=== PATIENT | female | born 1955 | race Caucasian/White ===

== ENCOUNTER 2020-07-30 14:30 | Outpatient (REF) | payer OTHER, SELFPAY | END 2020-07-30 14:31 | disposition home or self-care (01) | LOC: HO.LAB 14:30 | PROVIDERS: PCP Internal Medicine; Visit Provider Internal Medicine | DX: Z20.828 Contact with and (suspected) exposure to other viral communicable diseases (principal) | CPT/HCPCS: 36415; C9803; U0003 ==

== ENCOUNTER → 2022-04-20 09:43 | Outpatient (BNVA) | payer MEDICARE, MEDICAID, SELFPAY | PROVIDERS: PCP Internal Medicine; Visit Provider Internal Medicine | DX: R07.2 Precordial pain (principal); I10 Essential (primary) hypertension; E11.9 Type 2 diabetes mellitus without complications; Z79.4 Long term (current) use of insulin | CPT/HCPCS: 93005 ==

== ENCOUNTER → 2022-05-17 08:29 | Outpatient (REF) | payer MEDICARE, MEDICAID, SELFPAY ==
--- NOTE | ~2022-05-17 | NM_ITS ---
Exercise Myocardial perfusion study Indication: Precordial chest pain Technique: The patient was brought in for an exercise perfusion study on 05/17/2022. Patient performed exercise as per Abundio protocol and was injected 25 mCi of sestamibi was given intravenously one target HR was achieved. Images were obtained using the SPECT gamma camera interlaced with the gating device. Images were obtained in supine position. Resting perfusion study was performed on 05/18/2022. Patient was administered 25 mCi of sestamibi intravenously at rest. Images were then obtained in supine position. Images obtained with and without CT attenuation. Total DLP 97 mGy-cm. Images were processed with the software and compared side to side in short axis, horizontal long axis and vertical long axis views. Findings: The stress perfusion study showed non attenuated as well as attenuated corrected images show normal uptake of radiotracer in all segments of LV myocardium.. The gated study shows normal LV systolic function with calculated LVEF of 69%. LV cavity is normal in size. The gated study shows normal systolic wall thickening and contraction of all segments. There is no transient ischemic dilation. Resting study shows normal uptake of radiotracer in all segments of LV myocardium. Gating at rest reveals normal systolic wall motion with ejection fraction at 65%. The findings are consistent with normal myocardial perfusion. NM/NM sherri perf SPECT rest & str Impression: 1. Normal myocardial perfusion 2. Gated LVEF is 69% 3. Transient ischemic dilatation not present Stress EKG is positive for ischemia
--- NOTE | 2022-05-17 08:33 | CA_ITS ---
Acquisition Time: 2022-05-17 09:14:22 Total Exercise Time: 00:05:00 Test Indications: Chest Pain Medications: ASA GLIPIZIDE INSULIN LISINOPRIL METOPROLOL Protocol: CARIN Max HR: 151 BPM 97% of Pred: 155 BPM Max BP: 200/050 mmHG Max Work Load: 5.6 METS Exercise stress test with exercise 5 min of Carin protocol (last minute rate down to 2 MPH), with report sob, and 9/10 Left chest pressure, without arrythmia, with hypertensive response to exercise with max BP 200/50, with EKG changes meeting criteria for ischemia: 1-2mm horizontal to upsloping ST depressions inferiorly and V4-V6 which correct quickly in recovery. In recovery her chest discomfort resolved by 2 minutes of rest. She continued to report some sob during most of recovery, which was improved by test end. Nuclear images pending. Test reviewed [facility] [address] Referred By: Yasir Nolen Overread By: CARROLL FAYE
--- NOTE | 2022-05-17 08:33 | CA_ITS ---
Transthoracic Echocardiogram Patient (Last, First, Middle): Lisa Swanson, Gender: Female Date of : 1955 Age: 67 Procedure Date: 05/17/2022 Procedure Type: Transthoracic Echocardiogram Location: OP Height: 154.94 cm Weight: 74.39 kg BSA: 1.74 m2 Heart Rate: 61 bpm BP: 152 / 74 mmHg Manager Talent Acquisition: ELIEL Referring MD: Yasir Nolen MD Web Producer: Dax Lane MD Symptoms: R07.2 - Precordial pain Study Quality: Adequate ECG Rhythm: Sinus Conclusions: - 1. Normal LV systolic function with LVEF of 60 65% with normal filling pattern 2. Normal cardiac valvular Doppler 3. Normal RV systolic pressure 4. No gross pericardial effusion Findings Left Ventricle Normal left ventricular size, thickness, and systolic function. The visually estimated ejection fraction is between 60-65%. Spectral Doppler is indicative of a normal filling pattern. Right Ventricle Normal right ventricular cavity size and systolic function. Atria The left atrium is normal in size. Interatrial shunt cannot be excluded. The right atrium is normal in size. Aortic Valve The aortic valve structure and function is likely normal. There is no aortic valve stenosis. There is no aortic valve regurgitation. Mitral Valve Likely normal mitral valve structure and function. There is trace mitral valve regurgitation. There is no mitral valve stenosis. Pulmonic Valve The pulmonic valve was not well visualized. Tricuspid Valve Likely normal tricuspid valve structure and function. There is trace tricuspid valve regurgitation. The right ventricular systolic pressure is normal. The right ventricular systolic pressure is 24 mmHg. Normal right atrial pressure. There is no evidence of pulmonary hypertension. Great Vessels All visible segments of the aorta are normal in size. The pulmonary artery was not well visualized. Venous The inferior vena cava is normal in size and collapses greater than 50% with inspiration. Pericardium/Pleural There is no evidence of pericardial effusion. Prior Study Comparison No significant change compared to prior study dated: 08/20/2015. Measurements 2D Linear Measurements IVSd: 0.99 0.6-0.9/0.6-1.0 cm LVIDd: 4.10 3.9-5.3/4.2-5.9 cm LVIDd Index: 2.36 2.4-3.2/2.2-3.1 cm/m2 LVIDs: 2.97 2.0-3.6 cm LVPWd: 0.89 0.7-1.1 cm LA Diam: 4.00 2.7-3.8/3.0-4.0 cm LAIDs Index: 2.30 1.5-2.3 cm/m2 LV Mass: 150.83 67-162/88-224 g LV Mass Index: 86.69 43-95/49-115 g/m2 LVOT Diam: 1.90 3.0+(-)1.3 cm 2D Systolic Function EF 4C: 61.00 >55% EF 2C: 67.60 >55% EF BiP: 65.20 >55% Mitral Valve MV Pk E: 0.85 MV PK A: 0.63 MV Decel Time: 193.00 E/A: 1.30 E'Lateral: 8.81 E'Medial: 5.77 E/E' Med: 14.70 E/E' Lat: 9.60 PHT: 57.00 MVA PHT: 3.86 Decel Screven: 4.39 Aortic Valve AoV Pk Froylan: 1.09 AoV Mn Froylan: 0.81 AoV VTI: 0.27 AoV Pk Grad: 5.00 Aov Mn Grad: 3.00 RICHARD Cont.VTI: 2.44 LVOT LVOT Pk Froylan: 1.00 LVOT Mn Froylan: 0.66 LVOT VTI: 0.23 LVOT Pk Grad: 4.00 LVOT Mn Grad: 2.00 LVOT Diam: 1.90 LVOT Area: 2.84 Diastolic Function MV Pk E: 0.85 MV Pk A: 0.63 E/A: 1.30 E'Medial: 5.77 E/E' Med: 14.70 E' Laterial: 8.81 E/E' Lat: 9.60 Right Ventricle TAPSE (mm): 18.20 TVS' Froylan: 8.90 Tricuspid Valve TR Pk Froylan: 2.28 TR Pk Grad: 21.00 RA Press: 3.00 RVSP: 24.00 Great Vessels Aorta Sinus of Valsalva: 2.50 2.0-3.5 cm Ao Asc: 3.00 2.1-3.4 cm Pulmonary Veins Pulm Vein S/D 1.10 Pulmonary Valve PV Pk Froylan: 0.81 Peak PV Grad: 3.00 Updated in Other Vendor System with Status of Final Dax Lane MD electronically signed on 05/18/2022 4:12:48 PM with status of Final
== END ==
LOC: HO.CARD 08:29
PROVIDERS: Visit Provider Internal Medicine
DX: R07.2 Precordial pain (principal)
CPT/HCPCS: 78452; 93017; 93306; A9500; J0280; J2785

== ENCOUNTER → 2022-06-08 12:54 | Outpatient (BNVA) | payer MEDICARE, MEDICAID, SELFPAY | PROVIDERS: PCP Internal Medicine; Referring Provider Internal Medicine; Visit Provider Nurse Practitioner Family | DX: R94.39 Abnormal result of other cardiovascular function study (principal); R07.2 Precordial pain; I10 Essential (primary) hypertension; E11.9 Type 2 diabetes mellitus without complications; Z79.4 Long term (current) use of insulin | CPT/HCPCS: 99212 ==

== ENCOUNTER 2023-08-04 11:28 | Emergency (ER) | payer MEDICARE, MEDICAID, SELFPAY ==
[2023-08-04 12:11] VITALS: BP 164/78; PULSE 83; RESP 16; TEMP 36.6; O2SAT 98; BMI 28.6
--- NOTE | 2023-08-04 12:11 | ED.DIZZY ---
HPI - Dizziness General Chief Complaint: General Medical Stated Complaint: dizzy, low bp, back pain Time Seen by Provider: 08/04/23 16:34 Source: patient and psychotherapist counselor Mode of arrival: ambulatory Limitations: language barrier History of Present Illness HPI Narrative: Patient is a 68 year old assigned female at with a history of DM and HTN presenting to the emergency department today with intermittent dizziness. Patient states that there was an issue a month ago with getting some of her diabetes medications and ever since, her sugar has been some what higher. Patient states that she has struggled to get her sugars back in check and is having intermittent dizziness. Patient admits to not taking her medications as prescribed consistently. Patient denies any current dizziness, lightheadedness, abdominal pain, nausea, vomiting, fever, chills, blurry vision, double vision, loss of vision, chest pain, difficulty breathing, shortness of breath, back pain, night sweats, pain with urination, increased urinary frequency, increased urinary urgency, blood in her urine or stool, syncope or a near syncopal episode, recent trauma or falls, bowel incontinence, bladder incontinence, bowel retention, bladder retention, or any other complaints at this time. Related Data Home Medications Medication Instructions Recorded Confirmed aspirin 81 mg capsule 81 mg PO DAILY 04/20/22 06/08/22 cholecalciferol (vitamin D3) 10 10 mcg PO DAILY 04/20/22 06/08/22 mcg (400 unit) capsule glipizide 5 mg tablet 5 mg PO DAILY 04/20/22 06/08/22 insulin glargine 100 unit/mL (3 38 unit subcut QPM 04/20/22 06/08/22 mL) subcutaneous pen (Lantus Solostar U-100 Insulin) lisinopril 40 mg tablet 40 mg PO DAILY 04/20/22 06/08/22 metoprolol succinate 50 mg 50 mg PO DAILY 04/20/22 06/08/22 tablet,extended release 24 hr Allergies Allergy/AdvReac Type Severity Reaction Status Date / Time metformin [METFORMIN] Allergy Mild DIARRHEA Verified 08/04/23 12:11 alprazolam Allergy Unknown diarrhea Verified 08/04/23 12:11 egg [EGG] Allergy Unknown UNKNOWN Verified 08/04/23 12:11 lactose [LACTOSE] Allergy Unknown Rash Verified 08/04/23 12:11 milk [MILK] AdvReac Unknown DIARRHEA Verified 08/04/23 12:11 Review of Systems Constitutional: Constitutional: Reports no additional constitutional complaints, Denies chills, Denies fever(s) and Denies night sweats Eyes: Eyes: Reports no additional eye complaints, Denies blurry vision, Denies change in vision, Denies diplopia, Denies eye discharge, Denies loss of vision and Denies eye pain ENT: Reports dizziness (intermittently, none present currently) Cardiovascular: Cardiovascular: Reports no additional cardiovascular complaints, Denies chest pain, Denies lightheadedness, Denies Loss of Consciousness and Denies dyspnea Respiratory: Respiratory: Reports no additional respiratory complaints and Denies dyspnea Gastrointestinal: Gastrointestinal: Reports no additional gastrointestinal complaints, Denies abdominal pain, Denies melena, Denies hematochezia, Denies change in bowel habits and Denies change in stool character Genitourinary: Genitourinary: Denies hematuria, Denies urinary frequency, Denies dysuria, Denies urinary incontinence, Denies urinary hesitancy and Denies urinary urgency Musculoskeletal: Musculoskeletal: Reports no additional musculoskeletal complaints, Denies numbness and Denies tingling Neurologic: Reports dizziness (intermittently, none present currently), Denies loss of vision, Denies numbness and Denies tingling Psychiatric: Psychiatric: Reports no additional psychiatric complaints Endocrine: Endocrine: Reports no additional endocrine complaints Hematologic/Lymphatic: Hematologic/Lymphatic: Reports no additional hematologic/lymphatic complaints Allergic/Immunologic: Allergic/Immunologic: Reports no additional allergic/immunologic complaints PMF Past Medical History Attestation statement: The following information was validated with the patient. Source: old records reviewed and nursing notes reviewed Onset Date is defined in the Problem List Problems that require an onset date and time if occurred within 24 hrs of arrival to the ED Aortic Dissection and Rupture; Neurologic impairment; Cardiopulmonary Arrest; Endotracheal Intubation; Insertion or Replacement of Mechanical Circulatory Assist Device Medical History Essential hypertension Diabetes mellitus treated with insulin Surgical History History of appendectomy Family History Family History Mother Hypertension Hyperlipidemia Atherosclerosis Father No problems noted. Social History Social History Alcohol intake: never Patient Tobacco Use Status: Never used Tobacco Advance Directives: No Advance Directives Information Provided: No Physical Exam Vital Signs: Vital Signs: Last Vital Signs Temp 98.1 F 08/04/23 17:33 Pulse 84 08/04/23 17:33 Resp 18 08/04/23 17:33 BP 176/87 H 08/04/23 17:33 Pulse Ox 98 08/04/23 17:33 O2 Del Method Room Air 08/04/23 17:33 BMI result Body Mass Index 28.6 Const: General: cooperative, no acute distress, alert and awake Nutritional Appearance: well nourished Orientation/consciousness: patient oriented x3 Limitations: no limitations HEENT: Head: Yes normal to inspection and Yes atraumatic Ears: hearing grossly normal bilaterally and external ears normal General nose exam: Normal external nose present, no nasal discharge noted and no epistaxis Face and sinus: Yes normal facial exam, No abrasion and No laceration Mouth: Normal oral and palatal mucosa present, no drooling and no muffled voice Eyes: General: appearance normal, both eyes and all related structures Periorbital: periorbital findings normal Eyelids: Yes eyelids normal Conjunctivae: conjunctivae normal Pupils: Equal, round and reactive pupils present EOM: EOMs intact bilaterally Neck: Neck: Yes normal visual inspection, Yes full ROM and Yes no lymphadenopathy Chest: Chest palpation & inspection: normal inspection of the chest Resp: Effort & Inspection: normal respiratory effort and able to speak in complete sentences GI: Inspection: Yes normal to inspection Neuro: General: patient oriented x3 and moves all extremities Cranial nerves: Yes Equal, round and reactive pupils present Cognition (Neuro): normal cognition Motor exam (neuro): 5/5 motor strength present throughout Sensory Exam: Normal double simultaneous stimulation for sensation Coordination: [id number] test normal Extrem: General: Yes normal to inspection, Yes full ROM and Yes capillary refill normal Psych: Appearance: grossly normal Mental Status: mental status grossly normal Affect: normal affect Attitude: cooperative Thought process: Normal thought process present Thought content: Normal thought content present Insight: Good insight present (Psych) Course Course Course Narrative: This is an RME: Additional HPI, ROS, PE not included below will be deferred to primary provider. Patient is a 68-year-old female who presents to the emergency department for evaluation of hypertension and hyperglycemia for the past month. She reports blood glucose levels in the 300s today. She is supposed to be taking insulin every night but she states that she did not take it yesterday because she is taking glipizide in the afternoon. Does not sound as though she is taking her insulin as prescribed by her doctor. No antihypertensives x 2wks, awaiting mail order. For the past few days she has been experiencing dizziness, myalgias, lower back pain. Plan: labs, viral testing, EKG Medical Decision Making Medical Decision Making [facility] Narrative: Patient is a 68 year old assigned female at with a history of DM and HTN presenting to the emergency department today with intermittent dizziness and medication non-compliance. Patient's physical exam was unremarkable. Patient's blood work showed a glucose of 356 but were otherwise normal including a normal anion gap of 13 and beta-hydoxybutyrate of 0.12. Patient's EKG was unremarkable. I explained my physical exam findings as well as all test results to the patient. I answered all questions asked by the patient. I stressed the importance of the patient taking her medication as prescribed. I stressed the importance of the patient following up with her primary care provider and a residential support specialist. I stressed the importance of the patient returning to the emergency department immediately if her symptoms were to worsen or if she were to develop any dizziness, shortness of breath, difficulty breathing, chest pain, blurry vision, loss of vision, nausea, vomiting, abdominal pain, fever, chills, back pain, or any other complaints. Patient verbalized agreement and understanding with this treatment plan and discharge. Differential Diagnosis Differential Diagnoses: The differential diagnosis associated with the presentation includes DM Uncontrolled DM Medication non-compliance Admission/Observation Consideration of admission/observation: Escalation of care including admission/observation considered Patient would have been admitted to the hospital had her work up had any findings where hospital admission was appropriate and her clinical presentation warranted hospital admission. Lab Data [facility] Lab Attestation statement: I reviewed the patient's lab results. My interpretation of these results are in the [facility] Rationale portion of this note. 08/04/23 12:54 08/04/23 12:54 Labs: Lab Results 08/04/23 08/04/23 Range/Units 12:54 13:08 WBC 7.2 (4.8-10.8) X10*3/uL RBC 5.05 (4.20-5.50) X10*6/uL Hgb 14.3 (12.0-16.0) g/dl Hct 42.7 (37.0-47.0) % MCV 84.6 (80.0-98.0) fL MCH 28.3 (27.0-33.0) pg MCHC 33.5 (31.0-35.0) g/dl RDW 13.0 (11.0-16.0) % Plt Count 199 (160-400) X10*3/uL MPV 11.7 (9.4-12.3) fL Immature Gran % (Auto) 0.4 (0.0-0.4) % Neut % (Auto) 59.3 (45-73) % Lymph % (Auto) 32.3 (20-40) % Wetzel % (Auto) 6.8 (2-11) % Eos % (Auto) 0.8 (0-4) % Baso % (Auto) 0.4 (0-2) % Lymph # (Auto) 2.3 (1.2-4.9) X10*3/uL Wetzel # (Auto) 0.5 (0.1-1.2) X10*3/uL Eos # (Auto) 0.1 (0.0-0.4) X10*3/uL Baso # (Auto) 0.0 (0.0-0.2) X10*3/uL Abs Immat Gran (auto) 0.03 (0.00-0.03) X10*3/uL Absolute Neuts (auto) 4.2 (2.0-8.3) x10*3/uL Absolute Nucleated RBC 0.000 (0.0-0.012) X10*3/uL Nucleated RBC % (auto) 0.0 (0.0-0.2) /100WBC VBG pH 7.40 (7.32-7.43) VBG pCO2 39 mmHg VBG pO2 62 mmHg VBG HCO3 24 (22-26) mmol/L VBG O2 Saturation 92.0 % VBG Base Excess 0.4 mmol/L Sodium 135 (135-145) mmol/L Potassium 4.2 (3.3-5.1) mmol/L Chloride 102 (96-108) mmol/L Carbon Dioxide 24 (22-29) mmol/L Anion Gap 13 (12-20) BUN 13 (9-16) mg/dL Creatinine 0.81 (0.5-1.4) mg/dL Estim Creat Clear Calc 60.5 Estimated GFR > 60 Random Glucose 356 H* (60-115) mg/dL Calcium 9.4 (8.4-10.2) mg/dL Magnesium 1.9 (1.6-2.6) mg/dL Total Bilirubin 0.7 (0.0-1.0) mg/dL AST 13 (5-31) U/L ALT 18 (0-31) U/L Alkaline Phosphatase 124 H (39-117) U/L Troponin I High Sens < 2.7 (<3.5-17.0) ng/L Total Protein 7.3 (6.5-8.0) g/dL Albumin 4.1 (3.5-5.0) g/dL Lipase 48 (8-78) U/L Beta-Hydroxybutyrate 0.12 (0.02-0.27) mmol/L COVID-19 (CHELSEA) Negative (Negative) COVID-19 Clin Com See Note Influenza Type A (REY) Negative (Negative) Influenza Type B (REY) Negative (Negative) Influenza A & B Note See Note Independent Interpretation I performed an independent interpretation of an: EKG Interpretation: Vent. Rate: 076 BPM Atrial Rate: 076 BPM P-R Int: 166 ms QRS Dur: 076 ms QT Int: 382 ms P-R-T Axes: 057 010 057 degrees QTc Int: 429 ms Normal sinus rhythm Possible Left atrial enlargement Borderline ECG When compared with ECG of 16-AUG-2019 16:29, No significant change was found Electronically Signed By:DAX HUGHES MD Dictated By: Dax Hughes MD Signed By: Electronically signed by Dax Hughes MD 08/04/23 5217 Chronic Conditions Patient?s care impacted by: Diabetes Discharge Plan Discharge Clinical Impression: Hyperglycemia Patient Disposition: Home, Self-Care Instructions: Diabetic Hyperglycemia (ED) Additional Instructions: Follow up with your primary care provider. Return to the emergency department immediately if your symptoms worsen or if you develop any dizziness, shortness of breath, difficulty breathing, chest pain, blurry vision, loss of vision, nausea, vomiting, abdominal pain, fever, chills, back pain, or any other complaints. Jade un seguimiento con paige proveedor de atenci?n primaria. Regrese al departamento de emergencias inmediatamente si scotty s?ntomas empeoran o si presenta mareos, dificultad para respirar, dificultad para respirar, dolor en el pecho, visi?n borrosa, p?rdida de la visi?n, n?useas, v?mitos, dolor abdominal, fiebre, escalofr?os, dolor de espalda o cualquier otras quejas. Prescriptions: No Action glipizide 5 mg tablet 5 mg PO DAILY lisinopril 40 mg tablet 40 mg PO DAILY aspirin 81 mg capsule 81 mg PO DAILY metoprolol succinate 50 mg tablet extended release 24 hr 50 mg PO DAILY insulin glargine [Lantus Solostar U-100 Insulin] 100 unit/mL (3 mL) insulin pen 38 unit subcut QPM cholecalciferol (vitamin D3) 10 mcg (400 unit) capsule 10 mcg PO DAILY Referrals: Marii Camarena MD [Primary Care Provider] - Leandro Mckenna MD [Physician] - (Call to establish and follow up with a residential support specialist. Llame para establecer y montez seguimiento con un especialista en diabetes.) Interventions: ED Discharge Assessment Last Done: 08/04/23 17:34 Discharge Date/Time: 08/04/23 17:34 Print Language: Palestinian
--- NOTE | 2023-08-04 12:14 | ECG_ITS ---
Test Reason : CHEST PAIN Blood Pressure : / mmHG Vent. Rate : 076 BPM Atrial Rate : 076 BPM P-R Int : 166 ms QRS Dur : 076 ms QT Int : 382 ms P-R-T Axes : 057 010 057 degrees QTc Int : 429 ms Normal sinus rhythm Possible Left atrial enlargement Borderline ECG When compared with ECG of 16-AUG-2019 16:29, No significant change was found Referred By: Tisha Hurley Electronically Signed By:SCOTT HUGHES MD
[2023-08-04 13:07] LABS: MANUAL DIFF FLAG NO
[2023-08-04 13:09] LABS: Basophils Percent Auto 0.4 % (0-2); Eosinophils Absolute Auto 0.1 X10*3/uL (0.0-0.4); Eosinophils Percent Auto 0.8 % (0-4); Hematocrit 42.7 % (37.0-47.0); Hemoglobin 14.3 g/dl (12.0-16.0); Imm Gran Abs Auto 0.03 X10*3/uL (0.00-0.03); Imm Gran Pct Auto 0.4 % (0.0-0.4); Lymphocytes Absolute Auto 2.3 X10*3/uL (1.2-4.9); Lymphocytes Percent Auto 32.3 % (20-40); Mean Corpuscular HGB Conc 33.5 g/dl (31.0-35.0); Mean Corpuscular Hemoglobin 28.3 pg (27.0-33.0); Mean Corpuscular Volume 84.6 fL (80.0-98.0); Mean Platelet Volume 11.7 fL (9.4-12.3); Monocytes Absolute Auto 0.5 X10*3/uL (0.1-1.2); Monocytes Percent Auto 6.8 % (2-11); Neutrophils Absolute Auto 4.2 x10*3/uL (2.0-8.3); Neutrophils Percent Auto 59.3 % (45-73); Platelet Count 199 X10*3/uL (160-400); Red Blood Count 5.05 X10*6/uL (4.20-5.50); White Blood Count 7.2 X10*3/uL (4.8-10.8)
[2023-08-04 13:18] LABS: Venous Blood Gas Refer to POC result
[2023-08-04 13:19] LABS: VBG Base Excess 0.4 mmol/L; VBG HCO3 24 mmol/L (22-26); VBG pCO2 39 mmHg; VBG pO2 62 mmHg
[2023-08-04 13:32] LABS: Beta-Hydroxybutyrate 0.12 mmol/L (0.02-0.27)
[2023-08-04 13:39] LABS: Alanine Aminotransferase 18 U/L (0-31); Albumin Level 4.1 g/dL (3.5-5.0); Alkaline Phosphatase 124 U/L (39-117); Anion Gap 13 (12-20); Aspartate Amino Transferase 13 U/L (5-31); Bilirubin Total 0.7 mg/dL (0.0-1.0); Blood Urea Nitrogen 13 mg/dL (9-16); Calcium 9.4 mg/dL (8.4-10.2); Carbon Dioxide 24 mmol/L (22-29); Chloride 102 mmol/L (96-108); Creatinine Clr Calc Pharmacy 60.5; Estimated Glomerular Filt Rate > 60; Glucose Random 356 mg/dL (60-115); Lipase 48 U/L (8-78); Magnesium 1.9 mg/dL (1.6-2.6); Potassium 4.2 mmol/L (3.3-5.1); Sodium 135 mmol/L (135-145); Total Protein 7.3 g/dL (6.5-8.0)
[2023-08-04 13:41] LABS: Troponin-I High Sensitivity < 2.7 ng/L (<3.5-17.0)
[2023-08-04 13:48] LABS: COVID-19 Test Negative (Negative); IDNOW Serial# 55D5AD1C; IDNOW Serial# 6674DD1D; Influenza A Negative (Negative); Influenza B2 Negative (Negative)
--- NOTE | 2023-08-04 17:27 | PC.NURSE ---
Pt A&Ox3 skin pwd respirations even unlabored. Negative workup, evaluated by PA, cleared for dc home.
[2023-08-04 17:33] VITALS: BP 176/87; PULSE 84; RESP 18; TEMP 36.7; O2SAT 98
== END 2023-08-04 17:34 | disposition home or self-care (01) ==
PROVIDERS: Nurse Practitioner Family; Emergency Provider Emergency Medicine Emergency Medical Services; PCP Internal Medicine
DX: R42 Dizziness and giddiness (principal); M54.50 Low back pain, unspecified; R73.9 Hyperglycemia, unspecified; R07.89 Other chest pain; Z79.899 Other long term (current) drug therapy; Z11.52 Encounter for screening for COVID-19; Z20.828 Contact with and (suspected) exposure to other viral communicable diseases
CPT/HCPCS: 80053; 82010; 82803; 83690; 83735; 84484; 85025; 87502; 87635; 93005; 99283; 99284

== ENCOUNTER → 2023-08-04 12:14 | Outpatient (BNV) | payer MEDICARE, MEDICAID, SELFPAY | PROVIDERS: Visit Provider Internal Medicine Cardiovascular Disease | DX: R07.9 Chest pain, unspecified (principal) | CPT/HCPCS: 93010 ==

== ENCOUNTER 2023-09-12 08:23 | Outpatient (REF) | payer MEDICARE, SELFPAY ==
[2023-09-12 08:46] LABS: MANUAL DIFF FLAG NO
[2023-09-12 09:12] LABS: Basophils Percent Auto 0.4 % (0-2); Eosinophils Absolute Auto 0.1 X10*3/uL (0.0-0.4); Eosinophils Percent Auto 1.7 % (0-4); Hematocrit 41.4 % (37.0-47.0); Hemoglobin 13.5 g/dl (12.0-16.0); Imm Gran Abs Auto 0.02 X10*3/uL (0.00-0.03); Imm Gran Pct Auto 0.3 % (0.0-0.4); Lymphocytes Absolute Auto 3.4 X10*3/uL (1.2-4.9); Lymphocytes Percent Auto 43.7 % (20-40); Mean Corpuscular HGB Conc 32.6 g/dl (31.0-35.0); Mean Corpuscular Volume 85.9 fL (80.0-98.0); Mean Platelet Volume 12.1 fL (9.4-12.3); Monocytes Absolute Auto 0.7 X10*3/uL (0.1-1.2); Monocytes Percent Auto 9.2 % (2-11); Neutrophils Absolute Auto 3.5 x10*3/uL (2.0-8.3); Neutrophils Percent Auto 44.7 % (45-73); Platelet Count 259 X10*3/uL (160-400); Red Blood Count 4.82 X10*6/uL (4.20-5.50); White Blood Count 7.8 X10*3/uL (4.8-10.8)
[2023-09-12 09:13] LABS: Estimated Average Glucose 246 mg/dL; Hemoglobin A1c % 10.2 % (<6.0)
[2023-09-12 09:42] LABS: Creatinine Urine 164.23 mg/dL; Microalbum/Creatinine Ratio Ur 4.8 ug/mg cr (<30)
[2023-09-12 09:44] LABS: Alanine Aminotransferase 18 U/L (0-31); Albumin Level 3.9 g/dL (3.5-5.0); Alkaline Phosphatase 113 U/L (39-117); Anion Gap 13 (12-20); Aspartate Amino Transferase 15 U/L (5-31); Blood Urea Nitrogen 13 mg/dL (9-16); Carbon Dioxide 27 mmol/L (22-29); Chloride 104 mmol/L (96-108); Cholesterol 240 mg/dL (<200); Estimated Glomerular Filt Rate > 60; Glucose Random 130 mg/dL (60-115); HDL Cholesterol 46 mg/dL (>40); LDL Cholesterol Calculated 153 mg/dL (<100); Sodium 140 mmol/L (135-145); Total Protein 7.3 g/dL (6.5-8.0); Triglycerides 205 mg/dL (<150)
[2023-09-12 10:01] LABS: Thyroid Stimulating Hormone 1.18 uIU/mL (0.32-4.0)
== END 2023-09-12 08:24 | disposition home or self-care (01) ==
LOC: HO.LAB 08:23
PROVIDERS: PCP Internal Medicine; Visit Provider Internal Medicine
DX: E11.65 Type 2 diabetes mellitus with hyperglycemia (principal); E78.00 Pure hypercholesterolemia, unspecified; I10 Essential (primary) hypertension; R35.89 Other polyuria
CPT/HCPCS: 36415; 80053; 80061; 82043; 82570; 83036; 84443; 85025

== ENCOUNTER 2023-11-01 08:27 | Outpatient (REF) | payer OTHER, SELFPAY ==
--- NOTE | ~2023-11-01 | MM_ITS ---
EXAMINATION: MM SCREENING DIGITAL BREAST TOMOSYNTHESIS, BILATERAL CLINICAL INFORMATION: Screening. Asymptomatic. COMPARISON: Mammography: This study is compared with prior exams dating back to 2015. TECHNIQUE: Digital breast tomosynthesis is performed in both the craniocaudal and mediolateral oblique views along with computer-aided detection (CAD). Synthesized 2D images are generated from the tomosynthesis. FINDINGS: There are scattered areas of fibroglandular density (ACR BI-RADS breast composition Category b). There are no significant masses, abnormal calcifications, or other abnormalities. MM/MM tomosynthesis screening BI IMPRESSION: No mammographic evidence of malignancy. ASSESSMENT: BI-RADS BI-RADS 1 - Negative RECOMMENDATION: Routine annual mammography screening. 1 year F/U This examination should not preclude the clinical evaluation of a suspicious palpable abnormality. This patient's information was entered into a reminder system with a target due date for their next mammogram.
== END 2023-11-01 08:28 | disposition home or self-care (01) ==
LOC: HO.MAMMO 08:27
PROVIDERS: PCP Internal Medicine; Visit Provider Internal Medicine
DX: Z12.31 Encounter for screening mammogram for malignant neoplasm of breast (principal)
CPT/HCPCS: 77063; 77067

== ENCOUNTER → 2023-11-01 09:00 | Outpatient (BNV) | payer OTHER, SELFPAY | PROVIDERS: PCP Internal Medicine; Visit Provider Radiology Diagnostic Radiology | DX: Z12.31 Encounter for screening mammogram for malignant neoplasm of breast (principal) | CPT/HCPCS: 77063; 77067 ==

== ENCOUNTER 2024-01-22 14:55 | Outpatient (REF) | payer OTHER, SELFPAY ==
[2024-01-22 16:40] LABS: Creatinine Urine 50.85 mg/dL; Microalbumin Urine < 5.0 mg/L
[2024-01-22 16:42] LABS: Alanine Aminotransferase 18 U/L (0-31); Albumin Level 4.1 g/dL (3.5-5.0); Alkaline Phosphatase 118 U/L (39-117); Anion Gap 12 (12-20); Aspartate Amino Transferase 14 U/L (5-31); Bilirubin Total 0.7 mg/dL (0.0-1.0); Blood Urea Nitrogen 13 mg/dL (9-16); Calcium 9.2 mg/dL (8.4-10.2); Carbon Dioxide 27 mmol/L (22-29); Chloride 100 mmol/L (96-108); Cholesterol 257 mg/dL (<200); Estimated Glomerular Filt Rate > 60; Glucose Random 295 mg/dL (60-115); HDL Cholesterol 53 mg/dL (>40); LDL Cholesterol Calculated 148 mg/dL (<100); Potassium 3.9 mmol/L (3.3-5.1); Sodium 135 mmol/L (135-145); Total Protein 7.1 g/dL (6.5-8.0); Triglycerides 280 mg/dL (<150)
[2024-01-22 17:01] LABS: Vitamin D 25-OH Total 74.4 ng/mL (>30)
[2024-01-22 18:06] LABS: Reflex LDLD? No
== END 2024-01-22 14:56 | disposition home or self-care (01) ==
LOC: HO.HHCL 14:55
PROVIDERS: Visit Provider Family Medicine
DX: E11.65 Type 2 diabetes mellitus with hyperglycemia (principal); Z79.4 Long term (current) use of insulin; I10 Essential (primary) hypertension; E55.9 Vitamin D deficiency, unspecified
CPT/HCPCS: 36415; 80053; 80061; 82306; 82570; 84443

== ENCOUNTER 2024-02-21 09:26 | Outpatient (REF) | payer OTHER, SELFPAY ==
--- NOTE | ~2024-02-21 | MM_ITS ---
EXAMINATION: BONE DENSITOMETRY CLINICAL INDICATION: Postmenopausal, vitamin D deficiency, screening for osteoporosis. COMPARISON: This is the patient's baseline examination. TECHNIQUE: Using a [employer] DXA System (software version: 13.1) manufactured by [employer], dual-energy x-ray absorptiometry was performed of the lumbar spine and left hip. The images are of good technical quality. Summary results are attached. FINDINGS: LEFT FEMUR, NECK: BMD 1.084 g/cm2, Z-score 1.8, T-score 0.3, normal. LEFT FEMUR, TOTAL: BMD 1.204 g/cm2, Z-score 2.8, T-score 1.6, normal. AP SPINE L1-L4: BMD 1.426 g/cm2, Z-score 3.6, T-score 2.0, normal. IDENTIFIED RISK FACTORS: Height loss, menopause. HISTORY OF FRACTURE: None listed. MEDICATIONS: Multivitamin, vitamin D. MM/XR DEXA axial skeleton IMPRESSION: 1. DIAGNOSIS: Normal bone density based on the lowest T-score value of 0.3 in the femoral neck applying World Health Organization criteria. 2. 10-YEAR FRACTURE RISK PREDICTION, FRAX: According to the guidelines, FRAX calculation should only be performed on patients in the osteopenia bone density category. Therefore, FRAX was not performed on this patient.? 3. Treatment Recommendations: NOF guidelines recommend consideration for treatment in postmenopausal women and men age 50 and older presenting with the following: -A hip or vertebral (clinical or morphometric) fracture. -T-score less than or equal to -2.5 at the femoral neck or spine after appropriate evaluation to exclude secondary causes. -Low bone mass at the hip or spine and a 10-year fracture probability by FRAX of greater than or equal to 3% for hip fracture or greater than or equal to 20% for major osteoporotic fracture based on the [place] adapted WHO algorithm. 4. Other Recommendations: All treatment decisions require clinical judgment and consideration of individual patient factors, including patient preferences, comorbidities, previous drug use, risk factors not captured in the FRAX model (e.g. frailty, falls, vitamin D deficiency, increased bone turnover, interval significant decline in bone density) and possible under or overestimation of fracture risk by FRAX. FUTURE SCAN RECOMMENDATION: People with diagnosed cases of osteoporosis or at high risk for fracture should have regular bone mineral density tests. For patients eligible for Medicare, routine testing is allowed once every 2 years. The testing frequency can be increased to one year for patients who have rapidly progressing disease, those who are receiving or discontinuing medical therapy to restore bone mass, or have additional risk factors.
== END 2024-02-21 09:27 | disposition home or self-care (01) ==
LOC: HO.MAMMO 09:26
PROVIDERS: PCP Family Medicine; Visit Provider Family Medicine
DX: Z13.820 Encounter for screening for osteoporosis (principal); Z78.0 Asymptomatic menopausal state; E55.9 Vitamin D deficiency, unspecified
CPT/HCPCS: 77080

== ENCOUNTER 2024-03-29 11:00 | Outpatient (REF) | payer OTHER, SELFPAY | END 2024-03-29 11:01 | disposition home or self-care (01) | LOC: HO.HHCL 11:00 | PROVIDERS: Visit Provider Family Medicine | DX: R10.13 Epigastric pain (principal) | CPT/HCPCS: 87338 ==

== ENCOUNTER 2024-04-09 13:19 | Emergency (ER) | payer OTHER, SELFPAY ==
[2024-04-09] VITALS (10 sets, daily range): BP systolic 168–209; BP diastolic 76–89; PULSE 62–79; RESP 16–20; TEMP 36.6–36.8; O2SAT 97–100; BMI 25.9
--- NOTE | ~2024-04-09 | XR_ITS ---
EXAMINATION: XR CHEST CLINICAL INFORMATION: Chest pain COMPARISON: Chest radiograph from 08/16/2019 TECHNIQUE: 2 views of the chest were obtained. FINDINGS: No focal consolidation. No pneumothorax. Trachea is midline. Cardiac mediastinal silhouette is not enlarged. No large pleural effusion. Osseous structures are intact. Soft tissues are unremarkable. XR/XR chest 2V IMPRESSION: No acute cardiopulmonary process. Electronically signed by: Sam Fuller MD 04/09/2024 02:56 PM EDT
--- NOTE | ~2024-04-09 | CT_ITS ---
EXAMINATION: CT ANGIOGRAM OF THE CHEST, ABDOMEN AND PELVIS WITHOUT AND WITH CONTRAST CLINICAL INFORMATION: Abdominal pain. Uncontrolled hypertension COMPARISON: Chest radiograph August 16, 2019 TECHNIQUE: Multidetector volumetric CT imaging of the chest, abdomen, and pelvis was performed before and after the administration of 85 mL of Omnipaque 350 intravenous contrast without immediate adverse reactions. 3D POSTPROCESSING: Multiple 3-D angiographic images were processed from the initial data set by the [facility] under concurrent physician supervision. DOSE LOWERING TECHNIQUES: This CT examination was performed using dose optimization techniques as appropriate, variously including the following: - Automated exposure control - Adjustment of mA and/or kV according to patient size (this includes techniques or standardized protocols for targeted exams where dose is matched to indication/reason for exam; i.e. extremities or head) - Use of iterative reconstruction technique DLP: 472 mGy-cm. FINDINGS: VASCULAR: ASCENDING AORTA: Normal in caliber. No dissection AORTIC ARCH: Normal in caliber. No dissection. Aberrant right subclavian artery. SUPRAAORTIC VESSELS: The supraaortic vessels are patent. HEART AND PULMONARY VESSELS: The heart is normal in size. The coronary arteries are patent with no calcification. The pulmonary arteries are normal in caliber. No large, central pulmonary embolus. DESCENDING AORTA: Normal in caliber. No dissection. ABDOMINAL AORTA: Normal caliber. No dissection CELIOMESENTERIC ARTERIES: The celiac artery, SMA, LEON are patent and normal caliber RENAL ARTERIES: Patent and normal in caliber RIGHT ILIOFEMORAL ARTERIES: Patent and normal in caliber LEFT ILIOFEMORAL ARTERIES: Patent and normal in caliber NONVASCULAR: LUNGS: The lungs are clear with no evidence of inflammation or nodules. MEDIASTINUM: The mediastinum is normal. PLEURA: There is no pleural effusion. No pleural mass or thickening. LIVER AND BILIARY TREE: The liver is normal in size, shape, and attenuation. No focal hepatic lesion or biliary ductal dilatation is present. GALLBLADDER: The gallbladder is surgically absent. PANCREAS: Unremarkable. SPLEEN: Unremarkable. ADRENAL GLANDS: Unremarkable. KIDNEYS AND URETERS: The kidneys are normal in size, shape, and attenuation. No hydronephrosis, hydroureter, or calculi seen. No perinephric stranding. BLADDER: Unremarkable. GASTROINTESTINAL TRACT: The small and large bowel are unremarkable. The appendix is unremarkable. ABDOMINAL WALL: No significant hernia is appreciated. LYMPH NODES: Normal. PELVIC VISCERA: Unremarkable. OSSEOUS STRUCTURES: Unremarkable. CT/CT angio chest aorta IMPRESSION: No aortic dissection. Electronically signed by: Migue Koch MD 04/09/2024 07:49 PM EDT RP
--- NOTE | 2024-04-09 13:30 | ECG_ITS ---
Test Reason : chest pain Blood Pressure : / mmHG Vent. Rate : 072 BPM Atrial Rate : 072 BPM P-R Int : 172 ms QRS Dur : 076 ms QT Int : 388 ms P-R-T Axes : 053 014 052 degrees QTc Int : 424 ms Normal sinus rhythm Normal ECG When compared with ECG of 04-AUG-2023 12:32, No significant change was found Referred By: Gina Torres Electronically Signed By:HOLLY ESPARZA
--- NOTE | 2024-04-09 13:59 | ED.CHESTPAIN ---
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 Her pain is constant Her pain is improved with lying down. Denies any nausea vomiting. She also states her pain is improved with having a bowel movement She reports that she feels constipated but does not take any medications for constipation She is status post cholecystectomy Patient admits that she stopped her blood pressure medications 2 weeks ago. She states she stopped this because ?I was having pain and feeling weak. No other complaints or concerns at this time Related Data Home Medications ?Medication ?Instructions ?Recorded ?Confirmed aspirin 81 mg capsule 81 mg PO DAILY 04/20/22 06/08/22 cholecalciferol (vitamin D3) 10 10 mcg PO DAILY 04/20/22 06/08/22 mcg (400 unit) capsule glipizide 5 mg tablet 5 mg PO DAILY 04/20/22 06/08/22 insulin glargine 100 unit/mL (3 38 unit subcut QPM 04/20/22 06/08/22 mL) subcutaneous pen (Lantus Solostar U-100 Insulin) lisinopril 40 mg tablet 40 mg PO DAILY 04/20/22 06/08/22 metoprolol succinate 50 mg 50 mg PO DAILY 04/20/22 06/08/22 tablet,extended release 24 hr Previous Rx's ?Medication ?Instructions ?Recorded magnesium citrate (OneLAX 300 ml PO DAILY PRN constipation 04/09/24 Magnesium Citrate oral solution) #296 mL polyethylene glycol 3350 17 17 g PO DAILY 2 weeks #238 grams 04/09/24 gram/dose oral powder (Miralax) Allergies Allergy/AdvReac Type Severity Reaction Status Date / Time metformin [METFORMIN] Allergy Mild DIARRHEA Verified 04/09/24 14:05 alprazolam Allergy Unknown diarrhea Verified 04/09/24 14:05 egg [EGG] Allergy Unknown UNKNOWN Verified 04/09/24 14:05 lactose [LACTOSE] Allergy Unknown Rash Verified 04/09/24 14:05 milk [MILK] AdvReac Unknown DIARRHEA Verified 04/09/24 14:05 Review of Systems Constitutional: Constitutional: Denies body ache(s), Denies chills, Denies fever(s), Reports malaise and Reports weakness Cardiovascular: Cardiovascular: Reports chest pain and Denies dyspnea Respiratory: Respiratory: Denies cough and Denies dyspnea Gastrointestinal: Gastrointestinal: Reports abdominal pain, Reports constipation, Denies diarrhea, Reports nausea and Denies vomiting Musculoskeletal: Musculoskeletal: Denies back pain Integumentary/Breasts: Skin/Breast: Denies rash Neurologic: Reports weakness PMFSH Past Medical History Medical History (Reviewed 08/04/23 @ 17: by ELIZABETH Mcclellan) Essential hypertension Diabetes mellitus treated with insulin Surgical History (Reviewed 08/04/23 @ : by ELIZABETH Mcclellan) History of appendectomy Family History Family History Mother Hypertension Hyperlipidemia Atherosclerosis Father No problems noted. Social History Social History Alcohol intake: never Patient Tobacco Use Status: Never used Tobacco Smoked in Last 30 Days: No Use of substances other than those prescribed or required for medical reasons: No Advance Directives: No Advance Directives Information Provided: Yes Physical Exam Vital Signs: Vital Signs: Last Vital Signs Temp 97.8 F 04/09/24 19:29 Pulse 65 04/09/24 21:50 Resp 18 04/09/24 21:50 BP 168/82 H 04/09/24 21:50 Pulse Ox 97 04/09/24 21:50 O2 Del Method Room Air 04/09/24 21:50 BMI result Body Mass Index 25.9 Const: General: healthy appearing, comfortable, no acute distress, alert and awake Nutritional Appearance: well nourished Orientation/consciousness: patient oriented x3 HEENT: Head: Yes normocephalic and Yes atraumatic Throat: Yes posterior oropharynx normal Eyes: Eyelids: Yes eyelids normal Conjunctivae: conjunctivae normal Sclerae: sclerae normal Corneas: corneas normal Pupils: Equal, round and reactive pupils present EOM: EOMs intact bilaterally Neck: Neck: Yes full ROM Resp: Effort & Inspection: normal respiratory effort, able to speak in complete sentences and not labored GI: Other: Abdomen is soft, nondistended, the patient is tender in the epigastric region without guarding. Inspection: No distended Palpation (GI): Soft to palpation, not firm, Tenderness to palpation present (GI) in the epigastrum, no guarding and not rigid Skin: General skin exam: no rashes or lesions noted and elasticity normal Neuro: General: patient oriented x3 Cranial nerves: Yes Equal, round and reactive pupils present and Yes Bilaterally intact EOM present Cognition (Neuro): normal cognition Course Course Course Narrative: This is a Rapid Medical Examination (RME) performed by Walter Torres PA-C in triage. Full HPI, ROS, assessment and treatment plan per primary provider in the Main ED. 69 yo Chinese speaking female with history of DM2, HTN, CAD, history of positive stress test in the past who presents to the ER for evaluation of intermittent epigastric pain that radiates up into the entire chest that started 3 weeks ago. She also endorses some generalized weakness, dizziness and nausea. No shortness a breath or diaphoresis. Pain and weakness are worse with exertion and walking. Blood pressure is significantly elevated in triage 209/89. reports she stopped taking her meds 2 weeks ago because it hurt her stomach. currently reporting 9/10 epigastric pain. Plan: EKG, CXR, labs Reevaluation(s) Reevaluation #1: Patient's blood pressure improved greatly down to 168/82. CT scan shows no evidence of aortic aneurysm or dissection, patient will be discharged. She will be encouraged to continue taking her lisinopril as prescribed Time: 21:57 Medications Administered Discontinued Medications Generic Name Dose Route Start Last Admin Trade Name Georgina PRN Reason Stop Dose Admin Iohexol 100 ml 04/09/24 18:00 04/09/24 18:01 Iohexol 350 Mg/Ml 100 Ml Infus..Btl IV 04/09/24 18:01 100 ml ONCE ONE Administration Labetalol HCl 10 mg 04/09/24 17:26 04/09/24 18:06 Labetalol Hcl 100 Mg/20 Ml Vial IVPUSH 04/09/24 17:27 10 mg ONCE ONE Administration Labetalol HCl 20 mg 04/09/24 19:53 04/09/24 19:58 Labetalol Hcl 100 Mg/20 Ml Vial IVPUSH 04/09/24 19:54 20 mg ONCE ONE Administration Lisinopril 20 mg 04/09/24 17:28 04/09/24 18:08 Lisinopril 20 Mg Tablet PO 04/09/24 17:29 20 mg ONCE ONE Administration Protocol Medical Decision Making Medical Decision Making [facility] Narrative: 69-year-old female with past medical history as documented above presents for evaluation of epigastric abdominal pain, chest pain. She was found to be quite hypertensive as high as 202/78. This is likely due to the patient discontinued her lisinopril abruptly 2 weeks ago. She did not take any other antihypertensive medication. The patient's EKG is normal sinus rhythm without ischemic changes. Given the patient's abdominal pain radiating to her chest with significant hypertension, we will get a CT angiography of the aorta. Patient's initial troponin was negative, her EKG is nonischemic, she has had pain for over 3 months. She has ruled out for acute ACS. Differential Diagnosis Differential Diagnoses: The differential diagnosis associated with the presentation includes Constipation Aortic dissection AAA ACS less likely Anxiety GERD Peptic ulcer disease Lab Data [facility] Lab Attestation statement: I reviewed the patient's lab results. 04/09/24 14:29 04/09/24 14:29 Labs: Lab Results 04/09/24 04/09/24 Range/Units 14:29 15:46 WBC 7.7 (4.8-10.8) X10*3/uL RBC 4.70 (4.20-5.50) X10*6/uL Hgb 13.2 (12.0-16.0) g/dl Hct 39.4 (37.0-47.0) % MCV 83.8 (80.0-98.0) fL MCH 28.1 (27.0-33.0) pg MCHC 33.5 (31.0-35.0) g/dl RDW 13.1 (11.0-16.0) % Plt Count 278 (160-400) X10*3/uL MPV 11.3 (9.4-12.3) fL Immature Gran % (Auto) 0.1 (0.0-0.4) % Neut % (Auto) 48.6 (45-73) % Lymph % (Auto) 42.7 H (20-40) % Stevens % (Auto) 7.3 (2-11) % Eos % (Auto) 0.8 (0-4) % Baso % (Auto) 0.5 (0-2) % Lymph # (Auto) 3.3 (1.2-4.9) X10*3/uL Stevens # (Auto) 0.6 (0.1-1.2) X10*3/uL Eos # (Auto) 0.1 (0.0-0.4) X10*3/uL Baso # (Auto) 0.0 (0.0-0.2) X10*3/uL Abs Immat Gran (auto) 0.01 (0.00-0.03) X10*3/uL Absolute Neuts (auto) 3.7 (2.0-8.3) x10*3/uL Absolute Nucleated RBC 0.000 (0.0-0.012) X10*3/uL Nucleated RBC % (auto) 0.0 (0.0-0.2) /100WBC Hold Blue Top SEE NOTE Sodium 141 (135-145) mmol/L Potassium 3.7 (3.3-5.1) mmol/L Chloride 106 (96-108) mmol/L Carbon Dioxide 28 (22-29) mmol/L Anion Gap 11 L (12-20) BUN 11 (9-16) mg/dL Creatinine 0.72 (0.5-1.4) mg/dL Estim Creat Clear Calc 72.1 Estimated GFR > 60 Random Glucose 95 (60-115) mg/dL Calcium 9.2 (8.4-10.2) mg/dL Magnesium 1.8 (1.6-2.6) mg/dL Total Bilirubin 0.8 (0.0-1.0) mg/dL Direct Bilirubin 0.2 (0.0-0.5) mg/dL AST 17 (5-31) U/L ALT 19 (0-31) U/L Alkaline Phosphatase 107 (39-117) U/L Troponin I High Sens < 2.7 (<3.5-17.0) ng/L Total Protein 6.8 (6.5-8.0) g/dL Albumin 3.9 (3.5-5.0) g/dL Lipase 19 (8-78) U/L Urine Color Yellow Urine Appearance Cloudy Urine pH 6.5 (5.0-9.0) Ur Specific [place] 1.010 (1.005-1.025) Urine Protein Negative (Neg-Trace) mg/dL Urine Glucose (UA) Negative (Negative) mg/dL Urine Ketones Negative (Negative) mg/dL Urine Blood Negative (Negative) Urine Nitrite Negative (Negative) Ur Leukocyte Esterase Small (1+) H (Negative) Urine RBC 0-2 (0-2) /HPF Urine WBC 11-20 H (0-5) /HPF Ur Squamous Epith Cells 11-20 (0-2) /HPF Urine Bacteria Trace (None Seen) Hyaline Casts 0-2 (0-2) /LPF COVID-19 ([facility]) Negative (Negative) COVID-19 Clin Com See Note Independent Interpretation I performed an independent interpretation of an: EKG Discharge Plan Discharge Clinical Impression: Abdominal pain, Chest pain, Hypertension Patient Disposition: Home, Self-Care Instructions: Constipation (ED), Chronic Hypertension (ED) Additional Instructions: Your workup in the ER today was reassuring. There was no significant findings. You may use MiraLax daily and magnesium citrate tomorrow to help with constipation. Follow-up with your primary doctor It is important to continue taking your blood pressure medication as prescribed Prescriptions: New polyethylene glycol 3350 [Miralax] 17 gram/dose powder 17 g PO DAILY 14 Days Qty: 238 0RF magnesium citrate [OneLAX Magnesium Citrate] Solution 300 ml PO DAILY PRN (Reason: constipation) Qty: 296 0RF No Action glipizide 5 mg tablet 5 mg PO DAILY lisinopril 40 mg tablet 40 mg PO DAILY aspirin 81 mg capsule 81 mg PO DAILY metoprolol succinate 50 mg tablet extended release 24 hr 50 mg PO DAILY insulin glargine [Lantus Solostar U-100 Insulin] 100 unit/mL (3 mL) insulin pen 38 unit subcut QPM cholecalciferol (vitamin D3) 10 mcg (400 unit) capsule 10 mcg PO DAILY Print Language: Chinese
[2024-04-09 14:37] LABS: MANUAL DIFF FLAG NO
[2024-04-09 14:42] LABS: Basophils Percent Auto 0.5 % (0-2); Eosinophils Absolute Auto 0.1 X10*3/uL (0.0-0.4); Eosinophils Percent Auto 0.8 % (0-4); Hematocrit 39.4 % (37.0-47.0); Hemoglobin 13.2 g/dl (12.0-16.0); Imm Gran Abs Auto 0.01 X10*3/uL (0.00-0.03); Imm Gran Pct Auto 0.1 % (0.0-0.4); Lymphocytes Absolute Auto 3.3 X10*3/uL (1.2-4.9); Lymphocytes Percent Auto 42.7 % (20-40); Mean Corpuscular HGB Conc 33.5 g/dl (31.0-35.0); Mean Corpuscular Hemoglobin 28.1 pg (27.0-33.0); Mean Corpuscular Volume 83.8 fL (80.0-98.0); Mean Platelet Volume 11.3 fL (9.4-12.3); Monocytes Absolute Auto 0.6 X10*3/uL (0.1-1.2); Monocytes Percent Auto 7.3 % (2-11); Neutrophils Absolute Auto 3.7 x10*3/uL (2.0-8.3); Neutrophils Percent Auto 48.6 % (45-73); Platelet Count 278 X10*3/uL (160-400); Red Cell Distribution Width 13.1 % (11.0-16.0); White Blood Count 7.7 X10*3/uL (4.8-10.8)
[2024-04-09 14:53] LABS: COVID-19 Test Negative (Negative); IDNOW Serial# 152EDE1D
[2024-04-09 14:55] LABS: Alanine Aminotransferase 19 U/L (0-31); Albumin Level 3.9 g/dL (3.5-5.0); Alkaline Phosphatase 107 U/L (39-117); Anion Gap 11 (12-20); Aspartate Amino Transferase 17 U/L (5-31); Bilirubin Direct 0.2 mg/dL (0.0-0.5); Bilirubin Total 0.8 mg/dL (0.0-1.0); Blood Urea Nitrogen 11 mg/dL (9-16); Calcium 9.2 mg/dL (8.4-10.2); Carbon Dioxide 28 mmol/L (22-29); Chloride 106 mmol/L (96-108); Creatinine Clr Calc Pharmacy 72.1; Estimated Glomerular Filt Rate > 60; Glucose Random 95 mg/dL (60-115); Lipase 19 U/L (8-78); Magnesium 1.8 mg/dL (1.6-2.6); Potassium 3.7 mmol/L (3.3-5.1); Sodium 141 mmol/L (135-145); Total Protein 6.8 g/dL (6.5-8.0)
[2024-04-09 15:01] LABS: Troponin-I High Sensitivity < 2.7 ng/L (<3.5-17.0)
[2024-04-09 15:52] LABS: Appearance Urine Cloudy; Color Urine Yellow; Glucose Urine UA Negative (Negative); Leukocyte Esterase Urine Small (1+) (Negative); Nitrite Urine Negative (Negative); PH 6.5 (5.0-9.0); UMIC TRIGGER UACC YES; Urine Blood Negative (Negative); Urine Ketones Negative (Negative); Urine Protein Negative (Neg-Trace)
[2024-04-09 16:16] LABS: Bacteria Urine Trace (None Seen); Hyaline Casts Urine 0-2 /LPF (0-2); RBC Urine 0-2 /HPF (0-2); UACC Culture Trigger YES
[2024-04-09] MEDS: iohexoL 350 MG/ML 100 ML INFUS..BTL IV (18:01)
[2024-04-09] MEDS: Labetalol HCL 100 MG/20 ML VIAL 10 MG IVPUSH (18:06)
[2024-04-09] MEDS: lisinopriL 20 MG TABLET PO (18:08)
--- NOTE | 2024-04-09 18:50 | PC.NURSE ---
Assumed care of pt. Pt lying on stretcher, no acute distress at this time.
--- NOTE | 2024-04-09 19:27 | PC.NURSE ---
Assumed care of pt. Pt lying on stretcher, no acute distress at this time. Pt SBP remains elevated to 198 SBP, provider aware.
[2024-04-09] MEDS: Labetalol HCL 100 MG/20 ML VIAL 20 MG IVPUSH (19:58)
== END 2024-04-09 22:18 | disposition home or self-care (01) ==
PROVIDERS: Physician Assistant; Emergency Provider Emergency Medicine; PCP Family Medicine
DX: R07.89 Other chest pain (principal); R53.1 Weakness; I10 Essential (primary) hypertension; Z79.899 Other long term (current) drug therapy; Z11.52 Encounter for screening for COVID-19
CPT/HCPCS: 36415; 71046; 71275; 74175; 80048; 80076; 81001; 83690; 83735; 84484; 85025; 87086; 87635; 93005; 96374; 96375; 99284; 99285; J1920; Q9967

== ENCOUNTER 2024-04-25 13:21 | Outpatient (REF) | payer OTHER, SELFPAY ==
[2024-04-25 16:29] LABS: Anion Gap 12 (12-20); Blood Urea Nitrogen 11 mg/dL (9-16); Calcium 9.3 mg/dL (8.4-10.2); Carbon Dioxide 28 mmol/L (22-29); Chloride 104 mmol/L (96-108); Estimated Glomerular Filt Rate > 60; Glucose Random 180 mg/dL (60-115); Potassium 4.1 mmol/L (3.3-5.1); Sodium 140 mmol/L (135-145)
== END 2024-04-25 13:22 | disposition home or self-care (01) ==
LOC: HO.HHCL 13:21
PROVIDERS: Visit Provider Family Medicine
DX: I10 Essential (primary) hypertension (principal)
CPT/HCPCS: 36415; 80048

== ENCOUNTER 2024-07-11 11:34 | Outpatient (REF) | payer OTHER, SELFPAY ==
--- NOTE | ~2024-07-11 | XR_ITS ---
EXAMINATION: XR CERVICAL SPINE CLINICAL INFORMATION: PAIN COMPARISON: CT scan from 03/14/2019 TECHNIQUE: 3 views of the cervical spine were obtained. FINDINGS: There are no prevertebral soft tissue or bony abnormalities demonstrated. No compression fractures or subluxations are identified. Alignment is maintained at the atlanto-axial articulation. Degenerative changes with disc space narrowing, uncovertebral joint hypertrophy and osteophyte formation is seen at C4/5, C5/6 and C6/7. Posterior facet joints are well-maintained The prevertebral soft tissues are normal. XR/XR cervical spine 3V IMPRESSION: Multilevel degenerative disc disease. Electronically signed by: Michael Titus MD 07/13/2024 08:36 PM EST
== END 2024-07-11 11:35 | disposition home or self-care (01) ==
LOC: HO.HHCX 11:34
PROVIDERS: Visit Provider Family Medicine
DX: M54.2 Cervicalgia (principal)
CPT/HCPCS: 72040

== ENCOUNTER 2024-07-31 14:35 | Outpatient (AMB) | payer OTHER, SELFPAY ==
[2024-07-31 15:09] VITALS: BP 150/64; PULSE 70; BMI 25.6
--- NOTE | 2024-07-31 15:09 | MHC.OFFVIS ---
Vital Signs 07/31/24 15:09 Height 5 ft 4 in Weight 149 lb 0.52 oz BMI 25.6 BP 150/64 H Blood Pressure Location Lt brachial Pulse 70 Pulse Source Pulse Oximeter Intake Visit Reasons: numbness in left side, chest pain Intake Note: Pt c/o intermittent numbness in left arm and CP. Watermelon Inspector Required: Yes Watermelon Inspector Services: Watermelon Inspector Present Watermelon Inspector Name: Leon [id number] Accompanied by: Son Allergies metformin [METFORMIN] Allergy (Mild, Verified 07/31/24 15:42) DIARRHEA alprazolam Allergy (Unknown, Verified 07/31/24 15:42) diarrhea egg [EGG] Allergy (Unknown, Verified 07/31/24 15:42) UNKNOWN lactose [LACTOSE] Allergy (Unknown, Verified 07/31/24 15:42) Rash milk [MILK] Adverse Reaction (Unknown, Verified 07/31/24 15:42) DIARRHEA Medication List - Last Reconciled 07/31/24 by Tristen Lindquist NP aspirin 81 mg PO DAILY carvedilol 6.25 mg PO BID cholecalciferol (vitamin D3) 10 mcg PO DAILY dulaglutide (Trulicity) 1.5 mg subcut QWEEK insulin glargine (Lantus Solostar U-100 Insulin) 38 units subcut QPM magnesium citrate (OneLAX Magnesium Citrate oral solution) 300 mL PO DAILY PRN omeprazole 20 mg PO DAILY HPI Comments Details: This is a 69-year-old female patient presenting with complaints of exertional shortness of breath and left shoulder pain. The patient has a history of hypertension and diabetes. Previously, patient was evaluated in the office for chest pain, which was worked up with a stress test and echocardiogram, both of which were negative. Today, the patient reports sharp pain in the left shoulder radiating to the elbow accompanied by numbness. Pain is triggered by stress and is not reproducible. There are no other associated symptoms with this pain. Patient also notes that she has been having persistent shortness of breath over the past 3 months occurring exclusively with exertion. Additionally, patient has been having hard time with managing her blood pressure. The patient denies any chest pain, dizziness, palpitations, presyncope, syncope, orthopnea, or leg edema. [facility] Medical History BECKHAM (dyspnea on exertion) Essential hypertension Diabetes mellitus treated with insulin Surgical History History of appendectomy Family History Mother Hypertension Hyperlipidemia Atherosclerosis Father No problems noted. Social History Alcohol intake: never Patient Tobacco Use Status: Never used Tobacco Review of Systems Const Denies chills, Denies fatigue, Denies fever(s), Denies weight gain and Denies weight loss ENT Denies dizziness Card Denies chest pain, Denies leg edema, Denies lightheadedness, Denies palpitations, Denies dyspnea on exertion, Denies orthopnea and Denies other Resp Denies cough and Denies dyspnea on exertion GI Denies hematochezia and Denies change in stool character Musc Denies abnormal gait, Denies muscle weakness, Denies numbness, Denies radiating pain into limb and Denies tingling Neuro Denies abnormal gait, Denies dizziness, Denies numbness and Denies tingling Endo Denies fatigue and Denies palpitations Physical Exam Vital Signs: Last Vital Signs Pulse 70 07/31/24 15:09 BP 150/64 H 07/31/24 15:09 BMI result Body Mass Index 25.6 Assessment & Plan Assessment & Plan (1) BECKHAM (dyspnea on exertion): Code(s): R06.09 - Other forms of dyspnea Category: Medical Plan: 05/17/2022- echo showed a normal EF of 60-65%. Myocardial perfusion imaging study was normal. In the exercise part of the stress test, patient did have some chest pressure and EKG changes with exercise. Given that the shortness of breath is exertional, we will proceed with a cardiac stress test to evaluate for obstructive coronary artery disease. (2) Essential hypertension: Code(s): I10 - Essential (primary) hypertension Category: Medical Plan: Patient notes that her blood pressure has been elevated for the past couple months, prompting her PCP to adjust her medications. She is currently taking carvedilol 6.25 mg b.i.d.. Today, her blood pressure is elevated at 1 50/64. Will start amlodipine 5 mg daily and advised the patient to continue monitoring her blood pressures at home. Recommend heart healthy diet, exercise, stress medications strategies. Plan The patient will follow-up in 3 months. In the interim, patient will call us with any concerns. This note was generated using voice recognition software. While every effort has been made to ensure accuracy and proper outdoor pursuits instructor, there may be occasional errors that could affect the content or meaning of the described symptoms. Orders: Orders CA stress test Today R06.09 - Other forms of dyspnea Medications: New amlodipine 5 mg PO DAILY 90 tabs 1RF Coding Level of Care Code Est Pt Level 4 (44644) Diagnoses BECKHAM (dyspnea on exertion) R06.09 Essential hypertension I10 Time Spent (min) 31 Comment Time spent in reviewing the chart, test results, assessment, counseling and documentation.
== END 2024-07-31 15:58 | disposition home or self-care (01) ==
PROVIDERS: PCP Family Medicine
DX: R06.09 Other forms of dyspnea (principal); I10 Essential (primary) hypertension
CPT/HCPCS: 99214

== ENCOUNTER → 2024-07-31 14:35 | Outpatient (BNVA) | payer OTHER, SELFPAY | PROVIDERS: PCP Family Medicine | DX: R06.09 Other forms of dyspnea (principal); I10 Essential (primary) hypertension | CPT/HCPCS: 99212 ==

== ENCOUNTER → 2024-08-09 09:26 | Outpatient (REF) | payer OTHER, SELFPAY ==
--- NOTE | 2024-08-09 10:01 | CA_ITS ---
Acquisition Time: 2024-08-09 10:06:37 Total Exercise Time: 00:05:01 Test Indications: dyspnea on exertion Medications: see med sheet Protocol: CARIN Max HR: 148 BPM 96% of Pred: 153 BPM Max BP: 150/84 mmHG Max Work Load: 7.0 METS Exercise Stress Test with exercise 5 mins 1 sec of Carin Protocol, achieving 96% MPHR, with reports of 8/10 left sided chest tightness and moderate SOB, without any arrythmias, with normotensive response to exercise. With EKG changes inferiorly and laterally, improved slowly in recovery. In recovery, chest pain and SOB resolved. Axel order further testing. Test reviewed with Dr. Garsia. Referred By: Tristen Lindquist Electronically Signed By: Tristen Lindquist
== END ==
LOC: HO.CARD 09:26
PROVIDERS: PCP Family Medicine
DX: R06.09 Other forms of dyspnea (principal)
CPT/HCPCS: 93017

== ENCOUNTER → 2024-08-09 10:01 | Outpatient (BNV) | payer OTHER, SELFPAY | PROVIDERS: PCP Family Medicine | DX: R07.2 Precordial pain (principal); R06.02 Shortness of breath | CPT/HCPCS: 93016; 93018 ==

== ENCOUNTER 2024-09-10 11:30 | Outpatient (REF) | payer OTHER, SELFPAY ==
[2024-09-10 11:46] LABS: MANUAL DIFF FLAG NO
[2024-09-10 11:58] LABS: Basophils Percent Auto 0.5 % (0-2); Eosinophils Absolute Auto 0.2 X10*3/uL (0.0-0.4); Eosinophils Percent Auto 1.8 % (0-4); Hematocrit 39.6 % (37.0-47.0); Hemoglobin 13.3 g/dl (12.0-16.0); Imm Gran Abs Auto 0.03 X10*3/uL (0.00-0.03); Imm Gran Pct Auto 0.3 % (0.0-0.4); Lymphocytes Absolute Auto 3.2 X10*3/uL (1.2-4.9); Mean Corpuscular HGB Conc 33.6 g/dl (31.0-35.0); Mean Corpuscular Hemoglobin 27.8 pg (27.0-33.0); Mean Corpuscular Volume 82.7 fL (80.0-98.0); Monocytes Absolute Auto 0.7 X10*3/uL (0.1-1.2); Monocytes Percent Auto 7.5 % (2-11); Neutrophils Absolute Auto 4.6 x10*3/uL (2.0-8.3); Neutrophils Percent Auto 52.9 % (45-73); Platelet Count 313 X10*3/uL (160-400); Red Blood Count 4.79 X10*6/uL (4.20-5.50); Red Cell Distribution Width 13.2 % (11.0-16.0); White Blood Count 8.7 X10*3/uL (4.8-10.8)
[2024-09-10 12:01] LABS: INTERNATIONAL NORM RATIO 0.9 (0.9-1.1); Prothrombin Time 10.7 SEC (10.9-12.4)
[2024-09-10 12:19] LABS: Anion Gap 12 (12-20); Blood Urea Nitrogen 11 mg/dL (9-16); Calcium 9.1 mg/dL (8.4-10.2); Carbon Dioxide 27 mmol/L (22-29); Chloride 107 mmol/L (96-108); Estimated Glomerular Filt Rate > 60; Glucose Random 120 mg/dL (60-115); Potassium 4.1 mmol/L (3.3-5.1); Sodium 142 mmol/L (135-145)
--- OUTSIDE RECORDS SUMMARY | 2024-09-10 12:44 | XMS_ITS | Encounter Summary ---
Author Organization [employer] Address [address] [place] [address] Care Team Providers Care Oracle Analyst Name Role Phone Maria Guadalupe Merida MD Primary Care Provider [phone] Horacio Augustin PharmD Unavailable [phone] Encounter Details Date Type Department Care Team (Late st Contact Info) Description 09/10/2024 Orders Only GENERIC EXTERNAL DATA DEPARTMENT Provider, Generic External Data Social History Tobacco Use Types Packs/Day Years Used Date Smoking Tobacco: Never Smokeless Tobacco: Never Alcohol Answer Date Recorded Frequency of Alcohol Consumption Not on file 01/22/2024 Average Number of Drinks Not on file 024 Frequency of Binge Drinking Not on file 0707/2023 Score 0 01/22/2024 Depression Answer Date Recorded Patient Health Questionnaire-9 Score 5 07/11/2024 Patient Health Questionnaire-9 Score 5 07/11/2024 Last PHQ-9: Questionnaire Data Not on file 1 09/11/2023 Housing Stability Answer Date Recorded What is your housing situation today? I have everett kaminski 01/11/[address] you li ve. Do you have problems with any of the following? None of the above 01/11/2024 Food Insecurity Answer Date Recorded Within the past 12 months, y ou worried that your food would run out before you got money to buy more: Never True 01/11/2024 Within the past 12 months,th e food you bought just didn't last and you didn't have enough money to get more: Never True Transportation Answer Date Recorded In the past 12 months, has l ack of transportation kept you from medical appts, meetings, work or from getting things needed for daily living? No 01/11/2024 Utilities Answer Date Recorded In the past 12 months, has t he electric, gas, oil or water company threatened to shut off services in your home? No 01/11/2024 Depression Answer Date Recorded Patient Health Questionnaire-2 Score 2 07/11/2024 Internet Access Answer Date Recorded Internet Access Q1 Yes 03/22/2024 Internet Access Q2 Not on file 03/22/2024 Comments Unknown Sex and Gender Information Value Date Recorded Sex Assigned at Female 05/23/2022 10:21 AM EDT Legal Sex Female 10:21 AM EDT Gender Identity Female 05/23/2022 10:21 AM EDT Sexual Orientation Don't know 05/23/2022 10 :21 AM EDT documented as of this encounter Plan of Treatment Upcoming Encounters Date Type Department Care Team (Late st Contact Info) Description 09/23/2024 11:15 AM EST Office Visit [facility] [address] [place] [phone] Maria Guadalupe Merida MD [address] [place] [phone] 10/24/2024 10:00 AM EDT Medication Management [facility] [address] [place] [phone] Horacio Augustin PharmD [address] [place] [phone] documented as of this encounter Goals Goal Patient Goal Type Associated Problems Recent Progress Patient-Stated? Author Blood Pressure < 140/90 Blood Pressure 134/66(2024 10:39 AM EST) No Horacio Augustin, PharmShana Hemoglobin A1c < 7 Result Component 7.7( 10:36 AM EST) No Horacio Augustin PharmD documented as of this encounter Procedures Procedure Name Priority Date/Time Associated Diagnosis Comments CBC WITH AUTO DIFFERENTIAL Routine 09/10/2024 11:44 AM EST PROTHROMBIN TIME-INR Routine 09/10/2024 11:44 AM EST BASIC METABOLIC PANEL Routine 09/10/2024 11:44 AM EST documented in this encounter Results * (ABNORMAL) Basic Metabolic Panel (09/10/2024 11:44 AM EST) Sodium 142 135 - 145 mmol/L [facility] Potassium 4.1 3.3 - 5.1 mmol/L [facility] Chloride 107 96 - 108 mmol/L [facility] Carbon Dioxide 27 22 - 29 mmol/L [facility] Anion Gap 12 12 - 20 [facility] Urea Nitrogen (BUN) 11 9 - 16 mg/dL [facility] Creatinine, Serum 0.66 0.5 - 1.4 mg/dL [facility] Estimated Glomerular Filt Rate >60 [facility] Comment:Chronic Kidney Disea se: Estimated GFR < 60 mL/min/[id number] Kidney Disease: Estimated GFR < 15 mL/min/1.73m2 Glucose 120(H) 60 - 115 mg/dL [facility] Calcium 9.1 8.4 - 10.2 mg/dL [facility] 09/10/2024 11:4 4 AM EST 09/10/2024 11:44 AM EST us Generic External Data Provider LAB BLOOD ORDERAB LES Final Result Performing Organization Address City/State/[facility] Co de Phone Number [facility] [address] [place] [phone] * (ABNORMAL) Prothrombin Time-INR (09/10/2024 11:44 AM EST) Prothrombin Time 10.7(L) 10.9 - 12.4 SEC [facility] INTERNATIONAL NORM RATIO 0.9 0.9 - 1.1 [facility] Comment:INTERNATIONAL NORMAL IZED RATIO (INR) REFERENCE RANGES Reference RangeFor patients not on anticoagulant therapy: 0.9 - 1.1INR ranges for oral anticoagulanttherapy:For prevention and treatment of venous thrombosis and pulmonary embolism: 2.0 - 3.0For acute myocardial infarction with aspirin therapy: 2.0 - 3.0For acute myocardial infarction without aspirin therapy: 3.0 - 4.0For patients with mechanical prosthetic heart valves: 2.5 - 3.5 09/10/2024 11:4 4 AM EST 09/10/2024 11:44 AM EST us Generic External Data Provider LAB BLOOD ORDERAB LES Final Result [facility] [address] [place] [address] [phone] * CBC auto differential (09/10/2024 11:44 AM EST) White Blood Count 8.7 4.8 - 10.8 X10*3/uL [facility] Red Blood Count 4.79 4.20 - 5.50 X10*6/uL [facility] Hemoglobin 13.3 12.0 - 16.0 g/dl [facility] Hematocrit 39.6 37.0 - 47.0 % [facility] Mean Corpuscular Volume 82.7 80.0 - 98.0 fL [facility] Mean Corpuscular Hemoglobin 27.8 27.0 - 33.0 pg [facility] Mean Corpuscular HGB Conc 33.6 31.0 - 35.0 g/dl [facility] Red Cell Distribution Width 13.2 11.0 - 16.0 % [facility] Platelet Count 313 160 - 400 X10*3/uL [facility] Mean Platelet Volume 11.0 9.4 - 12.3 fL [facility] Neutrophils Percent Auto 52.9 45 - 73 % [facility] Imm Gran Pct Auto 0.3 0.0 - 0.4 % [facility] Lymphocytes Percent Auto 37.0 20 - 40 % [facility] Monocytes Percent Auto 7.5 2 - 11 % [facility] Eosinophils Percent Auto 1.8 0 - 4 % [facility] Basophils Percent Auto 0.5 0 - 2 % [facility] NRBC Pct Auto 0.0 0.0 - 0.2 /100WBC [facility] Neutrophils Absolute Auto 4.6 2.0 - 8.3 x10*3/uL [facility] Imm Gran Abs Auto 0.03 0.00 - 0.03 X10*3/uL [facility] Lymphocytes Absolute Auto 3.2 1.2 - 4.9 X10*3/uL [facility] Monocytes Absolute Auto 0.7 0.1 - 1.2 X10*3/uL [facility] Eosinophils Absolute Auto 0.2 0.0 - 0.4 X10*3/uL [facility] Basophils Absolute Auto 0.0 0.0 - 0.2 X10*3/uL [facility] NRBC Abs Auto 0.000 0.0 - 0.012 X10*3/uL [facility] 09/10/2024 11:4 4 AM EST 09/10/2024 11:44 AM EST us Generic External Data Provider LAB BLOOD ORDERAB LES Final Result Performing Organization Address City/State/[facility] Co de Phone Number [facility] [address] [place] [address] [phone] documented in this encounter Visit Diagnoses Not on filedocumented in this encounter Additional Health Concerns Assessment Noted Time PHQ-9 Depression Total Score: 5 07/11/20 24 10:03 AM EST documented as of this encounter Care Teams Oracle Analyst Relationship Specialty Start Date End Date Maria Guaadlupe Merida MD [address] [place] [address] PCP - General Family Medicine 01/22/24 Horacio Augustin, Divya [address] [place] [address] Pharmacist Internal Medicine 02/14/24 documented as of this encounter
--- OUTSIDE RECORDS SUMMARY | 2024-09-10 12:44 | XMS_ITS | Clinical Summary ---
Author Organization [facility] Address [address] [place] [address] Care Team Providers Care Orientation And Mobility Specialist Name Role Phone Community, Pcp Unavailable Unavailable Community, Pcp Primary Care Provider Unavailabl e Allergies Active Allergy Reactions Severity Noted Date Comments Insulin Lispro (Human) 08/30/2019 palpitations Alprazolam Diarrhea 02/09/2017 Eggs 02/09/2017 Lactose 12/01/2016 Metformin Diarrhea 12/01/2016 Morphine Diarrhea,Nausea and Vomiting,Dizzy 10/13/2020 Medications Medication Sig Dispensed Refills Start Date End Date Status Blood Glucose Calibration (FREESTYLE CONTROL SOLUTION) Liquid Use one to test device 1 Each 0 10/13/2017 Active Insulin Pen Needle 32G X 4 MM Misc Use one needle for every insulin injection. 4 times a day. Dx #11.40 400 Each 5 11/27/2019 Active cyclobenzaprine (FLEXERIL) 5 MG tablet Take 1 Tab by mouth 2 times daily as needed for Muscle spasms. 30 Tab 2 01/13/2020 Active glipiZIDE (GLUCOTROL) 5 MG tablet Take 1 Tab by mouth daily. 90 Tab 1 07/14/2020 Active metoprolol (TOPROL-XL) 25 MG 24 hr tablet Take 1 Tab by mouth daily. 30 Tab 5 08/20/2020 Active aspirin 81 MG EC tablet Take 1 Tab by mouth daily. 30 Tab 5 08/20/2020 Active lisinopril (PRINIVIL,ZESTRIL) 40 MG tablet Take 1 Tab by mouth daily. 90 Tab 1 10/13/2020 Active Insulin Glargine (LANTUS SOLOSTAR) 100 UNIT/ML Solution Pen-injector Inject 38 Units into the skin at bedtime. 45 mL 1 10/13/2020 Active FreeStyle Lancets Misc Test sugar 4 times a day 400 Each 1 10/30/2020 Active Glucose Blood (FREESTYLE LITE) Strip Use 4 times daily with nicolas 200 Strip 5 11/30/2020 Active Cholecalciferol (Vitamin D) 125 MCG (5000 UT) Cap Take by mouth. 0 Active rosuvastatin (CRESTOR) 10 MG tablet Take 2 Tablets by mouth daily. 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, uncontrolled 12/01/2016 Hypertension 12/01/2016 Hyperlipidemia 12/01/2016 Tinnitus 12/01/2016 Asthma 12/01/2016 Cognitive impairment 12/01/2016 Overview: Dr Ortega 03/07/16 Family History Medical History Relation Name Comments Diabetes Brother NM Maternal Grandmother < 65, D M NM Mother Mental Disorder Diabetes Sister CA Breast Negative Hx Relation Name Status Comments Brother Alive Maternal Grandmother Mother (Age 97) Sister Social History Tobacco Use Types Packs/Day Years Used Date Smoking Tobacco: Never Smokeless Tobacco: Never Alcohol Use Standard Drinks/Week Comments No 0 (1 standard drink = 0.6 oz pur e alcohol) Sex Assigned at Date Recorded Not on file Last Filed Vital Signs Vital Sign Reading Time Taken Comments Blood Pressure 142/74 04/21/2021 10:42 AM EDT Pulse 68 04/21/2021 10:42 AM EDT Temperature 36.5 ??C (97.7 ??F) 10/13/2020 10:47 AM E DT Respiratory Rate 14 10/13/2020 10:47 AM EDT Oxygen Saturation 98% 10/13/2020 10:47 AM EDT Inhaled Oxygen Concentration - - Weight 71.2 kg (157 lb) 04/21/2021 10:42 AM EDT Height 154.9 cm (5' 1 ) 04/21/2021 10:42 AM EDT Body Mass Index 29.66 04/21/2021 10:42 AM EDT Plan of Treatment Health Maintenance Due Date Last Done Comments Covid-19 Vaccine (#1) 1955 SHINGLES VACCINE (1 of 2) 2007 DIABETES: ANNUAL EYE EXAM 01/12/20192017, 06/09/2017, 01/13/2016 (External Completion) DIABETES: BLOOD SUGAR CONTRO L TEST (HGBA1C) 11/16/2020 08/18/2020, 01/10/2020, 09/25/2019, Additional history exists DIABETES: ANNUAL URINE PROTE IN TEST (MICROALBUMIN) 01/09/2021 01/10/2020, 09/25/2019, 12/19/2018, Additional history exists MAMMOGRAM 05/28/2021 05/28/2020, 01/21, 02/01/2018, Additional history exists DIABETES/HEART DISEASE: ANGELITA AL CHOLESTEROL (LDL) 08/18/2021 08/18/2020, 08/18/2020, 01/10/2020, Additional history exists DIABETES: ANNUAL FOOT EXAM 10/13/202110/13, 12/18/2018, 11/22/2017 (Completed), Additional history exists BONE DENSITY SCREENING 2022 PNEUMOCOCCAL VACCINE (1 - PCV) 2022 INFLUENZA (#1) 2024 10/13/2020 (Refu sed), 10/01/2019 (Refused), 07/13/2018 (Refused), Additional history exists BMI CHECK/ADVISE 07/24/2024 10/13/2020, , 04/28/2020, Additional history exists DEPRESSION SCREENING/FOLLOWUP 07/24/2024 10/13/2020, 08/30/2019 COLON CANCER SCREENING 05/12/2025 5 (External Completion) DTAP/TDAP/TD (2 - Td or Tdap) 12/09/2027 12/08/2017 (Refused) HEPATITIS C SCREENING Completed 01/11/2017 Care Teams Orientation And Mobility Specialist Relationship Specialty Start Date End Date Community, Pcp PCP - General Internal Medicine 04/02/21 Community, Pcp Internal Medicine 09/19/16
--- OUTSIDE RECORDS SUMMARY | 2024-09-10 12:44 | XMS_ITS | Encounter Summary ---
Author Organization [facility] Address [address] [place] [address] Care Team Providers Care Leg Man Name Role Phone Vidhi Wright MD Primary Care Provider Un available Community, Pcp Unavailable Unavailable Ekaterina Higuera MD Primary Care Provider Unava ilable [facility], Pcp Primary Care Provider Unavailabl e Encounter Details Date Type Department Care Team Description 09/07/2017 Stringing Machine Operator Report Medical Records [address] [place] [phone] Abstract, Provider Social History Tobacco Use Types Packs/Day Years Used Date Smoking Tobacco: Never Alcohol Use Standard Drinks/Week Comments No 0 (1 standard drink = 0.6 oz pur e alcohol) Sex Assigned at Date Recorded Not on file documented as of this encounter Plan of Treatment Not on file documented as of this encounter Visit Diagnoses Not on filedocumented in this encounter Care Teams Leg Man Relationship Specialty Start Date End Date Vidhi Wright MD PCP - General Internal Medicine 09/19/16 Ekaterina Higuera MD PCP - General Internal Medicine 12/11/18 04/01/21 Community, Pcp PCP - General Internal Medicine 04/02/21 Community, Pcp Internal Medicine 09/19/16 documented as of this encounter
--- OUTSIDE RECORDS SUMMARY | 2024-09-10 12:44 | XMS_ITS | Encounter Summary ---
Author Organization [facility] Address [address] [place] [address] Care Team Providers Care Spooler Operator Automatic Name Role Phone Vidhi Wright MD Primary Care Provider Un available Community, Pcp Unavailable Unavailable Ekaterina Higuera MD Primary Care Provider Unava ilable [facility], Pcp Primary Care Provider Unavailabl e Encounter Details Date Type Department Care Team Description 12/05/2016 Transfer Records Medical Records [address] [place] [phone] Vishal Ortega MD Social History Tobacco Use Types Packs/Day Years Used Date Smoking Tobacco: Never Alcohol Use Standard Drinks/Week Comments No 0 (1 standard drink = 0.6 oz pur e alcohol) Sex Assigned at Date Recorded Not on file documented as of this encounter Plan of Treatment Not on file documented as of this encounter Visit Diagnoses Not on filedocumented in this encounter Care Teams Spooler Operator Automatic Relationship Specialty Start Date End Date Vidhi Wright MD PCP - General Internal Medicine 09/19/16 Ekaterina Higuera MD PCP - General Internal Medicine 12/11/18 04/01/21 Community, Pcp PCP - General Internal Medicine 04/02/21 Community, Pcp Internal Medicine 09/19/16 documented as of this encounter
--- OUTSIDE RECORDS SUMMARY | 2024-09-10 12:44 | XMS_ITS | Encounter Summary ---
Author Organization [facility] Address [address] [place] [address] Care Team Providers Care Hat Brim And Crown Laminating Operator Name Role Phone Community, Pcp Unavailable Unavailable Ekaterina Higuera MD Primary Care Provider Unava ilable [facility], Pcp Primary Care Provider Unavailabl e Reason for Visit * Reason Onset Date Comments Provider Call Back 01/29/2020 Encounter Details Date Type Department Care Team Description 01/29/2020 Telephone Adult Medicine [address] [address] Ekaterina Higuera MD Provider Call Back Social History Tobacco Use Types Packs/Day Years Used Date Smoking Tobacco: Never Smokeless Tobacco: Never Alcohol Use Standard Drinks/Week Comments No 0 (1 standard drink = 0.6 oz pur e alcohol) Sex Assigned at Date Recorded Not on file documented as of this encounter Miscellaneous Notes * Telephone Encounter - Meli Rios M.A. - 01/29/2020 3:22 PM EDT left message to call back, please put call through to [phone] or resend to message/pod pool if no answer To inform pt is off today, is there something nursing can help her with? * Telephone Encounter - Francheska Phillips - 01/29/2020 9:07 AM EDT Caller requesting call back from provider:Ekaterina Higuera Is the caller the patient? YES If caller is not the patient, what is the callers name? N/A Callers relationship to patient? N/A If person calling is not the patient themselves, is there a verbal release in FYI or permanent comments for this person: YES Reason for call back: Patient wants to speak with Kalen Phelps Caller offered to speak with the nurse for assistance: YES Response: Patient unwilling to offer reason for requesting provider to call them documented in this encounter Plan of Treatment Not on file documented as of this encounter Visit Diagnoses Not on filedocumented in this encounter Care Teams Hat Brim And Crown Laminating Operator Relationship Specialty Start Date End Date Ekaterina Higuera MD PCP - General Internal Medicine 12/11/18 04/01/21 Community, Pcp PCP - General Internal Medicine 04/02/21 Community, Pcp Internal Medicine 09/19/16 documented as of this encounter
--- OUTSIDE RECORDS SUMMARY | 2024-09-10 12:44 | XMS_ITS | Encounter Summary ---
Author Organization [employer] Address [address] [facility] [address] [place] [address] Care Team Providers Care Product Development Technician Name Role Phone Maria Guadalupe Merida MD Primary Care Provider [phone] Horacio Augustin PharmD Unavailable [phone] Encounter Details Date Type Department Care Team (Latest Contact Info) Description 09/04/2024 Travel Social History Tobacco Use Types Packs/Day Years [...] Description 09/23/2024 11:15 AM EST Office Visit [facility] [address] [place] [phone] Maria Guadalupe Merida MD [address] [place] [address] 10/24/2024 10:00 AM EDT Medication Management [facility] [address] [place] [address] Horacio Augustin PharmD [address] [place] [phone] documented as of this encounter Goals Goal Patient Goal Type Associated Problems Recent Progress Patient-Stated? Author Blood Pressure < 140/90 Blood Pressure 134/66(2024 10:39 AM EST) No Horacio Augustin PharmShana Hemoglobin A1c < 7 Result Component 7.7( 10:36 AM EST) No Horacio Augustin PharmD documented as of this encounter Visit Diagnoses Not on filedocumented in this encounter Additional Health Concerns Assessment Noted Time PHQ-9 Depression Total Score: 5 07/11/20 24 10:03 AM EST documented as of this encounter Care Teams Product Development Technician Relationship Specialty Start Date End Date Maria Guadalupe Merida MD [address] [place] [phone] PCP - General Family Medicine 01/22/24 Horacio Augustin, PharmD [address] [place] [address] Pharmacist Internal Medicine 02/14/24 documented as of this encounter
--- OUTSIDE RECORDS SUMMARY | 2024-09-10 12:44 | XMS_ITS | Encounter Summary ---
Author Organization [facility] Address [address] [place] [address] Care Team Providers Care Refinery Technician Name Role Phone Vidhi Wright MD Primary Care Provider Un available Community, Pcp Unavailable Unavailable Ekaterina Higuera MD Primary Care Provider Unava ilable Community, Pcp Primary Care Provider Unavailabl e Reason for Visit * Reason Onset Date Comments refill request 11/06/2018 Encounter Details Date Type Department Care Team Description 11/06/2018 Refill Adult Medicine [address] [address] Vidhi Wright MD refill request Social History Tobacco Use Types Packs/Day Years Used Date Smoking Tobacco: Never Smokeless Tobacco: Never Alcohol Use Standard Drinks/Week Comments No 0 (1 standard drink = 0.6 oz pur e alcohol) Sex Assigned at Date Recorded Not on file documented as of this encounter Miscellaneous Notes * Telephone Encounter - Doris Childers M.A. - 11/06/2018 4:48 PM EDT Lab Results Component Value Date HGBA1C 8.8 05/18/2018 MALBUR 0.4 11/22/2017 MALBCR 0.3 11/22/2017 CHOL 191 05/18/2018 LDL 82 05/18/2018 HDL 51 05/18/2018 TRIG 291 05/18/2018 GLU 184 04/06/2018 CREAT 0.6 05/18/2018 Last ov with Diane 10/12/18 * Telephone Encounter - Ceci Preston - 11/06/2018 4:02 PM EDT Patient would like script to be: E-PRESCRIBED/FAXED TO PHARMACY WHEN WAS THE PATIENT'S LAST APPOINTMENT IN ADULT MEDICINE? 10/12/18 WHEN WAS THE LAST TIME THE PATIENT SAW THEIR PCP? 07/13/18 Does patient have an upcoming appointment? Yes 01/11/19 (THE MEDICATION REQUESTED IS ON THE MED LIST ABOVE) All of the medications requested were on the CURRENT MEDS list Did you check the Pharmacy information above?: YES Patient wants: 30 -day supply Is this a mail order prescription request ? NO If the refill is from a FAXED refill request what is the RX # listed on the fax? N/A Patients current insurance carrier is: Payor: [employer] / Plan: [facility] / Product Type: MEDICAID RISK documented in this encounter Plan of Treatment Not on file documented as of this encounter Visit Diagnoses Not on filedocumented in this encounter Care Teams Refinery Technician Relationship Specialty Start Date End Date Vidhi Wright MD PCP - General Internal Medicine 09/19/16 Ekaterina Higuera MD PCP - General Internal Medicine 12/11/18 04/01/21 Community, Pcp PCP - General Internal Medicine 04/02/21 Community, Pcp Internal Medicine 09/19/16 documented as of this encounter
--- OUTSIDE RECORDS SUMMARY | 2024-09-10 12:44 | XMS_ITS | Encounter Summary ---
Author Organization [facility] Address [address] [place] [address] Care Team Providers Care Piece Work Inspector Name Role Phone Community, Pcp Unavailable Unavailable Ekaterina Higuera MD Primary Care Provider Unava gilberto Community, Pcp Primary Care Provider Unavailabl e Encounter Details Date Type Department Care Team Description 09/30/2019 Flexographic Printing Press Operator Report Medical Records [address] [place] [phone] Wilbert Olivarez MD Social History Tobacco Use Types Packs/Day [...] on filedocumented in this encounter Care Teams Piece Work Inspector Relationship Specialty Start Date End Date Ekaterina Higuera MD PCP - General Internal Medicine 12/11/18 04/01/21 Community, Pcp PCP - General Internal Medicine 04/02/21 [facility], Pcp Internal Medicine 09/19/16 documented as of this encounter
--- OUTSIDE RECORDS SUMMARY | 2024-09-10 12:44 | XMS_ITS | Encounter Summary ---
Author Organization [facility] Address [address] [place] [address] Care Team Providers Care Principal Ios Developer Name Role Phone Community, Pcp Primary Care Provider Unavailabl e Vidhi Wright MD Primary Care Provider Un available Community, Pcp Unavailable Unavailable Ekaterina Higuera MD Primary Care Provider Unava ilable Community, Pcp Primary Care Provider Unavailabl e Encounter Details Date Type Department Care Team Description 08/23/2015 Hospital Medical Records [address] [place] [phone] Yasir Nolen MD Social History Tobacco Use Types Packs/Day [...] on filedocumented in this encounter Care Teams Principal Ios Developer Relationship Specialty Start Date End Date Community, Pcp PCP - General Internal Medicine 08/08/14 09/18/16 Vidhi Wright MD PCP - General Internal Medicine 09/19/16 Ekaterina Higuera MD PCP - General Internal Medicine 12/11/18 04/01/21 Community, Pcp PCP - General Internal Medicine 04/02/21 Community, Pcp Internal Medicine 09/19/16 documented as of this encounter
--- OUTSIDE RECORDS SUMMARY | 2024-09-10 12:44 | XMS_ITS | Encounter Summary ---
Author Organization [facility] Address [address] [place] [address] Care Team Providers Care Brass Wind Instrument Maker Name Role Phone Vidhi Wright MD Primary Care Provider Un available Community, Pcp Unavailable Unavailable Ekaterina Higeura MD Primary Care Provider Unava ilable Community, Pcp Primary Care Provider Unavailabl e Reason for Referral * EXTERNAL (Urgent) - Authorized/Booked Specialty Diagnoses / Procedures Referred By Contac t Referred To Contact Ophthalmology Procedures REFERRAL TO EXTERNAL OPHTHALMOLOGY Arnulfo Parham MD [address] [place] [phone] [facility] [address] [place] [id number] Referral ID Status Reason Start Date Expiration Date V isits Requested Visits Authorized SEE NOTE Authorized/B ooked 06/06/2017 09/06/2017 1 1 Reason for Visit * Reason Onset Date Comments Pipe Racker Feedback 06/06/2017 ophthalmology Encounter Details Date Type Department Care Team Description 06/06/2017 Telephone Adult Medicine [address] [id number] Arnulfo Parham MD [address] [place] [phone] Pipe Racker Feedback (ophthalmology) Social History Tobacco Use Types Packs/Day Years Used Date Smoking Tobacco: Never Alcohol Use Standard Drinks/Week Comments No 0 (1 standard drink = 0.6 oz pur e alcohol) Sex Assigned at Date Recorded Not on file documented as of this encounter Miscellaneous Notes * Telephone Encounter - Tala Arita - 06/07/2017 9:33 AM EST I will call the patient and aske her when she last saw Dr. Correa and I will call the office backto book appointment. Thank you, Tala Critical Care Physician Assistant * Telephone Encounter - Arnulfo Parham MD - 06/06/2017 9:23 PM EST Thanks 1) I do not know this patient too well, with the patient's complaint, I want the patient to be seenby hat block bench hand early. I have also right new referral 2) patient reported previously she saw Dr. Correa, so patient is not a new patient to that hat block bench hand. It we be the best if can see patient and compared with previous evaluation. * Telephone Encounter - Tala Arita - 06/06/2017 2:[address] Parham You placed an order to opthalmology to be booked with Dr. Correa. Dr. Correa is not seeing New patients. Patient needs to be referred elsewhere. I have pended you a new order to sign. Please review this patients new referral request. The referral has been pended. Please complete thefollowing: If approved> sign order If denied>please give instructions and route to your practice nursing pool. Practice nurse should inform referrals and the patient if denied. Thank you, Tala Critical Care Physician Assistant documented in this encounter Plan of Treatment Not on file documented as of this encounter Visit Diagnoses Diagnosis Decreased vision- Primary Unspecified visual loss documented in this encounter Care Teams Brass Wind Instrument Maker Relationship Specialty Start Date End Date Vidhi Wright MD PCP - General Internal Medicine 09/19/16 Ekaterina Higuera MD PCP - General Internal Medicine 12/11/18 04/01/21 Community, Pcp PCP - General Internal Medicine 04/02/21 Community, Pcp Internal Medicine 09/19/16 documented as of this encounter
--- OUTSIDE RECORDS SUMMARY | 2024-09-10 12:44 | XMS_ITS | Encounter Summary ---
Author Organization [facility] Address [address] [place] [address] Care Team Providers Care Urgent Care Name Role Phone Vidhi Wright MD Primary Care Provider Un available Community, Pcp Unavailable Unavailable Ekaterina Higuera MD Primary Care Provider Unava ilable Community, Pcp Primary Care Provider Unavailabl e Reason for Visit * Reason Onset Date Comments Appointment-Internal Referral 03/07/2017 [email or web address] Encounter Details Date Type Department Care Team Description 03/07/2017 Telephone Dermatology - [place] [address] [place] [address] Dimitri Kline MD [address] [place] [address] [phone] Appointment-Internal Referral (derm) Social History Tobacco Use Types Packs/Day Years Used Date Smoking Tobacco: Never Alcohol Use Standard Drinks/Week Comments No 0 (1 standard drink = 0.6 oz pur e alcohol) Sex Assigned at Date Recorded Not on file documented as of this encounter Miscellaneous Notes * Telephone Encounter - Francheska Phillips - 03/07/2017 7:36 AM EDT I have been unable to reach this patient by phone. A letter is being sent. documented in this encounter Plan of Treatment Not on file documented as of this encounter Visit Diagnoses Not on filedocumented in this encounter Care Teams Urgent Care Relationship Specialty Start Date End Date Vidhi Wright MD PCP - General Internal Medicine 09/19/16 Ekaterina Higuera MD PCP - General Internal Medicine 12/11/18 04/01/21 Community, Pcp PCP - General Internal Medicine 04/02/21 Community, Pcp Internal Medicine 09/19/16 documented as of this encounter
--- OUTSIDE RECORDS SUMMARY | 2024-09-10 12:44 | XMS_ITS | Encounter Summary ---
Author Organization [facility] Address [address] [place] [address] Care Team Providers Care Early Intervention School Psychologist Name Role Phone Vidhi Wright MD Primary Care Provider Un available Community, Pcp Unavailable Unavailable Ekaterina Higuera MD Primary Care Provider Unava ilable [facility], Pcp Primary Care Provider Unavailabl e Encounter Details Date Type Department Care Team Description 11/07/2018 Dirt Bike Mechanic Report Medical Records [address] [place] [address] Paola Tucker NP Social History Tobacco Use Types Packs/Day Years [...] on filedocumented in this encounter Care Teams Early Intervention School Psychologist Relationship Specialty Start Date End Date Vidhi Wright MD PCP - General Internal Medicine 09/19/16 Ekaterina Higuera MD PCP - General Internal Medicine 12/11/18 04/01/21 Community, Pcp PCP - General Internal Medicine 04/02/21 Community, Pcp Internal Medicine 09/19/16 documented as of this encounter
--- OUTSIDE RECORDS SUMMARY | 2024-09-10 12:44 | XMS_ITS | Encounter Summary ---
Author Organization [facility] Address [address] [place] [address] Care Team Providers Care Template Reproduction Technician Name Role Phone Community, Pcp Unavailable Unavailable Ekaterina Higuera MD Primary Care Provider Unava ilable Community, Pcp Primary Care Provider Unavailabl e Reason for Visit * Reason Onset Date Comments Prior Authorization 12/19/2018 Encounter Details Date Type Department Care Team Description 12/19/2018 Telephone Adult Medicine [address] [address] Ekaterina Higuera MD Prior Authorization Social History Tobacco Use Types Packs/Day Years Used Date Smoking Tobacco: Never Smokeless Tobacco: Never Alcohol Use Standard Drinks/Week Comments No 0 (1 standard drink = 0.6 oz pur e alcohol) Sex Assigned at Date Recorded Not on file documented as of this encounter Miscellaneous Notes * Telephone Encounter - Juanis Coronado M.A. - 12/25/2018 2:19 PM EDT Spoke to Caryl from [employer] [facility] who stated that the trulicity was approved Approved from 12/19/18 until 12/18/2020 Prior authorization approval number #[id number] States there was a paid claim at pts pharmacy on 12/19/18 * Telephone Encounter - Liana Meza M.A. - 12/19/2018 1:39 PM EDT Dx code:E11.49 diabetes type 2 Past Rx tried and failed: Medication:metformin in the past developed diarrhea Victoza 18mg/3ml 11/22/2017-12/08/2017 jardiance 10mg 04/06/2018-07/13/2018 Other pertinent information:prior authorization completed on paper form and faxed to [facility] with expedited request . * Telephone Encounter - Juanis Tripp - 12/19/2018 11:24 AM EDT Pre Authorization for Medication-do not complete and send this encounter unless you have the fax from the pharmacy. Is this a Cover My Meds request: [place] of Medication: Trulicity Dose of Medication Inject one pen 1.5mg subcutaneously once a week as directed What is the RX # from the faxed refill? N/a How does patient take this med? Inject one pen 1.5mg subcutaneously once a week as directed What Pharmacy did the fax come from: [facility]acy fax #: [phone] [employer] Information from fax: What Prescription Plan does the patient have? [facility] BIN/PCN if applicable: n/a Cardholder ID:n/a Person Code: n/a Relationship Code: n/a Help desk phone: n/a documented in this encounter Plan of Treatment Not on file documented as of this encounter Visit Diagnoses Not on filedocumented in this encounter Care Teams Template Reproduction Technician Relationship Specialty Start Date End Date Ekaterina Higuera MD PCP - General Internal Medicine 12/11/18 04/01/21 Community, Pcp PCP - General Internal Medicine 04/02/21 Community, Pcp Internal Medicine 09/19/16 documented as of this encounter
--- OUTSIDE RECORDS SUMMARY | 2024-09-10 12:44 | XMS_ITS | Encounter Summary ---
Author Organization [facility] Address [address] [place] [address] Care Team Providers Care Machine Operator Hop Worker Name Role Phone Community, Pcp Primary Care Provider Unavailabl e Vidhi Wright MD Primary Care Provider Un available Community, Pcp Unavailable Unavailable Ekaterina Higuera MD Primary Care Provider Unava ilable Community, Pcp Primary Care Provider Unavailabl e Encounter Details Date Type Department Care Team Description 08/21/2015 Hospital Medical Records [address] [place] [id number] Yulia Tan Social History Tobacco Use Types Packs/Day Years [...] on filedocumented in this encounter Care Teams Machine Operator Hop Worker Relationship Specialty Start Date End Date Community, Pcp PCP - General Internal Medicine 08/08/14 09/18/16 Vidhi Wright MD PCP - General Internal Medicine 09/19/16 Ekaterina Higuera MD PCP - General Internal Medicine 12/11/18 04/01/21 Community, Pcp PCP - General Internal Medicine 04/02/21 Community, Pcp Internal Medicine 09/19/16 documented as of this encounter
--- OUTSIDE RECORDS SUMMARY | 2024-09-10 12:44 | XMS_ITS | Encounter Summary ---
Author Organization [facility] Address [address] [place] [address] Care Team Providers Care Service Provider Name Role Phone Vidhi Wright MD Primary Care Provider Un available Community, Pcp Unavailable Unavailable Ekaterina Higuera MD Primary Care Provider Unava ilable Community, Pcp Primary Care Provider Unavailabl e Reason for Visit * Reason Onset Date Comments PT-1 10/23/2018 Encounter Details Date Type Department Care Team Description 10/23/2018 Telephone Adult Medicine [address] [address] Vidhi Wright MD PT-1 Social History Tobacco Use Types Packs/Day Years Used Date Smoking Tobacco: Never Smokeless Tobacco: Never Alcohol Use Standard Drinks/Week Comments No 0 (1 standard drink = 0.6 oz pur e alcohol) Sex Assigned at Date Recorded Not on file documented as of this encounter Miscellaneous Notes * Telephone Encounter - Chriss Aguiar M.A. - 10/31/2018 4:41 PM EDT Tracking #[id number] * Telephone Encounter - Helena Marrufo - 10/23/2018 12:55 PM EDT 11/28/17 [facility] patients will now be included in this workflow: Verify and document patients [place] Health insurance ID # (NOT [facility] ID): [id number] Payor: [facility] [employer] FFS / Plan: [facility] [employer] / Product Type: MEDICAID RISK Patient mailing address: [address] [facility] [address] Pt. demographics verified? YES If not accurate, update registration. Is this a NEW request or a RENEWAL? new Name of treating facility: [facility] Name (first & last) of treating provider? required : Ceci Nguyễn What is the medical reason why the patient is seeing the above provider? Abnormal moles Address/Zip code for treating provider: [address] [place] [address] Phone # for treating provider: [phone] Is the provider in the [facility] (do they accept [place] Health insurance)? YES What specialtly is this provider? dermatology When is the visit scheduled for? 02/15/19 How often you will be seeing this particular provider? 2 times a month Do you have friends or family who can transport you to this visit? NO If yes, do not complete request. Is there anything stopping you from using public transportation? If yes, explain. : YES Is there a medical reason (diagnosis) why you are unable to use public transportation? If yes, explain: yes - Patient Active Problem List Diagnosis Code ??? 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 Hypertension I10 ??? Hyperlipidemia E78.5 ??? Tinnitus H93.19 ??? Asthma J45.909 ??? Cognitive impairment R41.89 ??? History of seizure disorder Z86.69 ??? Osteoarthritis of right knee M17.11 ??? Carpal tunnel syndrome G56.00 ??? DM (diabetes mellitus), type 2, uncontrolled, periph vascular complic (HCC) E11.51, E11.65 ??? Abnormal myocardial perfusion study R94.39 Do you need a wheelchair van? NO Do you need an escort to accompany you? If yes, explain why. NO Will you have an alternative pick-up address? NO Do you have a service animal? NO PT DOES NOT NEED RELEASE OF INFORMATION SIGNED documented in this encounter Plan of Treatment Not on file documented as of this encounter Visit Diagnoses Not on filedocumented in this encounter Care Teams Service Provider Relationship Specialty Start Date End Date Vidhi Wright MD PCP - General Internal Medicine 09/19/16 Ekaterina Higuera MD PCP - General Internal Medicine 12/11/18 04/01/21 Community, Pcp PCP - General Internal Medicine 04/02/21 Community, Pcp Internal Medicine 09/19/16 documented as of this encounter
--- OUTSIDE RECORDS SUMMARY | 2024-09-10 12:44 | XMS_ITS | Encounter Summary ---
Author Organization [facility] Address [address] [place] [address] Care Team Providers Care Drafting Instructor Name Role Phone Vidhi Wright MD Primary Care Provider Un available Community, Pcp Unavailable Unavailable Ekaterina Higuera MD Primary Care Provider Unava ilable [facility], Pcp Primary Care Provider Unavailabl e Encounter Details Date Type Department Care Team Description 08/24/2017 Proof Coin Collector Report Medical Records [address] [place] [id number] Abstract, Provider Social History Tobacco Use Types [...] on filedocumented in this encounter Care Teams Drafting Instructor Relationship Specialty Start Date End Date Vidhi Wright MD PCP - General Internal Medicine 09/19/16 Ekaterina Higuera MD PCP - General Internal Medicine 12/11/18 04/01/21 Community, Pcp PCP - General Internal Medicine 04/02/21 Community, Pcp Internal Medicine 09/19/16 documented as of this encounter
--- OUTSIDE RECORDS SUMMARY | 2024-09-10 12:44 | XMS_ITS | Encounter Summary ---
Author Organization [facility] Address [address] [place] [address] Care Team Providers Care Powersaw Supervisor Name Role Phone Vidhi Wright MD Primary Care Provider Un available Community, Pcp Unavailable Unavailable Ekaterina Higuera MD Primary Care Provider Unava ilable [facility], Pcp Primary Care Provider Unavailabl e Encounter Details Date Type Department Care Team Description 11/28/2017 Neonatal Specialist Report Medical Records [address] [place] [address] Vishal Ortega MD Social History Tobacco Use [...] on filedocumented in this encounter Care Teams Powersaw Supervisor Relationship Specialty Start Date End Date Vidhi Wright MD PCP - General Internal Medicine 09/19/16 Ekaterina Higuera MD PCP - General Internal Medicine 12/11/18 04/01/21 Community, Pcp PCP - General Internal Medicine 04/02/21 Community, Pcp Internal Medicine 09/19/16 documented as of this encounter
--- OUTSIDE RECORDS SUMMARY | 2024-09-10 12:44 | XMS_ITS | Encounter Summary ---
Author Organization [facility] Address [address] [place] [address] Care Team Providers Care Validation Software Facilitator Name Role Phone Community, Pcp Unavailable Unavailable Ekaterina Higuera MD Primary Care Provider Unava ilable Community, Pcp Primary Care Provider Unavailabl e Reason for Visit * Reason Onset Date Comments Prior Authorization 07/03/2019 Encounter Details Date Type Department Care Team Description 07/03/2019 Telephone Adult Medicine [address] [address] Ekaterina Higuera MD Prior Authorization Social History Tobacco Use Types Packs/Day Years Used Date Smoking Tobacco: Never Smokeless Tobacco: Never Alcohol Use Standard Drinks/Week Comments No 0 (1 standard drink = 0.6 oz pur e alcohol) Sex Assigned at Date Recorded Not on file documented as of this encounter Miscellaneous Notes * Telephone Encounter - Juanis Coronado M.A. - 07/15/2019 9:18 AM EST Spoke with Patrick who stated that this was approved Approved from 05/23/19 unit 05/22/2021 Approval number [id number] * Telephone Encounter - Juanis Coronado M.A. - 07/04/2019 2:35 PM EST Pt has tried and failed Basaglar Humalog Novolog Admelog Lantus Victoza Trulicity jardiance * Telephone Encounter - Juanis Coronado M.A. - 07/04/2019 2:25 PM EST Prior authorization completed on [employer] form today for lantus solostar , pt had an allergic reaction to the basaglar. Dx code E11.51 DM (diabetes mellitus), type 2, uncontrolled, periph vascular complications * Telephone Encounter - Ekaterina Higuera MD - 07/04/2019 1:06 PM EST Basaglar caused diaphoresis, persistent headache and made the patient confused for a period of timeafter use. Pls do PA for Lantus. * Telephone Encounter - Jailene Eldridge M.A. - 07/04/2019 11:10 AM EST Basaglar kwikpen is covered alternative Please reply back to p [phone] Prior Auth pool Jailene Eldridge M.A. [facility] Prior Authorizations Ext [phone] Fax: [phone] [place] back to p [phone] Prior Auth pool * Telephone Encounter - Marline Wiggins - 07/03/2019 1:26 PM EST Prior Authorization for Medication-do not complete and send this encounter unless you have the fax from the pharmacy. Is this a Cover My Meds request: Yes -- Cast Code [id number] Name of Medication LANTUS SOLOSSTAR 100 UNIT/ML Dose of Medication 100 UNITS/ML What is the RX # from the faxed refill? [phone] How does patient take this med? : Inject 38 Units into the skin at bedtime. What Pharmacy did the fax come from: [facility] fax #: [phone] [employer] Information from fax: What Prescription Plan does the patient have? BIN/PCN if applicable: Cardholder ID: Person Code: Relationship Code: Help desk phone: [phone] documented in this encounter Plan of Treatment Not on file documented as of this encounter Visit Diagnoses Not on filedocumented in this encounter Care Teams Validation Software Facilitator Relationship Specialty Start Date End Date Ekaterina Higuera MD PCP - General Internal Medicine 12/11/18 04/01/21 Community, Pcp PCP - General Internal Medicine 04/02/21 [facility], Pcp Internal Medicine 09/19/16 documented as of this encounter
--- OUTSIDE RECORDS SUMMARY | 2024-09-10 12:44 | XMS_ITS | Encounter Summary ---
Author Organization [facility] Address [address] [place] [address] Care Team Providers Care Business Proposal Rep Name Role Phone Vidhi Wright MD Primary Care Provider Un available Community, Pcp Unavailable Unavailable Ekaterina Higuera MD Primary Care Provider Unava ilable [facility], Pcp Primary Care Provider Unavailabl e Encounter Details Date Type Department Care Team Description 05/30/2017 Patent Lawyer Report Medical Records [address] [place] [address] Vishal Ortega MD Social History Tobacco Use [...] on filedocumented in this encounter Care Teams Business Proposal Rep Relationship Specialty Start Date End Date Vidhi Wright MD PCP - General Internal Medicine 09/19/16 Ekaterina Higuera MD PCP - General Internal Medicine 12/11/18 04/01/21 Community, Pcp PCP - General Internal Medicine 04/02/21 Community, Pcp Internal Medicine 09/19/16 documented as of this encounter
--- OUTSIDE RECORDS SUMMARY | 2024-09-10 12:44 | XMS_ITS | Encounter Summary ---
Author Organization [facility] Address [address] [place] [address] Care Team Providers Care Assistant Product Manager Name Role Phone Vidhi Wright MD Primary Care Provider Un available Community, Pcp Unavailable Unavailable Ekaterina Higuera MD Primary Care Provider Unava ilable Community, Pcp Primary Care Provider Unavailabl e Encounter Details Date Type Department Care Team Description 06/26/2017 Telephone Adult Medicine [address] [address] Vidhi Wright MD Social History Tobacco Use Types Packs/Day Years Used Date Smoking Tobacco: Never Alcohol Use Standard Drinks/Week Comments No 0 (1 standard drink = 0.6 oz pur e alcohol) Sex Assigned at Date Recorded Not on file documented as of this encounter Miscellaneous Notes * Telephone Encounter - Howie Santoyo L.P.N. - 06/26/2017 2:16 PM EST Patient states she was in the ER at [place] [facility] She states she has an appt 1227 and doesn't want to change it Declined Er follow up appt * Telephone Encounter - Lashon Grady - 06/26/2017 2:11 PM EST Call returned * Telephone Encounter - Howie MagallonP.NBettina - 06/26/2017 1:42 PM EST Telephone Information: Called patient left message for patient to call triage nurse Patient needs a [facility] follow up booked documented in this encounter Plan of Treatment Not on file documented as of this encounter Visit Diagnoses Not on filedocumented in this encounter Care Teams Assistant Product Manager Relationship Specialty Start Date End Date Vidhi Wright MD PCP - General Internal Medicine 09/19/16 Ekaterina Higuera MD PCP - General Internal Medicine 12/11/18 04/01/21 Community, Pcp PCP - General Internal Medicine 04/02/21 Community, Pcp Internal Medicine 09/19/16 documented as of this encounter
--- OUTSIDE RECORDS SUMMARY | 2024-09-10 12:45 | XMS_ITS | Encounter Summary ---
Author Organization [employer] Address [address] [facility] [address] [place] [address] Care Team Providers Care [facility] Technical Lead Senior Developer Name Role Phone Maria Guadalupe Merida MD Primary Care Provider [phone] Horacio Augustin PharmD Unavailable [phone] Reason for Referral * Consultation (Routine) - Authorized Specialty Diagnoses / Procedures Referred By Contac t Referred To Contact Pharmacy Diagnoses Mild intermittent asthma without complication Hypertension, unspecified type Type 2 diabetes mellitus with hyperglycemia, with long-term current use of insulin (CMS/HCC) Maria Guadalupe Merida MD [address] [place] [address] Phone: tel: fax: Referral ID Status Reason Start Date Expiration Date Visits Requested Visits Authorized [id number] Authorized Consult and Treat 06/04/2024 06/04/2025 6 6 Encounter Details Date Type Department Care Team (Late st Contact Info) Description 06/04/2024 Orders Only [facility] MEDICINE [address], [place] [phone] Maria Guadalupe Merida MD [address], [place] [phone] Mild intermittent asthma without complication (Primary Dx); Hypertension, unspecified type; Type 2 diabetes mellitus with hyperglycemia, with long-term current use of insulin (CMS/HCC) Social History Tobacco Use Types Packs/Day Years Used Date Smoking Tobacco: Never Smokeless Tobacco: Never Alcohol Answer Date Recorded Frequency of Alcohol Consumption Not on file 01/22/2024 Average Number of Drinks Not on file 024 Frequency of Binge Drinking Not on file 07/0 07/2023 Score 0 01/22/2024 Housing Stability Answer Date Recorded What is [...] off services in your home? No 01/11/2024 Internet Access Answer Date Recorded Internet Access [...] Description 09/23/2024 11:15 AM EST Office Visit [facility] MEDICINE [address] [place] [phone] Maria Guadalupe Merida MD [address] [place] [phone] 10/24/2024 10:00 AM EDT Medication Management [facility] MEDICINE [address] [place] [phone] Horacio Augustin, PharmD [address] [place] [phone] Scheduled Referrals Name Type Priority Associated Diagnoses Orde r Schedule Referral to Pharmacy CDTM Outpatient Referral Routine Mild intermittent asthma without complication Hypertension, unspecified type Type 2 diabetes mellitus with hyperglycemia, with long-term current use of insulin ([facility]) Ordered: 06/04/2024 documented as of this encounter Goals Goal Patient Goal Type Associated Problems Recent Progress Patient-Stated? Author Blood Pressure < 140/90 Blood Pressure 134/66(2024 10:39 AM EST) No Hroacio Augustin PharmD Hemoglobin A1c < 7 Result Component 7.7( 10:36 AM EST) No Horacio Augustin PharmD documented as of this encounter Visit Diagnoses Diagnosis Mild intermittent asthma without complication- Primary Hypertension, unspecified type Type 2 diabetes mellitus with hyperglycemia, with long-term current use of insulin ([facility]) documented in this encounter Care Teams [facility] Technical Lead Senior Developer Relationship Specialty Start Date End Date Maria Guadalupe Merida MD [address] [place] [phone] PCP - General Family Medicine 01/22/24 Horacio Augustin, AmyD [address] [place] [address] Pharmacist Internal Medicine 02/14/24 documented as of this encounter
--- OUTSIDE RECORDS SUMMARY | 2024-09-10 12:45 | XMS_ITS | Clinical Summary ---
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 mg/dLVery High LDL: greater than or equal to 190 mg/dL HDL Cholesterol 53 >40 mg/dL [facility] Comment:Desirable HDL: great er than 40 mg/dL Note: This HDL assay may give artificially low results in patients with liver disease. Blood 01/22/2024 2:56 PM EDT 01/22/2024 4:03 PM EDT us Maria Guadalupe Merida MD LAB BLOOD ORDERABLES Final Resul t Performing Organization Address City/[facility]/ZIP Co de Phone Number [facility] [address] [place] [phone] * Albumin, Random Urine W/Creatinine (01/22/2024 2:56 PM EDT) Creatinine, Urine 50.85 mg/dL [facility] Microalbumin Urine <5.0 mg/L [facility] Microalbum Creatinine Ratio Ur TNP <30 ug/mg cr [facility] Comment:Unable to calculate albumin/creatinine ratio due to lowmicroalbumin or creatinine result. Urine 01/22/2024 2:56 PM EDT 01/22/2024 4:02 PM EDT us Maria Guadalupe Merida MD LAB URINE ORDERABLES Final Resul t Performing Organization Address [facility]/ZIP Co de Phone Number [facility] [address] [place] [phone] * Mammography (11/01/2023) Mammogram BIRADS 1 Normal, Abnormal, BIRADS 1 , BIRADS 2 Anatomical Region Laterality Modality Other 11/01/2023 Historical Provider HEALTH MAINTENANCE Edited Result - Final * HEPATITIS C AB W/REFL TO HCV RNA, QN, PCR (02/10/2021 10:45 AM EDT) HEPATITIS C ANTIBODY NON-REACT KEMAL NON-REACT KEMAL [facility] INDEX 0.01 <1.00 [facility] Comment: ?? HCV antibody was non-reactive. There is no laboratory ?? evidence of HCV infection. ?? In most cases, no further action is required. However, if recent HCV exposure is suspected, a test for HCV RNA (test code 31152) is suggested. ?? For additional information please refer to http://education.[employer]/faq/KFC13q8 (This link is being provided for informational/ educational purposes only.) ?? 02/10/2021 10:4 5 AM EDT Basilia Obregon MD HISTORICAL/NON ORDERABLE LAB S Final Result [facility] [address] from Last 3 Months or Most Recently Relevant to Health Maintenance Insurance [facility] DUAL COMPLETE Care Teams Physical Therapist Clinic Director Relationship Specialty Start Date End Date Maria Guadalupe Merida MD [address] [place] [address] PCP - General Family Medicine 01/22/24 Horacio Augustin, AmyD [address] [place] [address] Pharmacist Internal Medicine 02/14/24
== END 2024-09-10 11:31 | disposition home or self-care (01) ==
LOC: HO.LAB 11:30
PROVIDERS: PCP Family Medicine
DX: R94.39 Abnormal result of other cardiovascular function study (principal)
CPT/HCPCS: 36415; 80048; 85025; 85610

== ENCOUNTER → 2024-09-24 23:59 | Outpatient (BNV) | payer OTHER, SELFPAY | PROVIDERS: PCP Family Medicine; Visit Provider Internal Medicine Cardiovascular Disease | DX: I20.89 Other forms of angina pectoris (principal); R93.1 Abnormal findings on diagnostic imaging of heart and coronary circulation; R07.9 Chest pain, unspecified | CPT/HCPCS: 92928; 93458; 99152 ==

== ENCOUNTER 2024-10-11 13:30 | Outpatient (AMB) | payer OTHER, SELFPAY ==
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
[2024-10-11 13:41] VITALS: BP 160/78; PULSE 72; BMI 25.4
--- OUTSIDE RECORDS SUMMARY | 2024-10-11 15:49 | XMS_ITS | Encounter Summary ---
Author Organization [employer] Address [address] [facility] [facility] [address] [place] [address] Care Team Providers Care Beer Brewer Name Role Phone Maria Guadalupe Merida MD Primary Care Provider [phone] Horacio Augustin PharmD Unavailable [phone] Reason for Visit * Reason Onset Date Comments chart prep 09/18/2024 Encounter Details Date Type Department Care Team (Late st Contact Info) Description 09/18/2024 Telephone [facility] [address] [place], [place] [phone] Marely Booker MA chart prep Social History Tobacco Use Types Packs/Day Years [...] AM EDT documented as of this encounter Miscellaneous Notes * Telephone Encounter - Marely Booker MA - 09/18/2024 9:54 AM EST ..chart Prep Labs: not applicable Images: not applicable Vaccines due: Covid Due, Flu Due, and RSV in Pharmacy Due Referrals: Gastroenterology Requested notes by Fax. Waiting for notes. 11/06/24 cardio appt Neurology appt 10/22/24 Screenings: Colonoscopy Overdue care gaps: A1C and Glucose documented in this encounter Plan of Treatment Upcoming Encounters Date Type Department Care Team (Late st Contact Info) Description 10/24/2024 10:00 AM EDT Medication Management [facility] [address] [place] [address] Horacio Augustin PharmD [address] [place] [address] documented as of this encounter Goals Goal Patient Goal Type Associated Problems Recent Progress Patient-Stated? Author Blood Pressure < 140/90 Blood Pressure 164/84(2024 10:51 AM EST) No Horacio Augustin, PharmShana Hemoglobin A1c < 7 Result Component 9.3( 10:55 AM EST) No Horacio Augustin, PharmD documented as of this encounter Visit Diagnoses Not on filedocumented in this encounter Additional Health Concerns Assessment Noted Time PHQ-9 Depression Total Score: 5 07/11/20 24 10:03 AM EST documented as of this encounter Care Teams Beer Brewer Relationship Specialty Start Date End Date Maria Guadalupe Merida MD [address] [place] [address] PCP - General Family Medicine 01/22/24 Horacio Augustin, PharmD [address] [place] [address] Pharmacist Internal Medicine 02/14/24 documented as of this encounter
--- OUTSIDE RECORDS SUMMARY | 2024-10-11 15:49 | XMS_ITS | Encounter Summary ---
Author Organization [employer] Address [address] [facility] [address] [place] [address] Care Team Providers Care Brake Operator Heavy Duty Name Role Phone Maria Guadalupe Merida MD Primary Care Provider [phone] Horacio Augustin PharmD Unavailable [phone] Reason for Referral * Consultation (Routine) - Authorized Specialty Diagnoses / Procedures Referred By Contac t Referred To Contact Pharmacy Diagnoses Mild intermittent asthma without complication Hypertension, unspecified type Type 2 diabetes mellitus with hyperglycemia, with long-term current use of insulin (CMS/HCC) Maria Guadalupe Merida MD [address] [place] [address] Phone: tel: fax: Referral ID Status Reason Start Date Expiration Date Visits Requested Visits Authorized [id number] Authorized Consult and Treat 06/04/2024 06/04/2025 6 6 Encounter Details Date Type Department Care Team (Late st Contact Info) Description 06/04/2024 Orders Only [facility] [address] [place], [place] [phone] Maria Guadalupe Merida MD [address] [place], [place] [phone] Mild intermittent asthma without complication (Primary Dx); [...] Description 10/24/2024 10:00 AM EDT Medication Management [facility] [address] [place] [address] Horacio Augustin, PharmD [address] [place] [address] Scheduled Referrals Name Type Priority Associated Diagnoses Orde r Schedule Referral to Pharmacy CDTM Outpatient Referral Routine Mild intermittent asthma without complication Hypertension, unspecified type Type 2 diabetes mellitus with hyperglycemia, with long-term current use of insulin ([facility]) Ordered: 06/04/2024 documented as of this encounter Goals Goal Patient Goal Type Associated Problems Recent Progress Patient-Stated? Author Blood Pressure < 140/90 Blood Pressure 164/84(2024 10:51 AM EST) No Horacio Augustin, Divya Hemoglobin A1c < 7 Result Component 9.3( 10:55 AM EST) No Horacio Augustin, Divya documented as of this encounter Visit Diagnoses Diagnosis Mild intermittent asthma without complication- Primary Hypertension, unspecified type Type 2 diabetes mellitus with hyperglycemia, with long-term current use of insulin ([facility]) documented in this encounter Care Teams Brake Operator Heavy Duty Relationship Specialty Start Date End Date Maria Guadalupe Merida MD [address] [place] [address] PCP - General Family Medicine 01/22/24 Horacio Augustin, AmyD [address] [place] [address] Pharmacist Internal Medicine 02/14/24 documented as of this encounter
--- OUTSIDE RECORDS SUMMARY | 2024-10-11 15:49 | XMS_ITS | Encounter Summary ---
Author Organization [employer] Address [address] [facility] [address] [place] [address] Care Team Providers Care Teletype Adjuster Name Role Phone Maria Guadalupe Merida MD Primary Care Provider [phone] Horacio Augustin PharmD Unavailable [phone] Encounter Details Date Type Department Care Team (Latest Contact Info) Description 09/23/2024 Travel Social History Tobacco Use Types Packs/Day [...] Description 10/24/2024 10:00 AM EDT Medication Management [facility] [address] [place] [address] Horacio Augustin PharmD [address] [place] [address] documented as of this encounter Goals Goal Patient Goal Type Associated Problems Recent Progress Patient-Stated? Author Blood Pressure < 140/90 Blood Pressure 164/84(2024 10:51 AM EST) No Horacio Augustin PharmD Hemoglobin A1c < 7 Result Component 9.3( 10:55 AM EST) No Horacio Augustin PharmD documented as of this encounter Visit Diagnoses Not on filedocumented in this encounter Additional Health Concerns Assessment Noted Time PHQ-9 Depression Total Score: 5 07/11/20 24 10:03 AM EST documented as of this encounter Care Teams Teletype Adjuster Relationship Specialty Start Date End Date Maria Guadalupe Merida MD [address] [place] [phone] PCP - General Family Medicine 01/22/24 Horacio Augustin PharmD [address] [place] [phone] Pharmacist Internal Medicine 02/14/24 documented as of this encounter
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
== END 2024-10-11 14:19 | disposition home or self-care (01) ==
PROVIDERS: PCP Family Medicine
DX: Z98.890 Other specified postprocedural states (principal); I25.10 Atherosclerotic heart disease of native coronary artery without angina pectoris; I10 Essential (primary) hypertension; R06.09 Other forms of dyspnea; E11.9 Type 2 diabetes mellitus without complications; Z79.4 Long term (current) use of insulin
CPT/HCPCS: 99215; G2211

== ENCOUNTER 2024-10-11 14:34 | Outpatient (REF) | payer OTHER, SELFPAY ==
--- NOTE | ~2024-10-11 | US_ITS ---
EXAMINATION: US DOPPLER UPPER EXTREMITY ARTERIAL GRAFT, CLINICAL INFORMATION: [Status post cardiac catheterization, right radial artery. Pulsatile mass. COMPARISON: None available. TECHNIQUE: Limited arterial ultrasound of the right radial artery using grayscale and color Doppler technique. FINDINGS: There is a 0.7 x 0.3 x 0.4 cm lobulated anechoic abnormality with the small neck into the anterior margin of the distal right radial artery with flow on color Doppler interrogation. 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
== END 2024-10-11 14:35 | disposition home or self-care (01) ==
LOC: HO.US 14:34
PROVIDERS: PCP Family Medicine
DX: Z98.890 Other specified postprocedural states (principal); I72.8 Aneurysm of other specified arteries
CPT/HCPCS: 93931; 99212

== ENCOUNTER → 2024-10-11 14:36 | Outpatient (BNV) | payer OTHER, SELFPAY | PROVIDERS: PCP Family Medicine; Visit Provider Radiology Diagnostic Radiology | DX: I72.1 Aneurysm of artery of upper extremity (principal) | CPT/HCPCS: 93931 ==

== ENCOUNTER 2024-10-14 09:32 | Outpatient (REF) | payer OTHER, SELFPAY ==
[2024-10-14 10:58] LABS: Anion Gap 14 (12-20); Blood Urea Nitrogen 15 mg/dL (9-16); Calcium 8.8 mg/dL (8.4-10.2); Carbon Dioxide 21 mmol/L (22-29); Chloride 106 mmol/L (96-108); Cholesterol 216 mg/dL (<200); Estimated Glomerular Filt Rate > 60; Glucose Random 166 mg/dL (60-115); HDL Cholesterol 41 mg/dL (>40); LDL Cholesterol Calculated 134 mg/dL (<100); Potassium 4.3 mmol/L (3.3-5.1); Sodium 137 mmol/L (135-145); Triglycerides 208 mg/dL (<150)
[2024-10-14 13:05] LABS: D Dimer High Sensitivity < 150 NG/ML
== END 2024-10-14 09:33 | disposition home or self-care (01) ==
LOC: HO.LAB 09:32
PROVIDERS: PCP Family Medicine
DX: I10 Essential (primary) hypertension (principal); I25.10 Atherosclerotic heart disease of native coronary artery without angina pectoris; R05.8 Other specified cough; Z86.711 Personal history of pulmonary embolism
CPT/HCPCS: 36415; 80048; 80061; 85379

== ENCOUNTER 2024-10-15 12:26 | Outpatient (AMB) | payer OTHER, SELFPAY ==
--- NOTE | 2024-10-15 13:17 | MHC.OFFVIS ---
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 No complaints. 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 She had come in for shortness of breath and left shoulder pain and underwent a stress test which was abnormal. She subsequently underwent cardiac catheterization and PCI at [facility] by Dr. Garsia. This was performed on 09/24/2024 through a right radial artery approach. It was subsequently upsized to a 6 Bel[place] sheath. On postprocedure follow-up it was recognized that she had a pseudo aneurysm. At the current time she reports that motor and sensation is intact and has no significant discomfort from this. [facility] Medical History BECKHAM (dyspnea on exertion) Essential hypertension Diabetes mellitus treated with insulin Surgical History History of appendectomy Family History Mother Hypertension Hyperlipidemia Atherosclerosis Father No problems noted. Social History Alcohol intake: never Patient Tobacco Use Status: Never used Tobacco Review of Systems Const All systems reviewed & are unremarkable except as noted in HPI and below Reports no additional complaints ENT Reports Normal hearing present Card Denies chest pain, Denies chest pain at rest, Denies chest pain with activity and Denies pedal edema Resp Denies cough GI Denies abdominal pain Musc Denies abnormal gait, Denies muscle cramps and Denies radiating pain into limb Skin/Breast Denies skin ulcer and Denies wounds Neuro Reports Normal hearing present and Denies abnormal gait Psych Reports no additional complaints Physical Exam Const General: cooperative, healthy appearing and comfortable Orientation/consciousness: oriented to person, oriented to place and oriented to time HEENT Head: Yes normal to inspection Neck Neck: Yes normal visual inspection Carotids: no bruits Chest Chest palpation & inspection: normal inspection of the chest Resp Effort & Inspection: normal respiratory effort and able to speak in complete sentences Auscultation: clear to auscultation bilaterally, no crackles, no rales, no rhonchi and no wheezes Cardio Other: Prominent right radial pulse Rate: regular rate Rhythm: regular rhythm Heart sounds: S1 normal heart sound present and S2 normal heart sound present Bruits: no carotid bruits Peripheral pulses: Peripheral pulses 2+ throughout GI Inspection: Yes normal to inspection Skin Wounds: no wounds Hair: normal Neuro General: oriented to person, oriented to place and oriented to time Cranial nerves: Yes CN's II-XII intact bilaterally and Yes Normal hearing present Cognition (Neuro): normal cognition Motor exam (neuro): 5/5 motor strength present throughout Extrem Other: venous exam: No significant superficial varicosities or spider telangiectasias, minimal edema General: No clubbing, No cyanosis and No edema Psych Appearance: grossly normal Mental Status: mental status grossly normal Speech and movement: Normal speech and movement present Results Reviewed Results Reviewed: Ultrasound from 10/11/2024 demonstrates right radial artery pseudo aneurysm. I reconfirmed this with a bedside ultrasound which I did used to compress this for a total of 1 minute in duration. Assessment & Plan Assessment & Plan (1) Pseudoaneurysm: Comment: Right radial artery Code(s): I72.9 - Aneurysm of unspecified site Category: Medical Plan: In short patient has a right radial artery pseudoaneurysm. At the current time she has no complications from this. We did do a bedside ultrasound compression. We will see if that has any improvement. If not we can do a thrombin injection as it does appear to have a reasonable neck and fairly superficial pseudo aneurysm. Thank you for allowing us to assist in her care. If there are any questions or concerns please do not hesitate to contact us Coding Level of Care Code New Pt Level 4 (80957) Diagnoses Pseudoaneurysm I72.9
--- OUTSIDE RECORDS SUMMARY | 2024-10-15 15:07 | XMS_ITS | Encounter Summary ---
Author Organization [facility] Address [address] [place] [address] Care Team Providers Care Marriage And Family Therapist Name Role Phone Vidhi Wright MD Primary Care Provider Un available Community, Pcp Unavailable Unavailable Ekaterina Higuera MD Primary Care Provider Unava ilable [facility], Pcp Primary Care Provider Unavailabl e Encounter Details Date Type Department Care Team Description 08/24/2017 Stand Grinder Report Medical Records [address] [place] [id number] Abstract, Provider Social History Tobacco Use Types [...] on filedocumented in this encounter Care Teams Marriage And Family Therapist Relationship Specialty Start Date End Date Vidhi Wright MD PCP - General Internal Medicine 09/19/16 Ekaterina Higuera MD PCP - General Internal Medicine 12/11/18 04/01/21 Community, Pcp PCP - General Internal Medicine 04/02/21 Community, Pcp Internal Medicine 09/19/16 documented as of this encounter
--- OUTSIDE RECORDS SUMMARY | 2024-10-15 15:07 | XMS_ITS | Encounter Summary ---
Author Organization [facility] Address [address] [place] [address] Care Team Providers Care Animal Scientist Name Role Phone Vidhi Wright MD Primary Care Provider Un available Community, Pcp Unavailable Unavailable Ekaterina Higuera MD Primary Care Provider Unava ilable Community, Pcp Primary Care Provider Unavailabl e Reason for Visit * Reason Onset Date Comments refill request 11/06/2018 Encounter Details Date Type Department Care Team Description 11/06/2018 Refill Adult Medicine [address] [address] Vidhi Wright MD refill request Social History [...] N/A Patients current insurance carrier is: Payor: [employer] FFS / Plan: [facility] / Product Type: MEDICAID RISK documented in this encounter Plan of Treatment Not on file documented as of this encounter Visit Diagnoses Not on filedocumented in this encounter Care Teams Animal Scientist Relationship Specialty Start Date End Date Vidhi Wright MD PCP - General Internal Medicine 09/19/16 Ekaterina Higuera MD PCP - General Internal Medicine 12/11/18 04/01/21 Community, Pcp PCP - General Internal Medicine 04/02/21 Community, Pcp Internal Medicine 09/19/16 documented as of this encounter
--- OUTSIDE RECORDS SUMMARY | 2024-10-15 15:07 | XMS_ITS | Encounter Summary ---
Author Organization [facility] Address [address] [place] [address] Care Team Providers Care Marine Consultant Name Role Phone Vidhi Wright MD Primary Care Provider Un available Community, Pcp Unavailable Unavailable Ekaterina Higuera MD Primary Care Provider Unava ilable Community, Pcp Primary Care Provider Unavailabl e Reason for Visit * Reason Onset Date Comments Appointment-Internal Referral 03/07/2017 [email or web address] Encounter Details Date Type Department Care Team Description 03/07/2017 Telephone Dermatology - [place] [address] [place] [address] Dimitri Kline MD [address] [place] [id number] Appointment-Internal Referral (derm) Social History Tobacco Use [...] on filedocumented in this encounter Care Teams Marine Consultant Relationship Specialty Start Date End Date Vidhi Wright MD PCP - General Internal Medicine 09/19/16 Ekaterina Higuera MD PCP - General Internal Medicine 12/11/18 04/01/21 Community, Pcp PCP - General Internal Medicine 04/02/21 Community, Pcp Internal Medicine 09/19/16 documented as of this encounter
--- OUTSIDE RECORDS SUMMARY | 2024-10-15 15:07 | XMS_ITS | Encounter Summary ---
Author Organization [facility] Address [address] [place] [address] Care Team Providers Care Medicaid Billing Clerk Name Role Phone Vidhi Wright MD Primary Care Provider Un available Community, Pcp Unavailable Unavailable Ekaterina Higuera MD Primary Care Provider Unava ilable [facility], Pcp Primary Care Provider Unavailabl e Encounter Details Date Type Department Care Team Description 12/05/2017 Tire Service Supervisor Report Medical Records [address] [place] [address] Marianna Pandey FNP Social History Tobacco Use Types Packs/Day Years [...] on filedocumented in this encounter Care Teams Medicaid Billing Clerk Relationship Specialty Start Date End Date Vidhi Wright MD PCP - General Internal Medicine 09/19/16 Ekaterina Higuera MD PCP - General Internal Medicine 12/11/18 04/01/21 Community, Pcp PCP - General Internal Medicine 04/02/21 Community, Pcp Internal Medicine 09/19/16 documented as of this encounter
--- OUTSIDE RECORDS SUMMARY | 2024-10-15 15:07 | XMS_ITS | Encounter Summary ---
Author Organization [facility] Address [address] [place] [address] Care Team Providers Care Wardrobe Technician Name Role Phone Vidhi Wright MD Primary Care Provider Un available Community, Pcp Unavailable Unavailable Ekaterina Higuera MD Primary Care Provider Unava ilable [facility], Pcp Primary Care Provider Unavailabl e Encounter Details Date Type Department Care Team Description 01/13/2017 Medical Transcription Editor Report Medical Records [address] [place] [address] Noah España Social History Tobacco Use Types Packs/Day Years Used Date Smoking Tobacco: Never Alcohol Use Standard Drinks/Week Comments No 0 (1 standard drink = 0.6 oz pur e alcohol) Sex Assigned at Date Recorded Not on file documented as of this encounter Plan of Treatment Not on file documented as of this encounter Visit Diagnoses Not on filedocumented in this encounter Care Teams Wardrobe Technician Relationship Specialty Start Date End Date Vidhi Wright MD PCP - General Internal Medicine 09/19/16 Ekaterina Higuera MD PCP - General Internal Medicine 12/11/18 04/01/21 Community, Pcp PCP - General Internal Medicine 04/02/21 Community, Pcp Internal Medicine 09/19/16 documented as of this encounter
--- OUTSIDE RECORDS SUMMARY | 2024-10-15 15:07 | XMS_ITS | Encounter Summary ---
Author Organization [facility] Address [address] [place] [address] Care Team Providers Care Sprayer Leather Name Role Phone Vidhi Wright MD Primary Care Provider Un available Community, Pcp Unavailable Unavailable Ekaterina Higuera MD Primary Care Provider Unava ilable Community, Pcp Primary Care Provider Unavailabl e Encounter Details Date Type Department Care Team Description 06/26/2017 Telephone Adult Medicine [address] [address] Vidhi Wright MD Social History Tobacco Use [...] states she was in the ER at [facility] She states she has an appt 1227 and doesn't want to change it Declined Er follow up appt * Telephone Encounter - Lashon Grady - 06/26/2017 2:11 PM EST Call returned * Telephone Encounter - Howie MagallonP.NBettina - 06/26/2017 1:42 PM EST Telephone Information: Called patient left message for patient to call triage nurse Patient needs a [facility] follow up booked documented in this encounter Plan of Treatment Not on file documented as of this encounter Visit Diagnoses Not on filedocumented in this encounter Care Teams Sprayer Leather Relationship Specialty Start Date End Date Vidhi Wright MD PCP - General Internal Medicine 09/19/16 Ekaterina Higuera MD PCP - General Internal Medicine 12/11/18 04/01/21 Community, Pcp PCP - General Internal Medicine 04/02/21 Community, Pcp Internal Medicine 09/19/16 documented as of this encounter
--- OUTSIDE RECORDS SUMMARY | 2024-10-15 15:07 | XMS_ITS | Encounter Summary ---
Author Organization [facility] Address [address] [place] [address] Care Team Providers Care Crown Attacher Name Role Phone Community, Pcp Unavailable Unavailable Ekaterina Higuera MD Primary Care Provider Duncan macias Community, Pcp Primary Care Provider Unavailabl e Encounter Details Date Type Department Care Team Description 08/28/2020 Release of Information Medical Records [address] [place] [address] Abstract, Provider Social History Tobacco Use Types Packs/Day Years Used Date Smoking Tobacco: Never Smokeless Tobacco: Never Alcohol Use Standard Drinks/Week Comments No 0 (1 standard drink = 0.6 oz pur e alcohol) Sex Assigned at Date Recorded Not on file COVID-19 Exposure Response Date Recorded In the last month, have you been in contact with someone who was confirmed or suspected to have Coronavirus / COVID-19? No / Unsure 08/28/2020 11:52 AM EST documented as of this encounter Plan of Treatment Not on file documented as of this encounter Visit Diagnoses Not on filedocumented in this encounter Care Teams Crown Attacher Relationship Specialty Start Date End Date Ekaterina Higuera MD PCP - General Internal Medicine 12/11/18 04/01/21 Community, Pcp PCP - General Internal Medicine 04/02/21 Community, Pcp Internal Medicine 09/19/16 documented as of this encounter
--- OUTSIDE RECORDS SUMMARY | 2024-10-15 15:07 | XMS_ITS | Encounter Summary ---
Author Organization [facility] Address [address] [place] [address] Care Team Providers Care Software Applications Specialist Name Role Phone Vidhi Wright MD Primary Care Provider Un available Community, Pcp Unavailable Unavailable Ekaterina Higuera MD Primary Care Provider Unava ilable Community, Pcp Primary Care Provider Unavailabl e Reason for Visit * Reason Onset Date Comments PT-1 10/23/2018 Encounter Details Date Type Department Care Team Description 10/23/2018 Telephone Adult Medicine [address] [address] Vidhi Wright MD PT-1 Social History Tobacco Use Types Packs/Day Years Used Date Smoking Tobacco: Never Smokeless Tobacco: Never Alcohol Use Standard Drinks/Week Comments No 0 (1 standard drink = 0.6 oz pur e alcohol) Sex Assigned at Date Recorded Not on file documented as of this encounter Miscellaneous Notes * Telephone Encounter - Chriss Aguiar M.A. - 10/31/2018 4:41 PM EDT Tracking #[id number] * Telephone Encounter - Helena Marrufo - 10/23/2018 12:55 PM EDT 11/28/17 [facility] patients will now be included in this workflow: Verify and document patients [place] Health insurance ID # (NOT [facility] ID): [id number] Payor: [facility] HEALTHNET FFS / [place] [facility] [employer] / Product Type: MEDICAID RISK Patient mailing address: [address] [facility] [address] Pt. demographics verified? YES If not accurate, update registration. Is this a NEW request or a RENEWAL? new Name of treating facility: [facility] Name (first & last) of treating provider? required : Ceci Nguyễn What is the medical reason why the patient is seeing the above provider? Abnormal moles Address/Zip code for treating provider: [address] [place] [address] Phone # for treating provider: [phone] Is the provider in the [employer] [facility] (do they accept [place] Health insurance)? YES What specialtly is this [...] on filedocumented in this encounter Care Teams Software Applications Specialist Relationship Specialty Start Date End Date Vidhi Wright MD PCP - General Internal Medicine 09/19/16 Ekaterina Higuera MD PCP - General Internal Medicine 12/11/18 04/01/21 Community, Pcp PCP - General Internal Medicine 04/02/21 Community, Pcp Internal Medicine 09/19/16 documented as of this encounter
--- OUTSIDE RECORDS SUMMARY | 2024-10-15 15:07 | XMS_ITS | Encounter Summary ---
Author Organization [facility] Address [address] [place] [address] Care Team Providers Care New Car Get Ready Mechanic Name Role Phone Community, Pcp Unavailable Unavailable Ekaterina Higuera MD Primary Care Provider Unava ilable [facility], Pcp Primary Care Provider Unavailabl e Reason for Visit * Reason Onset Date Comments Faxed Refill 11/30/2020 Encounter Details Date Type Department Care Team Description 11/30/2020 Refill Adult Medicine [address] [address] Ekaterina Higuera MD Faxed Refill Social History Tobacco Use Types Packs/Day Years Used Date Smoking Tobacco: Never Smokeless Tobacco: Never Alcohol Use Standard Drinks/Week Comments No 0 (1 standard drink = 0.6 oz pur e alcohol) Sex Assigned at Date Recorded Not on file documented as of this encounter Miscellaneous Notes * Telephone Encounter - Silviano Machado M.A. - 12/01/2020 3:54 PM EDT Faxed to pharmacy * Telephone Encounter - Karli Ruiz C.M.A - 11/30/2020 3:59 PM EDT Lab Results Component Value Date NA 135 08/20/2020 K 4.2 08/20/2020 CO2 27 08/20/2020 CL 102 08/20/2020 BUN 15 08/20/2020 CREAT 0.81 08/20/2020 GLU 256 08/20/2020 CA 8.8 08/20/2020 GFR > 60 08/20/2020 * Telephone Encounter - Johana Mckeon - 11/30/2020 3:47 PM EDT Patient would like script to be: E-PRESCRIBED/FAXED TO PHARMACY WHEN WAS THE PATIENT'S LAST APPOINTMENT IN ADULT MEDICINE? 10/13/2020 WHEN WAS THE LAST TIME THE PATIENT SAW THEIR PCP? 07/14/2020 Does patient have an upcoming appointment? Yes 01/19/2021 (THE MEDICATION REQUESTED IS ON THE MED [...] N/A Patients current insurance carrier is: Payor: [employer] FFS / Plan: [employer] [facility] ALLIANCE / Product Type: MEDICAID RISK documented in this encounter Plan of Treatment Not on file documented as of this encounter Visit Diagnoses Not on filedocumented in this encounter Care Teams New Car Get Ready Mechanic Relationship Specialty Start Date End Date Ekaterina Higuera MD PCP - General Internal Medicine 12/11/18 04/01/21 Community, Pcp PCP - General Internal Medicine 04/02/21 Community, Pcp Internal Medicine 09/19/16 documented as of this encounter
--- OUTSIDE RECORDS SUMMARY | 2024-10-15 15:07 | XMS_ITS | Encounter Summary ---
Author Organization [facility] Address [address] [place] [address] Care Team Providers Care Hand Spring Former Name Role Phone Vidhi Wright MD Primary Care Provider Un available Community, Pcp Unavailable Unavailable Ekaterina Higuera MD Primary Care Provider Unava ilable [facility], Pcp Primary Care Provider Unavailabl e Encounter Details Date Type Department Care Team Description 06/14/2017 Hospital Medical Records [address] [place] [address] Bang Bustillo MD Social History Tobacco Use Types Packs/Day [...] on filedocumented in this encounter Care Teams Hand Spring Former Relationship Specialty Start Date End Date Vidhi Wright MD PCP - General Internal Medicine 09/19/16 Ekaterina Higuera MD PCP - General Internal Medicine 12/11/18 04/01/21 Community, Pcp PCP - General Internal Medicine 04/02/21 Community, Pcp Internal Medicine 09/19/16 documented as of this encounter
--- OUTSIDE RECORDS SUMMARY | 2024-10-15 15:07 | XMS_ITS | Encounter Summary ---
Author Organization [facility] Address [address] [place] [address] Care Team Providers Care Pediatric Neurologist Name Role Phone Community, Pcp Unavailable Unavailable Eakterina Higuera MD Primary Care Provider Unava ilable Community, Pcp Primary Care Provider Unavailabl e Reason for Visit * Reason Onset Date Comments Prior Authorization 06/02/2020 Encounter Details Date Type Department Care Team Description 06/02/2020 Telephone Adult Medicine [address] [address] Ekaterina Higuera MD Prior Authorization Social History [...] have Coronavirus / COVID-19? No / Unsure 05/28/2020 10:52 AM EST documented as of this encounter Miscellaneous Notes * Telephone Encounter - Juanis oCronado M.A. - 06/04/2020 7:37 AM EST Prior authorization for the daria krause was approved Approved from 06/03/20 until 06/03/22 Prior authorization approval number # [id number] Approval faxed to [facility] at [phone] * Telephone Encounter - Jailene Eldridge M.A. - 06/03/2020 12:00 PM EST Prior auth done via covermymeds for lantus solostar Pt tried the basaglar and could not tolerate side effects * Telephone Encounter - Juanis Almaguer - 06/02/2020 2:31 PM EST Prior Authorization for Medication-do not complete and send this encounter unless you have the fax from the pharmacy. Is this a Cover My Meds request: Yes -- Cast Code [id number] Name of Medication Lantus Solostar 100 unit pen injectors Dose of Medication 100 unit/ml What is the RX # from the faxed refill? N/a How does patient take this med? N/a What Pharmacy did the fax come from: [facility] Pharmacy fax #: [phone] [employer] Information from fax: What Prescription Plan does the patient have? N/a BIN/PCN if applicable: n/a Cardholder ID:n/a Person Code: n/a Relationship Code: n/a Help desk phone: n/a documented in this encounter Plan of Treatment Not on file documented as of this encounter Visit Diagnoses Not on filedocumented in this encounter Care Teams Pediatric Neurologist Relationship Specialty Start Date End Date Ekaterina Higuera MD PCP - General Internal Medicine 12/11/18 04/01/21 Community, Pcp PCP - General Internal Medicine 04/02/21 Community, Pcp Internal Medicine 09/19/16 documented as of this encounter
--- OUTSIDE RECORDS SUMMARY | 2024-10-15 15:07 | XMS_ITS | Encounter Summary ---
Author Organization [facility] Address [address] [place] [address] Care Team Providers Care Lead Nitrate Processor Name Role Phone Vidhi Wright MD Primary Care Provider Un available Community, Pcp Unavailable Unavailable Ekaterina Higuera MD Primary Care Provider Unava ilable [facility], Pcp Primary Care Provider Unavailabl e Encounter Details Date Type Department Care Team Description 09/25/2018 Manager Patient Report Medical Records [address] [place] [address] Vishal Ortega MD Social History Tobacco Use [...] on filedocumented in this encounter Care Teams Lead Nitrate Processor Relationship Specialty Start Date End Date Vidhi Wright MD PCP - General Internal Medicine 09/19/16 Ekaterina Higuera MD PCP - General Internal Medicine 12/11/18 04/01/21 Community, Pcp PCP - General Internal Medicine 04/02/21 Community, Pcp Internal Medicine 09/19/16 documented as of this encounter
--- OUTSIDE RECORDS SUMMARY | 2024-10-15 15:07 | XMS_ITS | Encounter Summary ---
Author Organization [facility] Address [address] [place] [address] Care Team Providers Care Power House Control Room Operator Name Role Phone Vidhi Wright MD Primary Care Provider Un available Community, Pcp Unavailable Unavailable Ekaterina Higuera MD Primary Care Provider Unava ilable Community, Pcp Primary Care Provider Unavailabl e Reason for Visit * Reason Onset Date Comments PT-1 10/23/2018 Encounter Details Date Type Department Care Team Description 10/23/2018 Telephone Adult Medicine [address] [address] Vidhi Wright MD PT-1 Social History Tobacco Use Types Packs/Day Years Used Date Smoking Tobacco: Never Smokeless Tobacco: Never Alcohol Use Standard Drinks/Week Comments No 0 (1 standard drink = 0.6 oz pur e alcohol) Sex Assigned at Date Recorded Not on file documented as of this encounter Miscellaneous Notes * Telephone Encounter - Chriss Aguiar M.A. - 10/31/2018 4:42 PM EDT Tracking #[id number] * Telephone Encounter - Helena Marrufo - 10/23/2018 12:49 PM EDT 11/28/17 [facility] patients will now be included in this workflow: Verify and document patients [place] Health insurance ID # (NOT [facility] ID): [id number] Payor: [facility] HEALTHNET FFS / Plan: [facility] [employer]IANCE / Product Type: MEDICAID RISK Patient mailing address: [address] [facility] [address] Pt. demographics verified? YES If not accurate, update registration. Is this a NEW request or a RENEWAL? Renewal Name of treating facility: [facility] Name (first & last) of treating provider? required : Vidhi Wright What is the medical reason why the patient is seeing the above provider? Primary care Address/Zip code for treating provider: [address] [place] [address] Phone # for treating provider: [phone] Is the provider in the [facility] (do they accept [place] Health insurance)? YES What specialtly is this provider? Internal medicine When is the visit scheduled for? 01/11/19 How often you will be seeing this particular provider? 3 times a month Do you have friends or family who can transport you to this visit? NO If yes, do not complete request. Is there anything stopping you from using public transportation? If yes, explain. : NO Is there a medical reason (diagnosis) why [...] on filedocumented in this encounter Care Teams Power House Control Room Operator Relationship Specialty Start Date End Date Vidhi Wright MD PCP - General Internal Medicine 09/19/16 Ekaterina Higuera MD PCP - General Internal Medicine 12/11/18 04/01/21 [facility], Pcp PCP - General Internal Medicine 04/02/21 Community, Pcp Internal Medicine 09/19/16 documented as of this encounter
--- OUTSIDE RECORDS SUMMARY | 2024-10-15 15:07 | XMS_ITS | Encounter Summary ---
Author Organization [facility] Address [address] [place] [address] Care Team Providers Care Powder Mixer Name Role Phone Community, Pcp Unavailable Unavailable Ekaterina Higuera MD Primary Care Provider Unava ilable Community, Pcp Primary Care Provider Unavailabl e Reason for Visit * Reason Onset Date Comments Prior Authorization 12/19/2018 Encounter Details Date Type Department Care Team Description 12/19/2018 Telephone Adult Medicine [address] [address] Ekaterina Higuera MD Prior Authorization Social History [...] 2:19 PM EDT Spoke to Caryl from [employer] rx who stated that the trulicity was approved Approved from 12/19/18 until 12/18/2020 Prior authorization approval number #[id number] States there was a paid claim at pts pharmacy on 12/19/18 * Telephone Encounter - Liana Meza M.A. - 12/19/2018 1:39 PM EDT Dx code:E11.49 diabetes type 2 Past Rx tried and failed: Medication:metformin in the past developed diarrhea Victoza 18mg/3ml 11/22/2017-12/08/2017 jardiance 10mg 04/06/2018-07/13/2018 Other pertinent information:prior authorization completed on paper form and faxed to [facility] with expedited request . * Telephone Encounter - Juanis Tripp - 12/19/2018 11:24 AM EDT Pre Authorization for Medication-do not complete and send this encounter unless you have the fax from the pharmacy. Is this a Cover My Meds request: [place] of Medication: Trulicity Dose of Medication Inject one pen 1.5mg subcutaneously once a week as directed What is the RX # from the faxed refill? N/a How does patient take this med? Inject one pen 1.5mg subcutaneously once a week as directed What Pharmacy did the fax come from: [facility] Pharmacy fax #: [phone] [employer] Information from fax: What Prescription Plan does the patient have? [facility] BIN/PCN if applicable: n/a Cardholder ID:n/a Person Code: n/a Relationship Code: n/a Help desk phone: n/a documented in this encounter Plan of Treatment Not on file documented as of this encounter Visit Diagnoses Not on filedocumented in this encounter Care Teams Powder Mixer Relationship Specialty Start Date End Date Ekaterina Higuera MD PCP - General Internal Medicine 12/11/18 04/01/21 Community, Pcp PCP - General Internal Medicine 04/02/21 Community, Pcp Internal Medicine 09/19/16 documented as of this encounter
--- OUTSIDE RECORDS SUMMARY | 2024-10-15 15:07 | XMS_ITS | Clinical Summary ---
Author Organization [facility] Address [address] [place] [address] Care Team Providers Care Regasification Plant Operator Name Role Phone Community, Pcp Unavailable [...] Medical History Relation Name Comments Diabetes Brother [place] Maternal Grandmother < 65, D M [place] Mother Mental Disorder Diabetes Sister [place] Breast [...] HEPATITIS C SCREENING Completed 01/11/2017 Care Teams Regasification Plant Operator Relationship Specialty Start Date End Date Community, Pcp PCP - General Internal Medicine 04/02/21 Community, Pcp Internal Medicine 09/19/16
--- OUTSIDE RECORDS SUMMARY | 2024-10-15 15:08 | XMS_ITS | Encounter Summary ---
Author Organization [facility] Address [address] [place] [address] Care Team Providers Care Sewing Machine Repairer Helper Name Role Phone Community, Pcp Primary Care Provider Unavailabl e Vidhi Wright MD Primary Care Provider Un available Community, Pcp Unavailable Unavailable Ekaterina Higuera MD Primary Care Provider Unava ilable Community, Pcp Primary Care Provider Unavailabl e Encounter Details Date Type Department Care Team Description 08/23/2015 Hospital Medical Records [address] [place] [address] Yasir Nolen MD Social History Tobacco Use [...] on filedocumented in this encounter Care Teams Sewing Machine Repairer Helper Relationship Specialty Start Date End Date Community, Pcp PCP - General Internal Medicine 08/08/14 09/18/16 Vidhi Wright MD PCP - General Internal Medicine 09/19/16 Ekaterina Higuera MD PCP - General Internal Medicine 12/11/18 04/01/21 Community, Pcp PCP - General Internal Medicine 04/02/21 Community, Pcp Internal Medicine 09/19/16 documented as of this encounter
--- OUTSIDE RECORDS SUMMARY | 2024-10-15 15:08 | XMS_ITS | Encounter Summary ---
Author Organization [facility] Address [address] [place] [address] Care Team Providers Care Bioinformatics Team Member Name Role Phone Community, Pcp Primary Care Provider Unavailabl e Vidhi Wright MD Primary Care Provider Un available Community, Pcp Unavailable Unavailable Ekaterina Higuera MD Primary Care Provider Unava ilable Community, Pcp Primary Care Provider Unavailabl e Encounter Details Date Type Department Care Team Description 08/21/2015 Hospital Medical Records [address] [place] [address] Yulia Tan Social History Tobacco Use Types [...] on filedocumented in this encounter Care Teams Bioinformatics Team Member Relationship Specialty Start Date End Date Community, Pcp PCP - General Internal Medicine 08/08/14 09/18/16 Vidhi Wright MD PCP - General Internal Medicine 09/19/16 Ekaterina Higuera MD PCP - General Internal Medicine 12/11/18 04/01/21 Community, Pcp PCP - General Internal Medicine 04/02/21 Community, Pcp Internal Medicine 09/19/16 documented as of this encounter
--- OUTSIDE RECORDS SUMMARY | 2024-10-15 15:08 | XMS_ITS | Encounter Summary ---
Author Organization [facility] Address [address] [place] [address] Care Team Providers Care Morphology Teacher Name Role Phone Vidhi Wright MD Primary Care Provider Un available Community, Pcp Unavailable Unavailable Ekaterina Higuera MD Primary Care Provider Unava ilable [facility], Pcp Primary Care Provider Unavailabl e Encounter Details Date Type Department Care Team Description 12/05/2016 Transfer Records Medical Records [address] [place] [address] Vishal Ortega MD Social History Tobacco Use [...] on filedocumented in this encounter Care Teams Morphology Teacher Relationship Specialty Start Date End Date Vidhi Wright MD PCP - General Internal Medicine 09/19/16 Ekaterina Higuera MD PCP - General Internal Medicine 12/11/18 04/01/21 Community, Pcp PCP - General Internal Medicine 04/02/21 Community, Pcp Internal Medicine 09/19/16 documented as of this encounter
--- OUTSIDE RECORDS SUMMARY | 2024-10-15 15:08 | XMS_ITS | Encounter Summary ---
Author Organization [facility] Address [address] [place] [address] Care Team Providers Care Portable Feed Mill Operator Name Role Phone Community, Pcp Unavailable Unavailable Ekaterina Higuera MD Primary Care Provider Unava ilable Community, Pcp Primary Care Provider Unavailabl e Encounter Details Date Type Department Care Team Description 07/11/2019 Telephone Physiatry - [address] [address] Quincy Espinoza PA-C Social History Tobacco Use Types Packs/Day Years Used Date Smoking Tobacco: Never Smokeless Tobacco: Never Alcohol Use Standard Drinks/Week Comments No 0 (1 standard drink = 0.6 oz pur e alcohol) Sex Assigned at Date Recorded Not on file documented as of this encounter Miscellaneous Notes * Telephone Encounter - Lauren Dick M.A. - 07/18/2019 1:25 PM EST Patient informed. * Telephone Encounter - Lauren Dick M.A. - 07/18/2019 11:16 AM EST Called patient back no answer left message. Usha Thompson * Telephone Encounter - Lauren Lewis - 07/18/2019 11:12 AM EST Patient is returning the call from Lauren, please try her again. * Telephone Encounter - Lauren Dick M.A. - 07/18/2019 10:37 AM EST Left message for patient to return call. * Telephone Encounter - Lauren Dick M.A. - 07/11/2019 11:48 AM EST Left message for patient to return call. * Telephone Encounter - Lauren Dick M.A. - 07/11/2019 11:48 AM EST ----- Message from Quincy Espinoza PA-C sent at 07/10/2019 5:16 PM EST ----- Please call patient. Blood work was negative for any evidence of systemic disease. documented in this encounter Plan of Treatment Not on file documented as of this encounter Visit Diagnoses Not on filedocumented in this encounter Care Teams Portable Feed Mill Operator Relationship Specialty Start Date End Date Ekaterina Higuera MD PCP - General Internal Medicine 12/11/18 04/01/21 Community, Pcp PCP - General Internal Medicine 04/02/21 [facility], Pcp Internal Medicine 09/19/16 documented as of this encounter
--- OUTSIDE RECORDS SUMMARY | 2024-10-15 15:08 | XMS_ITS | Encounter Summary ---
Author Organization [facility] Address [address] [place] [address] Care Team Providers Care Polymer Tester Name Role Phone Vidhi Wright MD Primary Care Provider Un available Community, Pcp Unavailable Unavailable Ekaterina Higuera MD Primary Care Provider Unava ilable [facility], Pcp Primary Care Provider Unavailabl e Encounter Details Date Type Department Care Team Description 12/14/2016 Legend Maker Report Medical Records [address] [place] [id number] Noah España Social History Tobacco Use Types [...] on filedocumented in this encounter Care Teams Polymer Tester Relationship Specialty Start Date End Date Vidhi Wright MD PCP - General Internal Medicine 09/19/16 Ekaterina Higuera MD PCP - General Internal Medicine 12/11/18 04/01/21 Community, Pcp PCP - General Internal Medicine 04/02/21 Community, Pcp Internal Medicine 09/19/16 documented as of this encounter
--- OUTSIDE RECORDS SUMMARY | 2024-10-15 15:08 | XMS_ITS | Encounter Summary ---
Author Organization [facility] Address [address] [place] [address] Care Team Providers Care Oil Well Gun Perforator Operator Name Role Phone Vidhi Wright MD Primary Care Provider Un available Community, Pcp Unavailable Unavailable Ekaterina Higuera MD Primary Care Provider Unava ilable Community, Pcp Primary Care Provider Unavailabl e Reason for Visit * Reason Onset Date Comments Faxed Refill 07/02/2018 Encounter Details Date Type Department Care Team Description 07/02/2018 Refill Adult Medicine [address] [address] Vidhi Wright MD Faxed Refill Social History Tobacco Use Types Packs/Day Years Used Date Smoking Tobacco: Never Smokeless Tobacco: Never Alcohol Use Standard Drinks/Week Comments No 0 (1 standard drink = 0.6 oz pur e alcohol) Sex Assigned at Date Recorded Not on file documented as of this encounter Miscellaneous Notes * Telephone Encounter - Doris Childers M.A. - 07/03/2018 11:03 AM EST Last ov with Diane 02/2018 * Telephone Encounter - Doris Childers M.A. - 07/03/2018 11:02 AM EST Lab Results Component Value Date NA 138 05/18/2018 K 5.0 05/18/2018 CO2 25.2 05/18/2018 CL 101 05/18/2018 BUN 16 05/18/2018 CREAT 0.6 05/18/2018 GLU 198 05/18/2018 CA 9.6 05/18/2018 GFR > 60 05/18/2018 * Telephone Encounter - Cris Mcclendon - 07/02/2018 2:22 PM EST Patient would like script to be: E-PRESCRIBED/FAXED TO PHARMACY? WHEN WAS THE PATIENT'S LAST APPOINTMENT IN ADULT MEDICINE? 03/12/18? WHEN WAS THE LAST TIME THE PATIENT SAW THEIR PCP? 12/08/17 ? Does patient have an upcoming appointment? Yes 07/13/18 ? (THE MEDICATION REQUESTED??IS ON THE MED LIST ABOVE) All of the medications requested were on the CURRENT MEDS list ? Did you check the Pharmacy information above?: YES ? Patient wants: 30 -day supply ? Is this a mail order prescription request ? ??NO ? If the refill is from a FAXED refill request what is the RX # listed on the fax? N/A ? Patients current insurance carrier is: Payor: [employer] FFS / Plan: [employer] / Product Type: MEDICAID RISK ? documented in this encounter Plan of Treatment Not on file documented as of this encounter Visit Diagnoses Not on filedocumented in this encounter Care Teams Oil Well Gun Perforator Operator Relationship Specialty Start Date End Date Vidhi Wright MD PCP - General Internal Medicine 09/19/16 Ekaterina Higuera MD PCP - General Internal Medicine 12/11/18 04/01/21 Community, Pcp PCP - General Internal Medicine 04/02/21 Community, Pcp Internal Medicine 09/19/16 documented as of this encounter
--- OUTSIDE RECORDS SUMMARY | 2024-10-15 15:08 | XMS_ITS | Encounter Summary ---
Author Organization [facility] Address [address] [place] [address] Care Team Providers Care Student Teacher Name Role Phone Vidhi Wright MD Primary Care Provider Un available Community, Pcp Unavailable Unavailable Ekaterina Higuera MD Primary Care Provider Unava ilable [facility], Pcp Primary Care Provider Unavailabl e Encounter Details Date Type Department Care Team Description 12/05/2016 Release of Information Medical Records [address] [place] [id number] Abstract, Provider Social History Tobacco Use Types [...] on filedocumented in this encounter Care Teams Student Teacher Relationship Specialty Start Date End Date Vidhi Wright MD PCP - General Internal Medicine 09/19/16 Ekaterina Higuera MD PCP - General Internal Medicine 12/11/18 04/01/21 Community, Pcp PCP - General Internal Medicine 04/02/21 Community, Pcp Internal Medicine 09/19/16 documented as of this encounter
--- OUTSIDE RECORDS SUMMARY | 2024-10-15 15:08 | XMS_ITS | Encounter Summary ---
Author Organization [facility] Address [address] [place] [address] Care Team Providers Care Slat Basket Top Maker Name Role Phone Community, Pcp Unavailable Unavailable Ekaterina Higuera MD Primary Care Provider Unava gilberto Community, Pcp Primary Care Provider Unavailabl e Encounter Details Date Type Department Care Team Description 09/30/2019 Secondary Spanish Teacher Report Medical Records [address] [place] [id number] Wilbert Olivarez MD Social History Tobacco Use [...] on filedocumented in this encounter Care Teams Slat Basket Top Maker Relationship Specialty Start Date End Date Ekaterina Higuera MD PCP - General Internal Medicine 12/11/18 04/01/21 Community, Pcp PCP - General Internal Medicine 04/02/21 [facility], Pcp Internal Medicine 09/19/16 documented as of this encounter
== END 2024-10-15 13:38 | disposition home or self-care (01) ==
LOC: HO.HVS 12:27
PROVIDERS: PCP Family Medicine; Visit Provider Surgery Vascular Surgery
DX: I72.9 Aneurysm of unspecified site (principal)
CPT/HCPCS: 99204

== ENCOUNTER → 2024-10-15 12:26 | Outpatient (BNVA) | payer OTHER, SELFPAY | PROVIDERS: PCP Family Medicine; Visit Provider Surgery Vascular Surgery | DX: I72.9 Aneurysm of unspecified site (principal) | CPT/HCPCS: 99202 ==

== ENCOUNTER 2024-10-18 09:27 | Outpatient (REF) | payer OTHER, SELFPAY ==
--- NOTE | ~2024-10-18 | XR_ITS ---
EXAMINATION: XR CERVICAL SPINE CLINICAL INFORMATION: Neck pain COMPARISON: 07/11/2024. TECHNIQUE: 3 views of the cervical spine were obtained. FINDINGS: No significant scoliosis. Normal lordosis. Normal bone mineralization. No compression deformity, acute fracture, or suspicious bone lesion. Atlantoaxial junction and C1-2 articulation are intact and aligned. There is a trace degenerative anterolisthesis C4 on C5. Alignment is otherwise anatomic. Mild to moderate disc degeneration present most significant spanning C4-C7. Associated small disc osteophytic spurs. No prevertebral or paravertebral soft tissue abnormality. Lung apices clear. XR/XR cervical spine 3V IMPRESSION: 1. No acute cervical spine abnormalities. 2. Mild to moderate degenerative spondylosis. Electronically signed by: Silviano Fuller MD 10/18/2024 11:33 AM EDT
== END 2024-10-18 09:28 | disposition home or self-care (01) ==
LOC: HO.XRAY 09:27
PROVIDERS: Absent Provider Family Medicine; PCP Family Medicine
DX: M54.2 Cervicalgia (principal)
CPT/HCPCS: 72040

== ENCOUNTER → 2024-10-18 09:49 | Outpatient (BNV) | payer OTHER, SELFPAY | PROVIDERS: Absent Provider Family Medicine; PCP Family Medicine; Visit Provider Radiology Diagnostic Radiology | DX: M54.2 Cervicalgia (principal) | CPT/HCPCS: 72040 ==

== ENCOUNTER 2024-10-29 12:26 | Outpatient (AMB) | payer OTHER, SELFPAY ==
[2024-10-29 13:00] VITALS: BMI 25.2
--- NOTE | 2024-10-29 13:00 | MHC.OFFVIS ---
Vital Signs 10/29/24 13:00 Height 5 ft 4 in Weight 147 lb BMI 25.2 Intake Visit Reasons: 2w follow up R arm check Intake Note: 2 week follow up radial pseudo aneurysm, no complaints Tool Salvage Worker Required: No Accompanied by: Self / Same As Patient Allergies metformin [METFORMIN] Allergy (Mild, Verified 10/29/24 13:02) DIARRHEA alprazolam Allergy (Unknown, Verified 10/29/24 13:02) diarrhea egg [EGG] Allergy (Unknown, Verified 10/29/24 13:02) UNKNOWN lactose [LACTOSE] Allergy (Unknown, Verified 10/29/24 13:02) Rash milk [MILK] Adverse Reaction (Unknown, Verified 10/29/24 13:02) DIARRHEA HPI HPI 2w follow up R arm check: Details: Very pleasant 69-year-old female presents for follow-up regarding right upper extremity pseudo aneurysm. She had undergone cardiac catheterization at [facility] by Dr. Crow boswell. This was performed on 09/24/2024 through a right radial artery approach and eventually a 6 [place] Island[place] sheath. She developed a postprocedure pseudo aneurysm. She had undergone ultrasound on 10/11/2024. At the current time she denies any discomfort. Reports that her right arm is doing fairly well. Now presents for vascular follow-up. [facility] Medical History BECKHAM (dyspnea on exertion) Essential hypertension Diabetes mellitus treated with insulin Surgical History History of appendectomy Family History Mother Hypertension Hyperlipidemia Atherosclerosis Father No problems noted. Social History Alcohol intake: never Patient Tobacco Use Status: Never used Tobacco Review of Systems Const All systems reviewed & are unremarkable except as noted in HPI and below Reports no additional complaints ENT Reports Normal hearing present Card Denies chest pain, Denies chest pain at rest, Denies chest pain with activity and Denies pedal edema Resp Denies cough GI Denies abdominal pain Musc Denies abnormal gait, Denies muscle cramps and Denies radiating pain into limb Skin/Breast Denies skin ulcer and Denies wounds Neuro Reports Normal hearing present and Denies abnormal gait Psych Reports no additional complaints Physical Exam Vital Signs: BMI result Body Mass Index 25.2 Const General: cooperative, healthy appearing and comfortable Orientation/consciousness: oriented to person, oriented to place and oriented to time HEENT Head: Yes normal to inspection Neck Neck: Yes normal visual inspection Carotids: no bruits Chest Chest palpation & inspection: normal inspection of the chest Resp Effort & Inspection: normal respiratory effort and able to speak in complete sentences Auscultation: clear to auscultation bilaterally, no crackles, no rales, no rhonchi and no wheezes Cardio Rate: regular rate Rhythm: regular rhythm Heart sounds: S1 normal heart sound present and S2 normal heart sound present Bruits: no carotid bruits Peripheral pulses: Peripheral pulses 2+ throughout GI Inspection: Yes normal to inspection Skin Wounds: no wounds Hair: normal Neuro General: oriented to person, oriented to place and oriented to time Cranial nerves: Yes CN's II-XII intact bilaterally and Yes Normal hearing present Cognition (Neuro): normal cognition Motor exam (neuro): 5/5 motor strength present throughout Extrem Other: venous exam: No significant superficial varicosities or spider telangiectasias, minimal edema General: No clubbing, No cyanosis and No edema Psych Appearance: grossly normal Mental Status: mental status grossly normal Speech and movement: Normal speech and movement present Assessment & Plan Assessment & Plan (1) 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 Patient denies any discomfort. Stable from my perspective. She will follow up with us on an as-needed basis. Thank you for allowing us to participate in her care. If there are any questions or concerns please do not hesitate to contact us Coding Level of Care Code Est Pt Level 4 (68486) Diagnoses Pseudoaneurysm I72.9
--- OUTSIDE RECORDS SUMMARY | 2024-10-29 15:02 | XMS_ITS | Encounter Summary ---
Author Organization [facility] Address [address] [place] [address] Care Team Providers Care Quality Control Chemist Name Role Phone Vidhi Wright MD Primary Care Provider Un available Community, Pcp Unavailable Unavailable Ekaterina Higuera MD Primary Care Provider Unava ilable [facility], Pcp Primary Care Provider Unavailabl e Encounter Details Date Type Department Care Team Description 03/28/2018 Field Service Coordinator Report Medical Records [address] [place] [address] Vishal Ortega MD Social History Tobacco Use [...] on filedocumented in this encounter Care Teams Quality Control Chemist Relationship Specialty Start Date End Date Vidhi Wright MD PCP - General Internal Medicine 09/19/16 Ekaterina Higuera MD PCP - General Internal Medicine 12/11/18 04/01/21 Community, Pcp PCP - General Internal Medicine 04/02/21 Community, Pcp Internal Medicine 09/19/16 documented as of this encounter
--- OUTSIDE RECORDS SUMMARY | 2024-10-29 15:02 | XMS_ITS | Encounter Summary ---
Author Organization [facility] Address [address] [place] [address] Care Team Providers Care Assistant Wrestling Coach Name Role Phone Vidhi Wright MD Primary Care Provider Un available Community, Pcp Unavailable Unavailable Ekaterina Higuera MD Primary Care Provider Unava ilable [facility], Pcp Primary Care Provider Unavailabl e Encounter Details Date Type Department Care Team Description 11/07/2018 Jewelry Bench Molder Report Medical Records [address] [place] [address] Paola Tucker NP Social History Tobacco Use [...] filedocumented in this encounter Care Teams Assistant Wrestling Coach Relationship Specialty Start Date End Date Vidhi Wright MD PCP - General Internal Medicine 09/19/16 Ekaterina Higuera MD PCP - General Internal Medicine 12/11/18 04/01/21 Community, Pcp PCP - General Internal Medicine 04/02/21 Community, Pcp Internal Medicine 09/19/16 documented as of this encounter
--- OUTSIDE RECORDS SUMMARY | 2024-10-29 15:02 | XMS_ITS | Encounter Summary ---
Author Organization [facility] Address [address] [place] [address] Care Team Providers Care Commutator Undercutter Name Role Phone Vidhi Wright MD Primary Care Provider Un available Community, Pcp Unavailable Unavailable Ekaterina Higuera MD Primary Care Provider Unava ilable [facility], Pcp Primary Care Provider Unavailabl e Encounter Details Date Type Department Care Team Description 01/13/2017 Shell Press Operator Report Medical Records [address] [place] [address] Noah España Social History Tobacco Use Types [...] on filedocumented in this encounter Care Teams Commutator Undercutter Relationship Specialty Start Date End Date Vidhi Wright MD PCP - General Internal Medicine 09/19/16 Ekaterina Higuera MD PCP - General Internal Medicine 12/11/18 04/01/21 Community, Pcp PCP - General Internal Medicine 04/02/21 Community, Pcp Internal Medicine 09/19/16 documented as of this encounter
--- OUTSIDE RECORDS SUMMARY | 2024-10-29 15:02 | XMS_ITS | Encounter Summary ---
Author Organization [facility] Address [address] [place] [address] Care Team Providers Care English Tutor Name Role Phone Vidhi Wright MD Primary Care Provider Un available Community, Pcp Unavailable Unavailable Ekaterina Higuera MD Primary Care Provider Unava ilable [facility], Pcp Primary Care Provider Unavailabl e Encounter Details Date Type Department Care Team Description 08/24/2017 Nutrition Services Manager Report Medical Records [address] [place] [id number] Abstract, Provider Social History Tobacco Use Types [...] on filedocumented in this encounter Care Teams English Tutor Relationship Specialty Start Date End Date Vidhi Wright MD PCP - General Internal Medicine 09/19/16 Ekaterina Higuera MD PCP - General Internal Medicine 12/11/18 04/01/21 Community, Pcp PCP - General Internal Medicine 04/02/21 Community, Pcp Internal Medicine 09/19/16 documented as of this encounter
--- OUTSIDE RECORDS SUMMARY | 2024-10-29 15:02 | XMS_ITS | Encounter Summary ---
Author Organization [facility] Address [address] [place] [address] Care Team Providers Care Superintendent House Name Role Phone Community, Pcp Unavailable Unavailable Ekaterina Higuera MD Primary Care Provider Unava ilable [facility], Pcp Primary Care Provider Unavailabl e Reason for Visit * Reason Onset Date Comments Faxed Refill 11/30/2020 Encounter Details Date Type Department Care Team Description 11/30/2020 Refill Adult Medicine [address] [address] Ekaterina Higuera MD Faxed Refill Social History [...] N/A Patients current insurance carrier is: Payor: [employer] FFS / Plan: [employer] [facility] ALLIANCE / Product Type: MEDICAID RISK documented in this encounter Plan of Treatment Not on file documented as of this encounter Visit Diagnoses Not on filedocumented in this encounter Care Teams Superintendent House Relationship Specialty Start Date End Date Ekaterina Higuera MD PCP - General Internal Medicine 12/11/18 04/01/21 Community, Pcp PCP - General Internal Medicine 04/02/21 Community, Pcp Internal Medicine 09/19/16 documented as of this encounter
--- OUTSIDE RECORDS SUMMARY | 2024-10-29 15:02 | XMS_ITS | Encounter Summary ---
Author Organization [facility] Address [address] [place] [address] Care Team Providers Care Hair Assistant Name Role Phone Community, Pcp Unavailable Unavailable Ekaterina Higuera MD Primary Care Provider Unava gilberto Community, Pcp Primary Care Provider Unavailabl e Encounter Details Date Type Department Care Team Description 02/17/2021 Landscape Gardener Report Medical Records [address] [place] [address] Basilia Obregon MD Social History Tobacco Use Types Packs/Day [...] on filedocumented in this encounter Care Teams Hair Assistant Relationship Specialty Start Date End Date Ekaterina Higuera MD PCP - General Internal Medicine 12/11/18 04/01/21 Community, Pcp PCP - General Internal Medicine 04/02/21 [facility], Pcp Internal Medicine 09/19/16 documented as of this encounter
--- OUTSIDE RECORDS SUMMARY | 2024-10-29 15:02 | XMS_ITS | Clinical Summary ---
Author Organization [facility] Address [address] [place] [address] Care Team Providers Care Market Analysis Director Name Role Phone Community, Pcp Unavailable Unavailable [...] Medical History Relation Name Comments Diabetes Brother [place] Maternal Grandmother < 65, D M [place] Mother Mental Disorder Diabetes Sister [place] Breast [...] 02/01/2018, Additional history exists DIABETES/HEART DISEASE: ANGELITA SPANN CHOLESTEROL (LDL) 08/18/2021 08/18/2020, 08/18/2020, 01/10/2020, Additional history exists DIABETES: ANNUAL FOOT EXAM 10/13/202110/13, 12/18/2018, 11/22/2017 (Completed), Additional history exists BONE DENSITY SCREENING 2022 PNEUMOCOCCAL VACCINE (1 - PCV) 2022 BMI CHECK/ADVISE 07/24/2024 10/13/2020, , 04/28/2020, Additional history exists DEPRESSION SCREENING/FOLLOWUP 07/24/2024 10/13/2020, 08/30/2019 INFLUENZA (Season Ended) 2025 021 (Refused), 10/01/2019 (Refused), 07/13/2018 (Refused), Additional history exists COLON CANCER SCREENING 05/12/2025 5 (External Completion) DTAP/TDAP/TD (2 - Td or Tdap) 12/09/2027 12/08/2017 (Refused) HEPATITIS C SCREENING Completed 01/11/2017 Care Teams Market Analysis Director Relationship Specialty Start Date End Date Community, Pcp PCP - General Internal Medicine 04/02/21 Community, Pcp Internal Medicine 09/19/16
--- OUTSIDE RECORDS SUMMARY | 2024-10-29 15:02 | XMS_ITS | Encounter Summary ---
Author Organization [facility] Address [address] [place] [address] Care Team Providers Care Project Coordinator Name Role Phone Vidhi Wright MD Primary Care Provider Un available Community, Pcp Unavailable Unavailable Ekaterina Higuera MD Primary Care Provider Unava ilable Community, Pcp Primary Care Provider Unavailabl e Reason for Visit * Reason Onset Date Comments PT-1 10/23/2018 Encounter Details Date Type Department Care Team Description 10/23/2018 Telephone Adult Medicine [address] [address] Vidhi Wright MD PT-1 Social History Tobacco Use Types Packs/Day Years Used Date Smoking Tobacco: Never Smokeless Tobacco: Never Alcohol Use Standard Drinks/Week Comments No 0 (1 standard drink = 0.6 oz pur e alcohol) Sex Assigned at Date Recorded Not on file documented as of this encounter Miscellaneous Notes * Telephone Encounter - Chriss Aguiar M.A. - 10/31/2018 4:41 PM EDT Tracking #[id number] * Telephone Encounter - Helena Marrufo - 10/23/2018 12:55 PM EDT 11/28/17 [facility] patients will now be included in this workflow: Verify and document patients [place] Health insurance ID # (NOT [facility] ID): [id number] Payor: [facility] [employer] FFS / Plan: [facility] [employer]ANCE / Product Type: MEDICAID RISK Patient mailing address: [address] [facility] [address] Pt. demographics verified? YES If not accurate, update registration. Is this a NEW request or a RENEWAL? new Name of treating facility: [facility] Name (first & last) of treating provider? required : Ceci Nguyễn What is the medical reason why the patient is seeing the above provider? Abnormal moles Address/Zip code for treating provider: [address] [place] [address] Phone # for treating provider: [phone] Is the provider in the [facility] (do they accept [place] Health insurance)? YES What specialtly is this [...] on filedocumented in this encounter Care Teams Project Coordinator Relationship Specialty Start Date End Date Vidhi Wright MD PCP - General Internal Medicine 09/19/16 Ekaterina Higuera MD PCP - General Internal Medicine 12/11/18 04/01/21 Community, Pcp PCP - General Internal Medicine 04/02/21 Community, Pcp Internal Medicine 09/19/16 documented as of this encounter
--- OUTSIDE RECORDS SUMMARY | 2024-10-29 15:02 | XMS_ITS | Encounter Summary ---
Author Organization [facility] Address [address] [place] [address] Care Team Providers Care Otr Flatbed Driver Name Role Phone Vidhi Wright MD Primary Care Provider Un available Community, Pcp Unavailable Unavailable Ekaterina Higuera MD Primary Care Provider Unava ilable [facility], Pcp Primary Care Provider Unavailabl e Encounter Details Date Type Department Care Team Description 12/05/2017 Blueprinter Report Medical Records [address] [place] [address] Marianna Pandey FNP Social History Tobacco Use [...] on filedocumented in this encounter Care Teams Otr Flatbed Driver Relationship Specialty Start Date End Date Vidhi Wright MD PCP - General Internal Medicine 09/19/16 Ekaterina Higuera MD PCP - General Internal Medicine 12/11/18 04/01/21 Community, Pcp PCP - General Internal Medicine 04/02/21 Community, Pcp Internal Medicine 09/19/16 documented as of this encounter
--- OUTSIDE RECORDS SUMMARY | 2024-10-29 15:02 | XMS_ITS | Encounter Summary ---
Author Organization [facility] Address [address] [place] [address] Care Team Providers Care Call Center Assistant Name Role Phone Vidhi Wright MD Primary Care Provider Un available Community, Pcp Unavailable Unavailable Ekaterina Higuera MD Primary Care Provider Unava ilable [facility], Pcp Primary Care Provider Unavailabl e Encounter Details Date Type Department Care Team Description 06/27/2017 Inspector Automatic Typewriter Report Medical Records [address] [place] [address] Noah España Social History Tobacco Use Types [...] on filedocumented in this encounter Care Teams Call Center Assistant Relationship Specialty Start Date End Date Vidhi Wright MD PCP - General Internal Medicine 09/19/16 Ekaterina Higuera MD PCP - General Internal Medicine 12/11/18 04/01/21 Community, Pcp PCP - General Internal Medicine 04/02/21 Community, Pcp Internal Medicine 09/19/16 documented as of this encounter
--- OUTSIDE RECORDS SUMMARY | 2024-10-29 15:02 | XMS_ITS | Encounter Summary ---
Author Organization [facility] Address [address] [place] [address] Care Team Providers Care Firer Tunnel Kiln Name Role Phone Vidhi Wright MD Primary Care Provider Un available Community, Pcp Unavailable Unavailable Ekaterina Higuera MD Primary Care Provider Unava ilable Community, Pcp Primary Care Provider Unavailabl e Reason for Visit * Reason Onset Date Comments Appointment-Internal Referral 03/07/2017 [email or web address] Encounter Details Date Type Department Care Team Description 03/07/2017 Telephone Dermatology - [place] [address] [place] [address] Dimitri Kline MD [address] [place] [address] [id number] Appointment-Internal Referral (derm) Social History Tobacco Use Types Packs/Day Years Used Date Smoking Tobacco: Never Alcohol Use Standard Drinks/Week Comments No 0 (1 standard drink = 0.6 oz pur e alcohol) Sex Assigned at Date Recorded Not on file documented as of this encounter Miscellaneous Notes * Telephone Encounter - Francheska hPillips - 03/07/2017 7:36 AM EDT I have been unable to reach this patient by phone. A letter is being sent. documented in this encounter Plan of Treatment Not on file documented as of this encounter Visit Diagnoses Not on filedocumented in this encounter Care Teams Firer Tunnel Kiln Relationship Specialty Start Date End Date Vidhi Wright MD PCP - General Internal Medicine 09/19/16 Ekaterina Higuera MD PCP - General Internal Medicine 12/11/18 04/01/21 Community, Pcp PCP - General Internal Medicine 04/02/21 Community, Pcp Internal Medicine 09/19/16 documented as of this encounter
--- OUTSIDE RECORDS SUMMARY | 2024-10-29 15:02 | XMS_ITS | Encounter Summary ---
Author Organization [facility] Address [address] [place] [address] Care Team Providers Care Bag Making Machine Tender Name Role Phone Vidhi Wright MD Primary Care Provider Un available Community, Pcp Unavailable Unavailable Ekaterina Higuera MD Primary Care Provider Unava ilable [facility], Pcp Primary Care Provider Unavailabl e Encounter Details Date Type Department Care Team Description 09/25/2018 Outdoor Studies Professor Report Medical Records [address] [place] [phone] Vishal Ortega MD Social History Tobacco Use [...] on filedocumented in this encounter Care Teams Bag Making Machine Tender Relationship Specialty Start Date End Date Vidhi Wright MD PCP - General Internal Medicine 09/19/16 Ekaterina Higuera MD PCP - General Internal Medicine 12/11/18 04/01/21 Community, Pcp PCP - General Internal Medicine 04/02/21 Community, Pcp Internal Medicine 09/19/16 documented as of this encounter
--- OUTSIDE RECORDS SUMMARY | 2024-10-29 15:02 | XMS_ITS | Encounter Summary ---
Author Organization [facility] Address [address] [place] [address] Care Team Providers Care Textile Machine Maintenance Mechanic Name Role Phone Vidhi Wright MD Primary Care Provider Un available Community, Pcp Unavailable Unavailable Ekaterina Higuera MD Primary Care Provider Unava ilable [facility], Pcp Primary Care Provider Unavailabl e Encounter Details Date Type Department Care Team Description 05/30/2017 Technical Illustrator Report Medical Records [address] [place] [id number] Vishal Ortega MD Social History Tobacco Use [...] on filedocumented in this encounter Care Teams Textile Machine Maintenance Mechanic Relationship Specialty Start Date End Date Vidhi Wright MD PCP - General Internal Medicine 09/19/16 Ekaterina Higuera MD PCP - General Internal Medicine 12/11/18 04/01/21 Community, Pcp PCP - General Internal Medicine 04/02/21 Community, Pcp Internal Medicine 09/19/16 documented as of this encounter
--- OUTSIDE RECORDS SUMMARY | 2024-10-29 15:02 | XMS_ITS | Encounter Summary ---
Author Organization [facility] Address [address] [place] [address] Care Team Providers Care Technical Systems Architect Name Role Phone Vidhi Wright MD Primary Care Provider Un available Community, Pcp Unavailable Unavailable Ekaterina Higuera MD Primary Care Provider Unava ilable [facility], Pcp Primary Care Provider Unavailabl e Encounter Details Date Type Department Care Team Description 09/07/2017 Import Clerk Report Medical Records [address] [place] [id number] Abstract, Provider Social History Tobacco Use Types [...] on filedocumented in this encounter Care Teams Technical Systems Architect Relationship Specialty Start Date End Date Vidhi Wright MD PCP - General Internal Medicine 09/19/16 Ekaterina Higuera MD PCP - General Internal Medicine 12/11/18 04/01/21 Community, Pcp PCP - General Internal Medicine 04/02/21 Community, Pcp Internal Medicine 09/19/16 documented as of this encounter
--- OUTSIDE RECORDS SUMMARY | 2024-10-29 15:03 | XMS_ITS | Encounter Summary ---
Author Organization [facility] Address [address] [place] [address] Care Team Providers Care Social Media Job Titles Name Role Phone Vidhi Wright MD Primary Care Provider Un available Community, Pcp Unavailable Unavailable Ekaterina Higuera MD Primary Care Provider Unava ilable [facility], Pcp Primary Care Provider Unavailabl e Encounter Details Date Type Department Care Team Description 12/14/2016 Trimming Machine Set Up Operator Report Medical Records [address] [place] [id number] Noah España Social History Tobacco Use Types [...] on filedocumented in this encounter Care Teams Social Media Job Titles Relationship Specialty Start Date End Date Vidhi Wright MD PCP - General Internal Medicine 09/19/16 Ekaterina Higuera MD PCP - General Internal Medicine 12/11/18 04/01/21 Community, Pcp PCP - General Internal Medicine 04/02/21 Community, Pcp Internal Medicine 09/19/16 documented as of this encounter
--- OUTSIDE RECORDS SUMMARY | 2024-10-29 15:03 | XMS_ITS | Encounter Summary ---
Author Organization [facility] Address [address] [place] [address] Care Team Providers Care Fan Mail Editor Name Role Phone Community, Pcp Unavailable Unavailable Ekaterina Higuera MD Primary Care Provider Unava gilberto Community, Pcp Primary Care Provider Unavailabl e Encounter Details Date Type Department Care Team Description 09/30/2019 Reliner Report Medical Records [address] [place] [phone] Wilbert Olivarez MD Social History Tobacco Use [...] on filedocumented in this encounter Care Teams Fan Mail Editor Relationship Specialty Start Date End Date Ekaterina Higuera MD PCP - General Internal Medicine 12/11/18 04/01/21 Community, Pcp PCP - General Internal Medicine 04/02/21 [facility], Pcp Internal Medicine 09/19/16 documented as of this encounter
--- OUTSIDE RECORDS SUMMARY | 2024-10-29 15:03 | XMS_ITS | Encounter Summary ---
Author Organization [facility] Address [address] [place] [address] Care Team Providers Care Depilatory Painter Name Role Phone Community, Pcp Unavailable Unavailable Ekaterina Higuera MD Primary Care Provider Unava ilable Community, Pcp Primary Care Provider Unavailabl e Reason for Visit * Reason Onset Date Comments Prior Authorization 06/02/2020 Encounter Details Date Type Department Care Team Description 06/02/2020 Telephone Adult Medicine [address] [address] Ekaterina Higuera MD Prior Authorization Social History [...] Telephone Encounter - Juanis Coronado M.A. - 06/04/2020 7:37 AM EST Prior authorization for the daria krause was approved Approved from 06/03/20 until 06/03/22 Prior authorization approval number # [id number] Approval faxed to [facility] at [phone] * Telephone Encounter - Jailene Eldridge M.A. [...] What Pharmacy did the fax come from: [facility] fax #: [phone] [employer] Information from fax: What Prescription Plan does the patient have? N/a BIN/PCN if applicable: n/a Cardholder ID:n/a Person Code: n/a Relationship Code: n/a Help desk phone: n/a documented in this encounter Plan of Treatment Not on file documented as of this encounter Visit Diagnoses Not on filedocumented in this encounter Care Teams Depilatory Painter Relationship Specialty Start Date End Date Ekaterina Higuera MD PCP - General Internal Medicine 12/11/18 04/01/21 Community, Pcp PCP - General Internal Medicine 04/02/21 Community, Pcp Internal Medicine 09/19/16 documented as of this encounter
--- OUTSIDE RECORDS SUMMARY | 2024-10-29 15:03 | XMS_ITS | Encounter Summary ---
Author Organization [facility] Address [address] [facility] [address] [place] [address] Care Team Providers Care Insole And Outsole Splitter Name Role Phone Maria Guadalupe Merida MD Primary Care Provider [phone] Horacio Augustin PharmD Unavailable [phone] Reason for Referral * Consultation (Routine) - Authorized Specialty Diagnoses / Procedures Referred By Contac t Referred To Contact Pharmacy Diagnoses Mild intermittent asthma without complication Hypertension, unspecified type Type 2 diabetes mellitus with hyperglycemia, with long-term current use of insulin (CMS/HCC) Maria Guadalupe Merida MD [address] [place] [address] Phone: tel: fax: Referral ID Status Reason Start Date Expiration Date Visits Requested Visits Authorized [id number] Authorized Consult and Treat 06/04/2024 06/04/2025 6 6 Encounter Details Date Type Department Care Team (Late st Contact Info) Description 06/04/2024 Orders Only [facility] MEDICINE [address] [place], [place] [phone] Maria Guadalupe Merida MD [address] [place], [place] [phone] Mild intermittent asthma without complication (Primary Dx); [...] Care Team (Late st Contact Info) Description 10/31/2024 9:30 AM EDT Medication Management [facility] MEDICINE [address] [place] [address] Horacio Augustin, PharmD [address] [place] [address] Scheduled Referrals Name Type Priority Associated Diagnoses Orde r Schedule Referral to Pharmacy CDTM Outpatient Referral Routine Mild intermittent asthma without complication Hypertension, unspecified type Type 2 diabetes mellitus with hyperglycemia, with long-term current use of insulin ([facility]) Ordered: 06/04/2024 documented as of this encounter [...] hyperglycemia, with long-term current use of insulin ([facility]) documented in this encounter Care Teams Insole And Outsole Splitter Relationship Specialty Start Date End Date Maria Guadalupe Merida MD [address] [place] [address] PCP - General Family Medicine 01/22/24 Horacio Augsutin, AmyD [address] [place] [address] Pharmacist Internal Medicine 02/14/24 documented as of this encounter
--- OUTSIDE RECORDS SUMMARY | 2024-10-29 15:03 | XMS_ITS | Encounter Summary ---
Author Organization [facility] Address [address] [place] [address] Care Team Providers Care Financial Assistant Name Role Phone Community, Pcp Primary Care Provider Unavailabl e Vidhi Wright MD Primary Care Provider Un available Community, Pcp Unavailable Unavailable Ekaterina Higuera MD Primary Care Provider Unava ilable Community, Pcp Primary Care Provider Unavailabl e Encounter Details Date Type Department Care Team Description 08/23/2015 Hospital Medical Records [address] [place] [phone] Yasir Nolen MD Social History Tobacco Use [...] on filedocumented in this encounter Care Teams Financial Assistant Relationship Specialty Start Date End Date Community, Pcp PCP - General Internal Medicine 08/08/14 09/18/16 Vidhi Wright MD PCP - General Internal Medicine 09/19/16 Ekaterina Higuera MD PCP - General Internal Medicine 12/11/18 04/01/21 Community, Pcp PCP - General Internal Medicine 04/02/21 Community, Pcp Internal Medicine 09/19/16 documented as of this encounter
--- OUTSIDE RECORDS SUMMARY | 2024-10-29 15:03 | XMS_ITS | Encounter Summary ---
Author Organization [facility] Address [address] [place] [address] Care Team Providers Care Manager Night Name Role Phone Vidhi Wright MD Primary Care Provider Un available Community, Pcp Unavailable Unavailable Ekaterina Higuera MD Primary Care Provider Unava ilable [facility], Pcp Primary Care Provider Unavailabl e Encounter Details Date Type Department Care Team Description 12/05/2016 Release of Information Medical Records [address] [place] [id number] Abstract, Provider Social History Tobacco Use Types [...] on filedocumented in this encounter Care Teams Manager Night Relationship Specialty Start Date End Date Vidhi Wright MD PCP - General Internal Medicine 09/19/16 Ekaterina Higuera MD PCP - General Internal Medicine 12/11/18 04/01/21 Community, Pcp PCP - General Internal Medicine 04/02/21 Community, Pcp Internal Medicine 09/19/16 documented as of this encounter
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
--- OUTSIDE RECORDS SUMMARY | 2024-10-29 15:03 | XMS_ITS | Encounter Summary ---
Author Organization [facility] Address [address] [place] [address] Care Team Providers Care Risk Officer Name Role Phone Community, Pcp Unavailable Unavailable Ekaterina Higuera MD Primary Care Provider Unava ilable Community, Pcp Primary Care Provider Unavailabl e Encounter Details Date Type Department Care Team Description 07/11/2019 Telephone Physiatry - [address] [address] Quincy Espinoza PA-C Social History Tobacco Use [...] on filedocumented in this encounter Care Teams Risk Officer Relationship Specialty Start Date End Date Ekaterina Higuera MD PCP - General Internal Medicine 12/11/18 04/01/21 Community, Pcp PCP - General Internal Medicine 04/02/21 [facility], Pcp Internal Medicine 09/19/16 documented as of this encounter
--- OUTSIDE RECORDS SUMMARY | 2024-10-29 15:03 | XMS_ITS | Encounter Summary ---
Author Organization [facility] Address [address] [place] [address] Care Team Providers Care Director Of Direct Marketing Name Role Phone Community, Pcp Primary Care Provider Unavailabl e Vidhi Wright MD Primary Care Provider Un available Community, Pcp Unavailable Unavailable Ekaterina Higuera MD Primary Care Provider Unava ilable Community, Pcp Primary Care Provider Unavailabl e Encounter Details Date Type Department Care Team Description 08/21/2015 Hospital Medical Records [address] [place] [address] Yulia Tan Social History Tobacco Use Types [...] on filedocumented in this encounter Care Teams Director Of Direct Marketing Relationship Specialty Start Date End Date Community, Pcp PCP - General Internal Medicine 08/08/14 09/18/16 Vidhi Wright MD PCP - General Internal Medicine 09/19/16 Ekaterina Higuera MD PCP - General Internal Medicine 12/11/18 04/01/21 Community, Pcp PCP - General Internal Medicine 04/02/21 Community, Pcp Internal Medicine 09/19/16 documented as of this encounter
--- OUTSIDE RECORDS SUMMARY | 2024-10-29 15:03 | XMS_ITS | Encounter Summary ---
Author Organization [facility] Address [address] [place] [address] Care Team Providers Care Kalsominer Name Role Phone Community, Pcp Unavailable Unavailable Ekaterina Higuera MD Primary Care Provider Unava ilable Community, Pcp Primary Care Provider Unavailabl e Reason for Visit * Reason Onset Date Comments Prior Authorization 07/03/2019 Encounter Details Date Type Department Care Team Description 07/03/2019 Telephone Adult Medicine [address] [address] Ekaterina Higuera MD Prior Authorization Social History [...] Approved from 05/23/19 unit 05/22/2021 Approval number #[id number] * Telephone Encounter - Juanis Coronado M.A. [...] covered alternative [place] to p [phone] Prior Auth pool Jailene Eldridge M.A. [facility] Prior Authorizations Ext [id number] Fax: [phone] [place] back to p [phone] Prior Auth pool * Telephone Encounter - [...] the RX # from the faxed refill? [phone] How does patient take this med? : Inject 38 Units into the skin at bedtime. What Pharmacy did the fax come from: [facility] fax #: [phone] Third Republican Information from fax: What Prescription Plan does the patient have? BIN/PCN if applicable: Cardholder ID: Person Code: Relationship Code: Help desk phone: [phone] documented in this encounter Plan of Treatment Not on file documented as of this encounter Visit Diagnoses Not on filedocumented in this encounter Care Teams Kalsominer Relationship Specialty Start Date End Date Ekaterina Higuera MD PCP - General Internal Medicine 12/11/18 04/01/21 Community, Pcp PCP - General Internal Medicine 04/02/21 [facility], Pcp Internal Medicine 09/19/16 documented as of this encounter
--- OUTSIDE RECORDS SUMMARY | 2024-10-29 15:03 | XMS_ITS | Encounter Summary ---
Author Organization [facility] Address [address] [place] [address] Care Team Providers Care Oil Spot Washer Name Role Phone Vidhi Wright MD Primary Care Provider Un available Community, Pcp Unavailable Unavailable Ekaterina Higuera MD Primary Care Provider Unava ilable Community, Pcp Primary Care Provider Unavailabl e Reason for Referral * EXTERNAL (Urgent) - Authorized/Booked Specialty Diagnoses / Procedures Referred By Contac t Referred To Contact Ophthalmology Procedures REFERRAL TO EXTERNAL OPHTHALMOLOGY Arnulfo Parham MD [address] [place] [address] [facility] [address] [place] [address] Referral ID Status Reason Start Date Expiration Date V isits Requested Visits Authorized SEE NOTE Authorized/B ooked 06/06/2017 09/06/2017 1 1 Reason for Visit * Reason Onset Date Comments Adjunct Professor Of English Feedback 06/06/2017 ophthalmology Encounter Details Date Type Department Care Team Description 06/06/2017 Telephone Adult Medicine [address] [id number] Arnulfo Parham MD [address] [place] [address] Adjunct Professor Of English Feedback (ophthalmology) Social History Tobacco Use Types [...] office backto book appointment. Thank you, Tala Legal Researcher * Telephone Encounter - Arnulfo Parham MD - 06/06/2017 9:23 PM EST Thanks 1) I do not know this patient too well, with the patient's complaint, I want the patient to be seenby admissions consultant early. I have also right new referral 2) patient reported previously she saw Dr. Correa, so patient is not a new patient to that admissions consultant. It we be the best if can [...] the patient if denied. Thank you, Tala Legal Researcher documented in this encounter Plan of Treatment Not on file documented as of this encounter Visit Diagnoses Diagnosis Decreased vision- Primary Unspecified visual loss documented in this encounter Care Teams Oil Spot Washer Relationship Specialty Start Date End Date Vidhi Wright MD PCP - General Internal Medicine 09/19/16 Ekaterina Higuera MD PCP - General Internal Medicine 12/11/18 04/01/21 Community, Pcp PCP - General Internal Medicine 04/02/21 Community, Pcp Internal Medicine 09/19/16 documented as of this encounter
== END 2024-10-29 13:34 | disposition home or self-care (01) ==
LOC: HO.HVS 12:27
PROVIDERS: PCP Family Medicine; Visit Provider Surgery Vascular Surgery
DX: I72.9 Aneurysm of unspecified site (principal)
CPT/HCPCS: 99214

== ENCOUNTER → 2024-10-29 12:26 | Outpatient (BNVA) | payer OTHER, SELFPAY | PROVIDERS: PCP Family Medicine; Visit Provider Surgery Vascular Surgery | DX: I72.9 Aneurysm of unspecified site (principal) | CPT/HCPCS: 99212 ==

== ENCOUNTER 2024-11-13 08:24 | Outpatient (REF) | payer OTHER, SELFPAY ==
--- OUTSIDE RECORDS SUMMARY | 2024-11-13 08:42 | XMS_ITS | Encounter Summary ---
Author Organization [facility] Address [address] [place] [address] Care Team Providers Care Mechanical Engineering Coop Name Role Phone Vidhi Wright MD Primary Care Provider Un available Community, Pcp Unavailable Unavailable Ekaterina Higuera MD Primary Care Provider Unava ilable Community, Pcp Primary Care Provider Unavailabl e Reason for Visit * Reason Onset Date Comments PT-1 10/23/2018 Encounter Details Date Type Department Care Team Description 10/23/2018 Telephone Adult Medicine [address] [address] Vidhi Wright MD PT-1 Social History Tobacco Use Types Packs/Day Years Used Date Smoking Tobacco: Never Smokeless Tobacco: Never Alcohol Use Standard Drinks/Week Comments No 0 (1 standard drink = 0.6 oz pur e alcohol) Sex Assigned at Date Recorded Not on file documented as of this encounter Miscellaneous Notes * Telephone Encounter - Chriss Aguiar M.A. - 10/31/2018 4:41 PM EDT Tracking #[id number] * Telephone Encounter - Helena Marrufo - 10/23/2018 12:55 PM EDT 11/28/17 [facility] patients will now be included in this workflow: Verify and document patients [place] Health insurance ID # (NOT [facility] ID): [id number] Payor: [facility] [employer]NET FFS / Plan: [facility] [email or web address] ALLIANCE / Product Type: MEDICAID RISK Patient mailing address: [address] [facility] [address] Pt. demographics verified? YES If not accurate, update registration. Is this a NEW request or a RENEWAL? new Name of treating facility: [facility] Name (first & last) of treating provider? required : Ceci Nguyễn What is the medical reason why the patient is seeing the above provider? Abnormal moles Address/Zip code for treating provider: [address] [place] [address] Phone # for treating provider: [phone] Is the provider in the [facility] (do they accept [place] Health insurance)? YES What specialtly is this [...] on filedocumented in this encounter Care Teams Mechanical Engineering Coop Relationship Specialty Start Date End Date Vidhi Wright MD PCP - General Internal Medicine 09/19/16 Ekaterina Higuera MD PCP - General Internal Medicine 12/11/18 04/01/21 Community, Pcp PCP - General Internal Medicine 04/02/21 Community, Pcp Internal Medicine 09/19/16 documented as of this encounter
--- OUTSIDE RECORDS SUMMARY | 2024-11-13 08:42 | XMS_ITS | Encounter Summary ---
Author Organization [facility] Address [address] [place] [address] Care Team Providers Care Manager Care Name Role Phone Vidhi Wright MD Primary Care Provider Un available Community, Pcp Unavailable Unavailable Ekaterina Higuera MD Primary Care Provider Unava ilable Community, Pcp Primary Care Provider Unavailabl e Reason for Visit * Reason Onset Date Comments PT-1 10/23/2018 Encounter Details Date Type Department Care Team Description 10/23/2018 Telephone Adult Medicine [address] [address] Vidhi Wright MD PT-1 Social History Tobacco Use Types Packs/Day Years Used Date Smoking Tobacco: Never Smokeless Tobacco: Never Alcohol Use Standard Drinks/Week Comments No 0 (1 standard drink = 0.6 oz pur e alcohol) Sex Assigned at Date Recorded Not on file documented as of this encounter Miscellaneous Notes * Telephone Encounter - Chriss Aguiar M.A. - 10/31/2018 4:42 PM EDT Tracking #[id number] * Telephone Encounter - Helena Marrufo - 10/23/2018 12:49 PM EDT 11/28/17 [facility] patients will now be included in this workflow: Verify and document patients [place] Health insurance ID # (NOT [facility] ID): [id number] Payor: [facility] [employer]NET FFS / Plan: [facility] [employer] ALLIANCE / Product Type: MEDICAID RISK Patient mailing address: [address] [facility] [address] Pt. demographics verified? YES If not accurate, update registration. Is this a NEW request or a RENEWAL? Renewal Name of treating facility: [facility] Name (first & last) of treating provider? required : Vidhi Wright What is the medical reason why the patient is seeing the above provider? Primary care Address/Zip code for treating provider: [address] [place] [address] Phone # for treating provider: [phone] Is the provider in the [facility] (do they accept [place] Health insurance)? YES What specialtly is this [...] filedocumented in this encounter Care Teams Manager Care Relationship Specialty Start Date End Date Vidhi Wright MD PCP - General Internal Medicine 09/19/16 Ekaterina Higuera MD PCP - General Internal Medicine 12/11/18 04/01/21 [facility], Pcp PCP - General Internal Medicine 04/02/21 Community, Pcp Internal Medicine 09/19/16 documented as of this encounter
--- OUTSIDE RECORDS SUMMARY | 2024-11-13 08:42 | XMS_ITS | Encounter Summary ---
Author Organization [facility] Address [address] [place] [address] Care Team Providers Care Firer Locomotive Crane Name Role Phone Vidhi Wrihgt MD Primary Care Provider Un available Community, Pcp Unavailable Unavailable Ekaterina Higuera MD Primary Care Provider Unava ilable Community, Pcp Primary Care Provider Unavailabl e Reason for Visit * Reason Onset Date Comments refill request 11/06/2018 Encounter Details Date Type Department Care Team Description 11/06/2018 Refill Adult Medicine [address] [address] Vidhi Wright MD refill request Social History [...] N/A Patients current insurance carrier is: Payor: [employer] FFS / Plan: [facility] ALLIANCE / Product Type: MEDICAID RISK documented in this encounter Plan of Treatment Not on file documented as of this encounter Visit Diagnoses Not on filedocumented in this encounter Care Teams Firer Locomotive Crane Relationship Specialty Start Date End Date Vidhi Wright MD PCP - General Internal Medicine 09/19/16 Ekaterina Higuera MD PCP - General Internal Medicine 12/11/18 04/01/21 Community, Pcp PCP - General Internal Medicine 04/02/21 Community, Pcp Internal Medicine 09/19/16 documented as of this encounter
--- OUTSIDE RECORDS SUMMARY | 2024-11-13 08:43 | XMS_ITS | Encounter Summary ---
Author Organization [facility] Address [address] [place] [address] Care Team Providers Care Field Gauger Name Role Phone Vidhi Wright MD Primary Care Provider Un available Community, Pcp Unavailable Unavailable Ekaterina Higuera MD Primary Care Provider Unava ilable [facility], Pcp Primary Care Provider Unavailabl e Encounter Details Date Type Department Care Team Description 08/24/2017 Hot Air Furnace Installer Repairer Report Medical Records [address] [place] [id number] Abstract, Provider Social History Tobacco Use Types [...] on filedocumented in this encounter Care Teams Field Gauger Relationship Specialty Start Date End Date Vidhi Wright MD PCP - General Internal Medicine 09/19/16 Ekaterina Higuera MD PCP - General Internal Medicine 12/11/18 04/01/21 Community, Pcp PCP - General Internal Medicine 04/02/21 Community, Pcp Internal Medicine 09/19/16 documented as of this encounter
--- OUTSIDE RECORDS SUMMARY | 2024-11-13 08:43 | XMS_ITS | Encounter Summary ---
Author Organization [facility] Address [address] [place] [address] Care Team Providers Care Heeler Name Role Phone Vidhi Wright MD Primary Care Provider Un available Community, Pcp Unavailable Unavailable Ekaterina Higuera MD Primary Care Provider Unava ilable [facility], Pcp Primary Care Provider Unavailabl e Encounter Details Date Type Department Care Team Description 11/07/2018 Apron Cleaner Report Medical Records [address] [place] [address] Paola Tucker NP Social History Tobacco Use [...] on filedocumented in this encounter Care Teams Heeler Relationship Specialty Start Date End Date Vidhi Wright MD PCP - General Internal Medicine 09/19/16 Ekaterina Higuera MD PCP - General Internal Medicine 12/11/18 04/01/21 Community, Pcp PCP - General Internal Medicine 04/02/21 Community, Pcp Internal Medicine 09/19/16 documented as of this encounter
--- OUTSIDE RECORDS SUMMARY | 2024-11-13 08:43 | XMS_ITS | Encounter Summary ---
Author Organization [facility] Address [address] [place] [address] Care Team Providers Care Insurance Clerk Name Role Phone Vidhi Wright MD Primary Care Provider Un available Community, Pcp Unavailable Unavailable Ekaterina Higuera MD Primary Care Provider Unava ilable [facility], Pcp Primary Care Provider Unavailabl e Encounter Details Date Type Department Care Team Description 12/05/2016 Welding Machine Operator/Tender Report Medical Records [address] [place] [address] Vishal Ortega MD Social History Tobacco Use [...] on filedocumented in this encounter Care Teams Insurance Clerk Relationship Specialty Start Date End Date Vidhi Wright MD PCP - General Internal Medicine 09/19/16 Ekaterina Higuera MD PCP - General Internal Medicine 12/11/18 04/01/21 Community, Pcp PCP - General Internal Medicine 04/02/21 Community, Pcp Internal Medicine 09/19/16 documented as of this encounter
--- OUTSIDE RECORDS SUMMARY | 2024-11-13 08:43 | XMS_ITS | Encounter Summary ---
Author Organization [facility] Address [address] [facility] [address] [place] [address] Care Team Providers Care Box Machine Operator Name Role Phone Maria Guadalupe Merida MD Primary Care Provider [phone] Horacio Augustin PharmD Unavailable [phone] Reason for Referral * Consultation (Routine) - Authorized Specialty Diagnoses / Procedures Referred By Contac t Referred To Contact Pharmacy Diagnoses Mild intermittent asthma without complication Hypertension, unspecified type Type 2 diabetes mellitus with hyperglycemia, with long-term current use of insulin (CMS/HCC) Maria Guadalupe Merida MD [address] [place] [address] Phone: tel: fax: Referral ID Status Reason Start Date Expiration Date Visits Requested Visits Authorized [id number] Authorized Consult and Treat 06/04/2024 06/04/2025 6 6 Encounter Details Date Type Department Care Team (Late st Contact Info) Description 06/04/2024 Orders Only [facility] [address] [place], [place] [phone] Maria Guadalupe Merida MD [address] [place], [place] [phone] Mild intermittent asthma without complication (Primary Dx); [...] Care Team (Late st Contact Info) Description 01/02/2025 9:00 AM EDT Medication Management [facility] [address] [place] [address] Horacio Augustin, PharmD [address] [place] [address] Scheduled Referrals Name Type Priority Associated Diagnoses Orde r Schedule Referral to Pharmacy CDTM Outpatient Referral Routine Mild intermittent asthma without complication Hypertension, unspecified type Type 2 diabetes mellitus with hyperglycemia, with long-term current use of insulin ([facility]) Ordered: 06/04/2024 documented as of this encounter Goals Goal Patient Goal Type Associated Problems Recent Progress Patient-Stated? Author Blood Pressure < 140/90 Blood Pressure 154/86(2024 9:48 AM EDT) No Horacio Augustin, Divya Hemoglobin A1c < 7 Result Component 9.3( 10:55 AM EST) No Horacio Augustin PharmD documented as of this encounter Visit Diagnoses Diagnosis Mild intermittent asthma without complication- Primary Hypertension, unspecified type Type 2 diabetes mellitus with hyperglycemia, with long-term current use of insulin ([facility]) documented in this encounter Care Teams Box Machine Operator Relationship Specialty Start Date End Date Maria Guadalupe Merida MD [address] [place] [address] PCP - General Family Medicine 01/22/24 11/07/24 Horacio Augustin, Divya [address] [place] [address] Pharmacist Internal Medicine 02/14/24 documented as of this encounter
--- OUTSIDE RECORDS SUMMARY | 2024-11-13 08:43 | XMS_ITS | Encounter Summary ---
Author Organization [facility] Address [address] [place] [address] Care Team Providers Care Automatic Lump Making Machine Tender Name Role Phone Vidhi Wright MD Primary Care Provider Un available Community, Pcp Unavailable Unavailable Ekaterina Higuera MD Primary Care Provider Unava ilable [facility], Pcp Primary Care Provider Unavailabl e Encounter Details Date Type Department Care Team Description 09/07/2017 Club Licensee Report Medical Records [address] [place] [address] Abstract, Provider Social History Tobacco Use Types [...] on filedocumented in this encounter Care Teams Automatic Lump Making Machine Tender Relationship Specialty Start Date End Date Vidhi Wright MD PCP - General Internal Medicine 09/19/16 Ekaterina Higuera MD PCP - General Internal Medicine 12/11/18 04/01/21 Community, Pcp PCP - General Internal Medicine 04/02/21 Community, Pcp Internal Medicine 09/19/16 documented as of this encounter
--- OUTSIDE RECORDS SUMMARY | 2024-11-13 08:43 | XMS_ITS | Encounter Summary ---
Author Organization [facility] Address [address] [place] [address] Care Team Providers Care Human Resources Hr Generalist Name Role Phone Community, Pcp Primary Care Provider Unavailabl e Vidhi Wright MD Primary Care Provider Un available Community, Pcp Unavailable Unavailable Ekaterina Higuera MD Primary Care Provider Unava ilable Community, Pcp Primary Care Provider Unavailabl e Encounter Details Date Type Department Care Team Description 08/21/2015 Hospital Medical Records [address] [place] [address] Yulia Tan Social History Tobacco Use Types [...] on filedocumented in this encounter Care Teams Human Resources Hr Generalist Relationship Specialty Start Date End Date Community, Pcp PCP - General Internal Medicine 08/08/14 09/18/16 Vidhi Wright MD PCP - General Internal Medicine 09/19/16 Ekaterina Higuera MD PCP - General Internal Medicine 12/11/18 04/01/21 Community, Pcp PCP - General Internal Medicine 04/02/21 Community, Pcp Internal Medicine 09/19/16 documented as of this encounter
--- OUTSIDE RECORDS SUMMARY | 2024-11-13 08:43 | XMS_ITS | Encounter Summary ---
Author Organization [facility] Address [address] [place] [address] Care Team Providers Care Nurse Charge Rn Name Role Phone Vidhi Wright MD Primary Care Provider Un available Community, Pcp Unavailable Unavailable Ekaterina Higuera MD Primary Care Provider Unava ilable Community, Pcp Primary Care Provider Unavailabl e Encounter Details Date Type Department Care Team Description 06/26/2017 Telephone Adult Medicine [address] [address] Vidhi Wright MD Social History Tobacco Use [...] states she was in the ER at [facility] She states she has an appt 1227 and doesn't want to change it Declined Er follow up appt * Telephone Encounter - Lashon Grady - 06/26/2017 2:11 PM EST Call returned * Telephone Encounter - Howie MagallonP.NBettina - 06/26/2017 1:42 PM EST Telephone Information: Called patient left message for patient to call triage nurse [facility] needs [facility] booked documented in this encounter Plan of Treatment Not on file documented as of this encounter Visit Diagnoses Not on filedocumented in this encounter Care Teams Nurse Charge Rn Relationship Specialty Start Date End Date Vidhi Wright MD PCP - General Internal Medicine 09/19/16 Ekaterina Higuera MD PCP - General Internal Medicine 12/11/18 04/01/21 Community, Pcp PCP - General Internal Medicine 04/02/21 Community, Pcp Internal Medicine 09/19/16 documented as of this encounter
--- OUTSIDE RECORDS SUMMARY | 2024-11-13 08:43 | XMS_ITS | Encounter Summary ---
Author Organization [facility] Address [address] [place] [address] Care Team Providers Care Resin Filterer Name Role Phone Community, Pcp Unavailable Unavailable Ekaterina Higuera MD Primary Care Provider Unava ilable Community, Pcp Primary Care Provider Unavailabl e Reason for Visit * Reason Onset Date Comments Prior Authorization 07/03/2019 Encounter Details Date Type Department Care Team Description 07/03/2019 Telephone Adult Medicine [address] [address] Ekaterina Higuera MD Prior Authorization Social History [...] Approved from 05/23/19 unit 05/22/2021 Approval number #[id number] * Telephone Encounter - Juanis Coronado M.A. [...] covered alternative [place] to p [phone] Prior Auth pool Jailene Eldridge M.A. [facility] Prior Authorizations Ext [phone] Fax: [phone] [place] [phone] Prior Auth pool * Telephone Encounter - [...] the RX # from the faxed refill? [phone] How does patient take this med? : Inject 38 Units into the skin at bedtime. What Pharmacy did the fax come from: [facility] fax #: [phone] Third [employer] Information from fax: What Prescription Plan does the patient have? BIN/PCN if applicable: Cardholder ID: Person Code: Relationship Code: Help desk phone: [phone] documented in this encounter Plan of Treatment Not on file documented as of this encounter Visit Diagnoses Not on filedocumented in this encounter Care Teams Resin Filterer Relationship Specialty Start Date End Date Ekaterina Higuera MD PCP - General Internal Medicine 12/11/18 04/01/21 Community, Pcp PCP - General Internal Medicine 04/02/21 [facility], Pcp Internal Medicine 09/19/16 documented as of this encounter
--- OUTSIDE RECORDS SUMMARY | 2024-11-13 08:43 | XMS_ITS | Encounter Summary ---
Author Organization [facility] Address [address] [place] [address] Care Team Providers Care Tele Rn Name Role Phone Community, Pcp Unavailable Unavailable Ekaterina Higuera MD Primary Care Provider Unava ilable Community, Pcp Primary Care Provider Unavailabl e Reason for Visit * Reason Onset Date Comments Prior Authorization 06/02/2020 Encounter Details Date Type Department Care Team Description 06/02/2020 Telephone Adult Medicine [address] [address] Ekaterina Higuera MD Prior Authorization Social History [...] until 06/03/22 Prior authorization approval number # [id number] Approval faxed to [facility] at [phone] * Telephone Encounter - Jailene Eldridge M.A. [...] What Pharmacy did the fax come from: [facility] fax #: [phone] [employer] Information from fax: What Prescription Plan does the patient have? N/a BIN/PCN if applicable: n/a Cardholder ID:n/a Person Code: n/a Relationship Code: n/a Help desk phone: n/a documented in this encounter Plan of Treatment Not on file documented as of this encounter Visit Diagnoses Not on filedocumented in this encounter Care Teams Tele Rn Relationship Specialty Start Date End Date Ekaterina Higuera MD PCP - General Internal Medicine 12/11/18 04/01/21 Community, Pcp PCP - General Internal Medicine 04/02/21 Community, Pcp Internal Medicine 09/19/16 documented as of this encounter
--- OUTSIDE RECORDS SUMMARY | 2024-11-13 08:43 | XMS_ITS | Encounter Summary ---
Author Organization [facility] Address [address] [place] [address] Care Team Providers Care Rn Plasma Center Name Role Phone Community, Pcp Unavailable Unavailable Ekaterina Higuera MD Primary Care Provider Unava ilable [facility], Pcp Primary Care Provider Unavailabl e Reason for Visit * Reason Onset Date Comments Faxed Refill 11/30/2020 Encounter Details Date Type Department Care Team Description 11/30/2020 Refill Adult Medicine [address] [address] Ekaterina Higuera MD Faxed Refill Social History [...] N/A Patients current insurance carrier is: Payor: [email or web address] FFS / Plan: for; to (do) [facility] [employer] / Product Type: MEDICAID RISK documented in this encounter Plan of Treatment Not on file documented as of this encounter Visit Diagnoses Not on filedocumented in this encounter Care Teams Rn Plasma Center Relationship Specialty Start Date End Date Ekaterina Higuera MD PCP - General Internal Medicine 12/11/18 04/01/21 Community, Pcp PCP - General Internal Medicine 04/02/21 Community, Pcp Internal Medicine 09/19/16 documented as of this encounter
--- OUTSIDE RECORDS SUMMARY | 2024-11-13 08:43 | XMS_ITS | Encounter Summary ---
Author Organization [facility] Address [address] [place] [address] Care Team Providers Care Automobile Lights Assembler Name Role Phone Vidhi Wright MD Primary Care Provider Un available Community, Pcp Unavailable Unavailable Ekaterina Higuera MD Primary Care Provider Unava ilable Community, Pcp Primary Care Provider Unavailabl e Reason for Referral * EXTERNAL (Urgent) - Authorized/Booked Specialty Diagnoses / Procedures Referred By Contac t Referred To Contact Ophthalmology Procedures REFERRAL TO EXTERNAL OPHTHALMOLOGY Arnulfo Parham MD [address] [place] [phone] [facility] [address] [place] [id number] Referral ID Status Reason Start Date Expiration Date V isits Requested Visits Authorized SEE NOTE Authorized/B ooked 06/06/2017 09/06/2017 1 1 Reason for Visit * Reason Onset Date Comments Scalp Treatment Operator Feedback 06/06/2017 ophthalmology Encounter Details Date Type Department Care Team Description 06/06/2017 Telephone Adult Medicine [address] [id number] Arnulfo Parham MD [address] [place] [phone] Scalp Treatment Operator Feedback (ophthalmology) Social History Tobacco Use Types [...] office backto book appointment. Thank you, Tala Hydraulic Oil Tool Operator * Telephone Encounter - Arnulfo Parham MD - 06/06/2017 9:23 PM EST Thanks 1) I do not know this patient too well, with the patient's complaint, I want the patient to be seenby apparel sales leader early. I have also right new referral 2) patient reported previously she saw Dr. Correa, so patient is not a new patient to that apparel sales leader. It we be the best if can [...] the patient if denied. Thank you, Tala Hydraulic Oil Tool Operator documented in this encounter Plan of Treatment Not on file documented as of this encounter Visit Diagnoses Diagnosis Decreased vision- Primary Unspecified visual loss documented in this encounter Care Teams Automobile Lights Assembler Relationship Specialty Start Date End Date Vidhi Wright MD PCP - General Internal Medicine 09/19/16 Ekaterina Higuera MD PCP - General Internal Medicine 12/11/18 04/01/21 Community, Pcp PCP - General Internal Medicine 04/02/21 Community, Pcp Internal Medicine 09/19/16 documented as of this encounter
--- OUTSIDE RECORDS SUMMARY | 2024-11-13 08:43 | XMS_ITS | Encounter Summary ---
Author Organization [facility] Address [address] [place] [address] Care Team Providers Care Technical Program Manager Name Role Phone Community, Pcp Unavailable Unavailable Ekaterina Higuera MD Primary Care Provider Unava gilberto Community, Pcp Primary Care Provider Unavailabl e Encounter Details Date Type Department Care Team Description 09/30/2019 Corn Grower Report Medical Records [address] [place] [phone] Wilbert Olivarez MD Social History Tobacco Use [...] filedocumented in this encounter Care Teams Technical Program Manager Relationship Specialty Start Date End Date Ekaterina Higuera MD PCP - General Internal Medicine 12/11/18 04/01/21 Community, Pcp PCP - General Internal Medicine 04/02/21 [facility], Pcp Internal Medicine 09/19/16 documented as of this encounter
--- OUTSIDE RECORDS SUMMARY | 2024-11-13 08:43 | XMS_ITS | Encounter Summary ---
Author Organization [facility] Address [address] [place] [address] Care Team Providers Care Conservation Science Officer Name Role Phone Community, Pcp Unavailable Unavailable Ekaterina Higuera MD Primary Care Provider Unava gilberto Community, Pcp Primary Care Provider Unavailabl e Encounter Details Date Type Department Care Team Description 10/04/2019 [facility] FOR[facility] Medical Records [address] [place] [phone] Abstract, Provider Social History Tobacco Use Types [...] on filedocumented in this encounter Care Teams Conservation Science Officer Relationship Specialty Start Date End Date Ekaterina Higuera MD PCP - General Internal Medicine 12/11/18 04/01/21 Community, Pcp PCP - General Internal Medicine 04/02/21 Community, Pcp Internal Medicine 09/19/16 documented as of this encounter
--- OUTSIDE RECORDS SUMMARY | 2024-11-13 08:43 | XMS_ITS | Encounter Summary ---
Author Organization [facility] Address [address] [place] [address] Care Team Providers Care Uptwist Spinner Name Role Phone Vidhi Wright MD Primary Care Provider Un available Community, Pcp Unavailable Unavailable Ekaterina Higuera MD Primary Care Provider Unava ilable [facility], Pcp Primary Care Provider Unavailabl e Encounter Details Date Type Department Care Team Description 01/13/2017 Industrial Insulator Report Medical Records [address] [place] [address] Noah España Social History Tobacco Use Types [...] on filedocumented in this encounter Care Teams Uptwist Spinner Relationship Specialty Start Date End Date Vidhi Wright MD PCP - General Internal Medicine 09/19/16 Ekaterina Higuera MD PCP - General Internal Medicine 12/11/18 04/01/21 Community, Pcp PCP - General Internal Medicine 04/02/21 Community, Pcp Internal Medicine 09/19/16 documented as of this encounter
--- OUTSIDE RECORDS SUMMARY | 2024-11-13 08:43 | XMS_ITS | Encounter Summary ---
Author Organization [facility] Address [address] [place] [address] Care Team Providers Care Motor Vehicle Light Assembler Name Role Phone Vidhi Wright MD Primary Care Provider Un available Community, Pcp Unavailable Unavailable Ekaterina Higuera MD Primary Care Provider Unava ilable Community, Pcp Primary Care Provider Unavailabl e Reason for Visit * Reason Onset Date Comments Faxed Refill 07/02/2018 Encounter Details Date Type Department Care Team Description 07/02/2018 Refill Adult Medicine [address] [address] Vidhi Wright MD Faxed Refill Social History [...] ? Patients current insurance carrier is: Payor: [employer] FFS / Plan: [employer] / Product Type: MEDICAID RISK ? documented in this encounter Plan of Treatment Not on file documented as of this encounter Visit Diagnoses Not on filedocumented in this encounter Care Teams Motor Vehicle Light Assembler Relationship Specialty Start Date End Date Vidhi Wright MD PCP - General Internal Medicine 09/19/16 Ekaterina Higuera MD PCP - General Internal Medicine 12/11/18 04/01/21 Community, Pcp PCP - General Internal Medicine 04/02/21 Community, Pcp Internal Medicine 09/19/16 documented as of this encounter
--- OUTSIDE RECORDS SUMMARY | 2024-11-13 08:43 | XMS_ITS | Encounter Summary ---
Author Organization [facility] Address [address] [place] [address] Care Team Providers Care Assembly Machine Set Up Mechanic Name Role Phone Vidhi Wright MD Primary Care Provider Un available Community, Pcp Unavailable Unavailable Ekaterina Higuera MD Primary Care Provider Unava ilable Community, Pcp Primary Care Provider Unavailabl e Reason for Visit * Reason Onset Date Comments Appointment-Internal Referral 03/07/2017 [email or web address] Encounter Details Date Type Department Care Team Description 03/07/2017 Telephone Dermatology - [place] [address] [place] [address] Dimitri Kline MD [address] [place] [address] [phone] Appointment-Internal Referral (derm) Social History Tobacco Use [...] on filedocumented in this encounter Care Teams Assembly Machine Set Up Mechanic Relationship Specialty Start Date End Date Vidhi Wright MD PCP - General Internal Medicine 09/19/16 Ekaterina Higuera MD PCP - General Internal Medicine 12/11/18 04/01/21 Community, Pcp PCP - General Internal Medicine 04/02/21 Community, Pcp Internal Medicine 09/19/16 documented as of this encounter
--- OUTSIDE RECORDS SUMMARY | 2024-11-13 08:43 | XMS_ITS | Encounter Summary ---
Author Organization [facility] Address [address] [place] [address] Care Team Providers Care Lab Clerk Name Role Phone Community, Pcp Primary Care Provider Unavailabl e Vidhi Wright MD Primary Care Provider Un available Community, Pcp Unavailable Unavailable Ekaterina Higuera MD Primary Care Provider Unava ilable Community, Pcp Primary Care Provider Unavailabl e Encounter Details Date Type Department Care Team Description 08/23/2015 Hospital Medical Records [address] [place] [address] Yasir Nolen MD Social History Tobacco Use [...] on filedocumented in this encounter Care Teams Lab Clerk Relationship Specialty Start Date End Date Community, Pcp PCP - General Internal Medicine 08/08/14 09/18/16 Vidhi Wright MD PCP - General Internal Medicine 09/19/16 Ekaterina Higuera MD PCP - General Internal Medicine 12/11/18 04/01/21 Community, Pcp PCP - General Internal Medicine 04/02/21 Community, Pcp Internal Medicine 09/19/16 documented as of this encounter
--- OUTSIDE RECORDS SUMMARY | 2024-11-13 08:43 | XMS_ITS | Encounter Summary ---
Author Organization [facility] Address [address] [place] [address] Care Team Providers Care Senior Technologist Name Role Phone Vidhi Wright MD Primary Care Provider Un available Community, Pcp Unavailable Unavailable Ekaterina Higuera MD Primary Care Provider Unava ilable [facility], Pcp Primary Care Provider Unavailabl e Encounter Details Date Type Department Care Team Description 12/05/2016 Transfer Records Medical Records [address] [place] [address] Vihsal Ortega MD Social History Tobacco Use Types [...] on filedocumented in this encounter Care Teams Senior Technologist Relationship Specialty Start Date End Date Vidhi Wright MD PCP - General Internal Medicine 09/19/16 Ekaterina Higuera MD PCP - General Internal Medicine 12/11/18 04/01/21 Community, Pcp PCP - General Internal Medicine 04/02/21 Community, Pcp Internal Medicine 09/19/16 documented as of this encounter
--- OUTSIDE RECORDS SUMMARY | 2024-11-13 08:44 | XMS_ITS | Encounter Summary ---
Author Organization [facility] Address [address] [place] [address] Care Team Providers Care Harp Regulator Name Role Phone Community, Pcp Unavailable Unavailable Ekaterina Higuera MD Primary Care Provider Unava ilable Community, Pcp Primary Care Provider Unavailabl e Reason for Visit * Reason Onset Date Comments Prior Authorization 05/24/2019 Encounter Details Date Type Department Care Team Description 05/24/2019 Telephone Adult Medicine [address] [address] Ekaterina Higuera MD Prior Authorization Social History Tobacco Use Types Packs/Day Years Used Date Smoking Tobacco: Never Smokeless Tobacco: Never Alcohol Use Standard Drinks/Week Comments No 0 (1 standard drink = 0.6 oz pur e alcohol) Sex Assigned at Date Recorded Not on file documented as of this encounter Miscellaneous Notes * Telephone Encounter - Juanis Coronado M.A. - 05/28/2019 12:49 PM EST Prior authorization for the lantus Approved Approved from 05/23/19 until 05/22/2021 Approval faxed to [facility] at [phone] * Telephone Encounter - Juanis Coronado M.A. - 05/28/2019 12:46 PM EST Prior authorization for the humalog pen approved Approved from 05/27/19 until -05/26/21 Approval faxed to [facility] in [place] at [phone] * Telephone Encounter - Ekaterina Higuera MD - 05/27/2019 12:43 PM EST Sent the Rx with the instructions. * Telephone Encounter - Jaunis Coronado M.A. - 05/27/2019 12:07 PM EST We received a fax from pts pharmacy for a prior authorization on the humalog, Please provide Directions of use. As the other humalog rx doesn't have any directions. Thank you Please reply back to [id number] Prior Auth Pool Juanis Higgins [facility] Prior Authorization Ext [id number] * Telephone Encounter - Juanis Almaguer - 05/24/2019 1:16 PM EDT Prior Authorization for Medication-do not complete and send this encounter unless you have the fax from the pharmacy. Is this a Cover My Meds request: Yes -- Cast Code [id number] Name of Medication Hmalog KwikPen Dose of Medication 100 unit/ml pen injectors What is the RX # from the faxed refill? N/a How does patient take this med? N/a What Pharmacy did the fax come from: [facility] fax #: [phone] [employer] Information from fax: What Prescription Plan does the patient have? N/a BIN/PCN if applicable: n/a Cardholder ID:n/a Person Code: n/a Relationship Code: n/a Help desk phone: n/a documented in this encounter Plan of Treatment Not on file documented as of this encounter Visit Diagnoses Not on filedocumented in this encounter Care Teams Harp Regulator Relationship Specialty Start Date End Date Ekaterina Higuera MD PCP - General Internal Medicine 12/11/18 04/01/21 Community, Pcp PCP - General Internal Medicine 04/02/21 Community, Pcp Internal Medicine 09/19/16 documented as of this encounter
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
== END 2024-11-13 08:25 | disposition home or self-care (01) ==
LOC: HO.MAMMO 08:24
PROVIDERS: PCP Internal Medicine; Visit Provider Internal Medicine
DX: Z12.31 Encounter for screening mammogram for malignant neoplasm of breast (principal)
CPT/HCPCS: 77063; 77067; 93005; 99212

== ENCOUNTER → 2024-11-13 09:00 | Outpatient (BNV) | payer OTHER, SELFPAY | PROVIDERS: PCP Internal Medicine; Visit Provider Internal Medicine | DX: Z12.31 Encounter for screening mammogram for malignant neoplasm of breast (principal) | CPT/HCPCS: 77063; 77067 ==

== ENCOUNTER 2024-11-13 12:27 | Outpatient (AMB) | payer OTHER, SELFPAY ==
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
[2024-11-13 13:36] VITALS: BP 120/60; PULSE 77; BMI 25.4
--- OUTSIDE RECORDS SUMMARY | 2024-11-13 14:39 | XMS_ITS | Encounter Summary ---
Author Organization [facility] Address [address] [place] [address] Care Team Providers Care Hides Soaker Name Role Phone Vidhi Wright MD Primary Care Provider Un available Community, Pcp Unavailable Unavailable Ekaterina Higuera MD Primary Care Provider Unava ilable [facility], Pcp Primary Care Provider Unavailabl e Encounter Details Date Type Department Care Team Description 11/28/2017 Software Test Analyst Report Medical Records [address] [place] [id number] Vishal Ortega MD Social History Tobacco Use [...] on filedocumented in this encounter Care Teams Hides Soaker Relationship Specialty Start Date End Date Vidhi Wright MD PCP - General Internal Medicine 09/19/16 Ekaterina Higuera MD PCP - General Internal Medicine 12/11/18 04/01/21 Community, Pcp PCP - General Internal Medicine 04/02/21 Community, Pcp Internal Medicine 09/19/16 documented as of this encounter
--- OUTSIDE RECORDS SUMMARY | 2024-11-13 14:39 | XMS_ITS | Encounter Summary ---
Author Organization [facility] Address [address] [place] [address] Care Team Providers Care Electrical Continuity Inspector Name Role Phone Community, Pcp Unavailable Unavailable Ekaterina Higuera MD Primary Care Provider Unava ilable [facility], Pcp Primary Care Provider Unavailabl e Encounter Details Date Type Department Care Team Description 07/11/2019 Telephone Physiatry - [address] [address] Quincy Espinoza PA-C Social History Tobacco Use [...] on filedocumented in this encounter Care Teams Electrical Continuity Inspector Relationship Specialty Start Date End Date Ekaterina Higuera MD PCP - General Internal Medicine 12/11/18 04/01/21 Community, Pcp PCP - General Internal Medicine 04/02/21 [facility], Pcp Internal Medicine 09/19/16 documented as of this encounter
--- OUTSIDE RECORDS SUMMARY | 2024-11-13 14:39 | XMS_ITS | Encounter Summary ---
Author Organization [facility] Address [address] [place] [address] Care Team Providers Care Automatic Spreader Operator Name Role Phone Vidhi Wright MD Primary Care Provider Un available [facility], Pcp Unavailable Unavailable Ekaterina Higuera MD Primary Care Provider Unava ilable [facility], Pcp Primary Care Provider Unavailabl e Encounter Details Date Type Department Care Team Description 11/07/2018 Mapping Technician Report Medical Records [address] [place] [address] Paola Tucker NP Social History Tobacco Use [...] filedocumented in this encounter Care Teams Automatic Spreader Operator Relationship Specialty Start Date End Date Vidhi Wright MD PCP - General Internal Medicine 09/19/16 Ekaterina Higuera MD PCP - General Internal Medicine 12/11/18 04/01/21 Community, Pcp PCP - General Internal Medicine 04/02/21 Community, Pcp Internal Medicine 09/19/16 documented as of this encounter
--- OUTSIDE RECORDS SUMMARY | 2024-11-13 14:39 | XMS_ITS | Encounter Summary ---
Author Organization [facility] Address [address] [place] [address] Care Team Providers Care Mower Sharpener Name Role Phone Vidhi Wright MD Primary Care Provider Un available Community, Pcp Unavailable Unavailable Ekaterina Higuera MD Primary Care Provider Unava ilable Community, Pcp Primary Care Provider Unavailabl e Reason for Referral * EXTERNAL (Urgent) - Authorized/Booked Specialty Diagnoses / Procedures Referred By Contac t Referred To Contact Ophthalmology Procedures REFERRAL TO EXTERNAL OPHTHALMOLOGY Arnulfo Parham MD [address] [place] [phone] [facility] [address] [place] [id number] Referral ID Status Reason Start Date Expiration Date V isits Requested Visits Authorized SEE NOTE Authorized/B ooked 06/06/2017 09/06/2017 1 1 Reason for Visit * Reason Onset Date Comments Fx Artist Feedback 06/06/2017 ophthalmology Encounter Details Date Type Department Care Team Description 06/06/2017 Telephone Adult Medicine [address] [phone] Arnulfo Parham MD [address] [place] [phone] Fx Artist Feedback (ophthalmology) Social History Tobacco Use Types [...] office backto book appointment. Thank you, Tala Marshmallow Maker * Telephone Encounter - Arnulfo Parham MD - 06/06/2017 9:23 PM EST Thanks 1) I do not know this patient too well, with the patient's complaint, I want the patient to be seenby lunch counter manager early. I have also right new referral 2) patient reported previously she saw Dr. Correa, so patient is not a new patient to that lunch counter manager. It we be the best if can [...] the patient if denied. Thank you, Tala Marshmallow Maker documented in this encounter Plan of Treatment Not on file documented as of this encounter Visit Diagnoses Diagnosis Decreased vision- Primary Unspecified visual loss documented in this encounter Care Teams Mower Sharpener Relationship Specialty Start Date End Date Vidhi Wright MD PCP - General Internal Medicine 09/19/16 Ekaterina Higuera MD PCP - General Internal Medicine 12/11/18 04/01/21 Community, Pcp PCP - General Internal Medicine 04/02/21 Community, Pcp Internal Medicine 09/19/16 documented as of this encounter
--- OUTSIDE RECORDS SUMMARY | 2024-11-13 14:39 | XMS_ITS | Encounter Summary ---
Author Organization [facility] Address [address] [place] [address] Care Team Providers Care It Systems Engineer Name Role Phone Community, Pcp Unavailable Unavailable Ekaterina Higuera MD Primary Care Provider Unava ilable [facility], Pcp Primary Care Provider Unavailabl e Reason for Visit * Reason Onset Date Comments Provider Call Back 01/29/2020 Encounter Details Date Type Department Care Team Description 01/29/2020 Telephone Adult Medicine [address] [address] Ekaterina Higuera MD Provider Call Back Social [...] back, please put call through to x [phone] or resend to message/pod pool if no [...] on filedocumented in this encounter Care Teams It Systems Engineer Relationship Specialty Start Date End Date Ekaterina Higuera MD PCP - General Internal Medicine 12/11/18 04/01/21 Community, Pcp PCP - General Internal Medicine 04/02/21 Community, Pcp Internal Medicine 09/19/16 documented as of this encounter
--- OUTSIDE RECORDS SUMMARY | 2024-11-13 14:39 | XMS_ITS | Encounter Summary ---
Author Organization [facility] Address [address] [place] [address] Care Team Providers Care Grease Monkey Name Role Phone Vidhi Wright MD Primary Care Provider Un available Community, Pcp Unavailable Unavailable Ekaterina Higuera MD Primary Care Provider Unava ilable Community, Pcp Primary Care Provider Unavailabl e Reason for Visit * Reason Onset Date Comments Appointment-Internal Referral 03/07/2017 [email or web address] Encounter Details Date Type Department Care Team Description 03/07/2017 Telephone Dermatology - [place] [address] [place] [address] Dimitri Kline MD [address] [place] [address] [phone] Appointment-Internal Referral (derm) Social History Tobacco Use [...] on filedocumented in this encounter Care Teams Grease Monkey Relationship Specialty Start Date End Date Vidhi Wright MD PCP - General Internal Medicine 09/19/16 Ekaterina Higuera MD PCP - General Internal Medicine 12/11/18 04/01/21 Community, Pcp PCP - General Internal Medicine 04/02/21 Community, Pcp Internal Medicine 09/19/16 documented as of this encounter
--- OUTSIDE RECORDS SUMMARY | 2024-11-13 14:39 | XMS_ITS | Encounter Summary ---
Author Organization [facility] Address [address] [place] [address] Care Team Providers Care Retort Furnace Helper Name Role Phone Community, Pcp Unavailable Unavailable Ekaterina Higuera MD Primary Care Provider Unava gilberto Community, Pcp Primary Care Provider Unavailabl e Encounter Details Date Type Department Care Team Description 10/04/2019 [facility] Medical Records [address] [place] [phone] Abstract, Provider Social History Tobacco Use Types [...] on filedocumented in this encounter Care Teams Retort Furnace Helper Relationship Specialty Start Date End Date Ekaterina Higuera MD PCP - General Internal Medicine 12/11/18 04/01/21 Community, Pcp PCP - General Internal Medicine 04/02/21 Community, Pcp Internal Medicine 09/19/16 documented as of this encounter
--- OUTSIDE RECORDS SUMMARY | 2024-11-13 14:39 | XMS_ITS | Encounter Summary ---
Author Organization [facility] Address [address] [place] [address] Care Team Providers Care Nba Player Name Role Phone Vidhi Wright MD Primary Care Provider Un available Community, Pcp Unavailable Unavailable Ekaterina Higuera MD Primary Care Provider Unava ilable [facility], Pcp Primary Care Provider Unavailabl e Encounter Details Date Type Department Care Team Description 12/14/2016 Fairground Operator Report Medical Records [address] [place] [address] Noah España Social History Tobacco Use Types [...] on filedocumented in this encounter Care Teams Nba Player Relationship Specialty Start Date End Date Vidhi Wrgiht MD PCP - General Internal Medicine 09/19/16 Ekaterina Higuera MD PCP - General Internal Medicine 12/11/18 04/01/21 Community, Pcp PCP - General Internal Medicine 04/02/21 Community, Pcp Internal Medicine 09/19/16 documented as of this encounter
--- OUTSIDE RECORDS SUMMARY | 2024-11-13 14:39 | XMS_ITS | Encounter Summary ---
Author Organization [facility] Address [address] [place] [address] Care Team Providers Care Line Department Supervisor Name Role Phone Vidhi Wright MD Primary Care Provider Un available [facility], Pcp Unavailable Unavailable Ekaterina Higuera MD Primary Care Provider Unava ilable [facility], Pcp Primary Care Provider Unavailabl e Encounter Details Date Type Department Care Team Description 06/26/2017 Telephone Adult Medicine [address] [address] Vidhi Wright MD Social History Tobacco Use [...] states she was in the ER at [place] She states she has an appt 1227 and doesn't want to change it Declined Er follow up appt * Telephone Encounter - Lashon Grady - 06/26/2017 2:11 PM EST Call returned * Telephone Encounter - Howie MagallonP.NBettina - 06/26/2017 1:42 PM EST Telephone Information: Called patient left message for patient to call triage nurse Patient needs a [facility] follow up booked documented in this encounter Plan of Treatment Not on file documented as of this encounter Visit Diagnoses Not on filedocumented in this encounter Care Teams Line Department Supervisor Relationship Specialty Start Date End Date Vidhi Wright MD PCP - General Internal Medicine 09/19/16 Ekaterina Higuera MD PCP - General Internal Medicine 12/11/18 04/01/21 Community, Pcp PCP - General Internal Medicine 04/02/21 Community, Pcp Internal Medicine 09/19/16 documented as of this encounter
--- OUTSIDE RECORDS SUMMARY | 2024-11-13 14:39 | XMS_ITS | Encounter Summary ---
Author Organization [facility] Address [address] [place] [address] Care Team Providers Care Car Hostler Name Role Phone Vidhi Wright MD Primary Care Provider Un available [facility], Pcp Unavailable Unavailable Ekaterina Higuera MD Primary Care Provider Unava ilable [facility], Pcp Primary Care Provider Unavailabl e Reason for Visit * Reason Onset Date Comments PT-1 10/23/2018 Encounter Details Date Type Department Care Team Description 10/23/2018 Telephone Adult Medicine [address] [address] Vidhi Wright MD PT-1 Social History Tobacco Use Types Packs/Day Years Used Date Smoking Tobacco: Never Smokeless Tobacco: Never Alcohol Use Standard Drinks/Week Comments No 0 (1 standard drink = 0.6 oz pur e alcohol) Sex Assigned at Date Recorded Not on file documented as of this encounter Miscellaneous Notes * Telephone Encounter - Chriss Aguiar M.A. - 10/31/2018 4:41 PM EDT Tracking #[id number] * Telephone Encounter - Helena Marrufo - 10/23/2018 12:55 PM EDT 11/28/17 [facility] patients will now be included in this workflow: Verify and document patients [place] Health insurance ID # (NOT [facility] ID): [id number] Payor: [facility] [employer] FFS / Plan: [facility] [employer] / Product Type: MEDICAID RISK Patient mailing address: [address] [facility] [address] Pt. demographics verified? YES If not accurate, update registration. Is this a NEW request or a RENEWAL? new Name of treating facility: [facility] Name (first & last) of treating provider? required : Ceci Nguyễn What is the medical reason why the patient is seeing the above provider? Abnormal moles Address/Zip code for treating provider: [address] [place] [address] Phone # for treating provider: [phone] Is the provider in the [facility] (do they accept [place] Health insurance)? YES What specialtly is this [...] on filedocumented in this encounter Care Teams Car Hostler Relationship Specialty Start Date End Date Vidhi Wright MD PCP - General Internal Medicine 09/19/16 Ekaterina Higuera MD PCP - General Internal Medicine 12/11/18 04/01/21 Community, Pcp PCP - General Internal Medicine 04/02/21 Community, Pcp Internal Medicine 09/19/16 documented as of this encounter
--- OUTSIDE RECORDS SUMMARY | 2024-11-13 14:39 | XMS_ITS | Encounter Summary ---
Author Organization [facility] Address [address] [place] [address] Care Team Providers Care Perforating Machine Operator Name Role Phone Vidhi Wright MD Primary Care Provider Un available Community, Pcp Unavailable Unavailable Ekaterina Higuera MD Primary Care Provider Unava ilable [facility], Pcp Primary Care Provider Unavailabl e Encounter Details Date Type Department Care Team Description 09/07/2017 Office Machinery Or Equipment Installer Report Medical Records [address] [place] [address] Abstract, Provider Social History Tobacco Use Types [...] on filedocumented in this encounter Care Teams Perforating Machine Operator Relationship Specialty Start Date End Date Vidhi Wright MD PCP - General Internal Medicine 09/19/16 Ekaterina Higuera MD PCP - General Internal Medicine 12/11/18 04/01/21 Community, Pcp PCP - General Internal Medicine 04/02/21 Community, Pcp Internal Medicine 09/19/16 documented as of this encounter
--- OUTSIDE RECORDS SUMMARY | 2024-11-13 14:39 | XMS_ITS | Encounter Summary ---
Author Organization [facility] Address [address] [place] [address] Care Team Providers Care Hyster Machine Operator Name Role Phone Vidhi Wright MD Primary Care Provider Un available Community, Pcp Unavailable Unavailable Ekaterina Higuera MD Primary Care Provider Unava ilable [facility], Pcp Primary Care Provider Unavailabl e Encounter Details Date Type Department Care Team Description 06/27/2017 Head Worker Report Medical Records [address] [place] [address] Noah España Social History Tobacco Use Types [...] on filedocumented in this encounter Care Teams Hyster Machine Operator Relationship Specialty Start Date End Date Vidhi Wright MD PCP - General Internal Medicine 09/19/16 Ekaterina Higuera MD PCP - General Internal Medicine 12/11/18 04/01/21 Community, Pcp PCP - General Internal Medicine 04/02/21 Community, Pcp Internal Medicine 09/19/16 documented as of this encounter
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
--- OUTSIDE RECORDS SUMMARY | 2024-11-13 14:39 | XMS_ITS | Encounter Summary ---
Author Organization [facility] Address [address] [place] [address] Care Team Providers Care Java Front End Web Developer Name Role Phone Vidhi Wright MD Primary Care Provider Un available Community, Pcp Unavailable Unavailable Ekaterina Higuera MD Primary Care Provider Unava ilable Community, Pcp Primary Care Provider Unavailabl e Reason for Visit * Reason Onset Date Comments PT-1 10/23/2018 Encounter Details Date Type Department Care Team Description 10/23/2018 Telephone Adult Medicine [address] [address] Vidhi Wright MD PT-1 Social History Tobacco Use Types Packs/Day Years Used Date Smoking Tobacco: Never Smokeless Tobacco: Never Alcohol Use Standard Drinks/Week Comments No 0 (1 standard drink = 0.6 oz pur e alcohol) Sex Assigned at Date Recorded Not on file documented as of this encounter Miscellaneous Notes * Telephone Encounter - Chriss Aguiar M.A. - 10/31/2018 4:42 PM EDT Tracking #[id number] * Telephone Encounter - Helena Marrufo - 10/23/2018 12:49 PM EDT 11/28/17 [facility] patients will now be included in this workflow: Verify and document patients [place] Health insurance ID # (NOT [facility] ID): [id number] Payor: [facility] [employer] FFS / Plan: [facility] [employer]IANCE / Product Type: MEDICAID RISK Patient mailing address: [address] [facility] [address] Pt. demographics verified? YES If not accurate, update registration. Is this a NEW request or a RENEWAL? Renewal Name of treating facility: [facility] Name (first & last) of treating provider? required : Vidhi Wright What is the medical reason why the patient is seeing the above provider? Primary care Address/Zip code for treating provider: [address] [place] [address] Phone # for treating provider: [phone] Is the provider in the [facility] (do they accept [place] Health insurance)? YES What specialtly is this [...] on filedocumented in this encounter Care Teams Java Front End Web Developer Relationship Specialty Start Date End Date Vidhi Wright MD PCP - General Internal Medicine 09/19/16 Ekaterina Higuera MD PCP - General Internal Medicine 12/11/18 04/01/21 [facility], Pcp PCP - General Internal Medicine 04/02/21 Community, Pcp Internal Medicine 09/19/16 documented as of this encounter
--- OUTSIDE RECORDS SUMMARY | 2024-11-13 14:39 | XMS_ITS | Encounter Summary ---
Author Organization [employer] Address [address] [facility] 7[address] [place] [address] Care Team Providers Care Tool Designer Name Role Phone Maria Guadalupe Merida MD Primary Care Provider [phone] Horacio Augustin PharmD Unavailable [phone] Reason for Referral * Consultation (Routine) - Authorized Specialty Diagnoses / Procedures Referred By Contac t Referred To Contact Pharmacy Diagnoses Mild intermittent asthma without complication Hypertension, unspecified type Type 2 diabetes mellitus with hyperglycemia, with long-term current use of insulin (CMS/HCC) Maria Guadalupe Merida MD [address] [place] [address] Phone: tel: fax: Referral ID Status Reason Start Date Expiration Date Visits Requested Visits Authorized [id number] Authorized Consult and Treat 06/04/2024 06/04/2025 6 6 Encounter Details Date Type Department Care Team (Late st Contact Info) Description 06/04/2024 Orders Only [facility] [address] [place], [place] [phone] Maria Guadalupe Merida MD [address] [place], [place] [phone] Mild intermittent asthma without complication (Primary Dx); [...] Description 01/02/2025 9:00 AM EDT Medication Management [facility] [address] [place] [address] Horacio Augustin, PharmD [address] [place] [address] Scheduled Referrals Name Type Priority Associated Diagnoses Orde r Schedule Referral to Pharmacy CDTM Outpatient Referral Routine Mild intermittent asthma without complication Hypertension, unspecified type Type 2 diabetes mellitus with hyperglycemia, with long-term current use of insulin ([facility]) Ordered: 06/04/2024 documented as of this encounter [...] hyperglycemia, with long-term current use of insulin ([facility]) documented in this encounter Care Teams Tool Designer Relationship Specialty Start Date End Date Maria Guadalupe Merida MD [address] [place] [address] PCP - General Family Medicine 01/22/24 11/07/24 Horacio Augustin, Divya [address] [place] [address] Pharmacist Internal Medicine 02/14/24 documented as of this encounter
--- OUTSIDE RECORDS SUMMARY | 2024-11-13 14:39 | XMS_ITS | Encounter Summary ---
Author Organization [facility] Address [address] [place] [address] Care Team Providers Care Search Specialist Name Role Phone Community, Pcp Primary Care Provider Unavailabl e Vidhi Wright MD Primary Care Provider Un available Community, Pcp Unavailable Unavailable Ekaterina Higuera MD Primary Care Provider Unava ilable Community, Pcp Primary Care Provider Unavailabl e Encounter Details Date Type Department Care Team Description 08/23/2015 Hospital Medical Records [address] [place] [phone] Yasir Nolen MD Social History Tobacco Use [...] on filedocumented in this encounter Care Teams Search Specialist Relationship Specialty Start Date End Date Community, Pcp PCP - General Internal Medicine 08/08/14 09/18/16 Vidhi Wright MD PCP - General Internal Medicine 09/19/16 Ekaterina Higuera MD PCP - General Internal Medicine 12/11/18 04/01/21 Community, Pcp PCP - General Internal Medicine 04/02/21 Community, Pcp Internal Medicine 09/19/16 documented as of this encounter
--- OUTSIDE RECORDS SUMMARY | 2024-11-13 14:39 | XMS_ITS | Encounter Summary ---
Author Organization [facility] Address [address] [place] [address] Care Team Providers Care Bottom Crane Operator Name Role Phone Vidhi Wright MD Primary Care Provider Un available Community, Pcp Unavailable Unavailable Ekaterina Higuera MD Primary Care Provider Unava ilable [facility], Pcp Primary Care Provider Unavailabl e Encounter Details Date Type Department Care Team Description 12/05/2016 Transfer Records Medical Records [address] [place] [phone] Vishal Ortega MD Social History Tobacco Use [...] on filedocumented in this encounter Care Teams Bottom Crane Operator Relationship Specialty Start Date End Date Vidhi Wright MD PCP - General Internal Medicine 09/19/16 Ekaterina Higuera MD PCP - General Internal Medicine 12/11/18 04/01/21 Community, Pcp PCP - General Internal Medicine 04/02/21 Community, Pcp Internal Medicine 09/19/16 documented as of this encounter
== END 2024-11-13 14:14 | disposition home or self-care (01) ==
LOC: HO.HCS 12:27
PROVIDERS: PCP Family Medicine
DX: R07.2 Precordial pain (principal); Z98.890 Other specified postprocedural states; I25.10 Atherosclerotic heart disease of native coronary artery without angina pectoris; I10 Essential (primary) hypertension; E11.9 Type 2 diabetes mellitus without complications; Z79.4 Long term (current) use of insulin
CPT/HCPCS: 93010; 99214; G2211

== ENCOUNTER 2024-12-09 08:26 | Emergency (ER) | payer OTHER, SELFPAY ==
--- NOTE | ~2024-12-09 | XR_ITS ---
EXAMINATION: XR ABDOMEN 1 VIEW (KUB) HISTORY: lower abd pain, ?constipation, mucousy stool COMPARISON: There are no prior studies for comparison. FINDINGS: Two supine views of the abdomen are submitted. The bowel gas pattern is unremarkable, without evidence of mechanical obstruction. There is a large amount of stool throughout the colon. There are surgical clips in the right upper quadrant. No abnormal calcifications are identified. There are no abnormal soft tissue masses. The bones are intact. XR/XR KUB IMPRESSION: Large amount of stool throughout the colon. Electronically signed by: Leandro Ny MD 12/09/2024 10:26 AM EDT
[2024-12-09 08:35] VITALS: BP 152/91; PULSE 88; RESP 16; TEMP 36.8; O2SAT 99; BMI 27.1
--- OUTSIDE RECORDS SUMMARY | 2024-12-09 08:59 | XMS_ITS | Encounter Summary ---
Author Organization [facility] Address [address] [place] [address] Care Team Providers Care Zigzag Appliquer Name Role Phone Vidhi Wright MD Primary Care Provider Un available Community, Pcp Unavailable Unavailable Ekaterina Higuera MD Primary Care Provider Unava ilable [facility], Pcp Primary Care Provider Unavailabl e Encounter Details Date Type Department Care Team Description 08/24/2017 Psychiatric Social Worker Supervisor Report Medical Records [address] [place] [address] Abstract, Provider Social History Tobacco Use Types [...] on filedocumented in this encounter Care Teams Zigzag Appliquer Relationship Specialty Start Date End Date Vidhi Wright MD PCP - General Internal Medicine 09/19/16 Ekaterina Higuera MD PCP - General Internal Medicine 12/11/18 04/01/21 Community, Pcp PCP - General Internal Medicine 04/02/21 [facility], Pcp Internal Medicine 09/19/16 documented as of this encounter
--- OUTSIDE RECORDS SUMMARY | 2024-12-09 08:59 | XMS_ITS | Encounter Summary ---
Author Organization [facility] Address [address] [place] [address] Care Team Providers Care Building Supplies Salesperson Retail Name Role Phone Vidhi Wright MD Primary Care Provider Un available Community, Pcp Unavailable Unavailable Ekaterina Higuera MD Primary Care Provider Unava ilable [facility], Pcp Primary Care Provider Unavailabl e Encounter Details Date Type Department Care Team Description 12/05/2017 Production Broacher Report Medical Records [address] [place] [id number] Marianna Pandey FNP Social History Tobacco Use [...] on filedocumented in this encounter Care Teams Building Supplies Salesperson Retail Relationship Specialty Start Date End Date Vidhi Wright MD PCP - General Internal Medicine 09/19/16 Ekaterina Higuera MD PCP - General Internal Medicine 12/11/18 04/01/21 Community, Pcp PCP - General Internal Medicine 04/02/21 [facility], Pcp Internal Medicine 09/19/16 documented as of this encounter
--- OUTSIDE RECORDS SUMMARY | 2024-12-09 08:59 | XMS_ITS | Encounter Summary ---
Author Organization [facility] Address [address] [place] [address] Care Team Providers Care Toe Laster Name Role Phone Community, Pcp Unavailable Unavailable Ekaterina Higuera MD Primary Care Provider Unava gilberto Community, Pcp Primary Care Provider Unavailabl e Encounter Details Date Type Department Care Team Description 04/02/2019 Operational Intelligence Analyst Report Medical Records [address] [place] [address] [facility] [place] Social History Tobacco Use Types Packs/Day Years [...] on filedocumented in this encounter Care Teams Toe Laster Relationship Specialty Start Date End Date Ekaterina Higuera MD PCP - General Internal Medicine 12/11/18 04/01/21 Community, Pcp PCP - General Internal Medicine 04/02/21 [facility], Pcp Internal Medicine 09/19/16 documented as of this encounter
--- OUTSIDE RECORDS SUMMARY | 2024-12-09 08:59 | XMS_ITS | Encounter Summary ---
Author Organization [facility] Address [address] [place] [address] Care Team Providers Care Gun Stock Maker Name Role Phone Community, Pcp Unavailable Unavailable Ekaterina Higuera MD Primary Care Provider Duncan macias Community, Pcp Primary Care Provider Unavailabl e Encounter Details Date Type Department Care Team Description 08/28/2020 Release of Information Medical Records [address] [place] [address] Abstract, Provider Social History Tobacco Use Types [...] on filedocumented in this encounter Care Teams Gun Stock Maker Relationship Specialty Start Date End Date Ekaterina Higuera MD PCP - General Internal Medicine 12/11/18 04/01/21 Community, Pcp PCP - General Internal Medicine 04/02/21 Community, Pcp Internal Medicine 09/19/16 documented as of this encounter
--- OUTSIDE RECORDS SUMMARY | 2024-12-09 08:59 | XMS_ITS | Encounter Summary ---
Author Organization [facility] Address [address] [place] [address] Care Team Providers Care Oil Tester Name Role Phone Community, Pcp Unavailable Unavailable Ekaterina Higuera MD Primary Care Provider Unava gilberto Community, Pcp Primary Care Provider Unavailabl e Encounter Details Date Type Department Care Team Description 10/04/2019 [facility] FORMS Medical Records [address] [place] [id number] Abstract, Provider Social History Tobacco Use Types [...] filedocumented in this encounter Care Teams Oil Tester Relationship Specialty Start Date End Date Ekaterina Higuera MD PCP - General Internal Medicine 12/11/18 04/01/21 [facility], Pcp PCP - General Internal Medicine 04/02/21 [facility], Pcp Internal Medicine 09/19/16 documented as of this encounter
--- OUTSIDE RECORDS SUMMARY | 2024-12-09 08:59 | XMS_ITS | Encounter Summary ---
Author Organization [facility] Address [address] [place] [address] Care Team Providers Care Heater Operator Name Role Phone Vidhi Wright MD Primary Care Provider Un available Community, Pcp Unavailable Unavailable Ekaterina Higuera MD Primary Care Provider Unava ilable [facility], Pcp Primary Care Provider Unavailabl e Encounter Details Date Type Department Care Team Description 12/05/2016 Transfer Records Medical Records [address] [place] [address] Vishal Ortega MD Social History Tobacco Use [...] on filedocumented in this encounter Care Teams Heater Operator Relationship Specialty Start Date End Date Vidhi Wright MD PCP - General Internal Medicine 09/19/16 Ekaterina Higuera MD PCP - General Internal Medicine 12/11/18 04/01/21 Community, Pcp PCP - General Internal Medicine 04/02/21 [facility], Pcp Internal Medicine 09/19/16 documented as of this encounter
--- OUTSIDE RECORDS SUMMARY | 2024-12-09 08:59 | XMS_ITS | Clinical Summary ---
Author Organization [facility] Address [address] [place] [address] Care Team Providers Care Tipple Supervisor Name Role Phone Community, Pcp Unavailable Unavailable [...] Medical History Relation Name Comments Diabetes Brother [place] Maternal Grandmother < 65, D M [place] Mother Mental Disorder Diabetes Sister [place] Breast [...] HEPATITIS C SCREENING Completed 01/11/2017 Care Teams Tipple Supervisor Relationship Specialty Start Date End Date Community, Pcp PCP - General Internal Medicine 04/02/21 Community, Pcp Internal Medicine 09/19/16
--- OUTSIDE RECORDS SUMMARY | 2024-12-09 08:59 | XMS_ITS | Encounter Summary ---
Author Organization [facility] Address [address] [place] [address] Care Team Providers Care Traffic Personnel Supervisor Name Role Phone Community, Pcp Unavailable Unavailable Ekaterina Higuera MD Primary Care Provider Unava ilable [facility], Pcp Primary Care Provider Unavailabl e Reason for Visit * Reason Onset Date Comments Faxed Refill 11/30/2020 Encounter Details Date Type Department Care Team Description 11/30/2020 Refill Adult Medicine [address] [address] Ekaterina Higuera MD Faxed Refill Social History [...] N/A Patients current insurance carrier is: Payor: [employer] FFS / Plan: [employer] [facility] ALLIANCE / Product Type: MEDICAID RISK documented in this encounter Plan of Treatment Not on file documented as of this encounter Visit Diagnoses Not on filedocumented in this encounter Care Teams Traffic Personnel Supervisor Relationship Specialty Start Date End Date Ekaterina Higuera MD PCP - General Internal Medicine 12/11/18 04/01/21 Community, Pcp PCP - General Internal Medicine 04/02/21 Community, Pcp Internal Medicine 09/19/16 documented as of this encounter
--- OUTSIDE RECORDS SUMMARY | 2024-12-09 08:59 | XMS_ITS | Encounter Summary ---
Author Organization [facility] Address [address] [place] [address] Care Team Providers Care Ornamental Iron Worker Name Role Phone Vidhi Wright MD Primary Care Provider Un available Community, Pcp Unavailable Unavailable Ekaterina Higuera MD Primary Care Provider Unava ilable [facility], Pcp Primary Care Provider Unavailabl e Encounter Details Date Type Department Care Team Description 08/08/2018 Tobacco Dipper Report Medical Records [address] [place] [address] Paola Tucker NP Social History Tobacco Use [...] on filedocumented in this encounter Care Teams Ornamental Iron Worker Relationship Specialty Start Date End Date Vidhi Wright MD PCP - General Internal Medicine 09/19/16 Ekaterina Higuera MD PCP - General Internal Medicine 12/11/18 04/01/21 Community, Pcp PCP - General Internal Medicine 04/02/21 [facility], Pcp Internal Medicine 09/19/16 documented as of this encounter
--- OUTSIDE RECORDS SUMMARY | 2024-12-09 08:59 | XMS_ITS | Encounter Summary ---
Author Organization [facility] Address [address] [place] [address] Care Team Providers Care Fleet Administrative Assistant Name Role Phone Community, Pcp Unavailable Unavailable Ekaterina Higuera MD Primary Care Provider Unava ilable Community, Pcp Primary Care Provider Unavailabl e Encounter Details Date Type Department Care Team Description 07/11/2019 Telephone Physiatry - [address] [address] Quincy Espinoza PA-C Social History Tobacco Use [...] on filedocumented in this encounter Care Teams Fleet Administrative Assistant Relationship Specialty Start Date End Date Ekaterina Higuera MD PCP - General Internal Medicine 12/11/18 04/01/21 Community, Pcp PCP - General Internal Medicine 04/02/21 [facility], Pcp Internal Medicine 09/19/16 documented as of this encounter
--- OUTSIDE RECORDS SUMMARY | 2024-12-09 08:59 | XMS_ITS | Encounter Summary ---
Author Organization [facility] Address [address] [place] [address] Care Team Providers Care Level Vial Inside Grinder Name Role Phone Vidhi Wright MD Primary Care Provider Un available Community, Pcp Unavailable Unavailable Ekaterina Higuera MD Primary Care Provider Unava ilable [facility], Pcp Primary Care Provider Unavailabl e Encounter Details Date Type Department Care Team Description 12/14/2016 Senior Oracle Applications Developer Report Medical Records [address] [place] [address] Noah España Social History Tobacco Use Types [...] on filedocumented in this encounter Care Teams Level Vial Inside Grinder Relationship Specialty Start Date End Date Vidhi Wright MD PCP - General Internal Medicine 09/19/16 Ekaterina Higuera MD PCP - General Internal Medicine 12/11/18 04/01/21 Community, Pcp PCP - General Internal Medicine 04/02/21 [facility], Pcp Internal Medicine 09/19/16 documented as of this encounter
--- OUTSIDE RECORDS SUMMARY | 2024-12-09 08:59 | XMS_ITS | Encounter Summary ---
Author Organization [facility] Address [address] [place] [address] Care Team Providers Care Retail Zone Specialist Name Role Phone Vidhi Wright MD Primary Care Provider Un available Community, Pcp Unavailable Unavailable Ekaterina Higuera MD Primary Care Provider Unava ilable [facility], Pcp Primary Care Provider Unavailabl e Encounter Details Date Type Department Care Team Description 11/07/2018 Laboratory Manager Report Medical Records [address] [place] [address] Paola Tucker NP Social History Tobacco Use [...] on filedocumented in this encounter Care Teams Retail Zone Specialist Relationship Specialty Start Date End Date Vidhi Wright MD PCP - General Internal Medicine 09/19/16 Ekaterina Higuera MD PCP - General Internal Medicine 12/11/18 04/01/21 Community, Pcp PCP - General Internal Medicine 04/02/21 Community, Pcp Internal Medicine 09/19/16 documented as of this encounter
--- OUTSIDE RECORDS SUMMARY | 2024-12-09 08:59 | XMS_ITS | Encounter Summary ---
Author Organization [facility] Address [address] [place] [address] Care Team Providers Care Water Reuse Program Manager Name Role Phone Vidhi Wright MD Primary Care Provider Un available Community, Pcp Unavailable Unavailable Ekaterina Higuera MD Primary Care Provider Unava ilable Community, Pcp Primary Care Provider Unavailabl e Reason for Visit * Reason Onset Date Comments PT-1 10/23/2018 Encounter Details Date Type Department Care Team Description 10/23/2018 Telephone Adult Medicine [address] [address] Vidhi Wright MD PT-1 Social History Tobacco Use Types Packs/Day Years Used Date Smoking Tobacco: Never Smokeless Tobacco: Never Alcohol Use Standard Drinks/Week Comments No 0 (1 standard drink = 0.6 oz pur e alcohol) Sex Assigned at Date Recorded Not on file documented as of this encounter Miscellaneous Notes * Telephone Encounter - Chriss Aguiar M.A. - 10/31/2018 4:41 PM EDT Tracking #[id number] * Telephone Encounter - Helena Marrufo - 10/23/2018 12:55 PM EDT 11/28/17 [facility] patients will now be included in this workflow: Verify and document patients [place] Health insurance ID # (NOT [facility] ID): [id number] Payor: [facility] [employer] FFS / Plan: [facility] ALLIANCE / Product Type: MEDICAID RISK Patient mailing address: [address] [facility] [address] Pt. demographics verified? YES If not accurate, update registration. Is this a NEW request or a RENEWAL? new Name of treating facility: [facility] Name (first & last) of treating provider? required : Ceci Nguyễn What is the medical reason why the patient is seeing the above provider? Abnormal moles Address/Zip code for treating provider: [address] [place] [address] Phone # for treating provider: [phone] Is the provider in the [employer] [facility] (do they accept [place] Health insurance)? YES What specialtly is this [...] on filedocumented in this encounter Care Teams Water Reuse Program Manager Relationship Specialty Start Date End Date Vidhi Wright MD PCP - General Internal Medicine 09/19/16 Ekaterina Higuera MD PCP - General Internal Medicine 12/11/18 04/01/21 Community, Pcp PCP - General Internal Medicine 04/02/21 Community, Pcp Internal Medicine 09/19/16 documented as of this encounter
--- OUTSIDE RECORDS SUMMARY | 2024-12-09 08:59 | XMS_ITS | Encounter Summary ---
Author Organization [facility] Address [address] [place] [address] Care Team Providers Care Guard Driver Name Role Phone Vidhi Wright MD Primary Care Provider Un available Community, Pcp Unavailable Unavailable Ekaterina Higuera MD Primary Care Provider Unava ilable [facility], Pcp Primary Care Provider Unavailabl e Encounter Details Date Type Department Care Team Description 12/05/2016 Senior Java Programmer Analyst Report Medical Records [address] [place] [address] Vishal Ortega MD Social History Tobacco Use [...] on filedocumented in this encounter Care Teams Guard Driver Relationship Specialty Start Date End Date Vidhi Wright MD PCP - General Internal Medicine 09/19/16 Ekaterina Higuera MD PCP - General Internal Medicine 12/11/18 04/01/21 Community, Pcp PCP - General Internal Medicine 04/02/21 [facility], Pcp Internal Medicine 09/19/16 documented as of this encounter
--- OUTSIDE RECORDS SUMMARY | 2024-12-09 08:59 | XMS_ITS | Encounter Summary ---
Author Organization [facility] Address [address] [place] [address] Care Team Providers Care Pivot End Polisher Name Role Phone Vidhi Wright MD Primary Care Provider Un available Community, Pcp Unavailable Unavailable Ekaterina Higuera MD Primary Care Provider Unava ilable [facility], Pcp Primary Care Provider Unavailabl e Encounter Details Date Type Department Care Team Description 06/14/2017 Hospital Medical Records [address] [place] [address] Bang Bustillo MD Social History Tobacco Use [...] on filedocumented in this encounter Care Teams Pivot End Polisher Relationship Specialty Start Date End Date Vidhi Wright MD PCP - General Internal Medicine 09/19/16 Ekaterina Higuera MD PCP - General Internal Medicine 12/11/18 04/01/21 Community, Pcp PCP - General Internal Medicine 04/02/21 Community, Pcp Internal Medicine 09/19/16 documented as of this encounter
--- OUTSIDE RECORDS SUMMARY | 2024-12-09 08:59 | XMS_ITS | Encounter Summary ---
Author Organization [facility] Address [address] [place] [address] Care Team Providers Care Inspector Subassemblies Name Role Phone Vidhi Wright MD Primary Care Provider Un available Community, Pcp Unavailable Unavailable Ekaterina Higuera MD Primary Care Provider Unava ilable Community, Pcp Primary Care Provider Unavailabl e Reason for Referral * EXTERNAL (Urgent) - Authorized/Booked Specialty Diagnoses / Procedures Referred By Contac t Referred To Contact Ophthalmology Procedures REFERRAL TO EXTERNAL OPHTHALMOLOGY Arnulfo Parham MD [address] [place] [address] [facility] [address] [place] [address] Referral ID Status Reason Start Date Expiration Date V isits Requested Visits Authorized SEE NOTE Authorized/B ooked 06/06/2017 09/06/2017 1 1 Reason for Visit * Reason Onset Date Comments Survey Technologist Feedback 06/06/2017 ophthalmology Encounter Details Date Type Department Care Team Description 06/06/2017 Telephone Adult Medicine [address] [id number] Arnulfo Parham MD [address] [place] [address] Survey Technologist Feedback (ophthalmology) Social History Tobacco Use Types [...] office backto book appointment. Thank you, Tala Quality Engineer Medical Device * Telephone Encounter - Arnulfo Parham MD - 06/06/2017 9:23 PM EST Thanks 1) I do not know this patient too well, with the patient's complaint, I want the patient to be seenby medical screener early. I have also right new referral 2) patient reported previously she saw Dr. Correa, so patient is not a new patient to that medical screener. It we be the best if can [...] the patient if denied. Thank you, Tala Quality Engineer Medical Device documented in this encounter Plan of Treatment Not on file documented as of this encounter Visit Diagnoses Diagnosis Decreased vision- Primary Unspecified visual loss documented in this encounter Care Teams Inspector Subassemblies Relationship Specialty Start Date End Date Vidhi Wright MD PCP - General Internal Medicine 09/19/16 Ekaterina Higuera MD PCP - General Internal Medicine 12/11/18 04/01/21 Community, Pcp PCP - General Internal Medicine 04/02/21 Community, Pcp Internal Medicine 09/19/16 documented as of this encounter
--- OUTSIDE RECORDS SUMMARY | 2024-12-09 08:59 | XMS_ITS | Encounter Summary ---
Author Organization [facility] Address [address] [place] [address] Care Team Providers Care Motor And Generator Brush Maker Name Role Phone Community, Pcp Unavailable Unavailable Ekaterina Higuera MD Primary Care Provider Unava ilable Community, Pcp Primary Care Provider Unavailabl e Reason for Visit * Reason Onset Date Comments Prior Authorization 06/02/2020 Encounter Details Date Type Department Care Team Description 06/02/2020 Telephone Adult Medicine [address] [address] Ekaterina Higuera MD Prior Authorization Social History [...] until 06/03/22 Prior authorization approval number # [id number] Approval faxed to [facility] at [phone] * Telephone Encounter - Jailene Eldridge M.A. [...] Pharmacy did the fax come from: [facility] fax #: [phone] [employer] Information from fax: What Prescription Plan does the patient have? N/a BIN/PCN if applicable: n/a Cardholder ID:n/a Person Code: n/a Relationship Code: n/a Help desk phone: n/a documented in this encounter Plan of Treatment Not on file documented as of this encounter Visit Diagnoses Not on filedocumented in this encounter Care Teams Motor And Generator Brush Maker Relationship Specialty Start Date End Date Ekaterina Higuera MD PCP - General Internal Medicine 12/11/18 04/01/21 Community, Pcp PCP - General Internal Medicine 04/02/21 Community, Pcp Internal Medicine 09/19/16 documented as of this encounter
--- OUTSIDE RECORDS SUMMARY | 2024-12-09 08:59 | XMS_ITS | Encounter Summary ---
Author Organization [facility] Address [address] [place] [address] Care Team Providers Care Account Specialist Name Role Phone Vidhi Wright MD Primary Care Provider Un available Community, Pcp Unavailable Unavailable Ekaterina Higuera MD Primary Care Provider Unava ilable Community, Pcp Primary Care Provider Unavailabl e Reason for Visit * Reason Onset Date Comments Faxed Refill 07/02/2018 Encounter Details Date Type Department Care Team Description 07/02/2018 Refill Adult Medicine [address] [address] Vidhi Wright MD Faxed Refill Social History [...] ? Patients current insurance carrier is: Payor: [employer] FFS / Plan: [employer] / Product Type: MEDICAID RISK ? documented in this encounter Plan of Treatment Not on file documented as of this encounter Visit Diagnoses Not on filedocumented in this encounter Care Teams Account Specialist Relationship Specialty Start Date End Date Vidhi Wright MD PCP - General Internal Medicine 09/19/16 Ekaterina Higuera MD PCP - General Internal Medicine 12/11/18 04/01/21 Community, Pcp PCP - General Internal Medicine 04/02/21 Community, Pcp Internal Medicine 09/19/16 documented as of this encounter
--- OUTSIDE RECORDS SUMMARY | 2024-12-09 08:59 | XMS_ITS | Encounter Summary ---
Author Organization [facility] Address [address] [place] [address] Care Team Providers Care Scorekeeper Name Role Phone Vidhi Wright MD Primary Care Provider Un available Community, Pcp Unavailable Unavailable Ekaterina Higuera MD Primary Care Provider Unava ilable [facility], Pcp Primary Care Provider Unavailabl e Encounter Details Date Type Department Care Team Description 05/30/2017 Scale Adjuster Report Medical Records [address] [place] [address] Vishal Ortega MD Social History Tobacco Use [...] on filedocumented in this encounter Care Teams Scorekeeper Relationship Specialty Start Date End Date Vidhi Wright MD PCP - General Internal Medicine 09/19/16 Ekaterina Higuera MD PCP - General Internal Medicine 12/11/18 04/01/21 Community, Pcp PCP - General Internal Medicine 04/02/21 Community, Pcp Internal Medicine 09/19/16 documented as of this encounter
--- OUTSIDE RECORDS SUMMARY | 2024-12-09 08:59 | XMS_ITS | Encounter Summary ---
Author Organization [facility] Address [address] [place] [address] Care Team Providers Care Bellman Name Role Phone Community, Pcp Unavailable Unavailable Ekaterina Higuera MD Primary Care Provider Unava ilable [facility], Pcp Primary Care Provider Unavailabl e Reason for Visit * Reason Onset Date Comments Provider Call Back 01/29/2020 Encounter Details Date Type Department Care Team Description 01/29/2020 Telephone Adult Medicine [address] [address] Ekaterina Higuera MD Provider Call Back Social [...] back, please put call through to x [phone] or resend to message/pod pool if no [...] on filedocumented in this encounter Care Teams Bellman Relationship Specialty Start Date End Date Ekaterina Higuera MD PCP - General Internal Medicine 12/11/18 04/01/21 Community, Pcp PCP - General Internal Medicine 04/02/21 Community, Pcp Internal Medicine 09/19/16 documented as of this encounter
--- OUTSIDE RECORDS SUMMARY | 2024-12-09 08:59 | XMS_ITS | Encounter Summary ---
Author Organization [facility] Address [address] [place] [address] Care Team Providers Care City Dispatcher Name Role Phone Vidhi Wright MD Primary Care Provider Un available Community, Pcp Unavailable Unavailable Ekaterina Higuera MD Primary Care Provider Unava ilable Community, Pcp Primary Care Provider Unavailabl e Encounter Details Date Type Department Care Team Description 06/26/2017 Telephone Adult Medicine [address] [address] Vidhi Wright MD Social History Tobacco Use [...] states she was in the ER at [facility] She states she has an appt 1227 and doesn't want to change it Declined Er follow up appt * Telephone Encounter - Lashon Grady - 06/26/2017 2:11 PM EST Call returned * Telephone Encounter - Howie MagallonP.NBettina - 06/26/2017 1:42 PM EST Telephone Information: Called patient left message for patient to call triage nurse Patient needs a [facility] follow up booked documented in this encounter Plan of Treatment Not on file documented as of this encounter Visit Diagnoses Not on filedocumented in this encounter Care Teams City Dispatcher Relationship Specialty Start Date End Date Vidhi Wright MD PCP - General Internal Medicine 09/19/16 Ekaterina Higuera MD PCP - General Internal Medicine 12/11/18 04/01/21 Community, Pcp PCP - General Internal Medicine 04/02/21 Community, Pcp Internal Medicine 09/19/16 documented as of this encounter
--- NOTE | 2024-12-09 09:20 | PC.NURSE ---
a&ox4. vss and up to date. pt presents to the ED c/o epigastric pain radiating to lower back with associated nausea/vomiting/diarrhea that started approximately 8 days ago. patient reports sx started after eating spaghetti and meat sauce on mothers day and then had constant nonbloody vomiting/diarrhea the day after food consumption. pt reports she has not had any episodes of vomiting/diarrhea in 7 days but continuos to have mucous drainage from rectum? abd tender w/ palpation. otherwise denies fevers/chills/urinary sx. 20gIV placed in the right AC - labs obtained/sent to lab. pt seen by ED provider/aware of plan of care. on RA w/o difficulty. no sob/wob noted. respirations even/unlabored. plan of care ongoing. call sweeney placed within reach.
[2024-12-09 09:23] LABS: MANUAL DIFF FLAG NO
[2024-12-09 09:25] LABS: Basophils Absolute Auto 0.1 X10*3/uL (0.0-0.2); Basophils Percent Auto 0.7 % (0-2); Eosinophils Absolute Auto 0.1 X10*3/uL (0.0-0.4); Eosinophils Percent Auto 1.7 % (0-4); Hematocrit 39.2 % (37.0-47.0); Hemoglobin 13.2 g/dl (12.0-16.0); Imm Gran Abs Auto 0.02 X10*3/uL (0.00-0.03); Imm Gran Pct Auto 0.3 % (0.0-0.4); Lymphocytes Absolute Auto 2.9 X10*3/uL (1.2-4.9); Lymphocytes Percent Auto 37.8 % (20-40); Mean Corpuscular HGB Conc 33.7 g/dl (31.0-35.0); Mean Corpuscular Hemoglobin 28.1 pg (27.0-33.0); Mean Corpuscular Volume 83.6 fL (80.0-98.0); Mean Platelet Volume 10.9 fL (9.4-12.3); Monocytes Absolute Auto 0.7 X10*3/uL (0.1-1.2); Monocytes Percent Auto 9.4 % (2-11); Neutrophils Absolute Auto 3.8 x10*3/uL (2.0-8.3); Neutrophils Percent Auto 50.1 % (45-73); Platelet Count 268 X10*3/uL (160-400); Red Blood Count 4.69 X10*6/uL (4.20-5.50); Red Cell Distribution Width 12.6 % (11.0-16.0); White Blood Count 7.5 X10*3/uL (4.8-10.8)
[2024-12-09 09:27] LABS: Appearance Urine Clear; Color Urine Yellow; Glucose Urine UA Negative (Negative); Leukocyte Esterase Urine Negative (Negative); Nitrite Urine Negative (Negative); PH 5.5 (5.0-9.0); Urine Blood Negative (Negative); Urine Ketones Negative (Negative); Urine Protein Negative (Neg-Trace)
[2024-12-09 09:32] LABS: Bacteria Urine None Seen (None Seen); Hyaline Casts Urine 0-2 /LPF (0-2); RBC Urine 0-2 /HPF (0-2); WBC Urine 0-5 /HPF (0-5)
[2024-12-09 09:40] LABS: Alanine Aminotransferase 21 U/L (0-31); Alanine Aminotransferase 23 U/L (0-31); Alkaline Phosphatase 100 U/L (39-117); Alkaline Phosphatase 101 U/L (39-117); Anion Gap 13 (12-20); Aspartate Amino Transferase 23 U/L (5-31); Aspartate Amino Transferase 27 U/L (5-31); Bilirubin Direct 0.2 mg/dL (0.0-0.5); Bilirubin Total 0.8 mg/dL (0.0-1.0); Blood Urea Nitrogen 10 mg/dL (9-16); Calcium 9.2 mg/dL (8.4-10.2); Carbon Dioxide 27 mmol/L (22-29); Chloride 103 mmol/L (96-108); Creatinine Clr Calc Pharmacy 64.6; Estimated Glomerular Filt Rate > 60; Glucose Random 161 mg/dL (60-115); Lipase 24 U/L (8-78); Potassium 4.2 mmol/L (3.3-5.1); Sodium 139 mmol/L (135-145); Total Protein 7.1 g/dL (6.5-8.0)
--- NOTE | 2024-12-09 09:40 | ED.ABDPAIN ---
HPI - Abdominal Pain General Chief Complaint: Abdominal Pain Stated Complaint: nausea vomiting diaherra Time Seen by Provider: 12/09/24 09:04 Source: patient, family (son) and ground support equipment fitter (Cuban) Mode of arrival: ambulatory Limitations: language barrier (Cuban) History of Present Illness ED Provider: MILAGRO CLEMENT PA-C HPI narrative: 69 year old female with pmhx significant for DM and HTN presents to the ED today for evaluation of nausea and abdominal pain x8 days. Reports symptoms initially began on mother's day (12/01/2024) after eating spaghetti with meat sauce. Her son ate the same meal and is asymptomatic. Reports feeling nauseous with multiple episodes of vomiting that same day. She then developed nonbloody loose stools. Reports multiple episodes that day. She has not had any episodes of diarrhea over the last 7 days however reports mucousy discharge from rectum.Passing flatus. Admits to associated lower abdominal pain. Pertinent surgical history includes cholecystectomy in 2009. No recent antibiotics. No recent travel outside the [place] At present, reports nausea without vomiting and lower abdominal pain. Trialed pepto bismol with some relief. Related Data Home Medications ?Medication ?Instructions ?Recorded ?Confirmed aspirin 81 mg capsule 81 mg PO DAILY 04/20/22 11/13/24 cholecalciferol (vitamin D3) 10 10 mcg PO DAILY 04/20/22 11/13/24 mcg (400 unit) capsule insulin glargine 100 unit/mL (3 38 unit subcut QPM 04/20/22 11/13/24 mL) subcutaneous pen (Lantus Solostar U-100 Insulin) carvedilol 6.25 mg tablet 6.25 mg PO BID 07/31/24 11/13/24 dulaglutide 1.5 mg/0.5 mL 1.5 mg subcut QWEEK 07/31/24 11/13/24 subcutaneous pen injector (Trulicity) omeprazole 20 mg capsule,delayed 20 mg PO DAILY 07/31/24 11/13/24 release ticagrelor 90 mg tablet (Brilinta) 90 mg PO BID 10/11/24 11/13/24 Previous Rx's ?Medication ?Instructions ?Recorded magnesium citrate (OneLAX 300 ml PO DAILY PRN constipation 04/09/24 Magnesium Citrate oral solution) #296 mL evolocumab 140 mg/mL subcutaneous 140 mg subcut Q2W #2 mL 10/14/24 pen injector (Nohemi Armijo) blood pressure monitor #1 ea 10/18/24 isosorbide mononitrate 10 mg tablet 10 mg PO BID #60 tabs 11/13/24 losartan 25 mg tablet 25 mg PO DAILY #60 tabs 11/13/24 Allergies Allergy/AdvReac Type Severity Reaction Status Date / Time metformin [METFORMIN] Allergy Mild DIARRHEA Verified 12/09/24 08:37 alprazolam Allergy Unknown diarrhea Verified 12/09/24 08:37 egg [EGG] Allergy Unknown UNKNOWN Verified 12/09/24 08:37 lactose [LACTOSE] Allergy Unknown Rash Verified 12/09/24 08:37 milk [MILK] AdvReac Unknown DIARRHEA Verified 12/09/24 08:37 Review of Systems Review of Systems Yes all other systems are reviewed and are negative [facility] Past Medical History Attestation statement: The following information was validated with the patient. Source: old records reviewed and nursing notes reviewed Medical History Pseudoaneurysm BECKHAM (dyspnea on exertion) Essential hypertension Diabetes mellitus treated with insulin Surgical History History of appendectomy Family History Family History Mother Hypertension Hyperlipidemia Atherosclerosis Father No problems noted. Social History Social History Alcohol intake: never Patient Tobacco Use Status: Never used Tobacco Physical Exam ED Vital Signs: Vital Signs - 24 hr 12/09/24 08:35 12/09/24 10:02 12/09/24 13:21 Temperature 98.2 F 98.1 F 98.2 F Pulse Rate 88 76 76 Respiratory Rate 16 16 18 Blood Pressure 152/91 H 168/78 H 160/84 H Pulse Oximetry 99 98 100 Oxygen Delivery Method Room Air Room Air Room Air 12/09/24 13:25 Temperature 98.2 F Pulse Rate 76 Respiratory Rate 18 Blood Pressure 160/84 H Pulse Oximetry 100 Oxygen Delivery Method Room Air BMI result Body Mass Index 27.1 Patient hypertensive, vitals otherwise WNL General: Well appearing, in no acute distress. Skin: Warm, dry, intact. No rashes or lesions. Head: Normocephalic, atraumatic. EENT: Hearing is intact b/l. Conjunctiva clear. Sclera is anicteric. PERRLA. EOM intact. Moist mucous membranes.? Cardiac: Chest wall symmetric. RRR Lungs: Normal respiratory effort without accessory muscle use Abdomen: obese abdomen, soft, nondistended, tender to palpation of lower abdomen without rebound or guarding. Active bowel sounds x4. rectal exam performed w/ spanish literature professor in room to translate. Normal rectal sphincter tone. Multiple small nonthrombosed externa hemorrhoids. no bleeding. No palpable stool in rectal vault. Back: No midline spinous or paraspinal tenderness. No step off deformity. Ext: Upper and lower extremities atraumatic, without tenderness, deformity, swelling or erythema Neuro: AOx3. Normal speech. Ambulating with steady gait. Course Course Course Narrative: 1017 -- CBC without leukocytosis or left shift. No anemia. H&H stable. Chemistry without acute electrolyte abnormality requiring intervention. No EVITA. Random glucose 161, no gap. Lipase WNL, pancreatitis unlikely. Liver function WNL. Troponin undetectable, ACS unlikely. Urine without infection. > viral swabs pending. Patient receiving GI cocktail, plan to re-evaluate. KUB pending. 1041 -- KUB showing large amount of stool throughout the colon. No evidence of bowel obstruction. On SAM, there is no palpable stool within the rectal vault however given patient's abdominal discomfort, she is agreeable to enema. This has been ordered. 1250 -- enema administered followed by bowel movement. reports improvement in discomfort. tolerating PO. will advised bowel regimen at home. Patient has remained stable throughout ED visit today. Discussed worrisome signs and symptoms and when to return to the ED. All questions answered at this time. Patient is agreeable with disposition and stable for discharge. Medical Decision Making Medical Decision Making MDM Narrative: 69 year old female with pmhx significant for DM and HTN presents to the ED today for evaluation of nausea and epigastric pain x8 days. hypertensive, vitals otherwise wnl. she is well appearing and in NAD. on exam, obese abdomen, soft, nondistended, tender to palpation of lower abdomen without rebound or guarding. Active bowel sounds x4. rectal exam performed w/ spanish literature professor in room to translate. Normal rectal sphincter tone. Multiple small nonthrombosed externa hemorrhoids. no bleeding. No palpable stool in rectal vault. Differential diagnosis includes gastroenteritis, gastritis, GERD, colitis, diverticulosis, diverticulitis, constipation, UTI, viral syndrome Lower suspicion for appendicitis, pancreatitis. Unlikely cholecystitis status post cholecystectomy. Lower suspicion for bowel obstruction. Unlikely viscus perforation, ischemic bowel Plan at this time is viral serology, screening labs, UA, stool studies, KUB GI cocktail ordered. Plan for re-evaluation. Differential Diagnosis Differential Diagnoses: The differential diagnosis associated with the presentation includes As above Admission/Observation Not indicated Lab Data MDM Lab Attestation statement: I reviewed the patient's lab results. As above 12/09/24 09:19 12/09/24 09:19 Labs: Lab Results 12/09/24 12/09/24 12/09/24 Range/Units 09:19 09:19 09:19 WBC 7.5 (4.8-10.8) X10*3/uL RBC 4.69 (4.20-5.50) X10*6/uL Hgb 13.2 (12.0-16.0) g/dl Hct 39.2 (37.0-47.0) % MCV 83.6 (80.0-98.0) fL MCH 28.1 (27.0-33.0) pg MCHC 33.7 (31.0-35.0) g/dl RDW 12.6 (11.0-16.0) % Plt Count 268 (160-400) X10*3/uL MPV 10.9 (9.4-12.3) fL Immature Gran % (Auto) 0.3 (0.0-0.4) % Neut % (Auto) 50.1 (45-73) % Lymph % (Auto) 37.8 (20-40) % [place] % (Auto) 9.4 (2-11) % Eos % (Auto) 1.7 (0-4) % Baso % (Auto) 0.7 (0-2) % Lymph # (Auto) 2.9 (1.2-4.9) X10*3/uL [place] # (Auto) 0.7 (0.1-1.2) X10*3/uL Eos # (Auto) 0.1 (0.0-0.4) X10*3/uL Baso # (Auto) 0.1 (0.0-0.2) X10*3/uL Abs Immat Gran (auto) 0.02 (0.00-0.03) X10*3/uL Absolute Neuts (auto) 3.8 (2.0-8.3) x10*3/uL Absolute Nucleated RBC 0.000 (0.0-0.012) X10*3/uL Nucleated RBC % (auto) 0.0 (0.0-0.2) /100WBC Sodium 139 (135-145) mmol/L Potassium 4.2 (3.3-5.1) mmol/L Chloride 103 (96-108) mmol/L Carbon Dioxide 27 (22-29) mmol/L Anion Gap 13 (12-20) BUN 10 (9-16) mg/dL Creatinine 0.73 (0.5-1.4) mg/dL Estim Creat Clear Calc 64.6 Estimated GFR > 60 Random Glucose 161 H (60-115) mg/dL Calcium 9.2 (8.4-10.2) mg/dL Magnesium 2.0 (1.6-2.6) mg/dL Total Bilirubin 0.8 0.8 (0.0-1.0) mg/dL Direct Bilirubin 0.2 (0.0-0.5) mg/dL AST 27 23 (5-31) U/L ALT 23 (0-31) U/L Alkaline Phosphatase (39-117) U/L Troponin I High Sens (<3.5-17.0) ng/L Total Protein (6.5-8.0) g/dL Albumin (3.5-5.0) g/dL Lipase (8-78) U/L Urine Color Urine Appearance Urine pH (5.0-9.0) Ur Specific [place] (1.005-1.025) Urine Protein (Neg-Trace) mg/dL Urine Glucose (UA) (Negative) mg/dL Urine Ketones (Negative) mg/dL Urine Blood (Negative) Urine Nitrite (Negative) Ur Leukocyte Esterase (Negative) Urine RBC (0-2) /HPF Urine WBC (0-5) /HPF Ur Squamous Epith Cells (0-2) /HPF Urine Bacteria (None Seen) Hyaline Casts (0-2) /LPF Influenza Type A (PCR) (Negative) Influenza Type B (PCR) (Negative) RSV RNA Qual (PCR) (Negative) SARS-CoV-2 RNA (RT-PCR) (Negative) 12/09/24 12/09/24 12/09/24 Range/Units 09:19 09:19 09:19 WBC (4.8-10.8) X10*3/uL RBC (4.20-5.50) X10*6/uL Hgb (12.0-16.0) g/dl Hct (37.0-47.0) % MCV (80.0-98.0) fL MCH (27.0-33.0) pg MCHC (31.0-35.0) g/dl RDW (11.0-16.0) % Plt Count (160-400) X10*3/uL MPV (9.4-12.3) fL Immature Gran % (Auto) (0.0-0.4) % Neut % (Auto) (45-73) % Lymph % (Auto) (20-40) % [place] % (Auto) (2-11) % Eos % (Auto) (0-4) % Baso % (Auto) (0-2) % Lymph # (Auto) (1.2-4.9) X10*3/uL [place] # (Auto) (0.1-1.2) X10*3/uL Eos # (Auto) (0.0-0.4) X10*3/uL Baso # (Auto) (0.0-0.2) X10*3/uL Abs Immat Gran (auto) (0.00-0.03) X10*3/uL Absolute Neuts (auto) (2.0-8.3) x10*3/uL Absolute Nucleated RBC (0.0-0.012) X10*3/uL Nucleated RBC % (auto) (0.0-0.2) /100WBC Sodium (135-145) mmol/L Potassium (3.3-5.1) mmol/L Chloride (96-108) mmol/L Carbon Dioxide (22-29) mmol/L Anion Gap (12-20) BUN (9-16) mg/dL Creatinine (0.5-1.4) mg/dL Estim Creat Clear Calc Estimated GFR Random Glucose (60-115) mg/dL Calcium (8.4-10.2) mg/dL Magnesium (1.6-2.6) mg/dL Total Bilirubin (0.0-1.0) mg/dL Direct Bilirubin (0.0-0.5) mg/dL AST (5-31) U/L ALT 21 (0-31) U/L Alkaline Phosphatase 100 101 (39-117) U/L Troponin I High Sens < 2.7 (<3.5-17.0) ng/L Total Protein 7.1 7.0 (6.5-8.0) g/dL Albumin 4.0 (3.5-5.0) g/dL Lipase (8-78) U/L Urine Color Urine Appearance Urine pH (5.0-9.0) Ur Specific [place] (1.005-1.025) Urine Protein (Neg-Trace) mg/dL Urine Glucose (UA) (Negative) mg/dL Urine Ketones (Negative) mg/dL Urine Blood (Negative) Urine Nitrite (Negative) Ur Leukocyte Esterase (Negative) Urine RBC (0-2) /HPF Urine WBC (0-5) /HPF Ur Squamous Epith Cells (0-2) /HPF Urine Bacteria (None Seen) Hyaline Casts (0-2) /LPF Influenza Type A (PCR) (Negative) Influenza Type B (PCR) (Negative) RSV RNA Qual (PCR) (Negative) SARS-CoV-2 RNA (RT-PCR) (Negative) 12/09/24 12/09/24 Range/Units 09:19 10:03 WBC (4.8-10.8) X10*3/uL RBC (4.20-5.50) X10*6/uL Hgb (12.0-16.0) g/dl Hct (37.0-47.0) % MCV (80.0-98.0) fL MCH (27.0-33.0) pg MCHC (31.0-35.0) g/dl RDW (11.0-16.0) % Plt Count (160-400) X10*3/uL MPV (9.4-12.3) fL Immature Gran % (Auto) (0.0-0.4) % Neut % (Auto) (45-73) % Lymph % (Auto) (20-40) % [place] % (Auto) (2-11) % Eos % (Auto) (0-4) % Baso % (Auto) (0-2) % Lymph # (Auto) (1.2-4.9) X10*3/uL [place] # (Auto) (0.1-1.2) X10*3/uL Eos # (Auto) (0.0-0.4) X10*3/uL Baso # (Auto) (0.0-0.2) X10*3/uL Abs Immat Gran (auto) (0.00-0.03) X10*3/uL Absolute Neuts (auto) (2.0-8.3) x10*3/uL Absolute Nucleated RBC (0.0-0.012) X10*3/uL Nucleated RBC % (auto) (0.0-0.2) /100WBC Sodium (135-145) mmol/L Potassium (3.3-5.1) mmol/L Chloride (96-108) mmol/L Carbon Dioxide (22-29) mmol/L Anion Gap (12-20) BUN (9-16) mg/dL Creatinine (0.5-1.4) mg/dL Estim Creat Clear Calc Estimated GFR Random Glucose (60-115) mg/dL Calcium (8.4-10.2) mg/dL Magnesium (1.6-2.6) mg/dL Total Bilirubin (0.0-1.0) mg/dL Direct Bilirubin (0.0-0.5) mg/dL AST (5-31) U/L ALT (0-31) U/L Alkaline Phosphatase (39-117) U/L Troponin I High Sens (<3.5-17.0) ng/L Total Protein (6.5-8.0) g/dL Albumin 4.0 (3.5-5.0) g/dL Lipase 24 (8-78) U/L Urine Color Yellow Urine Appearance Clear Urine pH 5.5 (5.0-9.0) Ur Specific [place] 1.020 (1.005-1.025) Urine Protein Negative (Neg-Trace) mg/dL Urine Glucose (UA) Negative (Negative) mg/dL Urine Ketones Negative (Negative) mg/dL Urine Blood Negative (Negative) Urine Nitrite Negative (Negative) Ur Leukocyte Esterase Negative (Negative) Urine RBC 0-2 (0-2) /HPF Urine WBC 0-5 (0-5) /HPF Ur Squamous Epith Cells 6-10 (0-2) /HPF Urine Bacteria None Seen (None Seen) Hyaline Casts 0-2 (0-2) /LPF Influenza Type A (PCR) NEGATIVE (Negative) Influenza Type B (PCR) NEGATIVE (Negative) RSV RNA Qual (PCR) NEGATIVE (Negative) SARS-CoV-2 RNA (RT-PCR) NEGATIVE (Negative) Independent Interpretation I performed an independent interpretation of an: Plain X-Ray Interpretation: KUB showing large amount of stool throughout the colon Radiology Impression Discussion of test interpretation with radiology: I have reviewed the radiologist's reading. Radiologist Impression: Procedure(s): XR KUB Accession Number(s): [id number] cc: Milagro Muniz; Maria Guadalupe Merida MD~ EXAMINATION: XR ABDOMEN 1 VIEW (KUB) HISTORY: lower abd pain, ?constipation, mucousy stool COMPARISON: There are no prior studies for comparison. FINDINGS: Two supine views of the abdomen are submitted. The bowel gas pattern is unremarkable, without evidence of mechanical obstruction. There is a large amount of stool throughout the colon. There are surgical clips in the right upper quadrant. No abnormal calcifications are identified. There are no abnormal soft tissue masses. The bones are intact. XR/XR KUB IMPRESSION: Large amount of stool throughout the colon. Electronically signed by: Leandro Ny MD 12/09/2024 10:26 AM EDT Independent Historian Clinical information obtained from an independent historian. History obtained from or confirmed by: Other (Son) External Record Review External record reviewed: Inpatient record Prescription Management I considered prescription management with: Other (miralax, colace) Chronic Conditions Patient?s care impacted by: Diabetes and Hypertension Social Determinants Patient?s care significantly limited by Social Determinants of Health including: Other Social Determinant of Health Medications Administered Discontinued Medications Generic Name Dose Route Start Last Admin Trade Name Freq PRN Reason Stop Dose Admin Al Hydroxide/Mg Hydroxide 30 ml 12/09/24 10:01 12/09/24 10:28 Magnesium Hydrox/Alum Hydrox 30 Ml Oral.Susp PO 12/09/24 10:02 30 ml ONCE ONE Administration Belladonna Alkaloids/Phenobarbital 10 ml 12/09/24 10:01 12/09/24 10:28 Phenobarb/Hyoscy/Atropine/Scop 10 Ml Elixir PO 12/09/24 10:02 10 ml ONCE ONE Administration Ondansetron HCl 4 mg 12/09/24 10:01 12/09/24 10:28 Ondansetron Odt 4 Mg Tab.Rapdis TRANSLINGU 12/09/24 10:02 4 mg ONCE ONE Administration Critical Care Time Critical Care Time Critical Care Time: No Discharge Plan Discharge Clinical Impression: Constipation Patient Disposition: Home, Self-Care Instructions: Constipation (ED), High Fiber Diet (ED) Additional Instructions: Your lab work up today is unremarkable. Your imaging shows that you are constipated. See home care instructions. There is no evidence of obstruction. You were treated in the ED today with an enema and you were able to have a bowel movement. I recommend using stool softeners such as colace 100 mg twice daily. In addition, take over the counter miralax 2-3 times daily until you begin having multiple large volume bowel movements. Follow up with your doctor in 2 weeks. Return with new or worsening symptoms. In the case of an emergency call 911. Prescriptions: No Action Repatha SureClick 140 mg/mL pen injector 140 mg subcut Q2W Qty: 2 4RF (DME) blood pressure monitor Kit See Rx Instructions .Route Qty: 1 0RF Rx Instructions: As directed magnesium citrate [OneLAX Magnesium Citrate] Solution 300 ml PO DAILY PRN (Reason: constipation) Qty: 296 0RF aspirin 81 mg capsule 81 mg PO DAILY insulin glargine [Lantus Solostar U-100 Insulin] 100 unit/mL (3 mL) insulin pen 38 unit subcut QPM cholecalciferol (vitamin D3) 10 mcg (400 unit) capsule 10 mcg PO DAILY Trulicity 1.5 mg/0.5 mL pen injector 1.5 mg subcut QWEEK carvedilol 6.25 mg tablet 6.25 mg PO BID Rx Instructions: must administer with a meal/food omeprazole 20 mg capsule,delayed release(DR/EC) 20 mg PO DAILY Brilinta 90 mg tablet 90 mg PO BID losartan 25 mg tablet 25 mg PO DAILY Qty: 60 1RF isosorbide mononitrate 10 mg tablet 10 mg PO BID Qty: 60 1RF Rx Instructions: give doses 7 hrs apart Referrals: [facility] [place] Gastroenterology Services [Provider Group] Maria Guadalupe Merida MD [Primary Care Provider] - Interventions: ED Discharge Assessment Last Done: 12/09/24 13:25 Discharge Date/Time: 12/09/24 13:25 Print Language: Cuban
[2024-12-09 09:57] LABS: Troponin-I High Sensitivity < 2.7 ng/L (<3.5-17.0)
[2024-12-09 10:02] VITALS: BP 168/78; PULSE 76; RESP 16; TEMP 36.7; O2SAT 98
[2024-12-09] MEDS: Magnesium Hydrox/Alum Hydrox 30 ML ORAL.SUSP PO (10:28)
[2024-12-09] MEDS: PHENobarb/Hyoscy/Atropine/Scop 10 ML ELIXIR PO (10:28)
[2024-12-09] MEDS: Ondansetron ODT 4 MG TAB.RAPDIS TRANSLINGU (10:28)
--- NOTE | 2024-12-09 10:31 | PC.NURSE ---
patient returned from XR at this time. pt medicated per provider order. effectiveness pending. scan results pending at this time. plan of care ongoing. call sweeney placed within reach.
[2024-12-09 11:08] LABS: Influenza A PCR NEGATIVE (Negative); Influenza B PCR NEGATIVE (Negative); Resp Syncy Virus RNA Qual PCR NEGATIVE (Negative); SARS COV2 PCR INHOUSE NEGATIVE (Negative)
--- NOTE | 2024-12-09 12:42 | PC.NURSE ---
soap soads enema administered per provider order. pt tolerated well. +effect. provider notified/aware.
[2024-12-09 13:21] VITALS: BP 160/84; PULSE 76; RESP 18; TEMP 36.8; O2SAT 100
[2024-12-09 13:25] VITALS: BP 160/84; PULSE 76; RESP 18; TEMP 36.8; O2SAT 100
== END 2024-12-09 13:25 | disposition home or self-care (01) ==
PROVIDERS: Physician Assistant Medical; Emergency Provider Emergency Medicine; PCP Family Medicine
DX: K59.00 Constipation, unspecified (principal); R10.2 Pelvic and perineal pain; R11.2 Nausea with vomiting, unspecified; E11.9 Type 2 diabetes mellitus without complications; I10 Essential (primary) hypertension; Z79.899 Other long term (current) drug therapy; Z03.818 Encounter for observation for suspected exposure to other biological agents ruled out
CPT/HCPCS: 0241U; 36415; 74018; 80053; 80076; 81001; 82248; 83690; 83735; 84484; 85025; 99283; 99285

== ENCOUNTER → 2024-12-09 10:00 | Outpatient (BNV) | payer OTHER, SELFPAY | PROVIDERS: Emergency Provider Emergency Medicine; PCP Family Medicine; Visit Provider Radiology Diagnostic Radiology | DX: K56.41 Fecal impaction (principal) | CPT/HCPCS: 74018 ==

== ENCOUNTER → 2024-12-12 08:27 | Outpatient (BNVA) | payer OTHER, SELFPAY | PROVIDERS: PCP Family Medicine | DX: Z13.89 Encounter for screening for other disorder (principal) ==

== ENCOUNTER → 2025-01-10 09:26 | Outpatient (BNVA) | payer OTHER, SELFPAY | PROVIDERS: PCP Family Medicine | DX: Z13.89 Encounter for screening for other disorder (principal) ==

== ENCOUNTER → 2025-01-14 12:26 | Outpatient (REF) | payer OTHER, SELFPAY ==
--- NOTE | 2025-01-14 12:33 | CA_ITS ---
Transthoracic Echocardiogram Patient (Last, First, Middle): Lisa Swanson, Gender: Female Date of : 1955 Age: 69 Procedure Date: 01/14/2025 Procedure Type: Transthoracic Echocardiogram Location: OP Height: 154.94 cm Weight: 64.41 kg BSA: 1.63 m2 Heart Rate: bpm BP: 146 / 82 mmHg Corporate Real Estate Specialist: TO Referring MD: Tristen Lindquist COMMERCIAL LINES UNDERWRITER Symptoms: R42 - Dizziness and giddiness Study Quality: Adequate ECG Rhythm: Sinus Conclusions: - The left ventricular systolic function is normal. The calculated ejection fraction is 59% by biplane method. - No obvious valvular pathology seen on this study. Findings Left Ventricle Normal left ventricular cavity size. There is normal left ventricular wall thickness. The left ventricular systolic function is normal. The calculated ejection fraction is 59% by biplane method. There is no evidence of regional wall motion abnormalities. Diastolic function is normal for age. Right Ventricle Normal right ventricular cavity size. There is low normal right ventricular systolic function. Atria Both atria are normal in size. Aortic Valve There is a normal trileaflet aortic valve. There is no aortic valve stenosis. There is no aortic valve regurgitation. Mitral Valve The mitral valve appears normal. There is trace mitral valve regurgitation. There is no mitral valve stenosis. Pulmonic Valve The pulmonic valve is likely normal. Tricuspid Valve There is trace tricuspid valve regurgitation. There is no evidence of pulmonary hypertension. Great Vessels The asc aorta is normal in size. Venous The inferior vena cava is normal in size and collapses greater than 50% with inspiration. Pericardium/Pleural Prominent epicardial adipose tissue noted. There is no evidence of pericardial effusion. Prior Study Comparison No significant change compared to prior study dated: 05/17/2022. Recommendations, Care & Conclusions No obvious valvular pathology seen on this study. Measurements 2D Linear Measurements IVSd: 0.88 0.6-0.9/0.6-1.0 cm LVIDd: 3.72 3.9-5.3/4.2-5.9 cm LVIDd Index: 2.28 2.4-3.2/2.2-3.1 cm/m2 LVIDs: 2.66 2.0-3.6 cm LVPWd: 0.82 0.7-1.1 cm LA Diam: 3.20 2.7-3.8/3.0-4.0 cm LAIDs Index: 1.96 1.5-2.3 cm/m2 LV Mass: 111.87 67-162/88-224 g LV Mass Index: 68.63 43-95/49-115 g/m2 LVOT Diam: 2.00 3.0+(-)1.3 cm 2D Systolic Function EF 4C: 60.30 >55% EF 2C: 55.90 >55% EF BiP: 58.80 >55% Mitral Valve MV Pk E: 0.54 MV PK A: 0.64 MV Decel Time: 182.00 E/A: 0.80 E'Lateral: 4.35 E'Medial: 3.05 E/E' Med: 17.70 E/E' Lat: 12.40 PHT: 53.00 MVA PHT: 4.15 Decel Buchanan: 2.96 Aortic Valve AoV Pk Froylan: 1.05 AoV Mn Froylan: 0.66 AoV VTI: 0.22 AoV Pk Grad: 4.00 Aov Mn Grad: 2.00 RICHARD Cont.VTI: 2.85 LVOT LVOT Pk Froylan: 0.88 LVOT Mn Froylan: 0.61 LVOT VTI: 0.20 LVOT Pk Grad: 3.00 LVOT Mn Grad: 2.00 LVOT Diam: 2.00 LVOT Area: 3.14 Diastolic Function MV Pk E: 0.54 MV Pk A: 0.64 E/A: 0.80 E'Medial: 3.05 E/E' Med: 17.70 E' Laterial: 4.35 E/E' Lat: 12.40 Right Ventricle TAPSE (mm): 16.90 TVS' Froylan: 9.25 Tricuspid Valve RA Press: 3.00 Great Vessels Aorta Sinus of Valsalva: 2.79 2.0-3.5 cm Ao Asc: 2.90 2.1-3.4 cm Updated in Other Vendor System with Status of Final Yasir Nolen MD electronically signed on 01/15/2025 10:21:10 AM with status of Final
--- OUTSIDE RECORDS SUMMARY | 2025-01-14 13:58 | XMS_ITS | Encounter Summary ---
Author Organization [facility] Address [address] [place] [address] Care Team Providers Care Microcomputer Technician Name Role Phone Vidhi Wright MD Primary Care Provider Un available Community, Pcp Unavailable Unavailable Ekaterina Higuera MD Primary Care Provider Unava ilable Community, Pcp Primary Care Provider Unavailabl e Reason for Visit * Reason Onset Date Comments PT-1 10/23/2018 Encounter Details Date Type Department Care Team Description 10/23/2018 Telephone Adult Medicine [address] [address] Vidhi Wright MD PT-1 Social History Tobacco Use Types Packs/Day Years Used Date Smoking Tobacco: Never Smokeless Tobacco: Never Alcohol Use Standard Drinks/Week Comments No 0 (1 standard drink = 0.6 oz pur e alcohol) Sex Assigned at Date Recorded Not on file documented as of this encounter Miscellaneous Notes * Telephone Encounter - Chriss Aguiar M.A. - 10/31/2018 4:41 PM EDT Tracking #[id number] * Telephone Encounter - Helena Marrufo - 10/23/2018 12:55 PM EDT 11/28/17 [facility] patients will now be included in this workflow: Verify and document patients [place] Health insurance ID # (NOT [facility] ID): [id number] Payor: [facility] [employer] FFS / [place] [facility] [place] [facility] [employer] / Product Type: MEDICAID RISK Patient mailing address: [address] [facility] [address] Pt. demographics verified? YES If not accurate, update registration. Is this a NEW request or a RENEWAL? new Name of treating facility: [facility] Name (first & last) of treating provider? required : Ceci Nguyễn What is the medical reason why the patient is seeing the above provider? Abnormal moles Address/Zip code for treating provider: [address] [place] [address] Phone # for treating provider: [phone] Is the provider in the [employer] [facility] (do they accept ID Health insurance)? YES What specialtly is this [...] on filedocumented in this encounter Care Teams Microcomputer Technician Relationship Specialty Start Date End Date Vidhi Wright MD PCP - General Internal Medicine 09/19/16 Ekaterina Higuera MD PCP - General Internal Medicine 12/11/18 04/01/21 Community, Pcp PCP - General Internal Medicine 04/02/21 Community, Pcp Internal Medicine 09/19/16 documented as of this encounter
[2025-01-14 14:11] LABS: Alanine Aminotransferase 25 U/L (0-31); Albumin Level 4.3 g/dL (3.5-5.0); Alkaline Phosphatase 107 U/L (39-117); Anion Gap 12 (12-20); Aspartate Amino Transferase 28 U/L (5-31); Bilirubin Total 0.9 mg/dL (0.0-1.0); Blood Urea Nitrogen 12 mg/dL (9-16); Calcium 9.5 mg/dL (8.4-10.2); Carbon Dioxide 28 mmol/L (22-29); Chloride 103 mmol/L (96-108); Cholesterol 253 mg/dL (<200); Estimated Glomerular Filt Rate > 60; Glucose Random 161 mg/dL (60-115); HDL Cholesterol 47 mg/dL (>40); Potassium 4.3 mmol/L (3.3-5.1); Sodium 139 mmol/L (135-145); Total Protein 7.1 g/dL (6.5-8.0); Triglycerides 416 mg/dL (<150)
[2025-01-14 14:15] LABS: Cholesterol 255 mg/dL (<200); HDL Cholesterol 47 mg/dL (>40); Triglycerides 415 mg/dL (<150)
[2025-01-14 14:30] LABS: Creatinine Urine 106.31 mg/dL; Microalbumin Urine < 5.0 mg/L
[2025-01-14 14:31] LABS: Vitamin D 25-OH Total 53.7 ng/mL (>30)
[2025-01-14 14:39] LABS: Reflex LDLD? Yes
[2025-01-15 11:13] LABS: LDL Cholesterol Direct 127 mg/dL (<100)
== END ==
LOC: HO.CARD 12:26
PROVIDERS: PCP Family Medicine
DX: I25.10 Atherosclerotic heart disease of native coronary artery without angina pectoris (principal); R42 Dizziness and giddiness; I10 Essential (primary) hypertension; E11.65 Type 2 diabetes mellitus with hyperglycemia; Z79.4 Long term (current) use of insulin; E78.5 Hyperlipidemia, unspecified; E55.9 Vitamin D deficiency, unspecified
CPT/HCPCS: 36415; 80053; 80061; 82043; 82306; 82570; 83721; 93306

== ENCOUNTER → 2025-01-14 12:33 | Outpatient (BNV) | payer OTHER, SELFPAY | PROVIDERS: PCP Family Medicine; Visit Provider Internal Medicine | DX: R42 Dizziness and giddiness (principal) | CPT/HCPCS: 93306 ==

== ENCOUNTER 2025-01-27 13:30 | Emergency (ER) | payer OTHER, SELFPAY ==
--- NOTE | ~2025-01-27 | CT_ITS ---
EXAMINATION: CT HEAD WITHOUT CONTRAST CLINICAL INFORMATION: Left-sided headache, intermittent vision loss COMPARISON: None available. TECHNIQUE: Contiguous axial imaging was performed from the skull base to vertex without intravenous administration of contrast. This CT examination was performed using dose optimization techniques as appropriate, variously including the following: *Automated exposure control *Adjustment of mA and/or kV according to patient size (this includes techniques or standardized protocols for targeted exams where dose is matched to indication/reason for exam; i.e. extremities or head) *Use of iterative reconstruction technique DLP: 612 mGY*cm FINDINGS: There is no acute ischemic change. There is no intracranial hemorrhage. There is no mass-effect or midline shift. Basal cisterns and ventricles are within normal limits for age/cerebral volume. Orbits are symmetrical and unremarkable. Paranasal sinuses and mastoid air cells are pneumatized. There are no bony abnormalities. CT/CT head/brain wo IV con IMPRESSION: No acute intracranial abnormality. Electronically signed by: Mars Lee MD 01/27/2025 02:50 PM EDT
--- NOTE | ~2025-01-27 | CT_ITS ---
CLINICAL HISTORY: dizzy CT angiography head and neck with contrast. 3D Postprocessing. Comparison: CT/SR - CT HEAD/BRAIN WO IV CON - 01/27/25 13:59 EDT Findings: Aortic arch and cervical great vessels are patent with no aneurysm, dissection, hemodynamically significant stenoses, or occlusion. Intracranial arteries are patent. No aneurysm, dissection, hemodynamically significant stenoses, or occlusion. Hypoplastic right SUAD A1 segment, normal variant. No abnormal intracranial enhancement. The visualized thyroid gland is unremarkable. No cervical mass or fluid collection. Lung apices clear. No acute fracture. IMPRESSION: Patent head and neck CTA. No significant atherosclerotic disease. This document has been electronically signed by: Virgie Mathew MD on 01/27/2025 21:02:31
[2025-01-27 13:45] VITALS: BP 174/75; PULSE 74; RESP 18; TEMP 36.8; O2SAT 99; BMI 26.2
--- NOTE | 2025-01-27 13:50 | ED.HA ---
HPI - Headache General Chief Complaint: Headache Stated Complaint: Vertigo, head pain L side Time Seen by Provider: 01/27/25 15:32 Source: patient, family, RN notes reviewed and restoration ecologist Mode of arrival: ambulatory Limitations: language barrier History of Present Illness ED Provider: Carey Patricio PA-C HPI Narrative: This is a 69-year-old Fijian speaking female, with a past medical history of diabetes and hypertension, who presents emergency department for evaluation of left-sided headache for the last several months. Patient states that she has a history of headaches on the left side however states that over the last several days her pain has worsened. She states that on Monday after washing her hair, she suddenly felt dizzy and lost vision out of both of her eyes. She also states that this morning after awaking from bed, she was very dizzy. She states that the dizziness worsens with positional changes. She denies taking any medications at home to treat her current symptoms. No other complaints or concerns at this time. MD elicited complaint: headache Pertinent past history: migraines and hypertension Onset (ago): month(s) Onset description: gradually Location: left Severity: moderate Quality & Timing: throbbing Exacerbating factors: sitting/standing Relieving factors: nothing Associated symptoms: near syncope Treatments prior to arrival: none Related Data Home Medications ?Medication ?Instructions ?Recorded ?Confirmed cholecalciferol (vitamin D3) 10 10 mcg PO DAILY 04/20/22 11/13/24 mcg (400 unit) capsule insulin glargine 100 unit/mL (3 38 unit subcut QPM 04/20/22 11/13/24 mL) subcutaneous pen (Lantus Solostar U-100 Insulin) carvedilol 6.25 mg tablet 6.25 mg PO BID 07/31/24 11/13/24 dulaglutide 1.5 mg/0.5 mL 1.5 mg subcut QWEEK 07/31/24 11/13/24 subcutaneous pen injector (George) omeprazole 20 mg capsule,delayed 20 mg PO DAILY 07/31/24 11/13/24 release Previous Rx's ?Medication ?Instructions ?Recorded magnesium citrate (OneLAX 300 ml PO DAILY PRN constipation 04/09/24 Magnesium Citrate oral solution) #296 mL evolocumab 140 mg/mL subcutaneous 140 mg subcut Q2W #2 mL 10/14/24 pen injector (Nohemi Armijo) blood pressure monitor #1 ea 10/18/24 isosorbide mononitrate 10 mg tablet 10 mg PO BID #60 tabs 11/13/24 losartan 50 mg tablet 50 mg PO DAILY #90 tabs 12/12/24 aspirin 81 mg capsule 81 mg PO DAILY #90 caps 01/03/25 ticagrelor 90 mg tablet (Brilinta) 90 mg PO BID #180 tabs 01/03/25 meclizine 50 mg tablet 50 mg PO BID PRN dizziness #10 tabs 01/27/25 Allergies Allergy/AdvReac Type Severity Reaction Status Date / Time metformin (METFORMIN) Allergy Mild DIARRHEA Verified 01/27/25 13:47 alprazolam Allergy Unknown diarrhea Verified 01/27/25 13:47 egg (EGG) Allergy Unknown UNKNOWN Verified 01/27/25 13:47 lactose (LACTOSE) Allergy Unknown Rash Verified 01/27/25 13:47 milk (MILK) AdvReac Unknown DIARRHEA Verified 01/27/25 13:47 Review of Systems Review of Systems: Yes all other systems are reviewed and are negative Constitutional: Constitutional: Reports as per HPI [facility] Past Medical History Medical History Pseudoaneurysm BECKHAM (dyspnea on exertion) Essential hypertension Diabetes mellitus treated with insulin Surgical History History of appendectomy Family History Family History Mother Hypertension Hyperlipidemia Atherosclerosis Father No problems noted. Social History Social History Alcohol intake: former Patient Tobacco Use Status: Never used Tobacco Smoked in Last 30 Days: No Use of substances other than those prescribed or required for medical reasons: No Advance Directives: No Advance Directives Information Provided: Yes Do you have a plan to hurt others: No Plan Physical Exam Vital Signs: Vital Signs: Last Vital Signs Temp 98.2 F 01/27/25 16:42 Pulse 68 01/27/25 20:22 Resp 14 01/27/25 20:22 BP 164/86 H 01/27/25 20:22 Pulse Ox 99 01/27/25 20:22 O2 Del Method Room Air 01/27/25 20:22 BMI result Body Mass Index 26.2 Const: General: cooperative, comfortable and no acute distress Orientation/consciousness: patient oriented x3 Limitations: no limitations HEENT: Head: Yes normal to inspection, Yes normocephalic and Yes atraumatic Ears: hearing grossly normal bilaterally General nose exam: Normal external nose present Face and sinus: Yes normal facial exam Mouth: Normal oral and palatal mucosa present, oropharynx normal and moist mucous membranes Throat: Yes posterior oropharynx normal Eyes: General: appearance normal, both eyes and all related structures Eyelids: Yes eyelids normal Conjunctivae: conjunctivae normal Sclerae: sclerae normal Pupils: Equal, round and reactive pupils present EOM: EOMs intact bilaterally Neck: Neck: Yes normal visual inspection, Yes full ROM and Yes no lymphadenopathy Lymphatic: no lymphadenopathy noted Chest: Chest palpation & inspection: normal inspection of the chest Resp: Effort & Inspection: normal respiratory effort and able to speak in complete sentences Auscultation: clear to auscultation bilaterally, no crackles, no rales, no rhonchi and no wheezes Cardio: Rate: regular rate Rhythm: regular rhythm Heart sounds: S1 normal heart sound present and S2 normal heart sound present GI: Inspection: Yes normal to inspection Skin: General skin exam: no rashes or lesions noted Trauma: no lacerations or abrasions Wounds: no wounds Neuro: General: patient oriented x3 and moves all extremities Cranial nerves: Yes CN's II-XII intact bilaterally and Yes Equal, round and reactive pupils present Cognition (Neuro): normal cognition Motor exam (neuro): 5/5 motor strength present throughout and Pronator motor function not present Coordination: [id number] test normal Pupils: Normal pupillary reactivity/response: bilateral Extrem: General: Yes normal to inspection Right upper extremity: normal to inspection Left upper extremity: normal to inspection Right lower extremity: normal to inspection Left lower extremity: normal to inspection NIH Stroke Scale Internal: Initial- Upon Arrival Level of Consciousness: Alert Level of Consciousness Questions: Answers both questions correctly Level of Consciousness Commands: Performs both tasks correctly Best Gaze: Normal Visual: No visual loss Facial Palsy: Normal Motor Arm (Right): No drift Motor Arm (Left): No drift Motor Leg (Right): No drift Motor Leg (Left): No drift Limb Ataxia: Absent Sensory: Normal Best Language: No aphasia Dysarthia: Normal Extinction and Inattention: No abnormality Score: 0 Course Course Course Narrative: This is an RME performed by Jacquie Hurley CNP: Additional HPI, ROS, PE not included below will be deferred to primary provider. Patient is a 69-year-old female who presents emergency department for evaluation. She reports that over the past couple of months she has been having left-sided headache daily, typically occurring while she is sleeping or left side lying gets associated dizziness described as room spinning sensation. She reports 3 days ago she had an episode where she was brushing her hair, had sudden onset of pain to the Koo states that she lost her vision ?for a little while? everything went black with states she did not lose consciousness. When she regained her vision she was experiencing dizziness as well. Had a similar presentation yesterday as well as today. Reports that she has spoken with the primary care doctor regards to the headaches but nothing has been done. Denies any prior history of headaches before the past couple of months. NIH 0. Plan: Serum labs, head CT Reevaluation(s) Reevaluation #1: I Rachel Santa PA-C have accepted care of the patient and signed out pending imaging and final disposition .... The patient was found to be orthostatic, and dizzy, after fluids, she states she is somewhat improved. She also has a history of vertigo. I am ordering a dose of meclizine. The patient does have risk factors for vascular disease, I am putting in for angiograms. CT non con was negative. Otherwise she is neurologically intact I have independently reviewed the following tests: CTA head neck:IMPRESSION: Patent head and neck CTA. No significant atherosclerotic disease. Reevaluation #2: Dizziness completely resolved after meclizine Time: 21:14 Medications Administered Discontinued Medications Generic Name Dose Route Start Last Admin Trade Name Freq PRN Reason Stop Dose Admin Sodium Chloride 1,000 mls @ 999 mls/hr 01/27/25 15:49 01/27/25 18:07 Ns IVCONT 01/27/25 16:49 Infused .Q1H1M ONE Infusion Acetaminophen 1,000 mg in 100 mls @ 400 mls/hr 01/27/25 16:50 01/27/25 17:24 Ofirmev IV 01/27/25 17:04 Infused ONCE ONE Infusion Iohexol 100 ml 01/27/25 19:24 01/27/25 19:24 Iohexol 350 Mg/Ml 100 Ml Infus..Btl IV 01/27/25 19:25 65 ml ONCE ONE Administration Meclizine HCl 50 mg 01/27/25 18:17 01/27/25 18:48 Meclizine Hcl 25 Mg Tablet PO 01/27/25 18:18 50 mg ONCE ONE Administration Medical Decision Making Medical Decision Making [facility] Narrative: This is a 69-year-old female who presents emergency department with concerns of headache and dizziness. Patient states that she has a longstanding history of headaches however states that over the last 3 days her headaches have worsened. Denies taking any medications at home to treat her current symptoms. Several days ago her pain became severe, and she had a near syncopal episode. Patient reports that prior to this she felt dizzy. No chest pain or shortness for breath. Patient also reports that upon wakening this morning she felt dizzy as well. On arrival, patient hypertensive at 174/75, all other vital signs within normal limits. She is neurologically intact, NIH stroke score is 0. Labs were obtained prior to my evaluation, she has no leukocytosis, stable H&H, chemistry with no significant electrolyte derangement. She does have slight hyperglycemia at 149, she is a diabetic. T bili is 1.1. Will obtain troponin and EKG given dizziness. She has had no chest pain or shortness of breath. CT head ordered prior to my evaluation, unremarkable for any acute findings. I had patient stand up during my evaluation, she states that her headache as well as the dizziness worsened upon standing. Orthostatics were performed. Orthostatic vital signs are as follows: Supine : 150/64 pulse 69 Sitting 170/83 pulse 78 Standin/82 pulse 83 Patient found to be orthostatic. Will medicate with IV fluids and IV Tylenol and reassess. EKG nonischemic. 1716 - troponin negative. Inflammatory markers negative. We will continue to monitor, pending reassessment after receiving IV fluids and IV Tylenol. 1800 - patient re-evaluated, feeling better after receiving IV fluids, still has some fluids to infused. Sign out given to my colleague, Serina Santa PA-C We will continue to monitor pending reassessment and repeat orthos. Sign out given to my colleague, Rachel Santa PA-C Differential Diagnosis Differential Diagnoses: The differential diagnosis associated with the presentation includes Migraine headache, tension headache, orthostatic hypo/hypertension, electrolyte derangement, ACS-unlikely Admission/Observation Consideration of admission/observation: Escalation of care including admission/observation considered Lab Data [facility] Lab Attestation statement: I reviewed the patient's lab results. See MDM and course 01/27/25 14:30 01/27/25 14:30 Labs: Lab Results 01/27/25 01/27/25 01/27/25 Range/Units 14:29 14:30 16:59 WBC 7.3 (4.8-10.8) X10*3/uL RBC 4.94 (4.20-5.50) X10*6/uL Hgb 13.7 (12.0-16.0) g/dl Hct 40.7 (37.0-47.0) % MCV 82.4 (80.0-98.0) fL MCH 27.7 (27.0-33.0) pg MCHC 33.7 (31.0-35.0) g/dl RDW 13.2 (11.0-16.0) % Plt Count 292 (160-400) X10*3/uL MPV 11.0 (9.4-12.3) fL Immature Gran % (Auto) 0.3 (0.0-0.4) % Neut % (Auto) 52.4 (45-73) % Lymph % (Auto) 36.1 (20-40) % [place] % (Auto) 9.0 (2-11) % Eos % (Auto) 1.5 (0-4) % Baso % (Auto) 0.7 (0-2) % Lymph # (Auto) 2.6 (1.2-4.9) X10*3/uL [place] # (Auto) 0.7 (0.1-1.2) X10*3/uL Eos # (Auto) 0.1 (0.0-0.4) X10*3/uL Baso # (Auto) 0.1 (0.0-0.2) X10*3/uL Abs Immat Gran (auto) 0.02 (0.00-0.03) X10*3/uL Absolute Neuts (auto) 3.8 (2.0-8.3) x10*3/uL Absolute Nucleated RBC 0.000 (0.0-0.012) X10*3/uL Nucleated RBC % (auto) 0.0 (0.0-0.2) /100WBC ESR 13 (0-20) MM/HR PT 11.1 (10.9-12.4) SEC INR 1.0 (0.9-1.1) Sodium 140 (135-145) mmol/L Potassium 4.4 (3.3-5.1) mmol/L Chloride 105 (96-108) mmol/L Carbon Dioxide 25 (22-29) mmol/L Anion Gap 14 (12-20) BUN 13 (9-16) mg/dL Creatinine 0.65 (0.5-1.4) mg/dL Estim Creat Clear Calc 71.3 Estimated GFR > 60 Random Glucose 149 H (60-115) mg/dL Calcium 9.1 (8.4-10.2) mg/dL Magnesium 2.1 (1.6-2.6) mg/dL Total Bilirubin 1.1 H (0.0-1.0) mg/dL AST 22 (5-31) U/L ALT 21 (0-31) U/L Alkaline Phosphatase 107 (39-117) U/L Troponin I High Sens < 2.7 (<3.5-17.0) ng/L C-Reactive Protein < 0.10 (< or = 0.50) mg/dL Total Protein 7.2 (6.5-8.0) g/dL Albumin 4.3 (3.5-5.0) g/dL Urine Color Yellow Urine Appearance Clear Urine pH 6.0 (5.0-9.0) Ur Specific [place] 1.015 (1.005-1.025) Urine Protein Negative (Neg-Trace) mg/dL Urine Glucose (UA) Negative (Negative) mg/dL Urine Ketones Negative (Negative) mg/dL Urine Blood Negative (Negative) Urine Nitrite Negative (Negative) Ur Leukocyte Esterase Negative (Negative) Independent Interpretation I performed an independent interpretation of an: EKG Interpretation: EKG normal sinus rhythm at a ventricular rate of 72 beats per minute, NE interval 200, QT QTC 382/418. No STEMI. Radiology Impression Discussion of test interpretation with radiology: I have reviewed the radiologist's reading. Radiologist Impression: FINDINGS: There is no acute ischemic change. There is no intracranial hemorrhage. There is no mass-effect or midline shift. Basal cisterns and ventricles are within normal limits for age/cerebral volume. Orbits are symmetrical and unremarkable. Paranasal sinuses and mastoid air cells are pneumatized. There are no bony abnormalities. CT/CT head/brain wo IV con IMPRESSION: No acute intracranial abnormality. Electronically signed by: Mars Lee MD 01/27/2025 02:50 PM EDT RP Dictated By: Mars Lee MD Discharge Plan Discharge Clinical Impression: Headache, Dizziness Patient Disposition: Home, Self-Care Instructions: Vertigo (ED), Acute Headache (ED), Dizziness (ED) Additional Instructions: The imaging of your brain was completely normal. You responded to a medication called meclizine, this helped to alleviate your dizziness. Use it as needed. This is a medication that we use to treat vertigo symptoms. The remainder of your labs were normal, follow up with your primary care provider as needed. Prescriptions: New meclizine 50 mg tablet 50 mg PO BID PRN (Reason: dizziness) Qty: 10 0RF No Action Repatha SureClick 140 mg/mL pen injector 140 mg subcut Q2W Qty: 2 4RF (DME) blood pressure monitor Kit See Rx Instructions .Route Qty: 1 0RF Rx Instructions: As directed aspirin 81 mg capsule 81 mg PO DAILY Qty: 90 3RF Brilinta 90 mg tablet 90 mg PO BID Qty: 180 3RF magnesium citrate [OneLAX Magnesium Citrate] Solution 300 ml PO DAILY PRN (Reason: constipation) Qty: 296 0RF insulin glargine [Lantus Solostar U-100 Insulin] 100 unit/mL (3 mL) insulin pen 38 unit subcut QPM cholecalciferol (vitamin D3) 10 mcg (400 unit) capsule 10 mcg PO DAILY Trulicity 1.5 mg/0.5 mL pen injector 1.5 mg subcut QWEEK carvedilol 6.25 mg tablet 6.25 mg PO BID Rx Instructions: must administer with a meal/food omeprazole 20 mg capsule,delayed release(DR/EC) 20 mg PO DAILY losartan 50 mg tablet 50 mg PO DAILY Qty: 90 3RF isosorbide mononitrate 10 mg tablet 10 mg PO BID Qty: 60 1RF Rx Instructions: give doses 7 hrs apart Print Language: Fijian
[2025-01-27 14:33] LABS: MANUAL DIFF FLAG NO
[2025-01-27 14:42] LABS: Hematocrit 40.7 % (37.0-47.0); Hemoglobin 13.7 g/dl (12.0-16.0); Imm Gran Abs Auto 0.02 X10*3/uL (0.00-0.03); Imm Gran Pct Auto 0.3 % (0.0-0.4); Lymphocytes Absolute Auto 2.6 X10*3/uL (1.2-4.9); Mean Corpuscular HGB Conc 33.7 g/dl (31.0-35.0); Mean Corpuscular Hemoglobin 27.7 pg (27.0-33.0); Mean Corpuscular Volume 82.4 fL (80.0-98.0); NRBC Abs Auto 0.000 X10*3/uL (0.0-0.012); NRBC Pct Auto 0.0 /100WBC (0.0-0.2); Platelet Count 292 X10*3/uL (160-400); Red Blood Count 4.94 X10*6/uL (4.20-5.50); White Blood Count 7.3 X10*3/uL (4.8-10.8)
[2025-01-27 15:01] LABS: Alanine Aminotransferase 21 U/L (0-31); Albumin Level 4.3 g/dL (3.5-5.0); Alkaline Phosphatase 107 U/L (39-117); Anion Gap 14 (12-20); Aspartate Amino Transferase 22 U/L (5-31); Blood Urea Nitrogen 13 mg/dL (9-16); Calcium 9.1 mg/dL (8.4-10.2); Carbon Dioxide 25 mmol/L (22-29); Chloride 105 mmol/L (96-108); Creatinine Clr Calc Pharmacy 71.3; Estimated Glomerular Filt Rate > 60; Magnesium 2.1 mg/dL (1.6-2.6); Potassium 4.4 mmol/L (3.3-5.1); Sodium 140 mmol/L (135-145); Total Protein 7.2 g/dL (6.5-8.0)
--- OUTSIDE RECORDS SUMMARY | 2025-01-27 15:11 | XMS_ITS | Encounter Summary ---
Author Organization [facility] Address [address] [facility] [address] [place] [address] Care Team Providers Care Steward/Stewardess Room Name Role Phone Charli Horacio PharmD Unavailable [phone] Maria Guadalupe Merida MD Primary Care Provider [phone] Encounter Details Date Type Department Care Team (Late st Contact Info) Description 01/27/2025 Orders Only GENERIC EXTERNAL DATA DEPARTMENT Provider, [...] Care Team (Late st Contact Info) Description 01/30/2025 9:30 AM EDT Medication Management [facility] [address] [place] [phone] Horacio Augustin PharmD [address] [place] [phone] 03/03/2025 10:00 AM EDT Office Visit [facility] [address] [place] [phone] Maria Guadalupe Merida MD [address] [place] [phone] documented as of this encounter Goals Goal Patient Goal Type Associated Problems Recent Progress Patient-Stated? Author Blood Pressure < 140/90 Blood Pressure 148/74(2024 9:37 AM EDT) No Horacio Augustin PharmShana Hemoglobin A1c < 7 Result Component 8.2( 10:48 AM EDT) No Horacio Augustin PharmD documented as of this encounter Procedures Procedure Name Priority Date/Time Associated Diagnosis Comments CBC WITH AUTO DIFFERENTIAL Routine 01/27/2025 2:30 PM EDT C-REACTIVE PROTEIN Routine 01/27/2025 2: 30 PM EDT MAGNESIUM Routine 01/27/2025 2:30 PM EDT COMPREHENSIVE METABOLIC PANEL Routine 01/27/2025 2:[address] HEAD WO CONTRAST Routine 01/27/2025 1 2:59 PM EDT documented in this encounter Results * C-reactive Protein (01/27/2025 2:30 PM EDT) C Reactive Protein <0.10 < or = 0.50 mg/dL [facility] 01/27/2025 2:30 PM EDT 01/27/2025 2:32 PM EDT Generic External Data Provider LAB BLOOD ORDERAB LES Final Result Performing Organization Address [facility]/ZIP Co de Phone Number [facility] [address] [place] [phone] * Magnesium (01/27/2025 2:30 PM EDT) Pathologist [facility] Magnesium 2.1 1.6 - 2.6 mg/dL [facility] 01/27/2025 2:30 PM EDT 01/27/2025 2:32 PM EDT Generic External Data Provider LAB BLOOD ORDERAB LES Final Result Performing Organization Address [facility]/ZIP Co de Phone Number [facility] [address] [place] [phone] * (ABNORMAL) Comprehensive Metabolic Panel (01/27/2025 2:30 PM EDT) Pathologist [facility] Sodium 140 135 - 145 mmol/L [facility] Potassium 4.4 3.3 - 5.1 mmol/L [facility] Comment:Slight Hemolysis.Int erpret result with caution. Chloride 105 96 - 108 mmol/L [facility] Carbon Dioxide 25 22 - 29 mmol/L [facility] Anion Gap 14 12 - 20 [facility] Urea Nitrogen (BUN) 13 9 - 16 mg/dL [facility] Creatinine, Serum 0.65 0.5 - 1.4 mg/dL [facility] Creatinine Clr Calc Pharmacy 71.3 [facility] Comment:Provided height and weight: 154.94 cm,62.8 kg.eGFR (calculated from the MDRD study equation) and eCrCl(calculated from the Cockcroft-Gault equation) are based ondifferent parameters and may not yield comparable results.If eCrCl result is absurd, please check patient'sheight/weight. Estimated Glomerular Filt Rate >60 [facility] Comment:Chronic Kidney Disea se: Estimated GFR < 60 mL/min/1.42d2Xrdyno Kidney Disease: Estimated GFR < 15 mL/min/1.73m2 Glucose 149(H) 60 - 115 mg/dL [facility] Calcium 9.1 8.4 - 10.2 mg/dL [facility] Bilirubin, Total 1.1(H) 0.0 - 1.0 mg/dL [facility] Aspartate Amino Transferase 22 5 - 31 U/L [facility] Comment:Slight Hemolysis.Int erpret result with caution. Alanine Aminotransferase 21 0 - 31 U/L [facility] Total Protein 7.2 6.5 - 8.0 g/dL [facility] Albumin Level 4.3 3.5 - 5.0 g/dL [facility] Alkaline Phosphatase 107 39 - 117 U/L [facility] 01/27/2025 2:30 PM EDT 01/27/2025 2:32 PM EDT us Generic External Data Provider LAB BLOOD ORDERAB LES Final Result [facility] [address] [place] [address] [phone] * CBC auto differential (01/27/2025 2:30 PM EDT) White Blood Count 7.3 4.8 - 10.8 X10*3/uL [facility] Red Blood Count 4.94 4.20 - 5.50 X10*6/uL [facility] Hemoglobin 13.7 12.0 - 16.0 g/dl [facility] Hematocrit 40.7 37.0 - 47.0 % [facility] Mean Corpuscular Volume 82.4 80.0 - 98.0 fL [facility] Mean Corpuscular Hemoglobin 27.7 27.0 - 33.0 pg [facility] Mean Corpuscular HGB Conc 33.7 31.0 - 35.0 g/dl [facility] Red Cell Distribution Width 13.2 11.0 - 16.0 % [facility] Platelet Count 292 160 - 400 X10*3/uL [facility] Mean Platelet Volume 11.0 9.4 - 12.3 fL [facility] Neutrophils Percent Auto 52.4 45 - 73 % [facility] Imm Gran Pct Auto 0.3 0.0 - 0.4 % [facility] Lymphocytes Percent Auto 36.1 20 - 40 % [facility] Monocytes Percent Auto 9.0 2 - 11 % [facility] Eosinophils Percent Auto 1.5 0 - 4 % [facility] Basophils Percent Auto 0.7 0 - 2 % [facility] NRBC Pct Auto 0.0 0.0 - 0.2 /100WBC [facility] Neutrophils Absolute Auto 3.8 2.0 - 8.3 x10*3/uL [facility] Imm Gran Abs Auto 0.02 0.00 - 0.03 X10*3/uL [facility] Lymphocytes Absolute Auto 2.6 1.2 - 4.9 X10*3/uL [facility] Monocytes Absolute Auto 0.7 0.1 - 1.2 X10*3/uL [facility] Eosinophils Absolute Auto 0.1 0.0 - 0.4 X10*3/uL [facility] Basophils Absolute Auto 0.1 0.0 - 0.2 X10*3/uL [facility] NRBC Abs Auto 0.000 0.0 - 0.012 X10*3/uL [facility] 01/27/2025 2:30 PM EDT 01/27/2025 2:32 PM EDT us Generic External Data Provider LAB BLOOD ORDERAB LES Final Result [facility] [address] [place] [phone] * CT Head w/o Contrast (01/27/2025 12:59 PM EDT) Anatomical Region Laterality Modality Head, Neck Computed Tomogra phy 01/27/2025 12:5 9 PM EDT Narrative 01/27/2025 2:53 PM EDT [address] [address] [address] Scan Report Signed Patient: Lisa Swanson MR#: [id number] : 1955 Acct:[id number] Age/Sex: 69 / F ADM Date: 01/27/25 Loc: HO.ED Attending Dr: Ordering Physician: Tisha Hurley CNP Date of Service: 01/27/25 Procedure(s): CT head/brain wo IV con Accession Number(s): [id number] cc: Tisha Hurley CNP; Maria Guadalupe Merida MD Report Number: [id number]: Total DLP = 612.00 mGy-cm EXAMINATION: CT HEAD WITHOUT CONTRAST CLINICAL INFORMATION: Left-sided headache, intermittent vision loss COMPARISON: None available. TECHNIQUE: Contiguous axial imaging was performed from the skull base to vertex without intravenous administration of contrast. This CT examination was performed using dose optimization techniques as appropriate, variously including the following: *Automated exposure control *Adjustment of mA and/or kV according to patient size (this includes techniques or standardized protocols for targeted exams where dose is matched to indication/reason for exam; i.e. extremities or head) *Use of iterative reconstruction technique DLP: 612 mGY*cm FINDINGS: There is no acute ischemic change. There is no intracranial hemorrhage. There is no mass-effect or midline shift. Basal cisterns and ventricles are within normal limits for age/cerebral volume. Orbits are symmetrical and unremarkable. Paranasal sinuses and mastoid air cells are pneumatized. There are no bony abnormalities. CT/CT head/brain wo IV con IMPRESSION: No acute intracranial abnormality. Electronically signed by: Mars Lee MD 01/27/2025 02:50 PM EDT Dictated By: Mars Lee MD Signed By: <Electronically signed by Mars Lee MD in OV> 01/27/25 1450 DD/ 1259 TD/TT: 01/27/25 1413 [employer]: Procedure Note Donotuseinterpreter, Image - 01/27/[address] [place] [address] [address] Scan Report Signed Patient: Kelly Swanson#: M [id number] : 1955cct:[id number] Age/Sex: 69 / FADM Date: 01/27/25 Loc: HO.ED Attending Dr: Ordering Physician: Tisha Hurley CNP Date of Service: 01/27/25 Procedure(s): CT head/brain wo IV con Accession Number(s): [id number] cc: Tisha Hurley CNP; Maria Guadalupe Merida MD Report Number: [id number]: Total DLP = 612.00 mGy-cm EXAMINATION: CT HEAD WITHOUT CONTRAST CLINICAL INFORMATION: Left-sided headache, intermittent vision loss COMPARISON: None available. TECHNIQUE: Contiguous axial imaging was performed from the skull base to vertex without intravenous administration of contrast. This CT examination was performed using dose optimization techniques as appropriate, variously including the following: *Automated exposure control *Adjustment of mA and/or kV according to patient size (this includes techniques or standardized protocols for targeted exams where dose is matched to indication/reason for exam; i.e. extremities or head) *Use of iterative reconstruction technique DLP: 612 mGY*cm FINDINGS: There is no acute ischemic change. There is no intracranial hemorrhage. There is no mass-effect or midline shift. Basal cisterns and ventricles are within normal limits for age/cerebral volume. Orbits are symmetrical and unremarkable. Paranasal sinuses and mastoid air cells are pneumatized. There are no bony abnormalities. CT/CT head/brain wo IV con IMPRESSION: No acute intracranial abnormality. Electronically signed by: Mars Lee MD 01/27/2025 02:50 PM EDT RP Dictated By: Mars Lee MD Signed By: <Electronically signed by Mars Lee MD in OV> 01/27/25 1450 DD/ 1259 TD/TT: 01/27/25 1413 [employer]: [facility] External Provider IMG CT PROCEDURES Final Result documented in this encounter Visit Diagnoses Not on filedocumented in this encounter Additional Health Concerns Assessment Noted Time PHQ-9 Depression Total Score: 5 07/11/20 24 10:03 AM EST documented as of this encounter Care Teams Steward/Stewardess Room Relationship Specialty Start Date End Date Maria Guadalupe Merida MD [address] [place] [address] PCP - General Family Medicine 11/20/24 Horacio Augustin PharmD [address] [place] [address] Pharmacist Internal Medicine 02/14/24 documented as of this encounter
[2025-01-27 15:24] LABS: INTERNATIONAL NORM RATIO 1.0 (0.9-1.1); Prothrombin Time 11.1 SEC (10.9-12.4)
[2025-01-27 16:40] VITALS: BP 150/64; PULSE 69
[2025-01-27 16:41] VITALS: BP 154/82; BP 170/83; PULSE 78; PULSE 83
[2025-01-27 16:42] VITALS: BP 152/64; PULSE 69; RESP 16; TEMP 36.8; O2SAT 99
--- NOTE | 2025-01-27 16:46 | ECG_ITS ---
Test Reason : DIZZINESS Blood Pressure : */* mmHG Vent. Rate : 72 BPM Atrial Rate : 72 BPM P-R Int : 200 ms QRS Dur : 66 ms QT Int : 382 ms P-R-T Axes : 54 0 33 degrees QTcB Int : 418 ms Normal sinus rhythm Septal infarct , age undetermined Abnormal ECG When compared with ECG of 09-Apr-2024 13:29, No significant change was found Referred By: Carey Patricio Electronically Signed By: Jan Garsia
[2025-01-27 17:09] LABS: Appearance Urine Clear; Glucose Urine UA Negative (Negative); PH 6.0 (5.0-9.0); Specific Gravity - Urine 1.015 (1.005-1.025)
[2025-01-27 17:13] LABS: Troponin-I High Sensitivity < 2.7 ng/L (<3.5-17.0)
--- NOTE | 2025-01-27 17:15 | PC.NURSE ---
patient a&ox3, iv inserted, labs previously drawn, ekg performed, orthostats performed, ivf started per order, pt medicated for pain per order, call sweeney within reach, plan of care ongoing
--- NOTE | 2025-01-27 18:48 | PC.NURSE ---
pt medicated for dizzines per order
[2025-01-27] MEDS: iohexoL 350 MG/ML 100 ML INFUS..BTL IV (19:24)
--- NOTE | 2025-01-27 19:47 | PC.NURSE ---
pt reports dizziness/BARON resolved at this time. standby assist for precaution, pt ambulated with steady gait to bathroom and back to bed. CT head/neck was done awaiting results. call sweeney within reach.
[2025-01-27 20:22] VITALS: BP 164/86; PULSE 68; RESP 14; O2SAT 99
[2025-01-27 21:21] VITALS: BP 164/86; PULSE 68; RESP 14; TEMP 36.8; O2SAT 99
== END 2025-01-27 21:22 | disposition home or self-care (01) ==
PROVIDERS: Nurse Practitioner Family; Physician Assistant Medical; Emergency Provider Emergency Medicine; PCP Family Medicine
DX: G43.909 Migraine, unspecified, not intractable, without status migrainosus (principal); R94.31 Abnormal electrocardiogram [ECG] [EKG]; R11.0 Nausea; I10 Essential (primary) hypertension; E11.9 Type 2 diabetes mellitus without complications; Z79.4 Long term (current) use of insulin; Z79.899 Other long term (current) drug therapy; Z51.81 Encounter for therapeutic drug level monitoring
CPT/HCPCS: 36415; 70450; 70496; 70498; 80053; 81003; 83735; 84484; 85025; 85610; 85652; 86140; 93005; 96361; 96374; 99284; 99285; J0131; Q9967

== ENCOUNTER → 2025-01-27 13:54 | Outpatient (BNV) | payer OTHER, SELFPAY | PROVIDERS: PCP Family Medicine; Visit Provider Radiology Diagnostic Radiology | DX: R42 Dizziness and giddiness (principal); R51.9 Headache, unspecified; H53.129 Transient visual loss, unspecified eye | CPT/HCPCS: 70496; 70498 ==

== ENCOUNTER → 2025-01-27 16:46 | Outpatient (BNV) | payer OTHER, SELFPAY | PROVIDERS: Emergency Provider Emergency Medicine; PCP Family Medicine; Visit Provider Internal Medicine Cardiovascular Disease | DX: R94.31 Abnormal electrocardiogram [ECG] [EKG] (principal); R42 Dizziness and giddiness | CPT/HCPCS: 93010 ==

== ENCOUNTER 2025-02-13 12:26 | Outpatient (AMB) | payer OTHER, SELFPAY ==
--- OUTSIDE RECORDS SUMMARY | 2025-02-13 12:50 | XMS_ITS | Clinical Summary ---
Author Organization [facility] Address [address] [facility] [address] [place] [phone] Phone Care Team Providers Care Runner Out Name Role Phone Pcp, Unknown Primary Care Provider Unavailabl e Allergies Active Allergy Reactions Criticality Noted Date Comments Alprazolam Diarrhea 02/09/2017 Atorvastatin Dizziness 03/15/2023 Egg 02/09/2017 Insulin Lispro 08/30/2019 palpitations Lactose 09/07/2022 Metformin Diarrhea 12/01/2016 Morphine Diarrhea,Dizziness,N ausea And Vomiting 10/13/2020 Medications lisinopril (PRINIVIL,ZESTRIL) 40 MG tablet Take 1 tablet by mouth every morning. 11/15/19 23 Active metoprolol succinate (TOPROL-XL) 50 MG 24 hr tablet Take 1 tablet by mouth daily. 09/29/19 22 Active cholecalciferol (VITAMIN D3) 5,000 unit capsule Take by mouth. Ac tive aspirin 81 MG EC tablet Take 81 mg by mouth. 09/15/19 22 Active ALCOHOL PREP PADS PadM USE THREE TIMES DAILY 10/29/19 23 Active omega 0-act-fjl-fish oil (OMEGA-3) 350 mg-235 mg- 90 mg-597 mg CpDR Take 1 tablet by mouth every morning. Active glipiZIDE (GLUCOTROL) 10 MG tabletIndications: Type 2 diabetes mellitus without complication, without long-term current use of insulin Take 1 tablet (10 mg total) by mouth 2 (two) times a day before meals. 180 tablet 3 03/15/20 23 Active rosuvastatin (CRESTOR) 5 MG tabletIndications: Hyperlipidemia, unspecified hyperlipidemia type Take 1 tablet (5 mg total) by mouth daily. 90 tablet 3 03/15/20 Active ONETOUCH DELICA LANCETS 30 gauge MiscIndications:Ty pe 2 diabetes mellitus without complication, without long-term current use of insulin 1 each by Miscellaneous route as needed. 200 each 3 03/24/20 Active insulin glargine (LANTUS SOLOSTAR U-100 INSULIN) 100 unit/mL (3 mL) InPn injection pen Inject 42 Units under the skin nightly at bedtime. INYECTE 42 UNIDADES DEBAJO DE LA PIEL CADA MICHELLE AL ACOSTARSE 30 mL 4 04/04/20 Active Active Problems Problem Noted Date Diagnosed Date Vitamin D deficiency 03/19/2023 Assessment & Plan (03/19/2023 2:47 PM EDT): Will check vitamin D with her next set of blood work. Hyperlipidemia 03/15/2023 Assessment & Plan (03/19/2023 2:46 PM EDT): She has tried atorvastatin in the past and had side effects. Will do trial of rosuvastatin for lipid control. Type 2 diabetes mellitus wit hout complication, without long-term current use of insulin 12/15/2022 Assessment & Plan (03/19/2023 2:45 PM EDT): Will increase glipizide to 10 mg BID to help get her diabetes under better control. Assessment & Plan (12/15/2022 1:56 PM EDT): Her diabetes is under poor control. Will increase glipizide to twice daily. Essential hypertension 12/15/2022 Assessment & Plan (03/19/2023 2:47 PM EDT): Her blood pressure is still elevated. Will address at her next visit so as to avoid making a lot of medication changes at once. Assessment & Plan (12/15/2022 1:58 PM EDT): Her blood pressure is elevated which she attributes to stress. Will monitor. If her blood pressure remains elevated, will adjust her blood pressure medications. Seborrheic keratosis 12/15/2022 Immunizations Immunization Administration Dates Next Due Tdap 05/27/2021,11/20/2015 Social History Tobacco Use Types Packs/Day Years Used Date Smoking Tobacco: Never Smokeless Tobacco: Never Tobacco Cessation:Counseling Given: Not Answered Child or Family Care Answer Date Record ed Do you have problems with on e of the following making it difficult for you to work, study, or receive health care? No 12/13/2022 Education Answer Date Recorded Are you interested in more education? Not on jessica e 12/17/2024 Are you concerned about learning? Not on file 12/17/2024 No 12/17/2024 No 12/17/2024 Food Answer Date Recorded Within the past 6 months we worried whether our food would run out before we got money to buy more. Never True 12/13/2022 Within the past 6 months the food we bought just didn't last and we didn't have enough money to get more. Never True Residential Stability Answer Date Recor ded What is your housing situation today? I have everett sing 12/13/2022 How many times have you moved in the past 12 mon th? Two or more times 12/13/2022 Paying for Meds Answer Date Recorded Do you have trouble paying for medicines? No 12/13/2022 Paying Utility Bills Answer Date Record ed Do you have trouble paying your heating or elect ricity bill? No 12/13/2022 Transportation Answer Date Recorded Has the lack of transportati on kept you from medical appointments or from getting medications? No 12/13/2022 Digital Access Answer Date Recorded No 12/17/2024 No 12/17/2024 Reliable internet access at home? Not on file 12/17/2024 Device with a working camera? Not on file Intimate Partner Violence Answer Date R ecorded Denied Basic Needs Not on file 12/13/2022 In the past 12 months have y ou been in a relationship with a person who hurts, threatens, or tries to control you? No 12/13/2022 Worried food would run out Not on file 12/13 In the past 12 months have y ou been in a relationship with a person who hurts, threatens, or tries to control you? No 12/13/2022 Comments Unknown Sex and Gender Information Value Date Recorded Sex Assigned at Female 09/07/2022 10:22 AM EST Legal Sex Female 10:15 AM EST Gender Identity Female 09/07/2022 10:22 AM EST Sexual Orientation Not on file Last Filed Vital Signs Vital Sign Reading Time Taken Comments Blood Pressure 144/82 03/15/2023 10:41 AM EDT Pulse 67 03/15/2023 10:41 AM EDT Temperature 36.4 C (97.5 F) 03/15/2023 10:41 AM EDT Respiratory Rate 13 09/07/2022 2:24 PM EST Oxygen Saturation 98% 03/15/2023 10:41 AM EDT Inhaled Oxygen Concentration - - Weight 72.3 kg (159 lb 6.4 oz) 03/15/2023 10:41 AM EDT Height 156.2 cm (5' 1.5 ) 12/13/2022 10:31 AM ED T Body Mass Index 29.63 12/13/2022 10:31 AM EDT Plan of Treatment Health Maintenance Due Date Last Done Comments HEPATITIS C SCREENING 1975 PNEUMOCOCCAL VACCINES (50+ years) (1 of 2 - PCV) 1976 MAMMOGRAM 1997 COLOGUARD 2002 COLONOSCOPY 2002 COLORECTAL CANCER SCREENING 2002 FIT TEST 2002 FOBT 2002 SIGMOIDOSCOPY 2002 VIRTUAL COLONOSCOPY 2002 ZOSTER VACCINES (1 of 2) 2007 RSV VACCINE (1 - Risk 60-74 years 1-dose series) 2017 OSTEOPOROSIS SCREENING INITI AL (ONE-TIME) 2022 DIABETIC EYE EXAM 12/16/2022 HEMOGLOBIN A1C 06/13/2023 03/13/2023, 12/13/2022 BLOOD PRESSURE 09/15/2023 03/15/2023 DEPRESSION SCREENING 12/14/2023 12/13/2022 CREATININE LEVEL 03/13/2024 03/13/2023, 09/07/2022 POTASSIUM LEVEL 03/13/2024 03/13/2023, 09/07/2022 COVID-19 VACCINE (1 - 2023-2 5 season) 2024 Adult Td,Tdap Booster 05/27/2031 05/27/2021 , 11/20/2015 SMOKING STATUS SCREENING (On ce After 26 Yrs) Completed 03/15/2023 HEPATITIS A VACCINES Aged Out No long er eligible based on patient's age to complete this topic HIB VACCINES Aged Out No longer eligi ble based on patient's age to complete this topic MENINGOCOCCAL VACCINES (ACWY) Aged Out No longer eligible based on patient's age to complete this topic MENINGOCOCCAL VACCINES (B) Aged Out N o longer eligible based on patient's age to complete this topic Medical Devices Not on file Procedures Procedure Name Priority Date/Time Associated Diagnosis Comments HEMOGLOBIN A1C Routine 03/13/2023 1:53 PM EDT Type 2 diabetes mellitus without complication, without long-term current use of insulin COMPREHENSIVE METABOLIC PANEL Routine 03/13/2023 1:53 PM EDT Type 2 diabetes mellitus without complication, without long-term current use of insulin from Last 3 Months or Most Recently Relevant to Health Maintenance Results * (ABNORMAL) Comprehensive metabolic panel (03/13/2023 1:53 PM EDT) SODIUM 140 133 - 146 mmol/L [facility] POTASSIUM 4.1 3.3 - 5.1 mmol/L [facility] CHLORIDE 103 96 - 108 mmol/L [facility] CO2 25 21 - 35 mmol/L [facility] BUN 14 6 - 19 mg/dL [facility] CREATININE 0.60 0.5 - 1.5 mg/dL [facility] GLUCOSE 129(H) 70 - 99 mg/dL [facility] ALBUMIN 4.4 3.9 - 4.8 g/dL [facility] TOTAL PROTEIN 7.2 6.5 - 8.0 g/dL [facility] CALCIUM 9.2 8.4 - 10.3 mg/dL [facility] ALKALINE PHOSPHATASE 124(H) 39 - 117 U/L [facility] TOTAL BILIRUBIN 0.7 0.0 - 1.2 mg/dL [facility] AST 24 0 - 37 U/L [facility] ALT 25 0 - 40 U/L [facility] GLOBULIN 2.8 1 - 4.8 g/dL [facility] EGFR 99 >59 mL/min/1.7 3m2 [facility] Comment:Estimated glomerular filtration rate calculated using the CKD-EPI refit equation. ANION GAP 16 10 - 20 mmol/L [facility] Blood 03/13/2023 1:53 PM EDT 03/13/2023 1:58 PM EDT Annie Franz MD LAB BLOOD ORDERABLES Final Result [address] [address] * (ABNORMAL) Hemoglobin A1c (03/13/2023 1:53 PM EDT) HEMOGLOBIN A1C 10.2(H) 4.3 - 5.8 % [facility] Blood 03/13/2023 1:53 PM EDT 03/13/2023 1:59 PM EDT Annie Franz MD LAB BLOOD ORDERABLES Final Result Performing Organization Address City/[facility]/ZIP Co de Phone Number [address] [phone] from Last 3 Months or Most Recently Relevant to Health Maintenance Insurance [facility] MEDICARE REPLACEMENT Care Teams Runner Out Relationship Specialty Start Date End Date Pcp, Unknown PCP - General 08/20/24 Additional Source Comments The information contained in this document represents components of the legal health record. It is not the complete legal health record.[facility]
--- OUTSIDE RECORDS SUMMARY | 2025-02-13 12:50 | XMS_ITS | Encounter Summary ---
Author Organization [employer] Address [address] [facility] 7t [place] [address] Care Team Providers Care Industrial Renderer Name Role Phone Maria Guadalupe Merida MD Primary Care Provider [phone] Horacio Augustin PharmD Unavailable [phone] Maria Guadalupe Merida MD Primary Care Provider [phone] Reason for Referral * Consultation (Routine) - Authorized Specialty Diagnoses / Procedures Referred By Contkeiry t Referred To Contact Pharmacy Diagnoses Mild intermittent asthma without complication Hypertension, unspecified type Type 2 diabetes mellitus with hyperglycemia, with long-term current use of insulin (CMS/HCC) Maria Guadalupe Merida MD [address] [place] [address] Phone: tel: fax: Referral ID Status Reason Start Date Expiration Date Visits Requested Visits Authorized [id number] Authorized Consult and Treat 06/04/2024 06/04/2025 6 6 Encounter Details Date Type Department Care Team (Late st Contact Info) Description 06/04/2024 Orders Only [facility] [address] [place], [place] [phone] Maria Guadalupe Merida MD [address] [place], [place] [phone] Mild intermittent asthma without complication (Primary Dx); [...] Not on file 07/2023 Score 0 01/22/2024 Housing Stability Answer [...] Care Team (Late st Contact Info) Description 03/03/2025 10:00 AM EDT Office Visit [facility] [address] [place] [phone] Maria Guadalupe Merida MD [address] [place] [phone] 03/27/2025 9:30 AM EDT Medication Management [facility] [address] [place] [phone] Horacio Augustin, PharmD [address] [place] [phone] Scheduled Referrals Name Type Priority Associated Diagnoses Orde r Schedule Referral to Pharmacy CDTM Outpatient Referral Routine Mild intermittent asthma without complication Hypertension, unspecified type Type 2 diabetes mellitus with hyperglycemia, with long-term current use of insulin (CMS/HCC) Ordered: 06/04/2024 documented as of this encounter Goals Goal Patient Goal Type Associated Problems Recent Progress Patient-Stated? Author Blood Pressure < 140/90 Blood Pressure 156/76(2024 9:44 AM EDT) No Horacio Augustin, Divya Hemoglobin A1c < 7 Result Component 8.2( 10:48 AM EDT) No Horacio Augustin PharmD documented as of this encounter Visit Diagnoses Diagnosis Mild intermittent asthma without complication- Primary Hypertension, unspecified type Type 2 diabetes mellitus with hyperglycemia, with long-term current use of insulin (CMS/[facility]) documented in this encounter Care Teams Industrial Renderer Relationship Specialty Start Date End Date Maria Guadalupe Merida MD [address] [place] [phone] PCP - General Family Medicine 01/22/24 11/07/24 Maria Guadalupe Merida MD [address] [place] [phone] PCP - General Family Medicine 11/20/24 Horacio Augustin PharmD [address] [place] [phone] Pharmacist Internal Medicine 02/14/24 documented as of this encounter
[2025-02-13 12:55] VITALS: BP 130/72; PULSE 85; BMI 26.6
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
== END 2025-02-13 13:38 | disposition home or self-care (01) ==
LOC: HO.HCS 12:26
PROVIDERS: PCP Family Medicine
DX: I25.10 Atherosclerotic heart disease of native coronary artery without angina pectoris (principal); Z98.890 Other specified postprocedural states; I10 Essential (primary) hypertension; E11.9 Type 2 diabetes mellitus without complications; Z79.4 Long term (current) use of insulin
CPT/HCPCS: 99214; G2211

== ENCOUNTER → 2025-02-13 12:26 | Outpatient (BNVA) | payer OTHER, SELFPAY | PROVIDERS: PCP Family Medicine | DX: I25.10 Atherosclerotic heart disease of native coronary artery without angina pectoris (principal); I10 Essential (primary) hypertension; E11.9 Type 2 diabetes mellitus without complications; Z79.4 Long term (current) use of insulin; Z98.890 Other specified postprocedural states | CPT/HCPCS: 99212 ==

== ENCOUNTER 2025-02-18 10:32 | Outpatient (AMB) | payer OTHER, SELFPAY ==
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
--- OUTSIDE RECORDS SUMMARY | 2025-02-18 11:33 | XMS_ITS | Encounter Summary ---
Author Organization [employer] Address [address] [facility] 7t [place] [address] Care Team Providers Care Masking Machine Operator Name Role Phone Maria Guadalupe Merida MD Primary Care Provider [phone] Horacio Augustin PharmD Unavailable [phone] Maria Guadalupe Merida MD Primary Care Provider [phone] Reason for Referral * Consultation (Routine) - Authorized Specialty Diagnoses / Procedures Referred By Contkeiry t Referred To Contact Pharmacy Diagnoses Mild intermittent asthma without complication Hypertension, unspecified type Type 2 diabetes mellitus with hyperglycemia, with long-term current use of insulin (CMS/HCC) Maria Guadalupe Merida MD [address] [place] [address] Phone: tel: fax: Referral ID Status Reason Start Date Expiration Date Visits Requested Visits Authorized [id number] Authorized Consult and Treat 06/04/2024 06/04/2025 6 6 Encounter Details Date Type Department Care Team (Late st Contact Info) Description 06/04/2024 Orders Only [facility] [address] [place], [place] [phone] Maria Guadalupe Merida MD [address] [place], [place] [phone] Mild intermittent asthma without complication (Primary Dx); [...] Description 03/03/2025 10:00 AM EDT Office Visit [facility] [address] [place] [phone] Maria Guadalupe Merida MD [address] [place] [phone] 03/27/2025 9:30 AM EDT Medication Management [facility] [address] [place] [phone] Horacio Augustin, PharmD [address] [place] [phone] Scheduled Referrals Name Type Priority Associated Diagnoses [...] hyperglycemia, with long-term current use of insulin (CMS/[facility]) documented in this encounter Care Teams Masking Machine Operator Relationship Specialty Start Date End Date Maria Guadalupe Merida MD [address] [place] [phone] PCP - General Family Medicine 01/22/24 11/07/24 Maria Guadalupe Merida MD [address] [place] [phone] PCP - General Family Medicine 11/20/24 Horacio Augustin PharmD [address] [place] [phone] Pharmacist Internal Medicine 02/14/24 documented as of this encounter
--- OUTSIDE RECORDS SUMMARY | 2025-02-18 11:33 | XMS_ITS | Clinical Summary ---
Author Organization [facility] Address [address] [facility] [address] [place] [phone] Phone Care Team Providers Care Pressurised Container Filler Name Role Phone Pcp, Unknown Primary Care [...] THREE TIMES DAILY 10/29/19 23 Active omega 9-vto-bcl-fish oil (OMEGA-3) 350 mg-235 mg- 90 mg-597 [...] EDT) SODIUM 140 133 - 146 mmol/L [facility] POTASSIUM 4.1 3.3 - 5.1 mmol/L [facility] CHLORIDE 103 96 - 108 mmol/L [facility] CO2 25 21 - 35 mmol/L [facility] BUN 14 6 - 19 mg/dL [facility] CREATININE 0.60 0.5 - 1.5 mg/dL [facility] GLUCOSE 129(H) 70 - 99 mg/dL [facility] ALBUMIN 4.4 3.9 - 4.8 g/dL [facility] TOTAL PROTEIN 7.2 6.5 - 8.0 g/dL [facility] CALCIUM 9.2 8.4 - 10.3 mg/dL [facility] ALKALINE PHOSPHATASE 124(H) 39 - 117 U/L [facility] TOTAL BILIRUBIN 0.7 0.0 - 1.2 mg/dL [facility] AST 24 0 - 37 U/L [facility] ALT 25 0 - 40 U/L [facility] GLOBULIN 2.8 1 - 4.8 g/dL [facility] EGFR 99 >59 mL/min/1.7 3m2 [facility] Comment:Estimated glomerular filtration rate calculated using the CKD-EPI refit equation. ANION GAP 16 10 - 20 mmol/L [facility] Blood 03/13/2023 1:53 PM EDT 03/13/2023 1:58 PM EDT Annie Franz MD LAB BLOOD ORDERABLES Final Result [address] [address] * (ABNORMAL) Hemoglobin A1c (03/13/2023 1:53 PM EDT) HEMOGLOBIN A1C 10.2(H) 4.3 - 5.8 % [facility] Blood 03/13/2023 1:53 PM EDT 03/13/2023 1:59 PM EDT Annie Franz MD LAB BLOOD ORDERABLES Final Result Performing Organization Address City/[facility]/ZIP Co de Phone Number [address] [address] from Last 3 Months or Most Recently Relevant to Health Maintenance Insurance [facility] [place] [phone] Care Teams Pressurised Container Filler Relationship Specialty Start Date End Date Pcp, Unknown PCP - General 08/20/24 Additional Source Comments The information contained in this document represents components of the legal health record. It is not the complete legal health record.[facility]
== END 2025-02-18 11:23 | disposition home or self-care (01) ==
LOC: HO.HSM 10:32
PROVIDERS: PCP Family Medicine; Referring Provider Family Medicine; Visit Provider Registered Nurse
DX: M47.812 Spondylosis without myelopathy or radiculopathy, cervical region (principal); R42 Dizziness and giddiness; H93.19 Tinnitus, unspecified ear; G44.209 Tension-type headache, unspecified, not intractable
CPT/HCPCS: 99214

== ENCOUNTER → 2025-02-18 10:32 | Outpatient (BNVA) | payer OTHER, SELFPAY | PROVIDERS: PCP Family Medicine; Referring Provider Family Medicine; Visit Provider Registered Nurse | DX: M47.812 Spondylosis without myelopathy or radiculopathy, cervical region (principal); R42 Dizziness and giddiness; H93.19 Tinnitus, unspecified ear; G44.209 Tension-type headache, unspecified, not intractable | CPT/HCPCS: 99212 ==

== ENCOUNTER 2025-04-05 08:19 | Outpatient (REF) | payer OTHER, SELFPAY ==
[2025-04-05 08:29] LABS: MANUAL DIFF FLAG NO
[2025-04-05 08:47] LABS: Hematocrit 40.6 % (37.0-47.0); Hemoglobin 13.3 g/dl (12.0-16.0); Imm Gran Abs Auto 0.02 X10*3/uL (0.00-0.03); Imm Gran Pct Auto 0.2 % (0.0-0.4); Lymphocytes Absolute Auto 2.4 X10*3/uL (1.2-4.9); Mean Corpuscular HGB Conc 32.8 g/dl (31.0-35.0); Mean Corpuscular Hemoglobin 27.9 pg (27.0-33.0); Mean Corpuscular Volume 85.3 fL (80.0-98.0); NRBC Abs Auto 0.000 X10*3/uL (0.0-0.012); NRBC Pct Auto 0.0 /100WBC (0.0-0.2); Platelet Count 257 X10*3/uL (160-400); Red Blood Count 4.76 X10*6/uL (4.20-5.50); White Blood Count 8.3 X10*3/uL (4.8-10.8)
[2025-04-05 09:19] LABS: Alanine Aminotransferase 25 U/L (0-31); Albumin Level 4.4 g/dL (3.5-5.0); Alkaline Phosphatase 111 U/L (39-117); Anion Gap 16 (12-20); Aspartate Amino Transferase 24 U/L (5-31); Blood Urea Nitrogen 13 mg/dL (9-16); Calcium 9.2 mg/dL (8.4-10.2); Carbon Dioxide 23 mmol/L (22-29); Chloride 105 mmol/L (96-108); Cholesterol 242 mg/dL (<200); Estimated Glomerular Filt Rate > 60; HDL Cholesterol 48 mg/dL (>40); Potassium 4.6 mmol/L (3.3-5.1); Sodium 139 mmol/L (135-145); Total Protein 7.3 g/dL (6.5-8.0); Triglycerides 212 mg/dL (<150)
== END 2025-04-05 08:20 | disposition home or self-care (01) ==
LOC: HO.LAB 08:19
PROVIDERS: PCP Family Medicine
DX: I25.10 Atherosclerotic heart disease of native coronary artery without angina pectoris (principal); T14.8XXA Other injury of unspecified body region, initial encounter; T45.515A Adverse effect of anticoagulants, initial encounter
CPT/HCPCS: 36415; 80048; 80061; 80076; 85025

== ENCOUNTER 2025-05-20 10:27 | Outpatient (AMB) | payer OTHER, SELFPAY ==
--- NOTE | 2025-05-20 10:38 | A.OFFVIS_ITS ---
Vital Signs 05/20/25 10:44 Height 5 ft Weight 134 lb BMI 26.2 BP 152/78 H Blood Pressure Location Rt brachial Position Sitting Pulse 76 Pulse Source Pulse Oximeter Pulse Oximetry (%) 99 Oxygen Delivery Method Room Air Intake Visit Reasons: Colonoscopy Screening, r/s 02/21/25, 04/01/25 Intake Note: New pt for recall colo q10 years. Last w/ Dr. Ruiz 2014. CC: Pt denies any GI sx or concerns at this time. Superintendent Stations Required: No Accompanied by: Son Allergies metformin (METFORMIN) Allergy (Mild, Verified 05/20/25 10:42) DIARRHEA alprazolam Allergy (Unknown, Verified 05/20/25 10:42) diarrhea egg (EGG) Allergy (Unknown, Verified 05/20/25 10:42) UNKNOWN lactose (LACTOSE) Allergy (Unknown, Verified 05/20/25 10:42) Rash milk (MILK) Adverse Reaction (Unknown, Verified 05/20/25 10:42) DIARRHEA HPI HPI Colonoscopy Screening, r/s 02/21/25, 04/01/25: Details: 70 year old? female with past medical history of tinnitus, PE, CAD, status post cardiac catheterization with RONEN in September of this year, hypertension, diabetes is here today for pre colonoscopy screening.? Patient was sent to us by her PCP.? Last colonoscopy in 2014. Patient reports that she had normal colonoscopy then. Patient had cardiac catheterization in September of this year with RONEN, currently on Brilinta and aspirin. However patient reports to me that she stopped Brilinta about month ago or so as she had hematuria. She has appointment with her paring machine operator tomorrow. Message sent to cardiology about the need for clearance and about patient stopping Brilinta.? Patient denies any gastrointestinal symptoms in the past or at present.? Denies any personal or family history of gastrointestinal disease, colon polyps, or CRC.? Denies history of difficulty with sedation or anesthesia in the past.? Negative for history of sleep apnea.? Denies any history of cardiac, renal, pulmonary, or hepatic disease.?? No history of infectious? diseases like hepatitis A, B, C, HIV or tuberculosis.? [facility] Medical History (Updated 02/18/25 @ 11:09 by Mey Larose CNP) Muscle tension headache Cervical spondylosis Carpal tunnel syndrome GERD (gastroesophageal reflux disease) MCI (mild cognitive impairment) Pseudoaneurysm BECKHAM (dyspnea on exertion) Essential hypertension Diabetes mellitus treated with insulin Surgical History (Updated 05/20/25 @ 10:42 by Orlando Lopez [facility]) History of knee surgery Hx of cardiac cath History of appendectomy Family History Mother Hypertension Hyperlipidemia Atherosclerosis Father No problems noted. Social History Alcohol intake: former Patient Tobacco Use Status: Never used Tobacco Review of Systems Const Denies weight gain and Denies weight loss ENT Reports no additional complaints, Denies dysphagia and Denies odynophagia Card Reports no additional complaints Resp Reports no additional complaints GI Denies abdominal pain, Denies belching, Denies melena, Denies bloating, Denies change in bowel habits, Denies dysphagia, Denies excessive flatus, Denies dyspepsia, Denies heartburn, Denies diarrhea, Denies loose stools, Denies nausea, Denies odynophagia and Denies vomiting Musc Reports no additional complaints Neuro Reports no additional complaints Psych Reports no additional complaints Endo Reports no additional complaints Physical Exam Vital Signs: BMI result Body Mass Index 26.2 Const General: healthy appearing, no acute distress and well developed Nutritional Appearance: well nourished Orientation/consciousness: patient oriented x3 Resp Effort & Inspection: normal respiratory effort, able to speak in complete sentences, no tracheal deviation and symmetric chest movement Auscultation: clear to auscultation bilaterally Cardio Rate: regular rate GI Inspection: Yes normal to inspection and No distended Palpation (GI): Soft to palpation, not firm, nontender and No hepatosplenomegaly present Auscultation: normal bowel sounds General: Yes no CVA tenderness Back/Spine/Pelvis Back: no CVA tenderness Skin General skin exam: elasticity normal, turgor normal and dry skin Neuro General: patient oriented x3 Psych Appearance: grossly normal Mental Status: mental status grossly normal Assessment & Plan Assessment & Plan (1) Screen for colon cancer: Code(s): Z12.11 - Encounter for screening for malignant neoplasm of colon Plan Patient denies any GI, cardiac or respiratory symptoms.? Denies any issues with anesthesia in the past.? Denies any history of sleep apnea.? No history infectious diseases in the past or present.? Patient should be on Brilinta, however she stopped it month ago. Message sent to cardiology asking for yue resendiz and telling them about patient stopping medications. Patient was encouraged to restart the medication.? No family or personal history of colon cancer or polyps.? Patient denies melena, hematochezia, unintentional weight loss or ribbon like stools.? Discussed at length the pre-procedure,? prep, diet & medications as well as what to expect prior, during and after the procedure.?? Stressed the importance of good bowel prep.? Recommended the use of Vaseline or Calmoseptine OTC & baby wipes with bowel movements to promote comfort.? ?Patient verbalizes understanding and agrees to plan of care.? She was given the opportunity to ask questions and all questions answered.? We will see her after the procedure.? Orders: Referrals GI Procedure Notification Z12.11 - Encounter for screening for malignant neoplasm of colon Medications: New polyethylene glycol 3350 (Miralax) As directed by gastroenterology department at [facility] 238 grams PO ONCE 238 grams 0RF Z12.11 - Encounter for screening for malignant neoplasm of colon bisacodyl (Dulcolax (bisacodyl)) take 4 tabs at noon the day before your colonoscopy 20 mg (4 x 5 mg) PO ONCE 4 tabs 0RF constipation 1 day Z12.11 - Encounter for screening for malignant neoplasm of colon Coding Level of Care Code New Pt Level 3 (41957) Diagnoses Screen for colon cancer Z12.11 Time Spent (min) 40 Comment 30 minutes spent with patient and additional 10 minutes spent reviewing her records
[2025-05-20 10:44] VITALS: BP 152/78; PULSE 76; O2SAT 99; BMI 26.2
--- OUTSIDE RECORDS SUMMARY | 2025-05-20 12:56 | XMS_ITS | Clinical Summary ---
Author Organization [facility] Address [address] [facility] [address] [place] [phone] Phone Care Team Providers Care Urban Planning Teacher Name Role Phone Pcp, Unknown Primary Care [...] THREE TIMES DAILY 10/29/19 23 Active omega 0-pno-syi-fish oil (OMEGA-3) 350 mg-235 mg- 90 mg-597 [...] FOBT 2002 SIGMOIDOSCOPY 2002 VIRTUAL COLONOSCOPY 2002 RSV VACCINE (1 - Risk 50-74 years 1-dose series) 2007 ZOSTER VACCINES (1 of 2) 2007 OSTEOPOROSIS SCREENING INITI AL (ONE-TIME) 2022 DIABETIC EYE EXAM 12/16/2022 HEMOGLOBIN A1C 06/13/2023 03/13/2023, 12/13/2022 BLOOD PRESSURE 09/15/2023 03/15/2023 DEPRESSION SCREENING 12/14/2023 12/13/2022 CREATININE LEVEL 03/13/2024 03/13/2023, 09/07/2022 POTASSIUM LEVEL 03/13/2024 03/13/2023, 09/07/2022 INFLUENZA VACCINE (#1) 2025 COVID-19 VACCINE ( - 2024-2 6 season) 2025 Adult Td,Tdap Booster 05/27/2031 05/27/2021 , 11/20/2015 [...] EDT) SODIUM 140 133 - 146 mmol/L [facility] POTASSIUM 4.1 3.3 - 5.1 mmol/L [facility] CHLORIDE 103 96 - 108 mmol/L [facility] CO2 25 21 - 35 mmol/L [facility] BUN 14 6 - 19 mg/dL [facility] CREATININE 0.60 0.5 - 1.5 mg/dL [facility] GLUCOSE 129(H) 70 - 99 mg/dL [facility] ALBUMIN 4.4 3.9 - 4.8 g/dL [facility] TOTAL PROTEIN 7.2 6.5 - 8.0 g/dL [facility] CALCIUM 9.2 8.4 - 10.3 mg/dL [facility] ALKALINE PHOSPHATASE 124(H) 39 - 117 U/L [facility] TOTAL BILIRUBIN 0.7 0.0 - 1.2 mg/dL [facility] AST 24 0 - 37 U/L [facility] ALT 25 0 - 40 U/L [facility] GLOBULIN 2.8 1 - 4.8 g/dL [facility] EGFR 99 >59 mL/min/1.7 3m2 [facility] Comment:Estimated glomerular filtration rate calculated using the CKD-EPI refit equation. ANION GAP 16 10 - 20 mmol/L [facility] Blood 03/13/2023 1:53 PM EDT 03/13/2023 1:58 PM EDT Annie Franz MD LAB BLOOD ORDERABLES Final Result [address] [address] * (ABNORMAL) Hemoglobin A1c (03/13/2023 1:53 PM EDT) HEMOGLOBIN A1C 10.2(H) 4.3 - 5.8 % [facility] Blood 03/13/2023 1:53 PM EDT 03/13/2023 1:59 PM EDT Annie Franz MD LAB BLOOD ORDERABLES Final Result Performing Organization Address City/[facility]/ZIP Co de Phone Number [address] [address] from Last 3 Months or Most Recently Relevant to Health Maintenance Insurance [facility] MEDICARE REPLACEMENT Care Teams Urban Planning Teacher Relationship Specialty Start Date End Date Pcp, Unknown PCP - General 1/28/25 Additional Source Comments The information contained in this document represents components of the legal health record. It is not the complete legal health record.[facility]
--- OUTSIDE RECORDS SUMMARY | 2025-05-20 12:56 | XMS_ITS | Encounter Summary ---
Author Organization [employer] Address [address] [place] [address] Care Team Providers Care Technical Assoc Name Role Phone Horacio Augustin PharmD Unavailable [phone] Maria Guadalupe Merida MD Primary Care Provider [phone] Encounter Details Date Type Department Care Team (Late st Contact Info) Description 02/21/2025 Orders Only [facility] MED & PEDS [address] [place], [place] [phone] ProviderPapo MD Social History Tobacco Use Types Packs/Day [...] Care Team (Late st Contact Info) Description 06/03/2025 1:00 PM EST Office Visit [facility] MEDICINE [address] [place] [address] Maria Guadalupe Merida MD [address] [place] [address] documented as of this encounter Goals Goal Patient Goal Type Associated Problems Recent Progress Patient-Stated? Author Blood Pressure < 140/90 Blood Pressure 140/70(2024 9:40 AM EDT) No Horacio Augustin PharmD Hemoglobin A1c < 7 Result Component 8.6( 10:13 AM EDT) No Horacio Augustin PharmD documented as of this encounter Procedures Procedure Name Priority Date/Time Associated Diagnosis Comments DIABETES EYE EXAM Routine 02/21/2025 4:10 PM EDT documented in this encounter Results * Diabetes Eye Exam (02/21/2025 4:10 PM EDT) Historical Provider HEALTH MAINTENANCE Final Result documented in this encounter Visit Diagnoses Not on filedocumented in this encounter Additional Health Concerns Assessment Noted Time PHQ-9 Depression Total Score: 5 07/11/20 24 10:03 AM EST documented as of this encounter Care Teams Technical Assoc Relationship Specialty Start Date End Date Maria Guadalupe Merida MD [address] [place] [address] PCP - General Family Medicine 11/20/24 Horacio Augustin, AmyD [address] [place] [phone] Pharmacist Internal Medicine 02/14/24 03/26/25 documented as of this encounter
--- OUTSIDE RECORDS SUMMARY | 2025-05-20 12:57 | XMS_ITS | Encounter Summary ---
Author Organization [employer] Address [address] [facility] [address] [place] [address] Care Team Providers Care Resource Specialist Name Role Phone Maria Guadalupe Merida MD Primary Care Provider [phone] Reason for Visit * Reason Comments Med Change Request Encounter Details Date Type Department Care Team ([facility] st Contact Info) Description 04/18/2025 Refill [facility] MEDICINE [address] [place], [place] [phone] Horacio Augustin, PharmD [address] [place], [place] [phone] Type 2 diabetes mellitus with hyperglycemia, with long-term current use of insulin ([facility]) Social History Tobacco Use Types Packs/Day Years [...] your housing situation today? I have [employer] 01/11/[address] you li [...] Access Q2 Not on file 03/22/2024 Comments No Sex and Gender Information Value Date Recorded Sex Assigned at Female 05/23/2022 10:21 AM EDT Legal Sex Female 10:21 AM EDT Gender Identity Female 05/23/2022 10:21 AM EDT Sexual Orientation Don't know 05/23/2022 10 :21 AM EDT documented as of this encounter Plan of Treatment Upcoming Encounters Date Type Department Care Team (Late st Contact Info) Description 06/03/2025 1:00 PM EST Office Visit [facility] MEDICINE [address] [place] [address] Maria Guadalupe Merida MD [address] [place] [address] documented as of this encounter Goals Goal Patient Goal Type Associated Problems Recent Progress Patient-Stated? Author Blood Pressure < 140/90 Blood Pressure 140/70(2024 9:40 AM EDT) No Horacio Augustin PharmD Hemoglobin A1c < 7 Result Component 8.6( 10:13 AM EDT) No Horacio Augustin PharmD documented as of this encounter Visit Diagnoses Diagnosis Type 2 diabetes mellitus with hyperglycemia, with long-term current use of insulin (HCC) documented in this encounter Additional Health Concerns Assessment Noted Time PHQ-9 Depression Total Score: 5 07/11/20 24 10:03 AM EST documented as of this encounter Care Teams Resource Specialist Relationship Specialty Start Date End Date Maria Guadalupe Merida MD [address] [place] [address] PCP - General Family Medicine 11/20/24 documented as of this encounter
--- OUTSIDE RECORDS SUMMARY | 2025-05-20 12:57 | XMS_ITS | Encounter Summary ---
Author Organization [employer] Address [address] [facility] [address] [place] [address] Care Team Providers Care Set Making Machine Operator Name Role Phone Maria Guadalupe Merida MD Primary Care Provider [phone] Horacio Augustin PharmD Unavailable [phone] Maria Guadalupe Merida MD Primary Care Provider [phone] Reason for Referral * Consultation (Routine) - Authorized Specialty Diagnoses / Procedures Referred By Contkeiry t Referred To Contact Pharmacy Diagnoses Mild intermittent asthma without complication Hypertension, unspecified type Type 2 diabetes mellitus with hyperglycemia, with long-term current use of insulin ([facility]) Maria Guadalupe Merida MD [address] [place] [address] Phone: tel: fax: Referral ID Status Reason Start Date Expiration Date Visits Requested Visits Authorized [id number] Authorized Consult and Treat 06/04/2024 06/04/2025 6 6 Encounter Details Date Type Department Care Team (Late st Contact Info) Description 06/04/2024 Orders Only [facility] MEDICINE [address] [place], [place] [phone] Maria Guadalupe Merida MD [address] [place], [place] [phone] Mild intermittent asthma without complication (Primary Dx); Hypertension, unspecified type; Type 2 diabetes mellitus with hyperglycemia, with long-term current use of insulin ([facility]) Social History Tobacco Use Types Packs/Day [...] Description 06/03/2025 1:00 PM EST Office Visit [facility] [address] [place] [address] Maria Guadalupe Merida MD [address] [place] [address] Scheduled Referrals Name Type Priority Associated Diagnoses Orde r Schedule Referral to Pharmacy CDTM Outpatient Referral Routine Mild intermittent asthma without complication Hypertension, unspecified type Type 2 diabetes mellitus with hyperglycemia, with long-term current use of insulin ([facility]) Ordered: 06/04/2024 documented as of this encounter [...] of insulin (HCC) documented in this encounter Care Teams Set Making Machine Operator Relationship Specialty Start Date End Date Maria Guadalupe Merida MD [address] [place] [address] PCP - General Family Medicine 01/22/24 11/07/24 Maria Guadalupe Merida MD [address] [place] [address] PCP - General Family Medicine 11/20/24 Horacio Augustin PharmD [address] [place] [address] Pharmacist Internal Medicine 02/14/24 03/26/25 documented as of this encounter
--- OUTSIDE RECORDS SUMMARY | 2025-05-20 12:57 | XMS_ITS | Clinical Summary ---
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 [address] [place] [id number] Care Teams Shelf Filler Relationship Specialty Start Date End Date Maria Guadalupe Merida MD [address] [place] [phone] PCP - General Family Medicine 11/20/24
== END 2025-05-20 11:25 | disposition home or self-care (01) ==
LOC: HO.HGI 10:27
PROVIDERS: PCP Family Medicine; Visit Provider Nurse Practitioner Family
DX: Z01.818 Encounter for other preprocedural examination (principal); Z12.11 Encounter for screening for malignant neoplasm of colon
CPT/HCPCS: 99024

== ENCOUNTER → 2025-05-20 10:27 | Outpatient (BNVA) | payer OTHER, SELFPAY | PROVIDERS: PCP Family Medicine; Visit Provider Nurse Practitioner Family | DX: Z12.11 Encounter for screening for malignant neoplasm of colon (principal) | CPT/HCPCS: 99212 ==

== ENCOUNTER 2025-05-21 13:26 | Outpatient (AMB) | payer OTHER, SELFPAY ==
[2025-05-21 13:55] VITALS: BP 128/70; PULSE 72; BMI 26.7
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
--- OUTSIDE RECORDS SUMMARY | 2025-05-21 17:11 | XMS_ITS | Encounter Summary ---
Author Organization [employer] Address [address] [facility] 7t [place] [address] Care Team Providers Care Customer Sales Representative Name Role Phone Horacio Augustin PharmD Unavailable [phone] Maria Guadalupe Merida MD Primary Care Provider [phone] Encounter Details Date Type Department Care Team (Late st Contact Info) Description 02/21/2025 Orders Only [facility] [address] [place], [place] [phone] ProviderPapo MD Social History Tobacco Use Types [...] Description 06/03/2025 1:00 PM EST Office Visit [facility] [address] [place] [address] Maria Guadalupe Merida MD [address] [place] [address] documented as of this encounter Goals Goal [...] documented as of this encounter Care Teams Customer Sales Representative Relationship Specialty Start Date End Date Maria Guadalupe Merida MD [address] [place] [address] PCP - General Family Medicine 11/20/24 Horacio Augustin, AmyD [address] [place] [phone] Pharmacist Internal Medicine 02/14/24 03/26/25 documented as of this encounter
--- OUTSIDE RECORDS SUMMARY | 2025-05-21 17:13 | XMS_ITS | Clinical Summary ---
Author Organization [facility] Address [address] [facility] [address] [place] [phone] Phone Care Team Providers Care Carbon Sequestration Plant Engineer Name Role Phone Pcp, Unknown Primary Care [...] THREE TIMES DAILY 10/29/19 23 Active omega 7-kvi-yop-fish oil (OMEGA-3) 350 mg-235 mg- 90 mg-597 [...] EDT) SODIUM 140 133 - 146 mmol/L [facility] POTASSIUM 4.1 3.3 - 5.1 mmol/L [facility] CHLORIDE 103 96 - 108 mmol/L [facility] CO2 25 21 - 35 mmol/L [facility] BUN 14 6 - 19 mg/dL [facility] CREATININE 0.60 0.5 - 1.5 mg/dL [facility] GLUCOSE 129(H) 70 - 99 mg/dL [facility] ALBUMIN 4.4 3.9 - 4.8 g/dL [facility] TOTAL PROTEIN 7.2 6.5 - 8.0 g/dL [facility] CALCIUM 9.2 8.4 - 10.3 mg/dL [facility] ALKALINE PHOSPHATASE 124(H) 39 - 117 U/L [facility] TOTAL BILIRUBIN 0.7 0.0 - 1.2 mg/dL [facility] AST 24 0 - 37 U/L [facility] ALT 25 0 - 40 U/L [facility] GLOBULIN 2.8 1 - 4.8 g/dL [facility] EGFR 99 >59 mL/min/1.7 3m2 [facility] Comment:Estimated glomerular filtration rate calculated using the CKD-EPI refit equation. ANION GAP 16 10 - 20 mmol/L [facility] Blood 03/13/2023 1:53 PM EDT 03/13/2023 1:58 PM EDT Annie Franz MD LAB BLOOD ORDERABLES Final Result [address] [address] * (ABNORMAL) Hemoglobin A1c (03/13/2023 1:53 PM EDT) HEMOGLOBIN A1C 10.2(H) 4.3 - 5.8 % [facility] Blood 03/13/2023 1:53 PM EDT 03/13/2023 1:59 PM EDT Annie Franz MD LAB BLOOD ORDERABLES Final Result Performing Organization Address City/[facility]/ZIP Co de Phone Number [address] [phone] from Last 3 Months or Most Recently Relevant to Health Maintenance Insurance [facility] MEDICARE REPLACEMENT Care Teams Carbon Sequestration Plant Engineer Relationship Specialty Start Date End Date Pcp, Unknown PCP - General 1/28/25 Additional Source Comments The information contained in this document represents components of the legal health record. It is not the complete legal health record.[facility]
--- OUTSIDE RECORDS SUMMARY | 2025-05-21 17:13 | XMS_ITS | Encounter Summary ---
Author Organization [employer] Address [address] [facility] 7t [place] [address] Care Team Providers Care Marine Scientist Name Role Phone Maria Guadalupe Merida MD Primary Care Provider [phone] Reason for Visit * Reason Comments Med Change Request Encounter Details Date Type Department Care Team ([facility] st Contact Info) Description 04/18/2025 Refill [facility] [address] [place], [place] [phone] Horacio Augustin, PharmD [address] [place], [place] [phone] Type 2 diabetes mellitus with hyperglycemia, with long-term current use of insulin ([facility]) Social History Tobacco Use Types Packs/Day Years [...] Description 06/03/2025 1:00 PM EST Office Visit [facility] [address] [place] [address] Maria Guadalupe Merida MD [address] [place] [address] documented as of this encounter Goals Goal [...] documented as of this encounter Care Teams Marine Scientist Relationship Specialty Start Date End Date Maria Guadalupe Merida MD [address] [place] [address] PCP - General Family Medicine 11/20/24 documented as of this encounter
--- OUTSIDE RECORDS SUMMARY | 2025-05-21 17:13 | XMS_ITS | Encounter Summary ---
Author Organization [employer] Address [address] [facility] 7[address] [place] [address] Care Team Providers Care Numerical Control Lathe Operator Name Role Phone Maria Guadalupe Merida MD Primary Care Provider [phone] Horacio Augustin PharmD Unavailable [phone] Maria Guadalupe Merida MD Primary Care Provider Reason for Referral * Consultation (Routine) - Authorized Specialty Diagnoses / Procedures Referred By Contkeiry t Referred To Contact Pharmacy Diagnoses Mild intermittent asthma without complication Hypertension, unspecified type Type 2 diabetes mellitus with hyperglycemia, with long-term current use of insulin ([facility]) Maria Guadalupe Merida MD [address] [place] [address] Phone: tel: fax: Referral ID Status Reason Start Date Expiration Date Visits Requested Visits Authorized [id number] Authorized Consult and Treat 06/04/2024 06/04/2025 6 6 Encounter Details Date Type Department Care Team (Late st Contact Info) Description 06/04/2024 Orders Only [facility] [address] [place], [place] [phone] Maria Guadalupe Merida MD [address] [place], [place] [phone] Mild intermittent asthma without complication (Primary Dx); Hypertension, unspecified type; Type 2 diabetes mellitus with hyperglycemia, with long-term current use of insulin ([facility]) Social History Tobacco Use Types Packs/Day Years [...] Description 06/03/2025 1:00 PM EST Office Visit [facility] [address] [place] [address] Maria Guadalupe Merida MD [address] [place] [address] Scheduled Referrals Name Type Priority Associated Diagnoses Orde r Schedule Referral to Pharmacy CDTM Outpatient Referral Routine Mild intermittent asthma without complication Hypertension, unspecified type Type 2 diabetes mellitus with hyperglycemia, with long-term current use of insulin ([facility]) Ordered: 06/04/2024 documented as of this encounter [...] (HCC) documented in this encounter Care Teams Numerical Control Lathe Operator Relationship Specialty Start Date End Date Maria Guadalupe Merida MD [address] [place] [address] PCP - General Family Medicine 01/22/24 11/07/24 Maria Guadalupe Merida MD [address] [place] [address] PCP - General Family Medicine 11/20/24 Horacio Augustin PharmD [address] [place] [address] Pharmacist Internal Medicine 02/14/24 03/26/25 documented as of this encounter
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
== END 2025-05-21 14:36 | disposition home or self-care (01) ==
LOC: HO.HCS 13:27
PROVIDERS: PCP Family Medicine
DX: I25.10 Atherosclerotic heart disease of native coronary artery without angina pectoris (principal); Z98.890 Other specified postprocedural states; I10 Essential (primary) hypertension; E11.9 Type 2 diabetes mellitus without complications; Z79.4 Long term (current) use of insulin
CPT/HCPCS: 99214; G2211

== ENCOUNTER → 2025-05-21 13:26 | Outpatient (BNVA) | payer OTHER, SELFPAY | PROVIDERS: PCP Family Medicine | DX: I25.10 Atherosclerotic heart disease of native coronary artery without angina pectoris (principal); I10 Essential (primary) hypertension; E11.9 Type 2 diabetes mellitus without complications; Z98.890 Other specified postprocedural states; Z79.4 Long term (current) use of insulin | CPT/HCPCS: 99212 ==

== ENCOUNTER 2025-05-23 09:25 | Outpatient (REF) | payer OTHER, SELFPAY ==
[2025-05-23 10:03] LABS: Hematocrit 41.6 % (37.0-47.0); Hemoglobin 13.6 g/dl (12.0-16.0); Mean Corpuscular HGB Conc 32.7 g/dl (31.0-35.0); Mean Corpuscular Hemoglobin 27.6 pg (27.0-33.0); Mean Corpuscular Volume 84.6 fL (80.0-98.0); NRBC Abs Auto 0.000 X10*3/uL (0.0-0.012); NRBC Pct Auto 0.0 /100WBC (0.0-0.2); Platelet Count 305 X10*3/uL (160-400); Red Blood Count 4.92 X10*6/uL (4.20-5.50); White Blood Count 7.4 X10*3/uL (4.8-10.8)
[2025-05-23 10:22] LABS: Appearance Urine Clear; Glucose Urine UA Negative (Negative); PH 5.5 (5.0-9.0); Specific Gravity - Urine 1.020 (1.005-1.025); UMIC TRIGGER UA YES
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
--- OUTSIDE RECORDS SUMMARY | 2025-05-23 10:26 | XMS_ITS | Encounter Summary ---
Author Organization [employer] Address [address] [facility] [address]t [place] [address] Care Team Providers Care Lumber Grader Name Role Phone Horacio Augustin PharmD Unavailable [phone] Maria Guadalupe Merida MD Primary Care Provider [phone] Encounter Details Date Type Department Care Team (Late st Contact Info) Description 02/21/2025 Orders Only [facility]S [address] [place], [place] [phone] ProviderPapo MD Social History Tobacco Use Types [...] Description 06/03/2025 1:00 PM EST Office Visit [facility] MEDICINE [address] [place] [phone] Maria Guadalupe Merida MD [address] [place] [address] documented as of this encounter Goals Goal [...] documented as of this encounter Care Teams Lumber Grader Relationship Specialty Start Date End Date Maria Guadalupe Merida MD [address] [place] [address] PCP - General Family Medicine 11/20/24 Horacio Augustin, AmyD [address] [place] [phone] Pharmacist Internal Medicine 02/14/24 03/26/25 documented as of this encounter
--- OUTSIDE RECORDS SUMMARY | 2025-05-23 10:26 | XMS_ITS | Encounter Summary ---
Author Organization [employer] Address [address] [facility] 7t [place] [address] Care Team Providers Care Radiology Physician Name Role Phone Maria Guadalupe Merida MD Primary Care Provider [phone] Reason for Visit * Reason Comments Med Change Request Encounter Details Date Type Department Care Team ([facility] st Contact Info) Description 04/18/2025 Refill [facility] [address] [place], [place] [phone] Horacio Augustin, PharmD [address] [place], [place] [phone] Type 2 diabetes mellitus with hyperglycemia, with long-term current use of insulin ([facility]) Social History Tobacco Use Types Packs/Day Years [...] Description 06/03/2025 1:00 PM EST Office Visit [facility] [address] [place] [address] Maria Guadalupe Merida MD [address] [place] [address] documented as of this encounter Goals Goal [...] documented as of this encounter Care Teams Radiology Physician Relationship Specialty Start Date End Date Maria Guadalupe Merida MD [address] [place] [address] PCP - General Family Medicine 11/20/24 documented as of this encounter
--- OUTSIDE RECORDS SUMMARY | 2025-05-23 10:26 | XMS_ITS | Clinical Summary ---
Author Organization [facility] Address [address] [facility] [address] [place] [phone] Phone Care Team Providers Care Juvenile Court Liaison Name Role Phone Pcp, Unknown Primary Care [...] THREE TIMES DAILY 10/29/19 23 Active omega 3-glp-tni-fish oil (OMEGA-3) 350 mg-235 mg- 90 mg-597 [...] EDT) SODIUM 140 133 - 146 mmol/L [facility] POTASSIUM 4.1 3.3 - 5.1 mmol/L [facility] CHLORIDE 103 96 - 108 mmol/L [facility] CO2 25 21 - 35 mmol/L [facility] BUN 14 6 - 19 mg/dL [facility] CREATININE 0.60 0.5 - 1.5 mg/dL [facility] GLUCOSE 129(H) 70 - 99 mg/dL [facility] ALBUMIN 4.4 3.9 - 4.8 g/dL [facility] TOTAL PROTEIN 7.2 6.5 - 8.0 g/dL [facility] CALCIUM 9.2 8.4 - 10.3 mg/dL [facility] ALKALINE PHOSPHATASE 124(H) 39 - 117 U/L [facility] TOTAL BILIRUBIN 0.7 0.0 - 1.2 mg/dL [facility] AST 24 0 - 37 U/L [facility] ALT 25 0 - 40 U/L [facility] GLOBULIN 2.8 1 - 4.8 g/dL [facility] EGFR 99 >59 mL/min/1.7 3m2 [facility] Comment:Estimated glomerular filtration rate calculated using the CKD-EPI refit equation. ANION GAP 16 10 - 20 mmol/L [facility] Blood 03/13/2023 1:53 PM EDT 03/13/2023 1:58 PM EDT Annie Franz MD LAB BLOOD ORDERABLES Final Result [address] [phone] * (ABNORMAL) Hemoglobin A1c (03/13/2023 1:53 PM EDT) HEMOGLOBIN A1C 10.2(H) 4.3 - 5.8 % [facility] Blood 03/13/2023 1:53 PM EDT 03/13/2023 1:59 PM EDT Annie Franz MD LAB BLOOD ORDERABLES Final Result Performing Organization Address City/[facility]/ZIP Co de Phone Number [address] [phone] from Last 3 Months or Most Recently Relevant to Health Maintenance Insurance [facility] MEDICARE REPLACEMENT Care Teams Juvenile Court Liaison Relationship Specialty Start Date End Date Pcp, Unknown PCP - General 1/28/25 Additional Source Comments The information contained in this document represents components of the legal health record. It is not the complete legal health record.[facility]
--- OUTSIDE RECORDS SUMMARY | 2025-05-23 10:26 | XMS_ITS | Encounter Summary ---
Author Organization [employer] Address [address] [place] [address] Care Team Providers Care Custodial Foreman Name Role Phone Maria Guadalupe Merida MD Primary Care Provider [phone] Horacio Augustin PharmD Unavailable [phone] Maria Guadalupe Merida MD Primary Care Provider [phone] Reason for Referral * Consultation (Routine) - Authorized Specialty Diagnoses / Procedures Referred By Contkeiry t Referred To Contact Pharmacy Diagnoses Mild intermittent asthma without complication Hypertension, unspecified type Type 2 diabetes mellitus with hyperglycemia, with long-term current use of insulin ([facility]) Maria Guadalupe Merida MD [address] [place] [address] Phone: tel: fax: Referral ID Status Reason Start Date Expiration Date Visits Requested Visits Authorized [id number] Authorized Consult and Treat 06/04/2024 06/04/2025 6 6 Encounter Details Date Type Department Care Team (Late st Contact Info) Description 06/04/2024 Orders Only [facility] [address] [place], [place] [phone] Maria Guadalupe Merida MD [address] [place], [place] [phone] Mild intermittent asthma without complication (Primary Dx); Hypertension, unspecified type; Type 2 diabetes mellitus with hyperglycemia, with long-term current use of insulin ([facility]) Social History Tobacco Use Types [...] 1:00 PM EST Office Visit [facility] [address] [place] [address] Maria Guadalupe Merida MD [address] [place] [address] Scheduled Referrals Name Type Priority Associated Diagnoses Orde r Schedule Referral to Pharmacy CDTM Outpatient Referral Routine Mild intermittent asthma without complication Hypertension, unspecified type Type 2 diabetes mellitus with hyperglycemia, with long-term current use of insulin ([facility]) Ordered: 06/04/2024 documented as of [...] (HCC) documented in this encounter Care Teams Custodial Foreman Relationship Specialty Start Date End Date Maria Guadalupe Merida MD [address] [place] [address] PCP - General Family Medicine 01/22/24 11/07/24 Maria Guadalupe Merida MD [address] [place] [address] PCP - General Family Medicine 11/20/24 Horacio Augustin PharmD [address] [place], [place] Pharmacist Internal Medicine 02/14/24 03/26/25 documented as of this encounter
--- OUTSIDE RECORDS SUMMARY | 2025-05-23 10:26 | XMS_ITS | Encounter Summary ---
Author Organization [employer] Address [address] [place] [address] Care Team Providers Care Corporate Paralegal Name Role Phone Maria Guadalupe Merida MD Primary Care Provider [phone] Encounter Details Date Type Department Care Team (Late st Contact Info) Description 05/23/2025 Orders Only GENERIC EXTERNAL DATA [...] t he electric, gas, oil or water centrose threatened to shut off services in your [...] Description 06/03/2025 1:00 PM EST Office Visit [facility] [address] [place], [place] [phone] Maria Guadalupe Merida MD [address] [place], [place] [phone] Pending Results Name Type Priority Associated Diagnoses Date /Time Urinalysis Complete Lab Routine 05/23 9:33 AM EDT documented as of this encounter Goals Goal Patient Goal Type Associated Problems Recent Progress Patient-Stated? Author Blood Pressure < 140/90 Blood Pressure 140/70(2024 9:40 AM EDT) No Horacio Augustin, PharmShana Hemoglobin A1c < 7 Result Component 8.6( 10:13 AM EDT) No Horacio Augustin PharmD documented as of this encounter Procedures Procedure Name Priority Date/Time Associated Diagnosis Comments CBC Routine 05/23/2025 9:43 AM EDT URINALYSIS, COMPLETE Routine 05/23/2025 9:33 AM EDT documented in this encounter Results * CBC (05/23/2025 9:43 AM EDT) White Blood Count 7.4 4.8 - 10.8 X10*3/uL [facility] Red Blood Count 4.92 4.20 - 5.50 X10*6/uL [facility] Hemoglobin 13.6 12.0 - 16.0 g/dl [facility] Hematocrit 41.6 37.0 - 47.0 % [facility] Mean Corpuscular Volume 84.6 80.0 - 98.0 fL [facility] Mean Corpuscular Hemoglobin 27.6 27.0 - 33.0 pg [facility] Mean Corpuscular HGB Conc 32.7 31.0 - 35.0 g/dl [facility] Red Cell Distribution Width 12.6 11.0 - 16.0 % [facility] Platelet Count 305 160 - 400 X10*3/uL [facility] Mean Platelet Volume 10.7 9.4 - 12.3 fL [facility] NRBC Pct Auto 0.0 0.0 - 0.2 /100WBC [facility] NRBC Abs Auto 0.000 0.0 - 0.012 X10*3/uL [facility] 05/23/2025 9:43 AM EDT 05/23/2025 9:43 AM EDT us Generic External Data Provider LAB BLOOD ORDERAB LES Final Result Performing Organization Address City/State/[facility] Co de Phone Number [facility] [address] [place] [address] [phone] documented in this encounter Visit Diagnoses Not on filedocumented in this encounter Additional Health Concerns Assessment Noted Time PHQ-9 Depression Total Score: 5 07/11/20 24 10:03 AM EST documented as of this encounter Care Teams Corporate Paralegal Relationship Specialty Start Date End Date Maria Guadalupe Merida MD [address] [place] [phone] PCP - General Family Medicine 11/20/24 documented as of this encounter
[2025-05-23 11:02] LABS: Cholesterol 253 mg/dL (<200); HDL Cholesterol 44 mg/dL (>40); Triglycerides 416 mg/dL (<150)
== END 2025-05-23 09:26 | disposition home or self-care (01) ==
LOC: HO.LAB 09:25
PROVIDERS: PCP Family Medicine
DX: I25.10 Atherosclerotic heart disease of native coronary artery without angina pectoris (principal); R31.9 Hematuria, unspecified
CPT/HCPCS: 36415; 80061; 81001; 85027